=== PATIENT | female | born 1950 | race Caucasian/White ===

== ENCOUNTER 2022-09-16 08:18 | Day surgery (SDC) | payer MEDICARE, SELFPAY ==
[2022-09-16 08:48] VITALS: BP 148/81; PULSE 90; RESP 16; TEMP 36.5; O2SAT 97
[2022-09-16] MEDS: IOHEXOL 240 MG/ML - 10 ML VIAL INJ (09:38)
[2022-09-16] MEDS: LIDOCAINE HCL 2% PF 100 MG/5 ML VIAL 10 ML INJ (09:38)
[2022-09-16 09:40] VITALS: BP 172/75; BP 175/74; PULSE 84; PULSE 88; RESP 20; O2SAT 97
--- NOTE | 2022-09-16 10:22 | W.PM.PROCNOT ---
Date of procedure: 09/16/22 Pre-op diagnosis: bilateral knee osteoarthritis Post-op diagnosis: same Procedure: Procedure: Bilateral knee joint injection using gel-one. Pre & postoperative diagnosis: pain secondary to osteoarthritis Immediate complications none. Anesthesia: 2% lidocaine plain for skin wheal. After informed consent was obtained, patient brought to the OR placed in the supine position. Skin overlying the area was prepped and draped using Betadine. 25-gauge 1/2 inch needle was used for skin wheal over the medial aspect of the bilateral knee joint identified under fluoroscopy. Omnipaque dye was used to confirm needle tip placement within the knee joint spaces 0.5 mL use of the injection. Subsequently gel-one was injected into each space. No indication of intravascular or intraneuronal needle tip placement or injection was noted post procedure. The needle was removed, patient transferred to Recovery room in stable condition to discharged home after meeting criteria. Anesthesia: Local Surgeon: Vero Morin
== END 2022-09-16 09:44 | disposition home or self-care (01) ==
LOC: SURGOUT 08:19
PROVIDERS: PCP Family Medicine; Visit Provider Anesthesiology Pain Medicine
DX: M17.0 Bilateral primary osteoarthritis of knee (principal)
CPT/HCPCS: 20610; 77002; J7318; J7326; Q9966

== ENCOUNTER 2022-10-02 09:54 | Outpatient (OUT) | payer MEDICARE, SELFPAY ==
--- NOTE | 2022-10-02 10:34 | PM.CN ---
Consult Note: HPI Data of Consult Patient: known to practice within the last 3 years Consult date: 10/02/22 Requesting Physician: ANA PHIPPS NP Primary Care Provider: FABRIZIO HASKINS Consult Narrative Narrative: Patient is here for f/u of bilat durolane injection done on 09/16/22. She 50% relief of pain with increased fx after procedure. Pain is in both knees worse with climbing stairs. She does have muscle cramping bilat lower extremities. We discussed drinking electrolyte solutions and trying baclofen as prescribed. No new sensorimotor sx or bowel or bladder issues. No adverse medication SE. Medications assist patient with better ability to perform ADLs. cc:: CC: ANA PHIPPS NP Review of Systems ROS Status of ROS 10 or more systems reviewed and unremarkable except as noted in history and below Musculoskeletal Reports: extremity pain and joint pain PFSH PFSH Medical History (Updated 10/02/22 @ 10:45 by ANA PHIPPS NP) Surgical History Meds Home Medications and Allergies Home Medications Medication Instructions Recorded Confirmed Type acetaminophen 500 mg capsule 1,000 mg PO Q6H PRN pain 09/05/22 09/16/22 History baclofen 10 mg tablet 10 mg PO BID PRN muscle spasm 09/05/22 09/16/22 History celecoxib 100 mg capsule (Celebrex) 100 mg PO DAILY 09/05/22 09/16/22 History celecoxib 200 mg capsule mg 09/05/22 History cetirizine 5 mg-pseudoephedrine ER 1 tab PO .HS 09/05/22 09/16/22 History 120 mg tablet,extended release,12hr (Allergy Relief-D (cetirizine)) ezetimibe 10 mg-simvastatin 80 mg 1 tab PO DAILY 09/05/22 09/16/22 History tablet (Vytorin) lisinopril 10 mg tablet 20 mg PO .QD 09/05/22 09/16/22 History omega 0-bxh-sqq-fish oil 1,000 mg 1 cap PO DAILY 09/05/22 09/16/22 History (120 mg-180 mg) capsule (Fish Oil) Allergies Allergy/AdvReac Type Severity Reaction Status Date / Time cephalexin [From Keflex] Allergy Rash Verified 09/16/22 08:44 meperidine [From Demerol] Allergy Nausea Verified 09/16/22 08:44 propoxyphene Allergy Vomiting Verified 09/16/22 08:44 [From Darvocet-N 100] acetaminophen AdvReac Mild Vomiting Verified 09/16/22 08:44 [From Darvocet-N 100] Exam Constitutional Documenting provider has reviewed patient's vital signs: yes Common normals: no apparent distress, average body habitus, oriented x3 and no limitations General appearance: cooperative, comfortable and well developed Orientation/consciousness: Yes awake, Yes oriented to person, Yes oriented to place and Yes oriented to time HENNH Common normals: normocephalic and moist oral mucous membranes Respiratory Common normals: normal respiratory effort, no retractions and no use of accessory muscles Effort & inspection: able to speak in complete sentences and symmetric chest movement Extremity Common normals: normal to inspection, normal capillary refill and no pedal edema Other: pain medial knees bilat brisk cap refill muscle strength 5/5 bilat with intact sensation bilat bLE Assessment and Plan Assessment and Plan (1) Knee osteoarthritis: (2) Muscle spasm: Plan f/u 6 months gentle stretching exercises and electrolyte drinks
== END 2022-10-02 09:55 | disposition home or self-care (01) ==
LOC: PM 09:54
PROVIDERS: PCP Family Medicine; Visit Provider Nurse Practitioner
DX: M62.838 Other muscle spasm (principal); M17.0 Bilateral primary osteoarthritis of knee
CPT/HCPCS: G0463

== ENCOUNTER 2022-11-24 07:31 | Outpatient (OUT) | payer MEDICARE, SELFPAY ==
--- NOTE | 2022-11-24 08:17 | PM.CN ---
Consult Note: HPI Data of Consult Patient: known to practice within the last 3 years Consult date: 11/24/22 Requesting Physician: Ino Carcamo MD Primary Care Provider: FABRIZIO HASKINS Consult Narrative Reason for consult: bilateral knee pain Narrative: 72yof with history of bilateral knee pain who presents for assessment. has had various gel injections in the past, with little relief. continues to have bilateral knee pain. sees ortho, but she is trying to avoid knee replacement. continues in provider directed home exercises >6 weeks, with little relief. uses OTC pain medications as needed. cc:: CC: Ino Carcamo MD Review of Systems ROS Status of ROS 10 or more systems reviewed and unremarkable except as noted in history and below [facility] Medical History Surgical History Meds Home Medications and Allergies Home Medications Medication Instructions Recorded Confirmed Type acetaminophen 500 mg capsule 1,000 mg PO Q6H PRN pain 09/05/22 09/16/22 History baclofen 10 mg tablet 10 mg PO BID PRN muscle spasm 09/05/22 09/16/22 History celecoxib 100 mg capsule (Celebrex) 100 mg PO DAILY 09/05/22 09/16/22 History celecoxib 200 mg capsule mg 09/05/22 History cetirizine 5 mg-pseudoephedrine ER 1 tab PO .HS 09/05/22 09/16/22 History 120 mg tablet,extended release,12hr (Allergy Relief-D (cetirizine)) ezetimibe 10 mg-simvastatin 80 mg 1 tab PO DAILY 09/05/22 09/16/22 History tablet (Vytorin) lisinopril 10 mg tablet 20 mg PO .QD 09/05/22 09/16/22 History omega 8-koo-roi-fish oil 1,000 mg 1 cap PO DAILY 09/05/22 09/16/22 History (120 mg-180 mg) capsule (Fish Oil) Allergies Allergy/AdvReac Type Severity Reaction Status Date / Time cephalexin [From Keflex] Allergy Rash Verified 09/16/22 08:44 meperidine [From Demerol] Allergy Nausea Verified 09/16/22 08:44 propoxyphene Allergy Vomiting Verified 09/16/22 08:44 [From Darvocet-N 100] acetaminophen AdvReac Mild Vomiting Verified 09/16/22 08:44 [From Darvocet-N 100] Exam Narrative Exam Narrative: Psych-alert and oriented x 3.? Attentive and appropriate, constitutionally normal, displays normal mood and affect per situation.? There are no obvious deficits in memory, reasoning, or intellect. Extremities-lower extremities are warm with minimal edema and palpable pulses. Knee-examination of the bilateral knee reveals tenderness to palpation over the superior, inferior, lateral, and medial aspect of the knee.? Some swelling is noted without erythema. Pain is elicited with flexion and extension of the knee both actively and passively.? Some grinding is noted with these motions.? There is no notable ligamental laxity or instability.? Coordination remains intact.? Gait remains antalgic. Assessment and Plan Assessment and Plan (1) Knee osteoarthritis: Plan pleasant 72yof who presents for assessment. failed conservative measures, as noted above. she would like to have steroid injections in knees today, which have provided relief. will proceed today. also discussed genicular nerve blocks. she is interested and wanted more information, which i provided. medications reviewed, and no changes made at this time. follow up in 3 months. Procedure: Bilateral knee injection Medications: Bupivacaine 0.25% 4cc, kenalog 40mg x2 I explained the details of the procedure to the patient including the risks, benefits and alternatives. We had an informed discussion and the patient verbalized understanding and signed the consent form. All questions were answered appropriately.? A time out was performed.? After obtaining a comfortable seated position, the left knee was prepped with alcohol x3. A syringe containing the above medication was attached to a 22 guage, 1.5 inch needle under strict aseptic technique. The lateral tibial plateau was palpated.? The needle was then advanced through the subcutaneous tissue in a medial and superior direction towards the joint space.? The contents of the syringe were gently injected without any resistance. The needle was removed and pressure was applied to the injection site to decrease the incidence of ecchymosis and hematoma formation. The same procedure was then completed on the opposite side.? A sterile bandage was applied.
== END 2022-11-24 07:32 | disposition home or self-care (01) ==
LOC: PM 07:31
PROVIDERS: PCP Family Medicine; Visit Provider Anesthesiology
DX: M17.0 Bilateral primary osteoarthritis of knee (principal)
CPT/HCPCS: 20610

== ENCOUNTER 2022-11-25 19:54 | Outpatient (REF) | payer MEDICARE, SELFPAY ==
[2022-12-01 14:08] LABS: Age Gdln ACOG Testing Note (.); Pap IG (Image Guided) Note (.)
== END 2022-11-25 19:55 | disposition home or self-care (01) ==
LOC: LAB 19:54
PROVIDERS: PCP Family Medicine; Visit Provider Obstetrics & Gynecology
DX: Z12.4 Encounter for screening for malignant neoplasm of cervix (principal)
CPT/HCPCS: G0145

== ENCOUNTER 2023-01-10 20:36 | Emergency (ER) | payer MEDICARE, SELFPAY ==
[2023-01-10 20:39] VITALS: BP 149/86; PULSE 104; RESP 18; TEMP 36.7; O2SAT 97; BMI 31.9
--- NOTE | 2023-01-10 20:48 | XR_ITS ---
The [address] [address] Patient Name: KATRIN WEBB MRN: [id number] date: 1950 Sex: F Assigned Patient Location: ER Current Patient Location: ER Accession/Order Number: [id number] Exam Date: 01/10/2023 21:05 Report Date: 01/10/2023 21:30 At the request of: BARB PALOMINO Procedure: XR elbow LT min 3V EXAM: XR forearm LT 2V, XR elbow LT min 3V HISTORY: Fall COMPARISON: None. TECHNIQUE: 2 views of the forearm and 3 views of the elbow FINDINGS: IMPRESSION: Comminuted displaced intra-articular fracture of the radial head and neck. Moderate elbow effusion. Adjacent soft tissue edema. The remainder of the osseous structures are unremarkable. Enthesophytes off the medial and lateral epicondyles. Electronically authenticated by: EVI HAMPTON Date: 01/10/2023 21:30
--- NOTE | 2023-01-10 20:52 | XR_ITS ---
The [address] [address] Patient Name: KATRIN WEBB MRN: [id number] date: 1950 Sex: F Assigned Patient Location: ER Current Patient Location: ER Accession/Order Number: [id number] Exam Date: 01/10/2023 21:05 Report Date: 01/10/2023 21:30 At the request of: BARB PALOMINO Procedure: XR forearm LT 2V EXAM: XR forearm LT 2V, XR elbow LT min 3V HISTORY: Fall COMPARISON: None. TECHNIQUE: 2 views of the forearm and 3 views of the elbow FINDINGS: IMPRESSION: Comminuted displaced intra-articular fracture of the radial head and neck. Moderate elbow effusion. Adjacent soft tissue edema. The remainder of the osseous structures are unremarkable. Enthesophytes off the medial and lateral epicondyles. Electronically authenticated by: EVI HAMPTON Date: 01/10/2023 21:30
--- NOTE | 2023-01-10 20:55 | ED.UPPEXIN1 ---
HPI - Extremity Injury (Upper) General Chief Complaint: Extremity Injury, Upper Stated Complaint: FELL HURT L ELBOW Time Seen by Provider: 01/10/23 20:44 Mode of arrival: walk-in Limitations: no limitations History of Present Illness HPI narrative: 72-year-old female presents with chief complaint of left elbow pain. Patient states he tripped landing on her elbow on the concrete prior to arrival. Soft tissue swelling is noted. Patient has difficulty extending and flexing. s He is right-hand dominant. Previous fracture to this extremity. she denies any other injuries striking her head or neck during the fall. Patient drove herself here to the emergency room. Related Data Home Medications Medication Instructions Recorded Confirmed acetaminophen 500 mg capsule 1,000 mg PO Q6H PRN pain 09/05/22 01/10/23 baclofen 10 mg tablet 10 mg PO BID PRN muscle spasm 09/05/22 01/10/23 celecoxib 100 mg capsule (Celebrex) 100 mg PO DAILY 09/05/22 01/10/23 celecoxib 200 mg capsule mg 09/05/22 ezetimibe 10 mg-simvastatin 80 mg 1 tab PO DAILY 09/05/22 01/10/23 tablet (Vytorin) lisinopril 10 mg tablet 5 mg PO .QD 09/05/22 01/10/23 omega 4-fwz-wcl-fish oil 1,000 mg 1 cap PO DAILY 09/05/22 01/10/23 (120 mg-180 mg) capsule (Fish Oil) Allergies Allergy/AdvReac Type Severity Reaction Status Date / Time cephalexin [From Keflex] Allergy Rash Verified 09/16/22 08:44 meperidine [From Demerol] Allergy Nausea Verified 09/16/22 08:44 propoxyphene Allergy Vomiting Verified 09/16/22 08:44 [From Darvocet-N 100] acetaminophen AdvReac Mild Vomiting Verified 09/16/22 08:44 [From Darvocet-N 100] Review of Systems ROS Narrative All Systems are negative except as noted/marked.All systems reviewed and otherwise negative [facility] Medical History Surgical History Exam Narrative Exam Narrative: Nurses note and vital signs reviewed and patient is not hypoxic. General: The patient appears well and in no apparent distress. Patient is resting comfortably on cart. Skin: Warm, dry, no pallor noted. There is no rash noted. Head: Normocephalic, atraumatic Eye: Normal conjunctiva, no drainage, EOMI. PERRL Ears, Nose, Mouth, and Throat: oral mucosa is moist. Nares patent. Mouth without vesicles. Ear canals patent. Tm's without Erythema Cardiovascular: Regular Rate and Rhythm Musculoskeletal: tissue swelling left elbow difficulty extending and flexing elbow, no acute dislocation, extremities neurovascular intact, remainder extremities are unremarkable. Neurological: A&O x4, normal speech Psychiatric: Cooperative Constitutional Vital Signs, click to edit/add: Last Vital Signs Temp 98.1 F 01/10/23 20:39 Pulse 104 H 01/10/23 20:39 Resp 18 01/10/23 20:39 BP 149/86 H 01/10/23 20:39 Pulse Ox 97 01/10/23 20:39 O2 Del Method Room Air 01/10/23 20:39 Course Vital Signs Vital signs: Vital Signs Temperature 98.1 F 01/10/23 20:39 Pulse Rate 104 H 01/10/23 20:39 Respiratory Rate 18 01/10/23 20:39 Blood Pressure 149/86 H 01/10/23 20:39 Pulse Oximetry 97 01/10/23 20:39 Oxygen Delivery Method Room Air 01/10/23 20:39 Temperature 98.1 F 01/10/23 20:39 Pulse Rate 104 H 01/10/23 20:39 Respiratory Rate 18 01/10/23 20:39 Blood Pressure 149/86 H 01/10/23 20:39 Pulse Oximetry 97 01/10/23 20:39 Oxygen Delivery Method Room Air 01/10/23 20:39 MDM - Extremity Injury (Upper) MDM Narrative Medical decision making narrative: percent here chief complaint elbow pain. She had fallen the time. Arrival difficulty extending and flexing her arm. X-rays consistent with radial head and neck fracture. Patient was placed the posterior splint by myself. Extremity neurovascularly intact before and after application. Sling then applied. Patient is discharged home with two [place] to go as well as prescription for [place]. She does see Dr. Riojas she will follow-up with him early next week. Medical Records Attestation: I reviewed the patient's medical records. Imaging Data elbow: Radiologist's impression: Patient Name: KATRIN WEBB MRN: [id number] date: 1950 Sex: F Assigned Patient Location: ER Current Patient Location: ER Accession/Order Number: [id number] Exam Date: 01/10/2023 21:05 Report Date: 01/10/2023 21:30 At the request of: BARB PALOMINO Procedure: XR elbow LT min 3V EXAM: XR forearm LT 2V, XR elbow LT min 3V HISTORY: Fall COMPARISON: None. TECHNIQUE: 2 views of the forearm and 3 views of the elbow FINDINGS: IMPRESSION: Comminuted displaced intra-articular fracture of the radial head and neck. Moderate elbow effusion. Adjacent soft tissue edema. The remainder of the osseous structures are unremarkable. Enthesophytes off the medial and lateral epicondyles. Electronically authenticated by: EVI HAMPTON Date: 01/10/2023 21:30 Discharge Plan Discharge Chief Complaint: Extremity Injury, Upper Clinical Impression: Elbow fracture, left Patient Disposition: Home, Self-Care Time of Disposition Decision: 21:53 Condition: Good Prescriptions / Home Meds: No Action baclofen 10 mg tablet 10 mg PO BID PRN (Reason: muscle spasm) Rx Instructions: 14-1/2 TAB QAM AND AFTERNOON 1/2-1 TAB PO HS celecoxib 200 mg capsule Hold Instructions: DUPLICATE celecoxib [Celebrex] 100 mg capsule 100 mg PO DAILY acetaminophen 500 mg capsule 1,000 mg PO Q6H PRN (Reason: pain) omega 9-keb-vhc-fish oil [Fish Oil] 1,000 mg (120 mg-180 mg) capsule 1 cap PO DAILY lisinopril 10 mg tablet 5 mg PO .QD ezetimibe-simvastatin [Vytorin 10-80] 10-80 mg tablet 1 tab PO DAILY Instructions: Elbow Fracture (ED) Stand Alone Forms: Portal Instructions Referrals: FABRIZIO HASKINS [Primary Care Provider] - 1 week Driss Riojas MD [Physician] - 1 week
[2023-01-10] MEDS: ACETAMINOPHEN 500 MG TABLET 1000 MG PO (21:13)
[2023-01-10] MEDS: HYDROCODONE/ACET 5-325 MG TABLET 2 TAB PO (22:10)
== END 2023-01-10 22:19 | disposition home or self-care (01) ==
PROVIDERS: Emergency Provider Student in an Organized Health Care Education/Training Program; PCP Family Medicine
DX: S52.122A Displaced fracture of head of left radius, initial encounter for closed fracture (principal); S52.132A Displaced fracture of neck of left radius, initial encounter for closed fracture; W01.198A Fall on same level from slipping, tripping and stumbling with subsequent striking against other object, initial encounter; Z79.899 Other long term (current) drug therapy
CPT/HCPCS: 29105; 73080; 73090; 99283

== ENCOUNTER 2023-01-15 08:29 | Outpatient (OUT) | payer MEDICARE, SELFPAY ==
--- NOTE | 2023-01-15 08:35 | CT_ITS ---
The [address] [address] Patient Name: KATRIN WEBB MRN: [id number] date: 1950 Sex: F Assigned Patient Location: CT Current Patient Location: CT Accession/Order Number: [id number] Exam Date: 01/15/2023 08:48 Report Date: 01/15/2023 12:42 At the request of: LUZ MARINA Wood APLZHANG Procedure: CT elbow LT wo con EXAM: CT elbow LT wo con HISTORY: Closed Displaced Fracture Of Neck Of Radius COMPARISON: Plain radiograph 01/10/2023 TECHNIQUE: Helical CT images of the left elbow were obtained without contrast FINDINGS: Redemonstration of a comminuted, mildly moderately displaced radial head fracture. Displaced fracture fragment is seen along the posterior margin of the capitellum. There is also a nondisplaced coronoid process fracture. Multiple small ossific fragments are present within a moderate size joint effusion, likely posttraumatic. Mild osteoarthritis of the ulnohumeral articulation. Likely posttraumatic subcutaneous intramuscular edema about the elbow. Common extensor and common flexor and enthesophytes are noted likely reflecting underlying tendinosis. CT/CT elbow LT wo con IMPRESSION: 1. Comminuted, moderately displaced radial head fracture. 2. Nondisplaced coronoid process fracture. Electronically authenticated by: SHERI TOBIN Date: 01/15/2023 12:42
== END 2023-01-15 08:30 | disposition home or self-care (01) ==
LOC: CT 08:29
PROVIDERS: PCP Family Medicine; Visit Provider Nurse Practitioner Family
DX: S52.132A Displaced fracture of neck of left radius, initial encounter for closed fracture (principal); S42.135A Nondisplaced fracture of coracoid process, left shoulder, initial encounter for closed fracture
CPT/HCPCS: 73200

== ENCOUNTER 2023-06-25 08:22 | Outpatient (OUT) | payer MEDICARE, SELFPAY ==
--- NOTE | 2023-06-25 09:33 | P.CN_ITS ---
Consult Note: HPI Data of Consult Patient: known to practice within the last 3 years Consult date: 11/24/22 Requesting Physician: Dena Ireland NP Primary Care Provider: FABRIZIO HASKINS Consult Narrative Reason for consult: bilateral knee pain Narrative: 72yof with history of bilateral knee pain who presents for assessment. has had various gel injections in the past, with little relief. continues to have bilateral knee pain. sees ortho, but she is trying to avoid knee replacement. continues in provider directed home exercises >6 weeks, with little relief. uses OTC pain medications as needed. Patient would like to discuss left knee pain, 5/10 today increasing to /10 with standing walking activity. cc:: CC: Dena Ireland NP Review of Systems ROS Status of ROS 10 or more systems reviewed and unremark able except as noted in history and below Musculoskeletal Reports: joint pain PFSH PFSH Medical History Status post extracorporeal shock wave therapy ?Z98.890 - Other specified postprocedural states (ICD-10) Osteoarthritis ?M19.90 - Unspecified osteoarthritis, unspecified site (ICD-10) Acid reflux ?K21.9 - Gastro-esophageal reflux disease without esophagitis (ICD-10) High cholesterol ?E78.00 - Pure hypercholesterolemia, unspecified (ICD-10) Hypertension ?I10 - Essential (primary) hypertension (ICD-10) Surgical History Hx of appendectomy ?Z90.49 - Acquired absence of other specified parts of digestive tract (ICD- 10) History of cholecystectomy ?Z90.49 - Acquired absence of other specified parts of digestive tract (ICD- 10) H/O tubal ligation ?Z98.51 - Tubal ligation status (ICD-10) Meds Home Medications and Allergies Home Medications ?Medication ?Instructions ?Recorded ?Confirmed ?Type acetaminophen 500 mg capsule 1,000 mg PO Q6H PRN pain 09/05/22 01/10/23 History celecoxib 100 mg capsule (Celebrex) 100 mg PO DAILY 09/05/22 01/10/23 History ezetimibe 10 mg-simvastatin 80 mg 1 tab PO DAILY 09/05/22 01/10/23 History tablet (Vytorin) omega 9-dlf-pfh-fish oil 1,000 mg 1 cap PO DAILY 09/05/22 01/10/23 History (120 mg-180 mg) capsule (Fish Oil) cetirizine 5 mg-pseudoephedrine ER tab PO 06/25/23 History 120 mg tablet,extended release,12hr (Allergy Relief-D (cetirizine)) lisinopril 5 mg tablet 5 mg QDAY 06/25/23 History Allergies Allergy/AdvReac Type Severity Reaction Status Date / Time cephalexin [From Keflex] Allergy Rash Verified 09/16/22 08:44 meperidine [From Demerol] Allergy Nausea Verified 09/16/22 08:44 propoxyphene Allergy Vomiting Verified 09/16/22 08:44 [From Darvocet-N 100] acetaminophen AdvReac Mild Vomiting Verified 09/16/22 08:44 [From Darvocet-N 100] Exam Narrative Exam Narrative: Psych-alert and oriented x 3.? Attentive and appropriate, constitutionally normal, displays normal mood and affect per situation.? There are no obvious deficits in memory, reasoning, or intellect. Extremities-lower extremities are warm with minimal edema and palpable pulses. Knee-examination of the bilateral knee reveals tenderness to palpation over the superior, inferior, lateral, and medial aspect of the knee.? Some swelling is noted without erythema. Pain is elicited with flexion and extension of the knee both actively and passively.? Some grinding is noted with these motions.? There is no notable ligamental laxity or instability.? Coordination remains intact.? Gait remains antalgic. Assessment and Plan Assessment and Plan (1) Osteoarthritis of left knee: (2) Chronic pain of left knee: Plan left knee genicular nerve block under fluoroscopy working towards thermal RFA f/u 1 week after injection
== END 2023-06-25 08:23 | disposition home or self-care (01) ==
LOC: PM 08:22
PROVIDERS: PCP Family Medicine; Visit Provider Nurse Practitioner
DX: M17.12 Unilateral primary osteoarthritis, left knee (principal); G89.29 Other chronic pain; M25.562 Pain in left knee
CPT/HCPCS: G0463

== ENCOUNTER 2023-07-28 09:32 | Day surgery (SDC) | payer MEDICARE, SELFPAY ==
[2023-07-28 10:01] VITALS: BP 150/96; PULSE 86; TEMP 36.2; O2SAT 98
[2023-07-28 10:53] VITALS: BP 136/63; PULSE 85; O2SAT 99
[2023-07-28 11:00] VITALS: BP 137/65; PULSE 86; O2SAT 98
[2023-07-28] MEDS: BUPIVACAINE HCL 0.25% PF 25 MG/10 ML VIAL 4 ML INJ (11:01)
--- NOTE | 2023-07-28 11:05 | P.ON_ITS ---
Date of procedure: 07/28/23 Pre-op diagnosis: Left knee osteoarthritis Post-op diagnosis: same as pre-op Procedure: Left Genicular Nerve Block PREOPERATIVE DIAGNOSIS: Pain secondary to knee pain, osteoarthritis, osteoarthrosis/degenerative joint disease. POSTOPERATIVE DIAGNOSIS--the same. SOLUTION USED FOR INJECTION: Marcaine 0.25%. IMMEDIATE COMPLICATIONS: None. PROCEDURE: After informed consent was obtained from the patient, brought to the OR, placed in the supine position. Skin overlying the area was prepped and draped in sterile fashion. Subsequently, a 25 gauge spinal needle was inserted over the inferior medial genicular nerve. Landmarks were identified under fluor oscopy. Needle tip advanced until the desired location was achieved, at which point we ruled out intravascular or intraneural needle tip placement. 1 mL of solution was injected. This procedure was performed in a similar fashion at the superior medial and superior lateral branches of the genicular nerve. Throughout the procedure, no indication of intravascular or intraneural needle tip placement or injection. Post procedurally, needle removed. Patient tolerated the procedure with no complications, transferred to the recovery room in stable condition. She will be discharged home after meeting criteria. Patient informed to keep a pain diary for the first two hours post procedurally. Anesthesia: Local Surgeon: Vero Morin Condition: stable
== END 2023-07-28 11:07 | disposition home or self-care (01) ==
LOC: SURGOUT 09:32
PROVIDERS: PCP Family Medicine; Visit Provider Anesthesiology Pain Medicine
DX: M17.12 Unilateral primary osteoarthritis, left knee (principal); M25.562 Pain in left knee
CPT/HCPCS: 64454

== ENCOUNTER 2023-08-06 08:45 | Outpatient (OUT) | payer MEDICARE, SELFPAY ==
--- NOTE | 2023-08-06 08:59 | P.CN_ITS ---
Consult Note: HPI Data of Consult Patient: known to practice within the last 3 years Consult date: 11/24/22 Requesting Physician: Dena Ireland NP Primary Care Provider: FABRIZIO HASKINS Consult Narrative Reason for consult: bilateral knee pain Narrative: 72yof with history of bilateral knee pain who presents for assessment. has had various gel injections in the past, with little relief. continues to have bilateral knee pain. sees ortho, but she is trying to avoid knee replacement. continues in provider directed home exercises >6 weeks, with little relief. uses OTC pain medications as needed. Patient would like to discuss left knee pain, 5/10 today increasing to 8/10 with standing walking activity. Recently underwent left genicular nerve block with >50% improvement in left knee pain, also noticed significant functional improvement following the injection she was able to walk up steps and ambulate without assistance. cc:: CC: Dena Ireland NP Review of Systems ROS Status of ROS 10 or more systems reviewed and unremark able except as noted in history and below Musculoskeletal Reports: joint pain PFSH PFSH Medical History Status post extracorporeal shock wave therapy ?Z98.890 - Other specified postprocedural states (ICD-10) Osteoarthritis ?M19.90 - Unspecified osteoarthritis, unspecified site (ICD-10) Acid reflux ?K21.9 - Gastro-esophageal reflux disease without esophagitis (ICD-10) High cholesterol ?E78.00 - Pure hypercholesterolemia, unspecified (ICD-10) Hypertension ?I10 - Essential (primary) hypertension (ICD-10) Surgical History Hx of appendectomy ?Z90.49 - Acquired absence of other specified parts of digestive tract (ICD- 10) History of cholecystectomy ?Z90.49 - Acquired absence of other specified parts of digestive tract (ICD- 10) H/O tubal ligation ?Z98.51 - Tubal ligation status (ICD-10) Meds Home Medications and Allergies Home Medications ?Medication ?Instructions ?Recorded ?Confirmed ?Type acetaminophen 500 mg capsule 1,000 mg PO Q6H PRN pain 09/05/22 07/28/23 History celecoxib 100 mg capsule (Celebrex) 100 mg PO DAILY 09/05/22 07/28/23 History ezetimibe 10 mg-simvastatin 80 mg 1 tab PO DAILY 09/05/22 07/28/23 History tablet (Vytorin) omega 7-eue-dkm-fish oil 1,000 mg 1 cap PO DAILY 09/05/22 07/28/23 History (120 mg-180 mg) capsule (Fish Oil) cetirizine 5 mg-pseudoephedrine ER tab PO 06/25/23 History 120 mg tablet,extended release,12hr (Allergy Relief-D (cetirizine)) lisinopril 5 mg tablet 5 mg QDAY 06/25/23 History Allergies Allergy/AdvReac Type Severity Reaction Status Date / Time cephalexin [From Keflex] Allergy Rash Verified 07/28/23 10:00 meperidine [From Demerol] Allergy Nausea Verified 07/28/23 10:00 propoxyphene Allergy Vomiting Verified 07/28/23 10:00 [From Darvocet-N 100] acetaminophen AdvReac Mild Vomiting Verified 07/28/23 10:00 [From Darvocet-N 100] Exam Narrative Exam Narrative: Psych-alert and oriented x 3.? Attentive and appropriate, constitutionally normal, displays normal mood and affect per situation.? There are no obvious deficits in memory, reasoning, or intellect. Extremities-lower extremities are warm with minimal edema and palpable pulses. Knee-examination of the bilateral knee reveals tenderness to palpation over the superior, inferior, lateral, and medial aspect of the knee.? Some swelling is noted without erythema. Pain is elicited with flexion and extension of the knee both actively and passively.? Some grinding is noted with these motions.? There is no notable ligamental laxity or instability.? Coordination remains intact.? Gait remains antalgic. Constitutional Documenting provider has reviewed patient's vital signs: yes Common normals: no apparent distress, oriented x3, healthy appearing, alert and well nourished General appearance: cooperative HENMT Common normals: normocephalic, hearing grossly normal bilaterally and moist oral mucous membranes Head and scalp: normocephalic Eye Common normals: PERRL Pupil: PERRL Neck & C-Spine Common normals: full ROM General: normal visual inspection Chest Common normals: inspection of chest normal Respiratory Common normals: normal respiratory effort, no retractions and no use of accessory muscles Neuro Common normals: oriented x3, CN's II-XII intact bilaterally, moves all extremities, no focal motor deficits, no sensory deficits noted and deep tendon reflexes 2+ bilaterally Sensorium/orientation: alert Motor exam: strength 5/5 throughout and no movement abnormalities noted Psych Common normals: mental status grossly normal, thought process normal, cooperative, affect normal, speech normal and activity/motor behavior normal Speech: normal speech Thought process: normal thought process Results Additional Findings Additional findings: If on a controlled substance or opioids, I have checked an [place] report on this patient and there are no aberrancies noted in the prescribing history.??If on a controlled substance or opioid a drug screen was completed and reviewed within the last year, and if there has not been a drug screen completed we ordered one today to monitor higher risk, state monitored pain medication use. As part of providing excellent, safe, comprehensive care, the following was completed at our patient's visit: 1. A medication reconciliation and review to ensure accurate knowledge of current/active medications, including asking our patients to inform us about any [id number] medications or herbal remedies/nutritional supplements/alternative remedies. 2. A review to specifically ensure our patients have had annual screening for screening for depression, screening for tobacco use, and screening for unhealthy alcohol use. For concerning screenings had a discussion with the patient, provided patient education, and recommended follow-up with primary care provider when appropriate. If patient noted with a risk of falling, they received education on strength, gait, and balance training to prevent future risk of falling. Assessment and Plan Assessment and Plan (1) Osteoarthritis of left knee: (2) Chronic pain of left knee: (3) Muscle spasm: Plan left knee genicular RFA transdermal therapeutics cream 8a to left knee TID-QID, if insurance does not cover patient to try diclofenac gel TID-QID. reports she has tried all over the counter creams and gels without improvement continue PRN baclofen 5-10mg daily as needed myofascial pain/spasms f/u 1 month after RFA
--- OUTSIDE RECORDS SUMMARY | 2023-08-06 09:00 | XMS_ITS | CCD ---
Author Organization [facility] Care Team Providers Care Manager Small Business Name Role Phone DO Ismael Bonilla Primary Care Provider DO Britney Cope Attending Provider MELBA ., DR ELEAZAR Schrader Attending Unavailable MISC, DR BOYCE Consulting Unavailable MISC, DR BOYCE Primary Care Unavailable REILLY ., DR ELEAZAR Schrader Admitting Unavailable REILLY ., DR ELEAZAR Schrader Consulting Unavailable REILLY ., DR ELEAZAR Schrader Attending Unavailable REILLY ., DR ELEAZAR Schrader Admitting Unavailable REILLY ., DR ELEAZAR Schrader Consulting Unavailable FURLONG, DR ISMAEL Corona Primary Care Unavailable REILLY ., DR ELEAZAR Schrader Attending Unavailable MISC, DR BOYCE Primary Care Unavailable REILLY ., DR ELEAZAR Schrader Admitting Unavailable REILLY ., DR ELEAZAR Schrader Attending Unavailable FURLONG, DR ISMAEL Corona Primary Care Unavailable MISC, DR BOYCE Consulting Unavailable REILLY ., DR ELEAZAR Schrader Admitting Unavailable GARRICK ., DR LEE Admitting Unavailable FURLONG, DR ISMAEL Corona Primary Care Unavailable GARRICK ., DR LEE Attending Unavailable GARRICK ., DR LEE Consulting Unavailable ANDRZEJ, DR AMINA Mullen Attending Unavailable ANDRZEJ, DR AMINA Mullen Consulting Unavailable ANDRZEJ, DR AMINA Mullen Admitting Unavailable FURKATHIANG, DR ISMAEL Corona Primary Care Unavailable LAKSHMIPATHY ., NATY Attending Purvi vailable JOZEF, DR ISMAEL Corona Primary Care Unavailable LAKSHMIPATHY ., NATY Consulting Purvi vailable LAKSHMIPATHY ., NATY Admitting Purvi vailable REILLY ., DR ELEAZAR Schrader Admitting Unavailable MISC, DR BOYCE Primary Care Unavailable REILLY ., DR ELEAZAR Schrader Attending Unavailable MISC, DR DOCTOR Priest Unavailable REILLY ., DR ELEAZAR Schrader Consulting Unavailable Andrew Agarwal Unavailable DO Ismael Bonilla Primary Care Provider MD Andrew Agarwal Attending Provider Jozef, DO Guevara Primary Care Provider Self, Referral Attending Provider Unavailable Clydes [employer]SEMBLER, Amina Reyes Primary Care Provider ANDRZEJ, AMINA REYES Attending Unavailable KUNS, AMINA REYES Referring Unavailable KUNS, DEIDRE Primary Care Unavailable KUNS, AMINA REYES Attending Unavailable KUNS, AMINA REYES Referring Unavailable KUNS, DEIDRE Primary Care Unavailable FURISMAEL MCCABE Attending Unavailable KUNS, AMINA REYES Referring Unavailable KUNS, DEIDRE Primary Care Unavailable Self, Referral Admitting Unavailable Self, Referral Attending Unavailable Tawandaloessie, Ismael Primary Care Unavailable Andrew Agarwal Attending Unavailable Tawandaloessie, Ismael Primary Care Unavailable Andrew Agarwal Admitting Unavailable Furlong Ismael POND Primary Care Provider ANDRZEJ, AMINA REYES Referring Unavailable KUNS, AMINA REYES Primary Care Unavailable YUHASJORJE Admitting Unavailable YUHASJORJE Attending Unavailable KUNS, DEIDRE Primary Care Unavailable YUHAS, JORJE Daniels Attending Unavailable YUHASJORJE Referring Unavailable KUNS, DEIDRE Primary Care Unavailable BEULAH, JASMINE Mahoney Attending Unavailable BEULAH, JASMINE Mahoney Attending Unavailable BEULAH, JASMINE Mahoney Referring Unavailable BEULAH, JASMINE Mahoney Attending Unavailable BEULAH, JASMINE Mahoney Referring Unavailable CARLOS LAST Attending Unavailable BEULAH, JASMINE Mahoney Referring Unavailable BEULAH, JASMINE Mahoney Attending Unavailable ANGELICA GARCIA Attending Unavailable BEULAH, JASMINE Mahoney Attending Unavailable BEULAH, JASMINE Mahoney Attending Unavailable BEULAH, JASMINE Mahoney Referring Unavailable BRITNEY COPE Attending Unavailable ISMAEL BONILLA Referring Unavailable Allergies Allergy Classification Reported Allergen(s) Allergy Type Date of Onset Reaction(s) Facility (4 sources) Cephalexin Drug Allergy 7 Unknown [facility] (2 sources) Meperidine Drug Allergy 7 [facility] (2 sources) Darvocet-N 100 Drug allergy (disorder) 7 [facility] (11 sources) Cephalexin; Translations: [CEPHALEXIN] Drug Allergy 2 Rash, Unknown [facility] (11 sources) Meperidine; Translations: [MEPERIDINE] Drug Allergy 2 Nausea, Nausea Only [facility] Work Phone: (7 sources) Propoxyphene N-Acetaminophen; Translations: [PROPOXYPHENE N-ACETAMINOPHEN] Propensity to adverse reactions to drug 2 [facility]omiting [facility] (1 source) Cephalexin Drug Allergy 3 [facility] Rep[facility] (4 sources) Meperidine Drug Allergy 3 Unknown [facility] (4 sources) Propoxyphene Drug Allergy 3 Unknown [facility] Healthcare Medications Current Medications Medication Drug Class(es) Dates Sig (Normalized) Sig (Original) acetaminophen 325 mg oral tablet (9 sources) take 1 tablet by mouth every six hours as needed acetaminophen (TYLENOL) 325 mg tablet Take 1 tablet (325 mg total) by mouth every 6 (six) hours as needed. 0 Active celecoxib 200 mg oral capsule (11 sources) Nonsteroidal Anti-inflammatory Drug Start: 05-04-2023 take 1 capsule by mouth in the morning celecoxib (CeleBREX) 200 mg capsule TAKE 1 CAPSULE BY MOUTH IN THE MORNING 90 capsule 1 05/04/2023 Active Start: 09-21-2022 take 1 capsule by mo uth in the morning celecoxib (CeleBREX) 200 mg capsule TAKE 1 CAPSULE BY MOUTH IN THE MORNING 90 capsule 1 09/21/2022 Active CeleBREX Active 12 hr cetirizine hydrochloride 5 mg / pseudoephedrine hydrochloride 120 mg extended release oral tablet (6 sources) alpha-Adrenergic Agonist, Histamine-1 Receptor Antagonist Start: 08-21-2022 End: 03-16-2023 ALLERGY RELIEF-D, CETIRIZINE, 5-120 mg per 12 hr tablet Indications: Other seasonal allergic rhinitis TAKE 1 TABLET BY MOUTH EVERY 12 HOURS FOR 10 DAYS 20 tablet 1 03/16/2023 Active dextromethorphan hydrobromide 1.5 mg/ml / pyrilamine maleate 1.5 mg/ml oral solution (5 sources) Uncompetitive U-hngiqp-O-aspartate Receptor Antagonist, Sigma-1 Agonist Start: 05-04-2023 take 5 mL by mouth four times daily as needed for cough and congestion CAPRON DM 7.5-7.5 mg/5 mL liquid Indications: Viral upper respiratory tract infection TAKE 5ml BY MOUTH FOUR TIMES DAILY NEEDED FOR COUGH and FOR CONGESTION 200 mL 1 05/04/2023 Active Start: 05-04-2023 take 5 mL by mouth f our times daily as needed for cough and congestion pyrilamine-dextromethorphan 7.5-7.5 mg/5 mL liquid Indications: Viral upper respiratory tract infection Take 5 mL by mouth 4 (four) times a day as needed (cough and congestion). 200 mL 1 05/04/2023 Active Start: 03-17-2023 End: 04-29-2023 take 5 mL by mouth four times daily as needed for cough and congestion pyrilamine-dextromethorphan 7.5-7.5 mg/5 mL liquid Indications: Viral upper respiratory tract infection Take 5 mL by mouth 4 (four) times a day as needed (cough and congestion). 200 mL 1 03/17/2023 04/29/2023 Discontinued (Stop Taking at Discharge) esomeprazole 20 mg delayed release oral capsule (12 sources) Proton Pump Inhibitor Start: 08-31-2022 End: 06-10-2023 take 1 capsule by mouth once daily esomeprazole (NexIUM) 20 mg capsule Indications: Gastro-esophageal reflux disease without esophagitis take 1 capsule by mouth daily 30 capsule 10 06/10/2023 Active take 1 capsule by mouth before m ealtime esomeprazole (NexIUM) [address] capsule Take 40 mg by mouth in the morning. Take before meals. 0 Active NexIUM Active ezetimibe 10 mg / simvastatin 80 mg oral tablet (9 sources) HMG-CoA Reductase Inhibitor, Dietary Cholesterol Absorption Inhibitor Start: 08-21-2022 take 1 tablet by mouth once daily ezetimibe-simvastatin (VYTORIN) 10-80 mg per tablet Indications: Hyperlipidemia, unspecified TAKE 1 TABLET BY MOUTH EVERY DAY 90 tablet 3 08/21/2022 Active Start: 08-21-2022 take 1 tablet by vicky th in the morning ezetimibe-simvastatin (Vytorin) 10-80 MG tablet Take 1 tablet by mouth in the morning. 0 08/21/2022 Active Fish Oils (4 sources) take 1 capsule by mouth in the morning omega-3 (Fish Oil) 1200 MG capsule Take 1,200 mg by mouth in the morning. 0 Active lisinopril 5 mg oral tablet (11 sources) Angiotensin Converting Enzyme Inhibitor Start: 2 take 1 tablet by mouth once daily in the morning lisinopriL (PRINIVIL,ZESTRIL) 5 mg tablet TAKE 1 TABLET BY MOUTH EVERY MORNING 90 tablet 3 12/15/2022 Active Lisinopril Activ e meclizine hydrochloride 25 mg oral tablet (9 sources) Antiemetic Start: 02-23-2023 take 1 tablet by mouth three times daily as needed for dizziness meclizine (ANTIVERT) 25 mg tablet Indications: Benign paroxysmal vertigo, bilateral Take 1 tablet (25 mg total) by mouth 3 (three) times a day as needed for dizziness. 30 tablet 1 02/23/2023 Active omega 5-mvg-rju-fish oil 1,200 (144-216) mg capsule (5 sources) omega 3-nsb-bla-fish oil 1,200 (144-216) mg capsule Orally 0 Active predniSONE 20 mg oral tablet (2 sources) Start: 03-17-2023 End: 03-24-2023 take 1 tablet by mouth in the morning predniSONE (DELTASONE) 20 mg tablet Indications: Viral upper respiratory tract infection Take 1 tablet (20 mg total) by mouth in the morning for 7 days. 7 tablet 0 03/17/2023 03/24/2023 Active Completed/Discontinued Medications Medication Drug Class(es) Dates Sig (Normalized) Sig (Original) polyethylene glycol 3350 155949 mg / potassium chloride 2980 mg / sodium bicarbonate 6720 mg / sodium chloride 5840 mg / sodium sulfate 57097 mg powder for oral solution (1 source) Osmotic Laxative Start: 04-20-2023 End: 04-29-2023 polyethylene glycol (GAVILYTE-C) 240-22.72-6.72 -5.84 gram solution Indications: Colon cancer screening Take 240 mL by mouth every 1 (one) hour. 4000 mL 0 04/20/2023 04/29/2023 Discontinued (Stop Taking at Discharge) sod sulf-pot chloride-mag sulf 1.479-0.188- 0.225 gram tablet (1 source) Start: 04-17-2023 End: 04-29-2023 sod sulf-pot chloride-mag sulf 1.479-0.188- 0.225 gram tablet Indications: Colon cancer screening Take 12 tablets twice a day as per instructions 24 tablet 0 04/17/2023 04/29/2023 Discontinued (Stop Taking at Discharge) triamcinolone acetonide 40 mg/ml injectable suspension (3 sources) Corticosteroid Start: 07-10-2022 Kenalog-40 July, 40 mg Problems Active Problems Problem Classification Problem Date Documented Da te Episodic/Chronic Conditions associated with dizziness or vertigo (1 source) Benign paroxysmal vertigo, bilateral; Translations: [Benign paroxysmal vertigo, bilateral] Onset: 3 Episodic Disorders of lipid metabolism (14 sources) Mixed hyperlipidemia; Translations: [Hyperlipidemia] Onset: 2 Chronic Esophageal disorders (1 source) Gastroesophageal reflux disease without esophagitis; Translations: [Gastro-esophageal reflux disease without esophagitis] 06-10-2023 Chronic Essential hypertension (11 sources) Essential hypertension; Translations: [Essential (primary) hypertension] Onset: 2 01-01-2022 Chronic Fracture of upper limb (2 sources) Closed fracture of head of radius; Translations: [Displaced fracture of head of left radius, subsequent encounter for closed fracture with routine healing] 04-21-2023 Episodic Joint disorders and dislocations; trauma-related (9 sources) Derangement of left knee; Translations: [Unspecified internal derangement of left knee] Onset: 2 12-11-2021 Chronic Neoplasms of unspecified nature or uncertain behavior (1 source) Neoplasm of unspecified behavior of digestive system; Translations: [Neoplasm of unspecified behavior of digestive system] Onset: 4 Episodic Osteoarthritis (20 sources) Unilateral primary osteoarthritis, left knee; Translations: [Unilateral primary osteoarthritis, right knee] Onset: 2 Chronic Osteoporosis (5 sources) Age-related osteoporosis without current pathological fracture; Translations: [Postmenopausal osteoporosis] Onset: 3 Chronic Other and unspecified benign neoplasm (1 source) Polyp of colon; Translations: [Polyp of colon] Onset: 4 Episodic Other and unspecified benign neoplasm (2 sources) Polyp of transverse colon; Translations: [Polyp of colon] Onset: 4 04-29-2023 Episodic Other connective tissue disease (1 source) Other muscle spasm; Translations: [OTHER MUSCLE SPASM] Onset: 3 Episodic Other ear and sense organ disorders (9 sources) Sensorineural hearing loss, bilateral; Translations: [Sensorineural hearing loss, bilateral] Onset: 2 12-11-2021 Chronic Other gastrointestinal disorders (1 source) Other specified diseases of intestine; Translations: [Other specified diseases of intestine] Onset: 4 Episodic Other gastrointestinal disorders (2 sources) Melanosis coli; Translations: [Other specified diseases of intestine] Onset: 4 04-29-2023 Episodic Other lower respiratory disease (1 source) Cough Onset: 4 Episodic Other nervous system disorders (3 sources) Other chronic pain; Translations: [OTHER CHRONIC PAIN] Onset: 3 Chronic Other nervous system disorders (2 sources) Chronic pain; Translations: [Other chronic pain] Chronic Other non-traumatic joint disorders (6 sources) Pain in left knee; Translations: [PAIN IN LEFT KNEE] Onset: 3 Episodic Other non-traumatic joint disorders (6 sources) Pain in right knee; Translations: [PAIN IN RIGHT KNEE] Onset: 3 Episodic Other nutritional; endocrine; and metabolic disorders (1 source) Obesity, unspecified; Translations: [Obesity, unspecified] Onset: 3 Chronic Other screening for suspected conditions (not mental disorders or infectious disease) (11 sources) Encounter for screening for malignant neoplasm of cervix; Translations: [Patient encounter status] Onset: 2 Episodic Other upper respiratory disease (1 source) Seasonal allergic rhinitis; Translations: [Other seasonal allergic rhinitis] 03-05-2023 Chronic Other upper respiratory disease (1 source) Nasal congestion Onset: 4 Episodic Other upper respiratory infections (2 sources) Viral upper respiratory tract infection; Translations: [Acute upper respiratory infection, unspecified] Onset: 4 03-17-2023 Episodic Thyroid disorders (10 sources) Hypothyroidism, unspecified; Translations: [Acquired hypothyroidism] Onset: 2 01-01-2022 Chronic Unclassified (1 source) Encounter for screening mammogram for malignant neoplasm of breast; Translations: [Encounter for screening mammogram for malignant neoplasm of breast] Onset: 3 Unclassified (1 source) Pain in left knee; Translations: [Pain in left knee] Onset: 3 Unclassified (1 source) screening Onset: 4 Past or Other Problems Problem Classification Problem Date Documented Date Episodic/Chronic Immunizations and screening for infectious disease (1 source) Encounter for screening for human papillomavirus (HPV); Translations: [ENC SCREENING HUMAN PAPILLOMAVIRUS] Onset: 10-05-2021 Episodic Mood disorders (5 sources) Mood disorders Onset: 02-23-2023 Resolved: 03-17-2023 02-23-2023 Other acquired deformities (1 source) Valgus deformity, not elsewhere classified, unspecified knee; Translations: [VALGUS DEFORMITY NEC UNS KNEE] Onset: 01-19-2022 Episodic Other and unspecified benign neoplasm (9 sources) Benign neoplasm of left breast; Translations: [Benign neoplasm of left breast] Onset: 12-11-2021 12-11-2021 Episodic Other ear and sense organ disorders (9 sources) Tinnitus; Translations: [Tinnitus, unspecified ear] Onset: 12-11-2021 12-11-2021 Episodic Results Test Name Value Interpretation Reference Range Facility Surgical Pathologyon 024 Surgical Pathology Normal [facility] Comment on above: Result Comment: [facility] [employer] [facility] [address] [place] [address] Surgical Pathology Consultation Patient Name:PEGGY BUSTAMANTE:1950 (Age: 73)Gender:FTaken:4Reported:05/04/2023hysician(s):Jorje Douglas MD ([phone])Copy To: Rec. #:[id number]: #[id number] Final Pathologic Diagnosis Colon biopsy 75 cm (2 H&E): Tubular adenoma. Report Electronically Signed Out gp/05/04/2023Ok Roland MD Interpretation performed at [facility] [address] [place] [address], License number: [id number]. Clinical History Screening. Gross Description Received in formalin, labeled JON, 75 cm is a 0.3 cm in greatest dimension pink-so soft tissue fragment. The specimen is filtered and entirely submitted in one cassette. (1, ns, [id number], m7) MW mxw/04/29/2023SSI Microscopic Findings Microscopic examination performed. Specimen(s) Received Colon biopsy 75cm Fee Codes(s): 1; 43554 XR Elbow - left 2 [facility] Result: April 21, 2023 x-rays AP and lateral of the left elbow demonstrate a fracture of the radial head in satisfactory position alignment the fracture appears to be healing. No new findings. Impression: Healing radial head fracture Serafin Riojas [facility] Rad[facility] Study observation (narrative) [facility] MM screening mammo BI w/CADo n 02-17-2023 MM screening mammo BI w/CAD [facility] [place] [address] Mammography Report Signed Patient: Peggy Bustamante MR#: [id number] 8 : 1950 Acct:[id number] Age/Sex: 72 / F ADM Date: 02/17/23 Loc: CT Room: Type: [facility] Attending Dr: Referral Self Copies to: Ismael Bonilla DO SELF,REFERRAL Ordering Provider: SELF,REFERRAL Date of Service: 02/17/23 MM/MM screening mammo BI w/CAD: SCREENING BILATERAL Screening Full Field digital mammogram with 3-D imaging. Full field digital CC and MLO imaging performed. CAD utilized. COMPARISON: 01/13/2022 HISTORY: ADH Left breast lumpectomy. BREAST COMPOSITION: The breast parenchyma is heterogeneously dense. BENIGN BREAST CALCIFICATIONS: Present VASCULAR CALCIFICATIONS: None DEVELOPING ARCHITECTURAL DISTORTION: None DEVELOPING BREAST NODULE: None DEVELOPING MALIGNANT CALCIFICATIONS: None AXILLARY LYMPH NODES: Normal POSTSURGICAL CHANGES: Stable left lumpectomy changes. MM/MM screening mammo BI w/CAD IMPRESSION: No mammographic evidence of malignancy. Routine follow-up recommended in one year. RESULT CODE: 2 Benign Findings(s) DENSITY CODE: 3 (approximately 51-75% glandular) FOLLOW UP: 1YR THE FALSE-NEGATIVE RATE OF MAMMOGRAPHY IS APPROXIMATELY 10%. IMAGING OF A PALPABLE ABNORMALITY MUST BE BASED ON CLINICAL GROUNDS. PATIENT WAS ENTERED INTO A REMINDER SYSTEM WITH A TARGET DUE DATE FOR THE NEXT MAMMOGRAM. Impression dictated by: Maxwell Reaves M.D.02/17/2023 10:40 AM Dictation Location: [id number] Transcribed By: MARTIN 02/17/23 1040 Dictated By: Maxwell Reaves DO 02/17/23 1038 Signed By: 02/17/23 1040 [facility] XR knee BI 3V - NOT FOR ER U Jeannie 07-10-2022 XR knee BI 3V - NOT FOR ER USE [facility] [place] [address] [place] [address] XRay Report Signed Patient: Peggy Bustamante MR#: [id number] 8 : 1950 Acct:[id number] Age/Sex: 72 / F ADM Date: 07/10/22 Loc: [facility] Room: Type: [facility] Attending Dr: Andrew Agarwal MD Copies to: Andrew Agarwal MD Ordering Provider: Andrew Agarwal MD Date of Service: 07/10/22 XR/XR knee BI 3V - NOT FOR ER USE: [id number] 3 views both knees plain film COMPARISON: None HISTORY: Bilateral knee pain ACUTE FINDINGS: None DEGENERATIVE CHANGE: Extensive medial compartment degeneration greater on the RIGHT. Extensive RIGHT patellofemoral degeneration. Mild bilateral degenerative subluxation. SOFT TISSUE FINDINGS: Unremarkable JOINT EFFUSION: None POSTOP CHANGES: None BONE MINERALIZATION: Adequate XR/XR knee BI 3V - NOT FOR ER USE IMPRESSION: Extensive bilateral medial compartment degeneration greater on the RIGHT. Impression dictated by: Maxwell Reaves M.D.07/10/2022 3:16 PM Dictation Location: [facility]- Transcribed By: MARTIN 07/10/22 1516 Dictated By: Maxwell Reaves DO 07/10/22 151 Signed By: 07/10/22 151 [facility] FREE T4on 12-27-2021 Free T4 [Mass/Vol] 0.81 ng/dL Normal 0.76-1.46 [facility] Comment on above: Performed By: #### F T4 #### [facility] [address] [address] [address] Yohana Aragon LIPID PROFILEon 12-27-2021 CHOL-HDL RATIO NORM SEE BELOW Normal [facility] Comment on above: Result Comment: 3.3 - 4.4 LOW RISK 4.4 - 7.1 AVERAGE RISK 7.1 - 11.0 MODERATE RISK >11.0 HIGH RISK Performed By: #### T SH, LIPID, CMP #### [facility] [address] [address] [address] Yohana Aragon Cholesterol [Mass/Vol] 254 mg/dL Critically high <=200 [facility] Comment on above: Performed By: #### T SH, LIPID, CMP #### [facility] [address] [place] [address] Dr. Yohana Aragon Cholesterol in HDL [Mass/Vol] 49 mg/dL Normal 40-60 [facility] Comment on above: Performed By: #### T SH, LIPID, CMP #### [facility] [address] [place] [address] Dr. Yohana Aragon Cholesterol in LDL [Mass/Vol] 154.4 mg/dL Normal [facility] Comment on above: Performed By: #### T SH, LIPID, CMP #### [facility] [address] [place] [address] Dr. Yohana Aragon Cholesterol.total/ Cholesterol in HDL [Mass ratio] 5.2 {ratio} Normal [facility] Comment on above: Performed By: #### T SH, LIPID, CMP #### [facility] [address] [place] [address] Dr. Yohana Aragon HDL NORMAL > or = 60 mg/dl - LO W CARDIOVASCULAR RISK <40 mg/dl - HIGH CARDIOVASCULAR RISK Normal [facility] Comment on above: Performed By: #### T SH, LIPID, CMP #### [facility] [address] [place] [address] Dr. Yohana Aragon LDL CALC NORMAL SEE BELOW Normal [facility] Comment on above: Result Comment: <100 mg/dl OPTIMAL 100 - 129 mg/dl NEAR OR ABOVE OPTIMAL 130 - 159 mg/dl BORDERLINE HIGH 160 - 189 mg/dl HIGH >190 mg/dl VERY HIGH Performed By: #### T SH, LIPID, CMP #### [facility] [address] [address] [address] Yohana Aragon Triglyceride [Mass/Vol] 253 mg/dL Critically high <=150 [facility] Comment on above: Performed By: #### T SH, LIPID, CMP #### [facility] [address] [address] [address] Yohana Aragon VLDL CALC 50.6 mg/dL Normal [facility] Comment on above: Performed By: #### T SH, LIPID, CMP #### [facility] [address] [address] [address] Yohana Aragon PROF 14(COMP METB)on 022 Albumin [Mass/Vol] 3.8 g/dL Normal 3.4-5.0 [facility] Comment on above: Performed By: #### T ABY, LIPID, CMP #### [facility] [address] [place] [address] Dr. Yohana Aragon Albumin/Globulin [Mass ratio] 1.1 {ratio} Normal [facility] Comment on above: Performed By: #### T SH, LIPID, CMP #### [facility] [address] [place] [address] Dr. Yohana Aragon ALP [Catalytic activity/Vol] 42 U/L Critically low 46-116 [facility] Comment on above: Performed By: #### T ABY, LIPID, CMP #### [facility] [address] [address] [address] Yohana Aragon ALT [Catalytic activity/Vol] 26 U/L Normal 14-59 [facility] Comment on above: Performed By: #### T SH, LIPID, CMP #### [facility] [address] [address] [address] Yohana Aragon Anion gap [Moles/Vol] 8.9 mmol/L Normal [facility] Comment on above: Performed By: #### T SH, LIPID, CMP #### [facility] [address] [place] [address] Dr. Yohana Aragon AST [Catalytic activity/Vol] 16 U/L Normal 15-37 [facility] Comment on above: Performed By: #### T SH, LIPID, CMP #### [facility] [address] [address] [address] Yohana Aragon Bilirubin [Mass/Vol] 0.4 mg/dL Normal 0.2-1.0 [facility] Comment on above: Performed By: #### T SH, LIPID, CMP #### [facility] [address] [place] [address] Dr. Yohana Aragon Calcium [Mass/Vol] 9.0 mg/dL Normal 8.5-10.1 [facility] Comment on above: Performed By: #### T SH, LIPID, CMP #### [facility] [address] [place] [address] Dr. Yohana Aragon Chloride [Moles/Vol] 103 mmol/L Normal 98-107 [facility] Comment on above: Performed By: #### T SH, LIPID, CMP #### [facility] [address] [place] [address] Dr. Yohana Aragon CO2 [Moles/Vol] 29.6 mmol/L Normal 21.0-32.0 [facility] Comment on above: Performed By: #### T SH, LIPID, CMP #### [facility] [address] [place] [address] Dr. Yohana Aragon Creatinine [Mass/Vol] 0.83 mg/dL Normal 0.55-1.02 [facility] Comment on above: Performed By: #### T SH, LIPID, CMP #### [facility] [address] [place] [address] Dr. Yohana Aragon EGFR-AF SIERRA LEONEAN >60 Normal >=60 [facility] Comment on above: Performed By: #### T SH, LIPID, CMP #### [facility] [address] [place] [address] Dr. Yohana Aragon EGFR-NON AF SIERRA LEONEAN >60 Normal >=60 [facility] Comment on above: Performed By: #### T SH, LIPID, CMP #### [facility] [address] [place] [address] Dr. Yohana Aragon Globulin (S) [Mass/Vol] 3.5 g/dL Normal [facility] Comment on above: Performed By: #### T ABY LIPID, CMP #### [facility] [address] [place] [address] Dr. Yohana Aragon Glucose [Mass/Vol] 98 mg/dL Normal 74-106 [facility] Comment on above: Performed By: #### T ABY LIPID, CMP #### [facility] [address] [place] [address] Dr. Yohana Aragon Potassium [Moles/Vol] 4.5 mmol/L Normal 3.5-5.1 [facility] Comment on above: Performed By: #### T ABY LIPID, CMP #### [facility] [address] [place] [address] Dr. Yohana Aragon Protein [Mass/Vol] 7.3 g/dL Normal 6.4-8.2 [facility] Comment on above: Performed By: #### T ABY LIPID, CMP #### [facility] [address] [place] [address] Dr. Yohana Aragon Sodium [Moles/Vol] 137 mmol/L Normal 136-145 [facility] Comment on above: Performed By: #### T ABY LIPID, CMP #### [facility] [address] [place] [address] Dr. Yohana Aragon Urea nitrogen [Mass/Vol] 14.0 mg/dL Normal 7.0-18.0 [facility] Comment on above: Performed By: #### T ABY LIPID, CMP #### [facility] [address] [place] [address] Dr. Yohana Aragon Urea nitrogen/Creatinin e [Mass ratio] 16.9 mg/mg Normal [facility] Comment on above: Performed By: #### T ABY, LIPID, CMP #### [facility] [address] [place] [address] Dr. Yohana Aragon TSHon 12-27-2021 TSH 2.654 uIU/mL Normal 0.358-3.740 [facility] Comment on above: Performed By: #### T ABY, LIPID, CMP #### [facility] [address] [address] [address] Yohana Aragon PAP ACOG PANEL 2: 30 to 65on 10-08-2021 . . Normal [facility] Comment on above: Performed By: #### 4 [id number] #### [facility] [address] [address] [address] Yohana Aragon Age Gdln ACOG Testing Comment Normal [facility] Comment on above: Result Comment: <21 or >65 or no age provided Performed By: #### 4 [id number] #### [facility] [address] [address] [address] Yohana Aragon DIAGNOSIS: Comment [facility] Comment on above: Result Comment: UNSA TISFACTORY FOR EVALUATION. Performed By: #### 4 [id number] #### [facility] [address] [place] [address] Dr. Yohana Aragon Methodology: Comment [facility] Comment on above: Result Comment: This liquid based ThinPrep(R) pap test was screened with the use of an image guided system. Performed By: #### 4 [id number] #### [facility] [address] [address] [address] Yohana Aragon Note: Comment [facility] Comment on above: Result Comment: The Pap smear is a screening test designed to aid in the detection of premalignant and malignant conditions of the uterine cervix. It is not a diagnostic procedure and should not be used as the sole means of detecting cervical cancer. Both false-positive and false-negative reports do occur. . Performed By: #### 4 [id number] #### [facility] [address] [address] [address] Yohana Aragon Performed by: Comment Normal [facility] Comment on above: Result Comment: Ashleigh Haddad, Affiliate Manager (ASCP) Performed By: #### 4 [id number] #### [facility] [address] [place] [address] Dr. Yohana Aragon QC reviewed by: Comment Normal [facility] Comment on above: Result Comment: Ramesh Floyd, Supervisory Affiliate Manager (ASCP) Performed By: #### 4 [id number] #### [facility] [address] [place], [place] [address] Dr. Yohana Aragon Recommendation: Comment Normal [facility] Comment on above: Result Comment: Sugg est follow up as clinically appropriate. Performed By: #### 4 [id number] #### [facility] [address] [place], [place] [address] Dr. Yohana Aragon Specimen adequacy: Comment Normal [facility] Comment on above: Result Comment: Spec imen processed and examined but unsatisfactory for evaluation of epithelial abnormality because of insufficient cellularity. Performed By: #### 4 [id number] #### [facility] [address] [address] [facility] 06-27-2021 Albumin [Mass/Vol] 4.4 g/dL Normal 3.6-5.1 [facility] Comment on above: Performed By: #### 1 0231, 7600, 79184 #### [facility] [address], [address] [place] [address] Primary Therapist: Jose Stark MD Albumin/Globulin [Mass ratio] 2.0 {ratio} Normal 1.0-2.5 [facility] Comment on above: Performed By: #### 1 0231, 7600, 81555 #### [facility] [address] [address] Primary Therapist: Jose Stark MD ALP [Catalytic activity/Vol] 34 U/L Low 37-153 [facility] Comment on above: Performed By: #### 1 0231, 7600, 92489 #### [facility] [address], [address] [place] [address] Primary Therapist: Jose Stark MD ALT [Catalytic activity/Vol] 14 U/L Normal 6-29 [facility] Comment on above: Performed By: #### 1 0231, 7600, 68859 #### [facility] [place] [address] Primary Therapist: Jose Stark MD AST [Catalytic activity/Vol] 13 U/L Normal 10-35 [facility] Comment on above: Performed By: #### 1 0231, 0, 44194 #### [facility] of [address] [address] Primary Therapist: Jose Stark MD Bilirubin [Mass/Vol] 0.5 mg/dL Normal 0.2-1.2 [facility] Comment on above: Performed By: #### 1 0231, 7599, 05166 #### [facility] of [address], [address] [place] [address] Primary Therapist: Jose Stark MD BUN/CREATININE RATIO NOT APPLICABLE Normal 6-22 [facility] Comment on above: Performed By: #### 1 0231, 7599, 80851 #### [facility] [place] [address] Primary Therapist: Jose Stark MD Calcium [Mass/Vol] 9.4 mg/dL Normal 8.6-10.4 [facility] Comment on above: Performed By: #### 1 023, 7599, 89435 #### [facility] [place] [address] Primary Therapist: Jose Stark MD Chloride [Moles/Vol] 104 mmol/L Normal 98-110 [facility] Comment on above: Performed By: #### 1 0231, 7599, 58390 #### [facility] [place] [address] Primary Therapist: Jose Stark MD CO2 [Moles/Vol] 29 mmol/L Normal 20-32 [facility] Comment on above: Performed By: #### 1 0231, 7600, 03356 #### [facility] of [place] [address] Primary Therapist: Jose Stark MD Creatinine [Mass/Vol] 0.76 mg/dL Normal 0.60-0.93 [facility] Comment on above: Result Comment: For patients >49 years of age, the reference limit for Creatinine is approximately 13% higher for people identified as -Lao. Performed By: #### 1 0231, 0, 10237 #### [facility] [place] [address] Primary Therapist: Jose Stark MD eGFR NON-AFR. SIERRA LEONEAN 79 mL/min/1.73m2 Normal > OR = 60 [facility] Comment on above: Performed By: #### 1 023, 7599, 04190 #### [facility] [address], [address] [place] [address] Primary Therapist: Jose Stark MD GFR/1.73 sq M.predicted among blacks MDRD (S/P/Bld) [Vol rate/Area] 92 mL/min/{1.73_m2} Normal > OR = 60 [facility] Comment on above: Performed By: #### 1 230, 7599, 11781 #### [facility] [address], [address] [place] [address] Primary Therapist: Jose Stark MD Globulin (S) [Mass/Vol] 2.2 g/dL Normal 1.9-3.7 [facility] Comment on above: Performed By: #### 1 023, 7599, 87912 #### [facility] [place] [address] Primary Therapist: Jose Stark MD Glucose [Mass/Vol] 95 mg/dL Normal 65-99 [facility] Comment on above: Result Comment: Fasting reference interval Performed By: #### 1 023, 7599, 61650 #### [facility] [place] [address] Primary Therapist: Jose Stark MD Potassium [Moles/Vol] 4.2 mmol/L Normal 3.5-5.3 [facility] Comment on above: Performed By: #### 1 023, 7599, 57042 #### [facility] [place] [address] Primary Therapist: Jose Stark MD Protein [Mass/Vol] 6.6 g/dL Normal 6.1-8.1 [facility] Comment on above: Performed By: #### 1 0231, 0, 01656 #### [facility] [address], [address] [place] [address] Primary Therapist: Jose Stark MD Sodium [Moles/Vol] 141 mmol/L Normal 135-146 [facility] Comment on above: Performed By: #### 1 0231, 7599, 17891 #### [facility] [address], [address] [place] [address] Primary Therapist: Jose Stark MD Urea nitrogen [Mass/Vol] 13 mg/dL Normal 7-25 [facility] Comment on above: Performed By: #### 1 023, 7599, 73116 #### [facility] [address], [address] [place] [address] Primary Therapist: Jose Stark MD LIPID PANEL, [facility] - Cholesterol [Mass/Vol] 159 mg/dL Normal <200 [facility] Comment on above: Order Comment: FASTI NG:YES FASTING: YES Performed By: #### 1 023, 7599, 20012 #### [facility] [place] [address] Primary Therapist: Jose Stark MD Cholesterol in HDL [Mass/Vol] 52 mg/dL Normal > OR = 50 [facility] Comment on above: Order Comment: FASTI NG:YES FASTING: YES Performed By: #### 1 0231, 7599, 71879 #### [facility] of [address], [address] [place] [address] Primary Therapist: Jose Stark MD Cholesterol in LDL [Mass/Vol] 74 mg/dL Normal [facility] Comment on above: Order Comment: FASTI NG:YES FASTING: YES Result Comment: Refe rence range: <100 Desirable range <100 mg/dL for primary prevention; <70 mg/dL for patients with CHD or diabetic patients with > or = 2 CHD risk factors. LDL-C is now calculated using the Gwendolyn calculation, which is a validated novel method providing better accuracy than the Friedewald equation in the estimation of LDL-C. Derick SS et al. THU. 2013;310(19): 5308-8467 (http://education.EvalYou/faq/EXB863) Performed By: #### 1 0231, 7600, 50635 #### [facility] [address], [address] [place] [address] Primary Therapist: Jose Stark MD Cholesterol.total/ Cholesterol in HDL [Mass ratio] 3.1 {ratio} Normal <5.0 [facility] Comment on above: Order Comment: FASTI NG:YES FASTING: YES Performed By: #### 1 0231, 7600, 66639 #### [facility] [address], [address] [place] [address] Primary Therapist: Jose Stark MD NON HDL CHOLESTEROL 107 mg/dL (calc) Normal <130 [facility] Comment on above: Order Comment: FASTI NG:YES FASTING: YES Result Comment: For patients with diabetes plus 1 major ASCVD risk factor, treating to a non-HDL-C goal of <100 mg/dL (LDL-C of <70 mg/dL) is considered a therapeutic option. Performed By: #### 1 0231, 7600, 56718 #### [facility] [address], [address] [place] [address] Primary Therapist: Jose Stark MD Triglyceride [Mass/Vol] 239 mg/dL High <150 [facility] Comment on above: Order Comment: FASTI NG:YES FASTING: YES Result Comment: If a non-fasting specimen was collected, consider repeat triglyceride testing on a fasting specimen if clinically indicated. Brenna et al. J. of Clin. Lipidol. 2015;9:129-169. Performed By: #### 1 0231, 7600, 54061 #### [facility] [address], [address] [place] [address] Primary Therapist: Jose Stark MD TSH+FREE T4on 06-27-2021 Free T4 [Mass/Vol] 0.9 ng/dL Normal 0.8-1.8 [facility] Comment on above: Performed By: #### 1 0231, 0380, 06314 #### [facility] [place] [address] Primary Therapist: Jose Stark MD TSH Qn 4.55 m[IU]/L High 0.40-4.50 [facility] Comment on above: Performed By: #### 1 023, 0, 46832 #### [facility] of [place] [address] Primary Therapist: Jose Stark MD [facility] 12-04-2020 Albumin [Mass/Vol] 4.5 g/dL Normal 3.6-5.1 [facility] Comment on above: Performed By: #### 5 8984, 74009 #### [facility] of [place] [address] Primary Therapist: Jose Stark MD Albumin/Globulin [Mass ratio] 1.9 {ratio} Normal 1.0-2.5 [facility] Comment on above: Performed By: #### 5 8984, 28111 #### [facility] [place] [address] Primary Therapist: Jose Stark MD ALP [Catalytic activity/Vol] 36 U/L Low 37-153 [facility] Comment on above: Performed By: #### 5 8984, 36861 #### [facility] of [place] [address] Primary Therapist: Jose Stark MD ALT [Catalytic activity/Vol] 15 U/L Normal 6-29 [facility] Comment on above: Performed By: #### 5 8984, 73213 #### [facility] of [place] [address] Primary Therapist: Jose Stark MD AST [Catalytic activity/Vol] 16 U/L Normal 10-35 [facility] Comment on above: Performed By: #### 5 8984, 88551 #### [facility] of [address], [address] [place] [address] Primary Therapist: Jose Stark MD Bilirubin [Mass/Vol] 0.6 mg/dL Normal 0.2-1.2 [facility] Comment on above: Performed By: #### 5 8984, 82870 #### [facility] of [address], [address] [place] [address] Primary Therapist: Jose Stark MD BUN/CREATININE RATIO NOT APPLICABLE Normal 6-22 [facility] Comment on above: Performed By: #### 5 8984, 89353 #### [facility] of [address], [address] [place] [address] Primary Therapist: Jose Stark MD Calcium [Mass/Vol] 9.4 mg/dL Normal 8.6-10.4 [facility] Comment on above: Performed By: #### 5 8984, 79445 #### [facility] of [address], [address] [place] [address] Primary Therapist: Jose Stark MD Chloride [Moles/Vol] 101 mmol/L Normal 98-110 [facility] Comment on above: Performed By: #### 5 8984, 91554 #### [facility] of [address], [address] [place] [address] Primary Therapist: Jose Stark MD CO2 [Moles/Vol] 29 mmol/L Normal 20-32 [facility] Comment on above: Performed By: #### 5 8984, 52846 #### [facility] of [address], [address] [place] [address] Primary Therapist: Jose Stark MD Creatinine [Mass/Vol] 0.73 mg/dL Normal 0.50-0.99 [facility] Comment on above: Result Comment: For patients >49 years of age, the reference limit for Creatinine is approximately 13% higher for people identified as -Lao. Performed By: #### 5 8984, 85947 #### [facility] of [address], [address] [place] [address] Primary Therapist: Jose Stark MD eGFR NON-AFR. SIERRA LEONEAN 84 mL/min/1.73m2 Normal > OR = 60 [facility] Comment on above: Performed By: #### 5 8984, 12824 #### [facility] [address], [address] [place] [address] Primary Therapist: Jose Stark MD GFR/1.73 sq M.predicted among blacks MDRD (S/P/Bld) [Vol rate/Area] 97 mL/min/{1.73_m2} Normal > OR = 60 [facility] Comment on above: Performed By: #### 5 8984, 07682 #### [facility] [address], [address] [place] [address] Primary Therapist: Jose Stark MD Globulin (S) [Mass/Vol] 2.4 g/dL Normal 1.9-3.7 [facility] Comment on above: Performed By: #### 5 8984, 70860 #### [facility] of [address], [address] [place] [address] Primary Therapist: Jose Stark MD Glucose [Mass/Vol] 97 mg/dL Normal 65-99 [facility] Comment on above: Result Comment: Fasting reference interval Performed By: #### 5 8984, 52561 #### [facility] [place] [address] Primary Therapist: Jose Stark MD Potassium [Moles/Vol] 4.4 mmol/L Normal 3.5-5.3 [facility] Comment on above: Performed By: #### 5 8984, 02313 #### [facility] of [address], [address] [place] [address] Primary Therapist: Jose Stark MD Protein [Mass/Vol] 6.9 g/dL Normal 6.1-8.1 [facility] Comment on above: Performed By: #### 5 8984, 83688 #### [facility] of [address], [address] [place] [address] Primary Therapist: Jose Stark MD Sodium [Moles/Vol] 138 mmol/L Normal 135-146 [facility] Comment on above: Performed By: #### 5 8984, 22954 #### [facility] [place] [address] Primary Therapist: Jose Stark MD Urea nitrogen [Mass/Vol] 17 mg/dL Normal 7-25 [facility] Comment on above: Performed By: #### 5 8984, 81647 #### [facility] [place] [address] Primary Therapist: Jose Stark MD TSH+FREE T4on 12-04-2020 Free T4 [Mass/Vol] 0.9 ng/dL Normal 0.8-1.8 [facility] Comment on above: Order Comment: FASTI NG:YES FASTING: YES Performed By: #### 5 8984, 97084 #### [facility] [place] [address] Primary Therapist: Jose Stark MD TSH Qn 4.24 m[IU]/L Normal 0.40-4.50 [facility] Comment on above: Order Comment: FASTI NG:YES FASTING: YES Performed By: #### 5 8984, 01476 #### [facility] [place] [address] Primary Therapist: Jose Stark MD Vital Signs Date Time Vital Sign Value Performing Clinician Facility 04-28-2023 11:28-0500 Body height 161.3 cm [facility] 04-28-2023 11:28-0500 Body mass index (BMI) [Ratio] 30.51 kg/m2 [facility] 04-28-2023 11:28-0500 Body weight 79.38 kg [facility] 1 [facility] 03-17-2023 10:58-0500 Body height 160 cm Amina JULES Work Phone: [facility] 03-17-2023 10:58-0500 Body mass index (BMI) [Ratio] 32.49 kg/m2 Amina Kuns [employer] Work Phone: [facility] 03-17-2023 10:58-0500 Body temperature 97.81 [degF] Amina Donnelly [employer] Work Phone: [facility] 03-17-2023 10:58-0500 Body weight 83.19 kg Amina Donnelly [employer] Work Phone: [facility] 03-17-2023 10:58-0500 Diastolic blood pressure 70 mm[Hg] Amina Donnelly [employer] Work Phone: [facility] 03-17-2023 10:58-0500 Heart rate 102 /min Amina Donnelly [employer] Work Phone: [facility] 03-17-2023 10:58-0500 SaO2% (BldA) [Mass fraction] 97 % Amina Donnelly [employer] Work Phone: [facility] 03-17-2023 10:58-0500 Systolic blood pressure 120 mm[Hg] Amina Donnelly [employer] Work Phone: [facility] Encounters Encounter Date Encounter Type Care Provider Facility Start: 06-16-2023 End: 06-16-2023 ambulatory JASMINE Mahoney BEULAH Not Available Start: 06-10-2023 Refill Amina Donnelly [employer] Work Phone: [facility] Comment on above: Gastro-esophageal re flux disease without esophagitis Start: 06-09-2023 End: 06-09-2023 ambulatory ANGELICA GARCIA Not Available Start: 04-29-2023 End: 04-30-2023 Evaluation and management of inpatient [facility] Start: 04-28-2023 End: 04-28[facility] Start: 04-21-2023 End: 04-21-2023 ambulatory CARLOS LAST Not Available Start: 04-21-2023 End: 04-21-2023 ambulatory Carlos Last PT Work Phone: [facility] Comment on above: Arthritis of left kn ee (Primary Dx) Start: 04-21-2023 End: 04-22-2023 ambulatory JASMINE RIOJAS Not Available Start: 04-21-2023 End: 04-21-2023 Office outpatient visit 10 minutes Jasmine Mahoney Beulah DO Work Phone: [facility] Comment on above: Closed displaced fra cture of head of left radius with routine healing, subsequent encounter (Primary Dx) Start: 04-09-2023 Telephone encounter Carlos weller PT Work Phone: [facility] Comment on above: PT Prehab (Tried to contact but unable for L TKA Prehab; no dos specified.); fu (Contacted and she noted she was told she needs to wait till after dentist appt before schedule anything else. She said she is going to contact dentist on 04/13 and I told her I'd fu with her on 04/14 to hopefully schedule her PreHab.); FU x 2 (Tried to contact re: noting to her I would call to set-up Prehab post her contacting dentist. There was no answer and no machine to lm; will try again.); FU x3 (Contacted and scheduled Prehab 04/21 w/ Carlos Last, PT.) Start: 04-07-2023 End: 04-08-2023 ambulatory JASMINE AMINDLESTON Not Available Start: 03-23-2023 End: 03-23-2023 ambulatory [facility] Start: 03-23-2023 End: 03-23-2023 ambulatory [facility] DO Work Phone: [facility] Comment on above: Osteoporosis, postme nopausal (Primary Dx) Start: 03-17-2023 End: 03-17-2023 ambulatory AMINA DONNELLY [facility] Start: 03-17-2023 End: 03-17-2023 Office outpatient visit 15 minutes Amina Donnelly [employer] Work Phone: [facility] Comment on above: Viral upper respirat ory tract infection (Primary Dx) Start: 03-05-2023 Refill Amina Donnelly [employer] [facility] Comment on above: Other seasonal aller gic rhinitis Start: 02-25-2023 End: 02-25-2023 ambulatory BRITNEY H PRISCA Not Available Start: 02-24-2023 End: 02-25-2023 ambulatory JASMINE RIOJAS Not Available Start: 02-23-2023 End: 02-23-2023 ambulatory AMINA DONNELLY [facility] Start: 02-17-2023 End: 02-17-2023 ambulatory Referral Self Facility:[facility] Start: 02-17-2023 End: 02-17-2023 ambulatory DO Ismael Furlong Work Phone: [facility] Work Phone: Start: 02-17-2023 End: 02-17-2023 Patient encounter procedure DO Ismael Furlong Work Phone: [facility] Work Phone: Start: 01-27-2023 End: 01-27-2023 ambulatory JASMINE RIOJAS Not Available Start: 01-20-2023 End: 01-20-2023 ambulatory JASMINE AMINDLESTON Not Available Start: 07-21-2022 End: 07-21-2022 ambulatory Andrew Agarwal Other [employer] Other Start: 07-21-2022 Office outpatient vi sit 15 minutes Andrew Agarwal [facility] [place] Start: 07-10-2022 Office outpatient ne w 45 minutes Andrew Agarwal [facility] [place] Start: 07-10-2022 End: 07-10-2022 ambulatory DO Ismael Furlong Work Phone: [employer] Other Start: 07-10-2022 End: 07-10-2022 Patient encounter procedure DO Ismael Furlong Work Phone: [facility] Start: 06-05-2022 End: 06-06-2022 ambulatory SHAYLEEEUGENIA LLANOSABYDAVIDJOSE LUIS . Facility:[facility] Start: 04-08-2022 End: 04-09-[address] ELEAZAR REILLY . Facility:[facility] Start: 03-18-2022 End: [address] ELEAZAR REILLY . Facility:[facility] Start: 02-18-[address] ELEAZAR REILLY . Faci lity:[facility] Start: 02-11-[address] ELEAZAR REILLY . Faci lity:[facility] Start: 01-14-2022 End: 01-15-[address] ELEAZAR REILLY . Facility:[facility] Start: 01-13-2022 End: 01-13-2022 ambulatory DO [employer] Work Phone: [facility] Work Phone: Start: 01-13-2022 End: 01-13-2022 Patient encounter procedure DO [employer] Work Phone: [facility] Start: 12-27-2021 End: 12-28-2021 ambulatory DR AMINA DONNELLY Facility:[facility] Start: 10-02-2021 End: 10-02-[address] ROSA MCCAULEY . Facility: Procedures Date Procedure Procedure Detail Performing Clinician Start: 04-21-2023 Radex elbow 2 views Jam michelle Riojas DO Work Phone: Start: 03-17-2023 Adult depression scr eening assessment Amina Donnelly [employer] Work Phone: Start: 02-23-2023 Adult depression scr eening assessment Amina Donnelly [employer] Work Phone: Start: 02-17-2023 End: 02-17-2023 Screening mammography of bilateral breasts DO [facility] Work Phone: Start: 07-10-2022 X-ray of both knees DO [facility] Work Phone: Start: 01-13-2022 End: 01-13-2022 Screening mammography of bilateral breasts DO Ismael Bonilla Work Phone: Plan of Treatment Date Care Activity Detail Author Start: 04-29-2024 Adult BMI Screening Adult BMI Screen ing [facility] Start: 04-29-2024 Tobacco Screening Tobacco Screening [facility] Start: 04-28-2024 Adult BMI Screening Adult BMI Screen ing [facility] Start: 04-28-2024 Tobacco Screening Tobacco Screening [facility] Start: 03-17-2024 Adult BMI Screening Adult BMI Screen ing [facility] Start: 03-17-2024 Depression Screening Depression Scre ening [facility] Start: 03-17-2024 Fall Risk Screening Fall Risk Screen ing [facility] Start: 03-17-2024 Tobacco Screening Tobacco Screening [facility] Start: 02-24-2024 Adult BMI Screening Adult BMI Screen ing [facility] Start: 02-24-2024 Depression Screening Depression Scre ening [facility] Start: 02-24-2024 Fall Risk Screening Fall Risk Screen ing [facility] Start: 02-24-2024 Tobacco Screening Tobacco Screening [facility] Start: 02-18-2024 Screening for malign ant neoplasm of breast Mammogram [facility] Start: 02-18-2024 End: 02-18-2024 Patient encounter procedure 02/18/2024 9:45 AM EST Office Visit CHERYL GUZMAN [address] [facility] [address] [place] [address] Britney Cope DO [address] [facility] [address] [place] [address] [facility] Start: 07-15-2023 End: 07-15-2023 Admission to same day surgery center 07/15/2023 10:15 AM EDT - 07/15/2023 12:45 PM EDT Surgery [facility] - Surgery [address] [place] [address] Beulah, Jasmine A, DO [address] [place] [address] REPLACEMENT TOTAL JOINT KNEE [98910 (CPT )] [facility] Comment on above: REPLACEMENT TOTAL YUMIKO INT KNEE [46261 (CPT )] Start: 07-15-2023 End: 07-15-2023 Arthrp kne condyle&platu medial&lat compartments REPLACEMENT TOTAL JOINT KNEE left knee degenerative joint disease 07/15/2023 10:15 AM EDT [facility] Start: 07-15-2023 Subsequent hospital visit by physician 07/15/2023 10:15 AM EDT Hospital Encounter [facility] - Surgery [address] [place] [id number] Jasmine Riojas, DO [address] [place] [address] [facility] Start: 06-16-2023 End: 06-16-2023 Patient encounter procedure 06/16/2023 1:30 PM EDT Procedure visit [facility] - Pre Admit [address] [place] [id number] [facility] - Pre Admit Start: 04-21-2023 End: 04-21-2023 ambulatory 04/21/2023 2:30 PM EST Evaluation [facility] [address] [place] [address] Carlos Last, PT [address] [place] [address] [facility] Start: 04-21-2023 End: 04-21-2023 Patient encounter procedure 04/21/2023 9:45 AM EST Office Visit [facility] [address] [place] [address] Jasmine Riojas, DO [address] [place] [address] [facility] Start: 04-08-2023 Administration of varicella zoster vaccine Zoster (Shingles) Vaccine (1 of 2) [facility] Comment on above: Postponed from 03/19 (Patient Refused) Start: 04-08-2023 Medicare Annual Well ness Visit Medicare Annual Wellness Visit [facility] Start: 03-23-2023 End: 03-23-2023 ambulatory 03/23/2023 9:20 AM EST [facility] [address] [place] [address] Ismael Bonilla, [address], [facility] [place] [address] [facility] - Family Medicine Start: 01-13-2023 Screening for malign ant neoplasm of breast Mammogram [facility] Start: 11-07-2022 Influenza vaccination Influenza Vacc ine (#1) [facility] Start: 2016 Pneumococcal Vaccine : 65+ Years (1 - PCV) Pneumococcal Vaccine: 65+ Years (1 - PCV) [facility] Start: 1970 Administration of varicella zoster vaccine Zoster (Shingles) Vaccine (1 of 2) [facility] Start: 1970 DTaP,Tdap and Td Vaccines (1 - Tdap) DTaP,Tdap and Td Vaccines (1 - Tdap) [facility] Start: 1969 Adult BMI Follow Up Plan Adult BMI Follow Up Plan [facility] Start: 1950 Screening for malign ant neoplasm of colon [facility] Colonoscopy flx dx w/collj spec when pfrmd COLONOSCOPY DIAGNOSTIC / SCREENING Colon cancer screening Neoplasm of unspecified behavior of digestive system [facility] Payers Date Payer Category Payer Self-pay [id number] 2022 Medicare [employer]AGE [id number] 2022-Present [address] [place] [address] [id number] 2021 Unknown [employer] [id number] 2021-Present [phone] [address] [place] [address] [id number] [id number] 1959 Medicare [id number] 1951 Unknown [id number] 2.16.840.1.572102.3.579.2.593 1951 Unknown [id number] 2.16.840.1.507438.3.579.2.593 1951 Unknown [id number] 2.16.840.1.320404.3.579.2.593 1951 Unknown [id number] 2.16.840.1.993916.3.579.2.593 1951 Unknown [id number] 2.16.840.1.408997.3.579.2.593 1951 Unknown [id number] 2.16.840.1.071362.3.579.2.593 1951 Unknown [id number] 2.16.840.1.543746.3.579.2.593 1951 Unknown [id number] 2.16.840.1.498168.3.579.2.593 1951 Unknown [id number] 2.16.840.1.936368.3.579.2.128 6 1951 Unknown [id number] 2.16.840.1.757276.3.579.2.128 6 1951 Unknown [id number] 2.16.840.1.393178.3.579.2.128 1951 Unknown [id number] 2.16.840.1.077428.3.579.2.128 1951 Unknown [id number] 2.16.840.1.787082.3.579.2.128 1951 Unknown [id number] 2.16.840.1.213752.3.579.2.128 1951 Unknown [id number] 2.16.840.1.484931.3.579.2.125 1951 Unknown [id number] 2.16.840.1.852858.3.579.2.125 1951 Unknown [id number] 2.16.840.1.926210.3.579.2.125 1951 Unknown [id number] 2.16.840.1.333120.3.579.2.125 1951 Unknown [id number] 2.16.840.1.141228.3.579.2.125 1951 Unknown [id number] 2.16.840.1.822883.3.579.2.125 1951 Unknown [id number] 2.16.840.1.952393.3.579.2.125 1951 Unknown [id number] 2.16.840.1.066966.3.579.2.125 1951 Unknown [id number] 2.16.840.1.523169.3.579.2.125 1951 Unknown [id number] 2.16.840.1.504267.3.579.2.125 1951 Unknown [id number] 2.16.840.1.483039.3.579.2.125 1951 Unknown [id number] 2.16.840.1.412408.3.579.2.125 1951 Unknown [id number] 2.16.840.1.390565.3.579.2.125 9 Unknown [id number] Unknown [id number] 2.16.840.1.911249.3.579.2.531 Unknown [id number] 2..840.1.858321.3.579.2.531 Social History Date Type Detail Facility Tobacco smoking status NHIS Unknown if ever smoked [facility] Work Phone: Start: 1950 Sex Assigned At Female [facility] Start: 02-23-2023 End: 03-17-2023 Sex Assigned At [facility] Start: 01-01-2022 End: 11-13-2022 Tobacco smoking status NHIS Never smoked tobacco [facility] Start: 01-01-2022 End: 11-13-2022 Tobacco use and exposure Smokeless tobacco non-user [facility] Start: 02-23-2023 End: 04-30-2023 Alcohol intake Lifetime non-drinker (finding) [facility] Start: 02-23-2023 End: 03-17-2023 History of Social function [facility] Adolescent depressio n screening assessment 0 [facility] Start: 1950 Sex Assigned At Not on file P [facility] How often to you hav e a drink containing alcohol? Monthly or less [facility] How many standard drinks containing alcohol do you have on a typical day? 1 or 2 [facility] How often do you hav e 6 or more drinks on 1 occasion? Never [facility] Start: 11-13-2022 Alcohol Comment caffeine; 3-4 cups per day [facility] NEGATED: Highlighted rowStart: LICHAF History of tobacco use Passive smoker [facility] Clinical Notes 01-14-2022 to 04-28-2023 Perioperative Nursing Note - Junie Freitas RN - 04/28/2023 2:00 PM ESTPerioperative Nursing Note - Junie Freitas RN - 04/28/2023 2:00 PM Bossman Riojas DO - 04/21/2023 9:45 AM EST Note Date & Type Note Facility 04-28-2023 Miscellaneous Notes Preoperative Education Checklist- General Surgery date: 04/29/23 Surgery time: 0900 Arrival time: 0800 1. Bring a photo ID and your insurance card with you the day of surgery. You will check in at the main lobby of the [facility]- registration desk is straight ahead as soon as you walk in. Tell them you are here for surgery. 2. If you have a Living Will/Durable Power of Installation And Service Technician for Health Care that is not on file here, please bring a copy the day of surgery. 3. Please shower/bathe the night before surgery with the provided soap or wipes. Do not shower the morning of surgery- you will do use wipes when you arrive here at the hospital before getting into your surgical gown. Do not shave the area of your procedure for 2 days prior to your surgery. 4. NO powder, lotion, perfume/cologne, aftershave, make-up, deodorant, or hair products after you have bathed. 5. NO nail kittitian/acrylic on at least one finger. If you are having a hand, wrist or foot surgery then all nail kittitian and artificial/acrylic nails must be removed from that hand or foot. 6. Avoid ALL Aspirin and non-steroidal anti-inflammatory drugs and certain vitamins (Ibuprofen, Advil, Aleve, Excedrin, Meloxicam, Celebrex, fish/krill oil, etc.) for 7 days prior to surgery as instructed by your surgeon and/or your prescribing doctor. Tylenol IS ALLOWED. If you are on Ticlid, Xarelto, Eliquis, Pradaxa, Plavix or Coumadin, please check with your prescribing doctor for instructions for when to stop them. 7. If you use an inhaler, continue to use it routinely. 8. Nothing to eat or drink (not even water, gum, mints, or hard candy!) AFTER midnight prior to your surgery. 9. Take only medications that you are instructed to on the morning of surgery with a TINY SIP OF WATER. 10. Choose a responsible adult that will be able to drive you home when you are discharged from your hospital stay for your surgery and can stay with you in your home for 24 hours after your procedure. You must NOT drive any vehicle or operate any machinery for 24 hours after surgery. 11. When you dress for your appointment, please wear loose fitting clothing that is appropriate to accommodate your surgical area procedure. BRING WITH YOU ANY DEVICES YOU MAY NEED: RAY hose, ice machine, sling/swath, brace or special shoe, oversized zip-up or button up shirt, CPAP machine if staying overnight. 12. Do NOT wear jewelry, watches, or any piercings or metal for surgery- leave these valuables and money at home. 13. Do NOT wear contact lenses for surgery- glasses are okay if needed. 14. The anesthesiologist will talk with you the day of surgery and will ask you to sign a Consent Form. 15. Refrain from smoking or any type of tobacco use for at least 8 hours and marijuana for 24 hours prior to arrival for your surgery. 16. If a GREEN BLOOD band is given to you, please bring it with you for the day of surgery. 17. Notify your surgeon if you develop any illness before your surgery. 18. If you are staying overnight, please DO NOT BRING your home medications with you. 19. If you have any questions prior to surgery, please call the Preadmission Testing office at [phone], Mon.-Fri. 7 a.m.-3 p.m. Leave a voicemail if needed. Pre-Surgery Instructions: Medication Instructions acetaminophen (TYLENOL) 325 mg tablet Stop taking 0 days prior to procedure ALLERGY RELIEF-D, CETIRIZINE, 5-120 mg per 12 hr tablet Stop taking 0 days prior to procedure celecoxib (CeleBREX) 200 mg capsule Check with prescribing doctor for instructions esomeprazole (NexIUM) 20 mg capsule Stop taking 0 days prior to procedure ezetimibe-simvastatin (VYTORIN) 10-80 mg per tablet Stop taking 0 days prior to procedure lisinopriL (PRINIVIL,ZESTRIL) 5 mg tablet Take morning of surgery meclizine (ANTIVERT) 25 mg tablet Stop taking 0 days prior to procedure omega 8-nip-ygn-fish oil 1,200 (144-216) mg capsule Check with prescribing doctor for instructions polyethylene glycol (GAVILYTE-C) 240-22.72-6.72 -5.84 gram solution Stop taking 0 days prior to procedure pyrilamine-dextromethorphan 7.5-7.5 mg/5 mL liquid Stop taking 0 days prior to procedure sod sulf-pot chloride-mag sulf 1.479-0.188- 0.225 gram tablet Stop taking 0 days prior to procedure documented in this encounter [facility] 04-28-2023 Nurse Note Preoperative Education Checklist- General Surgery date: 04/29/23 Surgery time: 0900 Arrival time: 0800 1. Bring a photo ID and your insurance card with you the day of surgery. You will check in at the main lobby of the [facility]- registration desk is straight ahead as soon as you walk in. Tell them you are here for surgery. 2. If you have a Living Will/Durable Power of Installation And Service Technician for Health Care that is not on file here, please bring a copy the day of surgery. 3. Please shower/bathe the night before surgery with the provided soap or wipes. Do not shower the morning of surgery- you will do use wipes when you arrive here at the hospital before getting into your surgical gown. Do not shave the area of your procedure for 2 days prior to your surgery. 4. NO powder, lotion, perfume/cologne, aftershave, make-up, deodorant, or hair products after you have bathed. 5. NO nail kittitian/acrylic on at least one finger. If you are having a hand, wrist or foot surgery then all nail kittitian and artificial/acrylic nails must be removed from that hand or foot. 6. Avoid ALL Aspirin and non-steroidal anti-inflammatory drugs and certain vitamins (Ibuprofen, Advil, Aleve, Excedrin, Meloxicam, Celebrex, fish/krill oil, etc.) for 7 days prior to surgery as instructed by your surgeon and/or your prescribing doctor. Tylenol IS ALLOWED. If you are on Ticlid, Xarelto, Eliquis, Pradaxa, Plavix or Coumadin, please check with your prescribing doctor for instructions for when to stop them. 7. If you use an inhaler, continue to use it routinely. 8. Nothing to eat or drink (not even water, gum, mints, or hard candy!) AFTER midnight prior to your surgery. 9. Take only medications that you are instructed to on the morning of surgery with a TINY SIP OF WATER. 10. Choose a responsible adult that will be able to drive you home when you are discharged from your hospital stay for your surgery and can stay with you in your home for 24 hours after your procedure. You must NOT drive any vehicle or operate any machinery for 24 hours after surgery. 11. When you dress for your appointment, please wear loose fitting clothing that is appropriate to accommodate your surgical area procedure. BRING WITH YOU ANY DEVICES YOU MAY NEED: RAY hose, ice machine, sling/swath, brace or special shoe, oversized zip-up or button up shirt, CPAP machine if staying overnight. 12. Do NOT wear jewelry, watches, or any piercings or metal for surgery- leave these valuables and money at home. 13. Do NOT wear contact lenses for surgery- glasses are okay if needed. 14. The anesthesiologist will talk with you the day of surgery and will ask you to sign a Consent Form. 15. Refrain from smoking or any type of tobacco use for at least 8 hours and marijuana for 24 hours prior to arrival for your surgery. 16. If a GREEN BLOOD band is given to you, please bring it with you for the day of surgery. 17. Notify your surgeon if you develop any illness before your surgery. 18. If you are staying overnight, please DO NOT BRING your home medications with you. 19. If you have any questions prior to surgery, please call the Preadmission Testing office at [phone], Mon.-Fri. 7 a.m.-3 p.m. Leave a voicemail if needed. Pre-Surgery Instructions: Medication Instructions acetaminophen (TYLENOL) 325 mg tablet Stop taking 0 days prior to procedure ALLERGY RELIEF-D, CETIRIZINE, 5-120 mg per 12 hr tablet Stop taking 0 days prior to procedure celecoxib (CeleBREX) 200 mg capsule Check with prescribing doctor for instructions esomeprazole (NexIUM) 20 mg capsule Stop taking 0 days prior to procedure ezetimibe-simvastatin (VYTORIN) 10-80 mg per tablet Stop taking 0 days prior to procedure lisinopriL (PRINIVIL,ZESTRIL) 5 mg tablet Take morning of surgery meclizine (ANTIVERT) 25 mg tablet Stop taking 0 days prior to procedure omega 2-ruu-bal-fish oil 1,200 (144-216) mg capsule Check with prescribing doctor for instructions polyethylene glycol (GAVILYTE-C) 240-22.72-6.72 -5.84 gram solution Stop taking 0 days prior to procedure pyrilamine-dextromethorphan 7.5-7.5 mg/5 mL liquid Stop taking 0 days prior to procedure sod sulf-pot chloride-mag sulf 1.479-0.188- 0.225 gram tablet Stop taking 0 days prior to procedure [facility] 04-21-2023 History of Presen t illness Narrative Images from the original note were not included. HISTORY OF PRESENT ILLNESS: Peggy Bustamante is an 73 y.o. @ female. Chief complaint LT elbow injury Lt elbow fx doi/ 01/10/23. ~ 3 months s/p a fall (01/10/23) just walking and tripped and landed on elbow. Tx at [facility]. Elbow is doing well. She notes mild discomfort with overuse or heavy lifting. Overall she is happy with her progress. Denies N/T. Admits TYL bid for knee pain. Denies waking at night. Pt is RT handed. TX: [facility] ER/XR 01/10/23, CT [facility] 01/15/23 MEDICATION: Current Outpatient Medications on File Prior to Visit Medication Sig Dispense Refill acetaminophen (Tylenol) 325 MG tablet Take by mouth. celecoxib (CeleBREX) 200 MG capsule Take 200 mg by mouth in the morning. esomeprazole (NexIUM) [address] capsule Take 40 mg by mouth in the morning. Take before meals. ezetimibe-simvastatin (Vytorin) 10-80 MG tablet Take 1 tablet by mouth in the morning. lisinopril 5 MG tablet Take 5 mg by mouth in the morning. omega-3 (Fish Oil) 1200 MG capsule Take 1,200 mg by mouth in the morning. Travel-Ease 25 MG tablet No current facility-administered medications on file prior to visit. MEDICAL HISTORY: Past Medical History: Diagnosis Date Arthritis Chicken pox High cholesterol (CMS/HCC) History of medical problems Lt Breast ADH History of migraine headaches Hypercholesterolemia (CMS/HCC) Hypertension (CMS/HCC) Miscarriage Thyroid dysfunction (CMS/HCC) ALLERGIES: Allergies Allergen Reactions Cephalexin Unknown Meperidine Hcl Unknown Propoxyphene Unknown Meperidine Nausea Only VITALS: Visit Vitals Smoking Status Never PHYSICAL EXAM: Near full range motion of the left elbow. Nontender. Neurovascular intact left upper extremity. No instability at the elbow. IMAGING: XR elbow 1 or 2 views left Imaging Result: April 21, 2023 x-rays AP and lateral of the left elbow demonstrate a fracture of the radial head in satisfactory position alignment the fracture appears to be healing. No new findings. Impression: Healing radial head fracture Serafin Riojas D.O. ASSESSMENT: ICD-10-CM 1. Closed displaced fracture of head of left radius with routine healing, subsequent encounter S52.122D XR elbow 1 or 2 views left PLAN: Progress activities as tolerated with the left elbow recheck as needed regarding the left elbow. I explained the diagnosis and reviewed treatment options. I answered all of the patient's questions. Kamlesh Riojas D.O. documented in this encounter [facility] 04-09-2023 Telephone encounter Note PT Copay $35.00 [facility] 04-09-2023 Miscellaneous Notes PT Copay $35.00 documented in this encounter [facility] 03-23-2023 History of Presen t illness Narrative Peggy presents for a DEXA scan. She has no new problems to report. Her mother did not break her hip. She rarely drinks alcohol. She is not a smoker. documented in this encounter [facility] 03-17-2023 History of Presen t illness Narrative Subjective Patient ID: Peggy Bustamante is a 72 y.o. female. Head feels plugged up for about 6-7 days No fever, chills, no nausea or vomiting Has been using the zyrtec d without relief Some cough but intermittent No dizziness or ear pain This am had a headache No sore throat Frontal and maxillary pressure The following portions of the patient's history were reviewed and updated as appropriate: allergies, current medications, past family history, past medical history, past social history, past surgical history, problem list, and medication reconciliation was completed including current medication and post discharge medication. Review of Systems Constitutional: Positive for fatigue. Negative for chills and fever. HENT: Positive for congestion, sinus pressure and sinus pain. Negative for ear pain and sore throat. Eyes: Negative. Respiratory: Positive for cough. Cardiovascular: Negative. Gastrointestinal: Negative. Endocrine: Negative. Genitourinary: Negative. Musculoskeletal: Negative. Skin: Negative. Allergic/Immunologic: Negative. Neurological: Negative for dizziness. Hematological: Negative. Psychiatric/Behavioral: Negative. Objective Physical Exam Vitals and nursing note reviewed. Constitutional: General: She is not in acute distress. HENT: Head: Normocephalic. Right Ear: Tympanic membrane, ear canal and external ear normal. Left Ear: Tympanic membrane, ear canal and external ear normal. Nose: Congestion present. Comments: Nasal passages inflamed Mouth/Throat: Comments: PND Eyes: Conjunctiva/sclera: Conjunctivae normal. Neck: Vascular: No carotid bruit. Cardiovascular: Rate and Rhythm: Normal rate and regular rhythm. Heart sounds: Normal heart sounds. No murmur heard. Pulmonary: Effort: Pulmonary effort is normal. Breath sounds: Normal breath sounds. Musculoskeletal: Right lower leg: No edema. Left lower leg: No edema. Lymphadenopathy: Cervical: No cervical adenopathy. Skin: General: Skin is warm and dry. Capillary Refill: Capillary refill takes less than 2 seconds. Neurological: General: No focal deficit present. Mental Status: She is alert and oriented to person, place, and time. Psychiatric: Thought Content: Thought content normal. Judgment: Judgment normal. Assessment/Plan Peggy was seen today for nasal congestion and cough. Diagnoses and all orders for this visit: Viral upper respiratory tract infection - predniSONE (DELTASONE) 20 mg tablet; Take 1 tablet (20 mg total) by mouth in the morning for 7 days. - pyrilamine-dextromethorphan 7.5-7.5 mg/5 mL liquid; Take 5 mL by mouth 4 (four) times a day as needed (cough and congestion). Presence of URI will treat symptomatically Rest and hydration [facility] 03/17/23 1242 documented in this encounter [facility] 07-21-2022 Evaluation note Encounter Date Diagnosis Assessment Notes July, Pain in left knee (ICD-10 - M25.562) July, Primary osteoarthritis of both knees (ICD-10 - M17.0) We discussed treatment options for the patient's persistent right knee pain. She shows notable pain consistent with significant degenerative findings on x-ray. It would be reasonable to proceed with a right intra-articular knee joint injection today in office. Risks and benefits of procedure explained to patient; patient verbalizes understanding. Patient tolerated well. We will follow up with the patient in September, sooner if needed. Anatomy discussed in detail with patient in regards to patients condition. July, Pain in right knee (ICD-10 - M25.561) July, Other chronic pain (ICD-10 - G89.29) July, Other Above note written by Khalif Farooq MA, [employer]. Edited and approved by Dr. Andrew Agarwal MD. [employer] Other 05-04-2023 Evaluation note* Encounter Date Diagnosis Assessment Notes Treatment Notes Treatment Clinical Notes July, Pain in left knee (ICD-10 - M25.562) July, Primary osteoarthritis of both knees (ICD-10 - M17.0) We discussed treatment options for the patient's persistent bilateral knee pain. She shows notable pain consistent with significant degenerative findings on x-ray. We will start treatment conservatively with a left knee joint cortisone injection. In the meantime we will submit for Gel-One injections at patients request, as she has previously received benefit from Gel-One and denies relief with previous Durolane. Risks and benefits of procedure explained to patient; patient verbalizes understanding. Patient tolerated well. We will follow up with her once we obtain approval for Gel-One injections. July, Pain in right knee (ICD-10 - M25.561) July, Other chronic pain (ICD-10 - G89.29) July, Other Above note written by Olinda Ruano LPN, [employer] [place]. Edited and approved by Dr. Andrew Agarwal MD. Medical decision making shows a new problem to me with further workup planned or suggested with the potential for extensive treatment options that were considered with the most applicable given this patient's situation as noted above. Treatment options considered include a combination of physical therapy approaches, pharmacologic management, and interventional procedures. Those most applicable to the patient were discussed at this time. Risk of complications and/or morbidity and mortality is high given that acute and chronic pain poses a threat to life and bodily function if undertreated, poorly treated or with failure to maintain adequate treatment and timely followup. Given the serious and fluctuating nature of pain with extensive consideration for whenever pain changes, there always remains the possibility of prolonged functional impairment requiring constant patient reassessment and high-level medical decision making. The amount and complexity of data reviewed is high given that patient labs, radiology reports, and other test were obtained, reviewed and summarized as applicable from the physician portal and/or outside medical records. Pertinent positive and negative findings were considered in medical decision-making. [employer] Other 03-30-2023 NoteCONSULTATION CONSULTATION DATE: 06/05/2022 TO: Ismael Bonilla D.O. HISTORY: Patient returns today complaining of pain in her knee joints bilaterally. She reports the pain as being 5-7/10, sharp in character, worse on the left than the right side, increased with any kind of weight bearing activities, and she feels most comfortable in the semi-recumbent position. She describes stiffness in her knee joints bilaterally, after being sedentary for even short periods of time. She reports the stiffness improves after she ambulates, but the pain persists with weight bearing maneuvers. She denies any change in bowel and bladder habits or new sensorimotor changes in her lower extremities. EXAM: Notable for patient having no clinical radiculopathy or myelopathy involving the lower extremities. Patient had crepitus over bilateral knee joints, most significant on the left than the right side with more significant edema involving the left knee compared to the right knee. She had point tenderness over the medial aspect of both knee joints. She had nothing to suggest ligamental laxity. She had no appreciable J-sign, and she had a fair amount of myofascial spasm involving the hamstrings and gastrocnemius muscle bilaterally, more significant on the left knee compared to the right. IMPRESSION: Patient has chronic pain secondary to osteoporosis, left worse than right side, symptomatically with myofascial spasm of the gastrocnemius muscle and hamstring muscle bilaterally. RECOMMENDATIONS: I placed her on baclofen 10 mg pills, one-quarter pill to one- half pill b.i.d. as tolerated, and one-half pill to one pill at bedtime. Physical therapy to include strengthening and to proceed with bilateral knee joint injection using Gel-1 performed under fluoroscopic guidance to both knee joints. Gone over the details of the procedure with the patient. All her questions were answered. She agrees to proceed with the outlined plan.[facility] [id number] NoteCONSULTATION PROCEDURE DATE: 03/18/2022 PREOPERATIVE DIAGNOSIS: Right knee pain, right knee osteoarthritis. POSTOPERATIVE DIAGNOSIS: Right knee pain, right knee osteoarthritis. PROCEDURE: Right Durolane hyaluronic acid 60 mg 3 cc injected. Subsequent to obtaining informed consent, the patient was placed in the sitting position. Alcohol prep was used to sterilize the site. A 23 gauge needle was advanced and it comes to rest in the left knee joint. Negative aspiration. Durolane 3 cc volume was injected. Negative heme. The patient tolerated the procedure well. Post procedurally performed range of motion exercises.[facility] [id number] NoteCONSULTATION CONSULTATION DATE: 01/14/2022 CHIEF COMPLAINT: Bilateral knee pain. HISTORY OF PRESENT ILLNESS: This is a very pleasant, 71-year-old female who has had chronic knee pain . The patient has been under the care of Dr. Riojas and had received Gel-One injection in her left knee in March of 2021 and the right in July of 2021. With the change in weather, the patient is noticing increasing pain. The patient reports the pain as a 3/10, a soreness, constant, cannot get away from it. Sitting mitigates the pain as does lying down. Walking, activities, housework, bending, climbing stairs, ADLs, change in weather aggravate the pain. The patient continues to take Celebrex 200 mg daily. She was recently seen by Dr. Riojas, who referred her to us for the possibility of repeating the hyaluronic acid injection in her knees. The patient's PAST MEDICAL HISTORY / SURGICAL HISTORY / REVIEW OF SYSTEMS are noted on the chart, along with the MEDICATION LIST / ALLERGIES and the X-RAYS of her knees bilaterally. PHYSICAL EXAMINATION: Upon physical examination, this is a pleasant, cooperative female, who does not use any assistive devices for ambulation. VITAL SIGNS: Stable at 146/81 with a heart rate of 80. At a height of 5'4 , the patient weighs 85 kg. FOCUSED EVALUATION - HEAD: Atraumatic, normocephalic. NECK: No crepitus. HEART: No orthopnea. LUNGS: Non-labored breathing. ABDOMEN: Soft. BACK: The patient has problems and paravertebral spasming on her lumbar spine. EXTREMITIES: The patient does have valgus deformity of her knees bilaterally, right more prominent. This is also noted with a right lateral gliding of the tibia on the femur. Drawer test is negative. 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 No pedal edema noted. MUSCULOSKELETAL: Intact in the lower extremities. NEUROLOGICALLY: The patient is intact. PSYCHIATRICALLY: Affect is appropriate. IMPRESSION: Osteoarthritis of the knees bilaterally, severe on the right hand side compared to the left hand side. Valgus deformity. PLAN: We have suggested that the patient wear a knee brace bilaterally to help with the stabilization. The patient was also instructed to use a heat rub to her knees in the evening, especially with the change in weather. We steel look to get authorization for a hyaluronic acid injection for her knees; initially on the left hand side, followed by the right hand side. The patient does not wish to take any narcotics and wants to maintain a conservative approach for her pathology. Education was done. The patient would like to proceed. CC: Amina MaOhio State Health SystemEvaluation noteNo assessment information availableUniversity Hospitals Geauga Medical Center Work Phone: Evaluation note* Diagnosis Other seasonal allergic rhinitis documented in this encounter [facility]* Diagnosis Viral upper respiratory tract infection- Primary Acute upper respiratory infections of unspecified site [facility]* Diagnosis Osteoporosis, postmenopausal- Primary Senile osteoporosis [facility]* Diagnosis Closed displaced fracture of head of left radius with routine healing, subsequent encounter- Primary [facility] Diagnosis Arthritis of left knee- Primary [facility]* Diagnosis Gastro-esophageal reflux disease without esophagitis Preop examination- Primary Unspecified pre-operative examination Hypertension, unspecified type Hypothyroidism (acquired) Unspecified hypothyroidism [facility] general Narrative - Reported* Type Description Date Medical History hyperlipidemia Medical History osteoporosis Medical History osteoarthritis Medical History hypertension Surgical History appendectiomy Surgical History tubal Surgical History gall bladder removal Surgical History excision of lesion to left [facility] Surgical History lithotripsy right kidney Hospitalization History see above [employer] Other InstructionsNot on filedocumented in this encounter [facility] SystemInstructionsNot on filedocumented in this encounter [facility] SystemInstructionsNot on filedocumented in this encounter [facility] SystemInstructionsNot on filedocumented in this encounter [facility] SystemInstructionsNot on filedocumented in this encounter [facility] SystemReason for visit NarrativeSELF-REFERRAL APPROVED RIGOBERTO KNEE PAINNort [employer] Other Summary Purpose Family History No Family History Records FoundNo Family History Records FoundNo Family History Records FoundNo Family History Records FoundNo Family History Records FoundNo Family History Records Found Advance Directives No Advanced Directives Records Found Advance Directive Response Recorded Date/ Time Advance Directives No January 11:52am Advance Directive Response Recorded Date/ Time Advance Directives No January 12:52pm Chief Complaint and Reason for Visit Chief Complaint Screening Additional Source Comments INFORMATION SOURCE (unrecogn ized section and content) DATE CREATED AUTHOR 06/29/2021 [facility] DATE CREATED AUTHOR AUTHOR'S ORGANIZ ATION 06/14/2022 [facility] DATE CREATED AUTHOR AUTHOR'S ORGANIZ ATION 03/24/2023 [facility] DATE CREATED AUTHOR AUTHOR'S ORGANIZ ATION 04/17/2023 [facility] DATE CREATED AUTHOR AUTHOR'S ORGANIZ ATION 05/05/2023 [facility] DATE CREATED AUTHOR AUTHOR'S ORGANIZ ATION 06/17/2023 [facility] EPIC Care Teams (unrecognized sec tion and content) Team Status: Inactive Member Role Status Dates Ismael Bonilla , DO Primary Care Provider Active Britney Cope DO Attending Provider Active Team Status: Active Member Role Status Dates Ismael Bonilla , DO Primary Care Provider Active Team Status: Inactive Member Role Status Dates Ismael Bonilla , DO Primary Care Provider Active Andrew Agarwal MD Attending Provider Active Team Status: Inactive Member Role Status Dates Ismael Bonilla , DO Primary Care Provider Active Referral Self Attending Provider Active Manager Small Business Relationship Specialty Start Date End Date Amina Donnelly, [employer] [address] [place] [address] PCP - General Internal Medicine 12/09/21 Manager Small Business Relationship Specialty Start Date End Date Amina Donnelly, [employer] [address] [place] [address] PCP - General Internal Medicine 12/09/21 Manager Small Business Relationship Specialty Start Date End Date Amina Donnelly, [employer] [address] [place] [place] [address] PCP - General Internal Medicine 12/09/21 Manager Small Business Relationship Specialty Start Date End Date Ismael Bonilla MD [address] [place] [address] PCP - General Family Medicine 11/25/22 Manager Small Business Relationship Specialty Start Date End Date Ismael Bonilla MD [address] [place] [address] PCP - General Family Medicine 11/25/22 Manager Small Business Relationship Specialty Start Date End Date Ismael Bonilla MD [address] [facility] [address] PCP - General Family Medicine 11/25/22 Manager Small Business Relationship Specialty Start Date End Date Amina Donnelly, FORESTRY TREE PR[employer]ER-[facility] [address] [place] [address] PCP - General Internal Medicine 12/09/21 Manager Small Business Relationship Specialty Start Date End Date Amina Donnelly, FORESTRY TREE [employer]ER-[facility] [address] [place] [address] PCP - General Internal Medicine 12/09/21 Goals (unrecognized section and content) Goals may be documented in a n alternate sectionNo InformationGoals may be documented in an alternate sectionNo InformationGoals may be documented in an alternate sectionNot on filedocumented as of this encounterNot on filedocumented as of this encounterNot on filedocumented as of this encounterNot on filedocumented as of this encounterNot on filedocumented as of this encounter REASON FOR VISIT (unrecogniz ed section and content) Reason Comments Med Refill Reason Comments Nasal Congestion Cough Reason Onset Date Comments PT Prehab 04/09/2023 Tried to contact but unable for L TKA Prehab; no dos specified. fu 04/10/2023 Contacted and aby resendez noted she was told she needs to wait till after dentist appt before schedule anything else. She said she is going to contact dentist on 04/13 and I told her I'd fu with her on 04/14 to hopefully schedule her PreHab. FU x 2 04/09/2023 Tried to contact re: noting to her I would call to set-up Prehab post her contacting dentist. There was no answer and no machine to lm; will try again. FU x3 04/16/2023 Contacted and sc heduled Prehab 04/21 w/ Carlos Last, PT. Reason Comments Follow-up Specialty Diagnoses / Procedures Referred By Vy reardon Referred To Contact Physical Therapy Diagnoses Arthritis of left knee Procedures UT OFFICE/OUTPATIENT NEW HIGH MDM 60 MINUTES Jasmine Riojas, [address] [facility] [address] [place] [address] Carlos Last, PT [address] [facility] [address] [place] [address] Referral ID Status Reason Start Date Expiration Date Visits Requested Visits Authorized [id number] Authorized Specialty Services Required 04/07/2023 10/04/2023 99 99 FOR RECORDS PERTAINING TO PATIENTS WHO ARE OR HAVE BEEN ENROLLED IN A CHEMICAL DEPENDENCY/SUBSTANCEABUSE PROGRAM, SOME INFORMATION MAY BE OMITTED. This clinical summary was aggregated from multiple sources. Caution should be exercised in using it in the provision of clinical care. This summary normalizes information from multiple sources, and as a consequence, information in this document may materially change the coding, format and clinical context of patient data. In addition, data may be omitted in some cases. CLINICAL DECISIONS SHOULD BE BASED ON THE PRIMARY CLINICAL RECORDS. [facility] [facility]. provides no warranty or guarantee of the accuracy or completeness of information in this document.
== END 2023-08-06 08:46 | disposition home or self-care (01) ==
PROVIDERS: PCP Family Medicine; Visit Provider Nurse Practitioner
DX: M17.12 Unilateral primary osteoarthritis, left knee (principal); M25.562 Pain in left knee; M62.838 Other muscle spasm
CPT/HCPCS: G0463

== ENCOUNTER 2023-10-06 11:07 | Outpatient (OUT) | payer MEDICARE, SELFPAY ==
--- NOTE | 2023-10-06 | CONS_ITS ---
CONSULTATION DATE: 10/06/2023 TO: Ismael Bonilla D.O. HISTORY: Patient presents today complaining of pain in her right knee. She has had this pain for several years. She has undergone one corticosteroid injection into her right knee joint last year. She reports a significant reduction in pain symptoms, lasting a short period of time, with recurrence of pain back to her baseline. She has been through physical therapy in the past, and she is considering a total knee arthroplasty of her left knee; however, until that occurs, she is having more difficulty with pain on her right side and rates it between 4-7/10 pain, sharp in character, increased with activities such as standing, walking and performing transitioning maneuvers. She feels most comfortable in the semi-recumbent position. Denies any change in bowel and bladder habits or new sensorimotor changes in the lower extremities. EXAM: Notable for patient mild edema of her right knee. She appears to have a moderate amount of tenderness involving her hamstrings and gastrocnemius muscle. I could not appreciate any ligamental laxity. She had a moderate amount of crepitus of her right knee joint. Her patella seems to be tracking appropriately and she had significant pain with medial and lateral compartment loading maneuvers. IMPRESSION: Our impression is patient with chronic pain secondary to right knee osteoarthrosis/degenerative joint disease. RECOMMENDATIONS: I recommend a right knee x-ray, physical therapy and Synvisc One injection into her right knee joint under fluoroscopic guidance. I think she has failed conservative therapy with medication management, which includes the use of Celebrex, topical nonsteroidals, activity modification and previous corticosteroid injections into the right knee, which did not prove to be beneficial. As part of providing excellent, safe, comprehensive care, the following was completed at our patient's visit: 1. A medication reconciliation and review to ensure accurate knowledge of current/active medications, including asking our patients to inform us about any [id number] medications or herbal remedies/nutritional supplements/alternative remedies. 2. A review to specifically ensure our patients have had annual screening for: elevated body mass index (BMI, see intake chart for exact total), tobacco use, screening for depression, and screening for unhealthy alcohol use. When screening is concerning, patients are provided with education and the specific recommendation to discuss the concerning health issue and treatment options with their primary care provider. GEOVANY
--- OUTSIDE RECORDS SUMMARY | 2023-10-06 11:18 | XMS_ITS | CCD ---
Author Organization [facility] Care Team Providers Care Bow Stapler Name Role Phone DO Ismael Bonilla Primary Care Provider DO Britney Cope Attending Provider [phone] MELBA ., DR ELEAZAR Schrader Attending Unavailable [...] Unavailable LAKSHMIPATHY ., NATY Attending Purvi vailable FURKATHIANG, DR ISMAEL Corona Primary Care Unavailable [...] Care Provider MD Andrew Agarwal Attending Provider [phone] DO Ismael Bonilla Primary Care Provider [phone] Self, Referral Attending Provider Unavailable Clydes CASH ANALYST-TARIFF COUNSEL, Amina Reyes Primary Care Provider Self, Referral Admitting Unavailable Self, Referral Attending Unavailable Ismael Bonilla Primary Care Unavailable Andrew Agarwal Attending Unavailable Ismael Bonilla Primary Care Unavailable Andrew Agarwal Admitting Unavailable Ismael Bonilla MD Primary Care Provider AMINA MENDEZ Referring Unavailable KUNS, DEIDRE Primary Care Unavailable YUHAJORJE Schrader Admitting Unavailable YUHASJORJE Attending Unavailable KUNS, DEIDRE Primary Care Unavailable YUHARaciel, JORJE Daniels Attending Unavailable YUHASJORJE Referring Unavailable [...] COPE Attending Unavailable ISMAEL BONILLA Referring Unavailable KUNS, AMINA REYES Attending Unavailable KUNS, AMINA REYES Referring Unavailable KUNS, DEIDRE Primary Care Unavailable IZA SMITH Attending Unavailable IZA SMITH Referring Unavailable SMITHNEMESIO DAVEYE Peggy Primary Care Unavailable KUNSAMINA Attending Unavailable KUNS, AMINA REYES Referring Unavailable KUNS, AMINA REYES Primary Care Unavailable ISMAEL BONILLA Attending Unavailable KUNSAMINA Referring Unavailable KUNS, AMINA REYES Primary Care Unavailable KUNS, DEIDRE Referring Unavailable KUNS, DEIDRE Primary Care Unavailable IZA SMITH Referring Unavailable SMITHIZA DAVEY Primary Care Unavailable Allergies Allergy Classification Reported Allergen(s) Allergy Type Date of Onset Reaction(s) Facility (4 sources) Cephalexin Drug Allergy 7 Unknown [facility] (2 sources) Meperidine Drug Allergy 7 [facility] (2 sources) Darvocet-N 100 Drug allergy (disorder) 7 [facility] (12 sources) Cephalexin; Translations: [CEPHALEXIN] Drug Allergy 2 Rash, Unknown [facility] (12 sources) Meperidine; Translations: [MEPERIDINE] Drug Allergy 2 Nausea, Nausea Only [facility] Work Phone: (8 sources) Propoxyphene N-Acetaminophen; Translations: [PROPOXYPHENE N-ACETAMINOPHEN] Propensity to adverse reactions to drug 2 Vomiting [facility] (1 source) Cephalexin Drug Allergy 3 [facility] Repository (4 sources) Meperidine Drug Allergy 3 Unknown [facility] (4 sources) Propoxyphene Drug Allergy 3 Unknown [facility] Medications Current Medications Medication Drug Class(es) [...] Active Start: 09-21-2022 take 1 capsule by [facility] in the morning celecoxib (CeleBREX) 200 mg [...] 1.5 mg/ml oral solution (5 sources) Uncompetitive L-jdzmfi-F-aspartate Receptor Antagonist, Sigma-1 Agonist Start: 05-04-2023 take [...] (11 sources) Angiotensin Converting Enzyme Inhibitor Start: take 1 tablet by mouth once daily [...] dizziness. 30 tablet 1 02/23/2023 Active omega 2-gos-drd-fish oil 1,200 (144-216) mg capsule (5 sources) omega 0-nzw-hfr-fish oil 1,200 (144-216) mg capsule Orally 0 [...] Sig (Normalized) Sig (Original) polyethylene glycol 3350 148433 mg / potassium chloride 2980 mg / sodium bicarbonate 6720 mg / sodium chloride 5840 mg / sodium sulfate 59565 mg powder for oral solution (1 source) [...] Classification Problem Date Documented Da te Episodic/Chronic Disorders of lipid metabolism (15 sources) Mixed hyperlipidemia; Translations: [Hyperlipidemia] Onset: 2 Chronic Esophageal disorders (2 sources) Gastroesophageal reflux disease without esophagitis; Translations: [Gastro-esophageal reflux disease without esophagitis] Onset: 4 06-10-2023 Chronic Essential hypertension (12 sources) Essential hypertension; Translations: [Essential (primary) hypertension] [...] of intestine] Onset: 4 04-29-2023 Episodic Other nervous system disorders (3 sources) [...] conditions (not mental disorders or infectious disease) (13 sources) Encounter for screening for malignant neoplasm of cervix; Translations: [Patient encounter status] Onset: 2 Episodic Other upper respiratory disease (1 source) Seasonal allergic rhinitis; Translations: [Other seasonal allergic rhinitis] 03-05-2023 Chronic Thyroid disorders (10 sources) Hypothyroidism, unspecified; Translations: [Acquired hypothyroidism] Onset: 2 01-01-2022 Chronic Unclassified (1 source) Encounter for screening mammogram for malignant neoplasm of breast; Translations: [Encounter for screening mammogram for malignant neoplasm of breast] Onset: 3 Unclassified (1 source) Pain in left knee; Translations: [Pain in left knee] Onset: 3 Unclassified (1 source) screening Onset: 4 Unclassified (1 source) New Patient Onset: 4 Past or Other Problems Problem Classification Problem Date Documented Date Episodic/Chronic Conditions associated with dizziness or vertigo (1 source) Benign paroxysmal vertigo, bilateral; Translations: [Benign paroxysmal vertigo, bilateral] Onset: 02-23-2023 Episodic Immunizations and screening for infectious disease (1 [...] [Tinnitus, unspecified ear] Onset: 12-11-2021 12-11-2021 Episodic Other lower respiratory disease (1 source) Cough Onset: 03-17-2023 Episodic Other upper respiratory disease (1 source) Nasal congestion Onset: 03-17-2023 Episodic Other upper respiratory infections (2 sources) Viral upper respiratory tract infection; Translations: [Acute upper respiratory infection, unspecified] Onset: 03-17-2023 03-17-2023 Episodic Results Test Name Value Interpretation Reference Range Facility CBC AND AUTO DIFFon 09-24-19 ABSOLUTE BASOPHIL 0.0 X10E9/L Normal 0.0-0.2 [facility] Comment on above: Performed By: #### C BCA, CMP, 48319-0, 3016-3, HA1C #### [facility] ([id number]) [address], [address] [place] [address] ABSOLUTE NEUTROPHIL 2.9 X10E9/L Normal 1.5-6.6 [facility] Comment on above: Performed By: #### C BCA, CMP, 41166-1, 3016-3, HA1C #### [facility] ([id number]) [address], [address] [place] [address] Basophils/100 WBC (Bld) 0.7 % Normal [facility] Comment on above: Performed By: #### C BCA, CMP, 93857-7, 6-3, HA1C #### [facility] ([id number]) [address], [address] [place] [address] Eosinophils (Bld) [#/Vol] 0.1 10*3/uL Normal 0.0-0.4 [facility] Comment on above: Performed By: #### C BCA, CMP, 27429-6, 6-3, HA1C #### [facility] ([id number]) [address], [address] [place] [address] Eosinophils/100 WBC (Bld) 1.3 % Normal [facility] Comment on above: Performed By: #### C BCA, CMP, 36055-7, 3015-, HA1C #### [facility] ([id number]) [address], [address] [place] [address] Erythrocyte distribution width (RBC) [Ratio] 13.5 % Normal 11.5-15.0 [facility] Comment on above: Performed By: #### C BCA, CMP, 95045-1, 3015-3, HA1C #### [facility] ([id number]) [address], [address] [place] [address] Hematocrit (Bld) [Volume fraction] 39.5 % Normal 35-47 [facility] Comment on above: Performed By: #### C BCA, CMP, 56558-1, 6-3, HA1C #### [facility] ([id number]) [address], [address] [place] [address] Hemoglobin (Bld) [Mass/Vol] 13.3 g/dL Normal 11.7-15.5 [facility] Comment on above: Performed By: #### C BCA, CMP, 89861-2, 3015-05, HA1C #### [facility] ([id number]) [address], [address] [place] [address] Lymphocytes (Bld) [#/Vol] 2.0 10*3/uL Normal 1.0-3.5 [facility] Comment on above: Performed By: #### C BCA CMP, 00845-3, 3015-05, HA1C #### [facility] ([id number]) [address], [address] [place] [address] Lymphocytes/100 WBC (Bld) 35.4 % Normal [facility] Comment on above: Performed By: #### C BCA CMP, 41173-1, 3015-05, HA1C #### [facility] ([id number]) [address], [address] [place] [address] MCH (RBC) [Entitic mass] 31.1 pg Normal 27-34 [facility] Comment on above: Performed By: #### C TRICIA CMP, 64375-0, 3015-05, HA1C #### [facility] ([id number]) [address], [address] [place] [address] MCHC (RBC) [Mass/Vol] 33.6 g/dL Normal 32-36 [facility] Comment on above: Performed By: #### Bong BCA CMP, 25013-6, 3015-05, HA1C #### [facility] ([id number]) [address], [address] [place] [address] MCV (RBC) [Entitic vol] 93 fL Normal 80-100 [facility] Comment on above: Performed By: #### C BCA, CMP, 58983-9, 3015-05, HA1C #### [facility] ([id number]) [address], [address] [place] [address] Monocytes (Bld) [#/Vol] 0.6 10*3/uL Normal 0-0.9 [facility] Comment on above: Performed By: #### C BCA, CMP, 95721-4, 3016-3, HA1C #### [facility] ([id number]) [address], [address] [place] [address] Monocytes/100 WBC (Bld) 11.3 % Normal [facility] Comment on above: Performed By: #### C BCA, CMP, 68043-1, 3016-3, HA1C #### [facility] ([id number]) [address], [address] [place] [address] Neutrophils/100 WBC (Bld) 51.3 % Normal [facility] Comment on above: Performed By: #### C BCA, CMP, 05460-5, 6-3, HA1C #### [facility] ([id number]) [address], [address] [place] [address] Platelet mean volume (Bld) [Entitic vol] 7.6 fL Normal 7-12 [facility] Comment on above: Performed By: #### C BCA, CMP, 62903-1, 6-3, HA1C #### [facility] ([id number]) [address], [address] [place] [address] Platelets (Bld) [#/Vol] 216 10*3/uL Normal 150-450 [facility] Comment on above: Performed By: #### C BCA, CMP, 64499-9, 6-3, HA1C #### [facility] ([id number]) [address], [address] [place] [address] RBC COUNT 4.26 X10E12/L Normal 3.80-5.[address] [facility] Comment on above: Performed By: #### C BCA, CMP, 84953-5, 6-3, HA1C #### [facility] ([id number]) [address], [address] [place] [address] WBC (Bld) [#/Vol] 5.6 10*3/uL Normal 4.0-11.0 [facility] Comment on above: Performed By: #### C BCA, CMP, 26499-3, 3016-3, HA1C #### [facility] ([id number]) [address], [address] [place] [address] COMPREHENSIVE METABOLIC PANE Levi 09-24-2023 Albumin [Mass/Vol] 4.6 g/dL Normal 3.2-5.3 [facility] Comment on above: Performed By: #### C BCA, CMP, 37300-9, 3016-3, HA1C #### [facility] ([id number]) [address], [address] [place] [address] ALP [Catalytic activity/Vol] 37 U/L Low 39-130 [facility] Comment on above: Performed By: #### C BCA, CMP, 86472-5, 3016-3, HA1C #### [facility] ([id number]) [address], [address] [place] [address] ALT [Catalytic activity/Vol] 20 U/L Normal 0-31 [facility] Comment on above: Performed By: #### C BCA, CMP, 15805-8, 3016-3, HA1C #### [facility] ([id number]) [address], [address] [place] [address] Anion gap [Moles/Vol] 7 mmol/L Normal 5-15 [facility] Comment on above: Performed By: #### C BCA, CMP, 42345-2, 3016-3, HA1C #### [facility] ([id number]) [address], [address] [place] [address] AST [Catalytic activity/Vol] 18 U/L Normal 0-41 [facility] Comment on above: Performed By: #### C BCA, CMP, 50442-6, 3016-3, HA1C #### [facility] ([id number]) [address], [address] [place] [address] Bilirubin [Mass/Vol] 0.4 mg/dL Normal 0.3-1.2 [facility] Comment on above: Performed By: #### C BCA, CMP, 28818-3, 3016-3, HA1C #### [facility] ([id number]) [address], [address] [place] [address] Calcium [Mass/Vol] 9.8 mg/dL Normal 8.5-10.5 [facility] Comment on above: Performed By: #### C BCA, CMP, 00603-6, 3016-3, HA1C #### [facility] ([id number]) [address], [address] [place] [address] Chloride [Moles/Vol] 100 mmol/L Normal 98-109 [facility] Comment on above: Performed By: #### C BCA, CMP, 11111-7, 3016-3, HA1C #### [facility] ([id number]) [address] [place] [address] CO2 [Moles/Vol] 30 mmol/L Normal 22-32 [facility] Comment on above: Performed By: #### C BCA, CMP, 41767-1, 3016-3, HA1C #### [facility] ([id number]) [address], [address] [place] [address] Creatinine [Mass/Vol] 0.82 mg/dL Normal 0.40-1.00 [facility] Comment on above: Result Comment: METH OD TRACEABLE TO IDMS STANDARD Performed By: #### C BCA, CMP, 21999-8, 3016-3, HA1C #### [facility] ([id number]) [address], [address] [place] [address] GFR/1.73 sq M.predicted among non-blacks MDRD (S/P/Bld) [Vol rate/Area] 76 mL/min/{1.73_m2} Normal >59 [facility] Comment on above: Result Comment: Reported eGFR is based on the CKD-EPI 2020 equation that does not use a race coefficient. Performed By: #### C BCA, CMP, 37371-7, 3016-3, HA1C #### [facility] ([id number]) [address], [address] [place] [address] Glucose [Mass/Vol] 94 mg/dL Normal 65-99 [facility] Comment on above: Performed By: #### C BCA, CMP, 79752-2, 6-3, HA1C #### [facility] ([id number]) [address], [address] [place] [address] Potassium [Moles/Vol] 4.3 mmol/L Normal 3.5-5.0 [facility] Comment on above: Performed By: #### C BCA, CMP, 30218-7, 6-3, HA1C #### [facility] ([id number]) [address], [address] [place] [address] Protein [Mass/Vol] 7.1 g/dL Normal 6.0-8.0 [facility] Comment on above: Performed By: #### C BCA, CMP, 41119-2, 6-3, HA1C #### [facility] ([id number]) [address], [address] [place] [address] Sodium [Moles/Vol] 137 mmol/L Normal 134-146 [facility] Comment on above: Performed By: #### C BCA, CMP, 27775-6, 6-3, HA1C #### [facility] ([id number]) [address], [address] [place] [address] Urea nitrogen [Mass/Vol] 13 mg/dL Normal 5-27 [facility] Comment on above: Performed By: #### C BCA, CMP, 46346-9, 6-3, HA1C #### [facility] ([id number]) [address], [address] [place] [address] HGB A1C (GLYCO-HGB)on 2023 Glucose [Mass/Vol] 111 mg/dL Normal [facility] Comment on above: Performed By: #### C TRICIA, RASHEEDA, 09818-1, 3015-3, HA1C #### [facility] ([id number]) [address], [address] [place] [address] HbA1c (Bld) [Mass fraction] 5.5 % Normal 4.4-5.6 [facility] Comment on above: Result Comment: NOTE ADA Guidelines Result HgbA1c Normal : less than 5.7 % Prediabetes : 5.7 % to 6.4 % Diabetes : > 6.4 % Use with caution in patients with abnormal hemoglobin variants as the half-life of red blood cells and in vivo glycation rates are affected. Performed By: #### C TRICIA, RASHEEDA, 73092-6, 3015-3, HA1C #### [facility] ([id number]) [address], [address] [place] [address] Lipid 1996 panelon Cholesterol [Mass/Vol] 155 mg/dL Normal 150-200 [facility] Comment on above: Performed By: #### C TRICIA, RASHEEDA, 64417-3, 3015-3, HA1C #### [facility] ([id number]) [address], [address] [place] [address] Cholesterol in HDL [Mass/Vol] 51 mg/dL Normal >39 [facility] Comment on above: Result Comment: HDL <40 mg/dL - High Risk HDL > or = 40mg/dL- Desirable HDL >60 mg/dL - Negative Risk Performed By: #### C BCA, CMP, 20428-3, 6-3, HA1C #### [facility] ([id number]) [address], [address] [place] [address] Cholesterol in LDL [Mass/Vol] 61 mg/dL Normal <130 [facility] Comment on above: Result Comment: LDL <100 mg/dL - Desirable LDL >160 mg/dL - High Risk Performed By: #### C BCA, CMP, 47639-1, 6-3, HA1C #### [facility] ([id number]) [address], [address] [place] [address] Cholesterol in VLDL [Mass/Vol] 43 mg/dL High 0-30 [facility] Comment on above: Performed By: #### C TRICIA, CMP, 81354-1, 6-3, HA1C #### [facility] ([id number]) [address] [place] [address] CHOLESTEROL:HDL 3.0 Normal 1.0-5.0 [facility] Comment on above: Performed By: #### C TRICIA, CMP, 78133-2, 6-3, HA1C #### [facility] ([id number]) [address], [address] [place] [address] Triglyceride [Mass/Vol] 214 mg/dL High 27-150 [facility] Comment on above: Performed By: #### C BCA, CMP, 59579-9, 6-3, HA1C #### [facility] ([id number]) [address], [address] [place] [address] TSH Qnon 09-24-2023 TSH 2.72 uIU/mL Normal 0.49-4.67 [facility] Comment on above: Performed By: #### C BCA, [facility], 40659-0, 3016-3, HA1C #### [facility] ([id number]) [address] [place] [address], [address] [place] [address] Surgical Pathologyon 024 Surgical Pathology Normal [facility] Comment on above: Result Comment: [facility] [address] [place] [address] Surgical Pathology Consultation Patient Name:PEGGY BUSTAMANTE:1950 (Age: 73)Gender:FTaken:04/29/2023eported:05/04/2023hysician(s):Jorje Olmedo MD ([phone])Copy To: Rec. #:[id number]: #[id number] Final Pathologic Diagnosis Colon biopsy 75 cm (2 H&E): Tubular adenoma. Report Electronically Signed Out gp/05/04/2023Ok Roland [place] [address], License number: [id number]. Clinical History Screening. Gross Description Received in formalin, labeled BUSTAMANTE, 75 cm is a 0.3 cm in greatest dimension pink-so soft tissue fragment. The specimen is filtered and entirely submitted in one cassette. (1, ns, [id number], m7) MW mxw/04/29/2023SSI Microscopic Findings Microscopic examination performed. Specimen(s) Received Colon biopsy 75cm Fee Codes(s): 1; 73101 XR Elbow - left 2 [facility] Result: April 21, 2023 x-rays AP and lateral of the left elbow demonstrate a fracture of the radial head in satisfactory position alignment the fracture appears to be healing. No new findings. Impression: Healing radial head fracture Serafin Riojas D.O. [facility] Radiology Study observation (narrative) [facility] BASIC METABOLIC PANLon 02-23 Anion gap [Moles/Vol] 9 mmol/L Normal 5-15 [facility] Comment on above: Performed By: #### B MP #### [facility] ([id number]) [address] [place] [address] Calcium [Mass/Vol] 9.6 mg/dL Normal 8.5-10.5 [facility] Comment on above: Performed By: #### B MP #### [facility] ([id number]) [address] [place] [address] Chloride [Moles/Vol] 101 mmol/L Normal 98-109 [facility] Comment on above: Performed By: #### B MP #### [facility] ([id number]) [address] [place] [address] CO2 [Moles/Vol] 28 mmol/L Normal 22-32 [facility] Comment on above: Performed By: #### B MP #### [facility] ([id number]) [address] [place] [address] Creatinine [Mass/Vol] 0.82 mg/dL Normal 0.40-1.00 [facility] Comment on above: Result Comment: METH OD TRACEABLE TO IDMS STANDARD Performed By: #### B MP #### [facility] ([id number]) [address] [place] [address] GFR/1.73 sq M.predicted among non-blacks MDRD (S/P/Bld) [Vol rate/Area] 76 mL/min/{1.73_m2} Normal >59 [facility] Comment on above: Result Comment: Reported eGFR is based on the CKD-EPI 2020 equation that does not use a race coefficient. Performed By: #### B MP #### [facility] ([id number]) [address] [place] [address] Glucose [Mass/Vol] 96 mg/dL Normal 65-99 [facility] Comment on above: Performed By: #### B MP #### [facility] ([id number]) [address] [place] [address] Potassium [Moles/Vol] 4.6 mmol/L Normal 3.5-5.0 [facility] Comment on above: Performed By: #### B MP #### [facility] ([id number]) [address] [place] [address] Sodium [Moles/Vol] 138 mmol/L Normal 134-146 [facility] Comment on above: Performed By: #### B MP #### [facility] ([id number]) [address] [place] [address] Urea nitrogen [Mass/Vol] 16 mg/dL Normal 5-27 [facility] Comment on above: Performed By: #### B MP #### [facility] ([id number]) [address] [place] [address] MM screening mammo BI w/CADo n 02-17-2023 MM screening mammo BI w/CAD [facility] [address] [place] [address] Mammography Report Signed Patient: Peggy Bustamante MR#: [id number] 8 : 1950 Acct:[id number] Age/Sex: 72 / F ADM Date: 02/17/23 Loc: [place] Room: Type: [facility] Attending Dr: Referral Self Copies to: Ismael [...] Maxwell Reaves M.D.02/17/2023 10:40 AM Dictation Location: [facility] Transcribed By: MARTIN 02/17/23 1040 Dictated By: Maxwell Reaves DO 02/17/23 1038 Signed By: 02/17/23 1040 Normal [facility] XR knee BI 3V - NOT FOR ER U Jeannie 07-10-2022 XR knee BI 3V - NOT FOR ER USE [facility] [address] [place] [address] XRay Report Signed Patient: Peggy Bustamante MR#: [id number] 8 : 1950 Acct:[id number] Age/Sex: 72 / F ADM Date: 07/10/22 Loc: [place] Room: Type: [facility] Attending Dr: Andrew Agarwal MD Copies to: [...] Maxwell Reaves M.D.07/10/2022 3:16 PM Dictation Location: [place] [address] Transcribed By: MARTIN 07/10/221515 Dictated By: Maxwell Reaves DO 07/10/221511 Signed By: 07/10/221515 Normal [facility] FREE T4on 12-27-2021 Free T4 [Mass/Vol] 0.81 ng/dL Normal 0.76-1.46 [facility] Comment on above: Performed By: #### F T4 #### [facility] [address] [address] [address] Yohana Aragon LIPID PROFILEon 12-27-2021 CHOL-HDL RATIO NORM SEE BELOW Normal [facility] Comment on above: Result Comment: 3.3 - 4.4 LOW RISK 4.4 - 7.1 AVERAGE RISK 7.1 - 11.0 MODERATE RISK >11.0 HIGH RISK Performed By: #### T SH, LIPID, CMP #### [facility] [address] [address] [address] Yohana Aragon Cholesterol [Mass/Vol] 254 mg/dL Critically high <=200 [facility] Comment on above: Performed By: #### T SH, LIPID, CMP #### [facility] [address] [address] [address] Yohana Aragon Cholesterol in HDL [Mass/Vol] 49 mg/dL Normal 40-60 [facility] Comment on above: Performed By: #### T SH, LIPID, CMP #### [facility] [address] [address] [address] Yohana Aragon Cholesterol in LDL [Mass/Vol] 154.4 mg/dL Normal [facility] Comment on above: Performed By: #### T SH, LIPID, CMP #### [facility] [address] [address] [address] Yohana Aragon Cholesterol.total/ Cholesterol in HDL [Mass ratio] 5.2 {ratio} Normal [facility] Comment on above: Performed By: #### T SH, LIPID, CMP #### [facility] [address] [address] [address] Yohana Aragon HDL NORMAL > or = 60 mg/dl - LO W CARDIOVASCULAR RISK <40 mg/dl - HIGH CARDIOVASCULAR RISK Normal [facility] Comment on above: Performed By: #### T SH, LIPID, CMP #### [facility] [address] [address] [address] Yohana Aragon LDL CALC NORMAL SEE BELOW Normal [facility] Comment on above: Result Comment: <100 mg/dl OPTIMAL 100 - 129 mg/dl NEAR OR ABOVE OPTIMAL 130 - 159 mg/dl BORDERLINE HIGH 160 - 189 mg/dl HIGH >190 mg/dl VERY HIGH Performed By: #### T ABY, LIPID, CMP #### [facility] [address] [address] [address] Yohana Aragon Triglyceride [Mass/Vol] 253 mg/dL Critically high <=150 [facility] Comment on above: Performed By: #### T ABY, LIPID, CMP #### [facility] [address] [place] [address] Dr. Yohana Aragon VLDL CALC 50.6 mg/dL Normal [facility] Comment on above: Performed By: #### T ABY, LIPID, CMP #### [facility] [address] [place] [address] Dr. Yohana Aragon PROF 14(COMP METB)on 12-27-2 022 Albumin [Mass/Vol] 3.8 g/dL Normal 3.4-5.0 [facility] Comment on above: Performed By: #### T ABY LIPID, CMP #### [facility] [address] [place] [address] Dr. Yohana Aragon Albumin/Globulin [Mass ratio] 1.1 {ratio} Normal [facility] Comment on above: Performed By: #### T ABY, LIPID, CMP #### [facility] [address] [place] [address] Dr. Yohana Aragon ALP [Catalytic activity/Vol] 42 U/L Critically low 46-116 [facility] Comment on above: Performed By: #### T ABY, LIPID, CMP #### [facility] [address] [place] [address] Dr. Yohana Aragon ALT [Catalytic activity/Vol] 26 U/L Normal 14-59 [facility] Comment on above: Performed By: #### T ABY, LIPID, CMP #### [facility] [address] [address] [address] Yohana Aragon Anion gap [Moles/Vol] 8.9 mmol/L Normal [facility] Comment on above: Performed By: #### T SH, LIPID, CMP #### [facility] [address] [place] [address] Dr. Yohana Aragon AST [Catalytic activity/Vol] 16 U/L Normal 15-37 [facility] Comment on above: Performed By: #### T ABY, LIPID, CMP #### [facility] [address] [place] [address] Dr. Yohana Aragon Bilirubin [Mass/Vol] 0.4 mg/dL Normal 0.2-1.0 [facility] Comment on above: Performed By: #### T ABY, LIPID, CMP #### [facility] [address] [place] [address] Dr. Yohana Aragon Calcium [Mass/Vol] 9.0 mg/dL Normal 8.5-10.1 [facility] Comment on above: Performed By: #### T ABY, LIPID, CMP #### [facility] [address] [place] [address] Dr. Yohana Aragon Chloride [Moles/Vol] 103 mmol/L Normal 98-107 [facility] Comment on above: Performed By: #### T ABY, LIPID, CMP #### [facility] [address] [place] [address] Dr. Yohana Aragon CO2 [Moles/Vol] 29.6 mmol/L Normal 21.0-32.0 [facility] Comment on above: Performed By: #### T SH, LIPID, CMP #### [facility] [address] [place] [address] Dr. Yohana Aragon Creatinine [Mass/Vol] 0.83 mg/dL Normal 0.55-1.02 [facility] Comment on above: Performed By: #### T SH, LIPID, CMP #### [facility] [address] [place] [address] Dr. Yohana Aragon EGFR-AF WALLISIAN >60 Normal >=60 [facility] Comment on above: Performed By: #### T SH, LIPID, CMP #### [facility] [address] [address] [address] Yohana Aragon EGFR-NON AF WALLISIAN >60 Normal >=60 [facility] Comment on above: Performed By: #### T SH, LIPID, CMP #### [facility] [address] [address] [address] Yohana Aragon Globulin (S) [Mass/Vol] 3.5 g/dL Normal [facility] Comment on above: Performed By: #### T SH, LIPID, CMP #### [facility] [address] [address] [address] Yohana Aragon Glucose [Mass/Vol] 98 mg/dL Normal 74-106 [facility] Comment on above: Performed By: #### T SH, LIPID, CMP #### [facility] [address] [place] [address] Dr. Yohana Aragon Potassium [Moles/Vol] 4.5 mmol/L Normal 3.5-5.1 [facility] Comment on above: Performed By: #### T ABY, LIPID, CMP #### [facility] [address] [place] [address] Dr. Yohana Aragon Protein [Mass/Vol] 7.3 g/dL Normal 6.4-8.2 [facility] Comment on above: Performed By: #### T ABY, LIPID, CMP #### [facility] [address] [place] [address] Dr. Yohana Aragon Sodium [Moles/Vol] 137 mmol/L Normal 136-145 [facility] Comment on above: Performed By: #### T SH, LIPID, CMP #### [facility] [address] [place] [address] Dr. Yohana Aragon Urea nitrogen [Mass/Vol] 14.0 mg/dL Normal 7.0-18.0 [facility] Comment on above: Performed By: #### T SH, LIPID, CMP #### [facility] [address] [place] [address] Dr. Yohana Aragon Urea nitrogen/Creatinin e [Mass ratio] 16.9 mg/mg Normal [facility] Comment on above: Performed By: #### T SH, LIPID, CMP #### [facility] [address] [place] [address] Dr. Yohana Aragon TSHon 12-27-2021 TSH 2.654 uIU/mL Normal 0.358-3.740 [facility] Comment on above: Performed By: #### T SH, LIPID, CMP #### [facility] [address] [place] [address] Dr. Yohana Aragon PAP ACOG PANEL 2: 30 to 66on 10-08-2021 . . Normal [facility] Comment on above: Performed By: #### 4 [id number] #### [facility] [address] [place] [address] Dr. Yohana Aragon Age Gdln ACOG Testing Comment [facility] Comment on above: Result Comment: <21 or >65 or no age provided Performed By: #### 4 [id number] #### [facility] [address] [place] [address] Dr. Yohana Aragon DIAGNOSIS: Comment [facility] Comment on above: Result Comment: UNSA TISFACTORY FOR EVALUATION. Performed By: #### 4 [id number] #### [facility] [address] [place] [address] Dr. Yohana Aragon Methodology: Comment [facility] Comment on above: Result Comment: This liquid based ThinPrep(R) pap test was screened with the use of an image guided system. Performed By: #### 4 [id number] #### [facility] [address] [place] [address] Dr. Yohana Aragon Note: Comment [facility] Comment on above: Result Comment: The Pap smear is a screening test designed to aid in the detection of premalignant and malignant conditions of the uterine cervix. It is not a diagnostic procedure and should not be used as the sole means of detecting cervical cancer. Both false-positive and false-negative reports do occur. . Performed By: #### 4 [id number] #### [facility] [address] [place] [address] Dr. Yohana Aragon Performed by: Comment Normal [facility] Comment on above: Result Comment: Ashleigh Haddad, Health Care Aide (ASCP) Performed By: #### 4 [id number] #### [facility] [address] [place] [address] Dr. Yohana Aragon QC reviewed by: Comment Normal [facility] Comment on above: Result Comment: Ramesh Floyd, Supervisory Health Care Aide (ASCP) Performed By: #### 4 [id number] #### [facility] [address] [address] [address] Yohana Aragon Recommendation: Comment Normal [facility] Comment on above: Result Comment: Sugg est follow up as clinically appropriate. Performed By: #### 4 [id number] #### [facility] [address] [place] [address] Dr. Yohana Aragon Specimen adequacy: Comment Normal [facility] Comment on above: Result Comment: Spec imen processed and examined but unsatisfactory for evaluation of epithelial abnormality because of insufficient cellularity. Performed By: #### 4 [id number] #### [facility] [address] [place] [address] Dr. Yohana Aragon [facility] 06-27-2021 Albumin [Mass/Vol] 4.4 g/dL Normal 3.6-5.1 [facility] Comment on above: Performed By: #### 1 0231, 7600, 13102 #### [facility] [address] [address] Snuff Blender: Jose Stark MD Albumin/Globulin [Mass ratio] 2.0 {ratio} Normal 1.0-2.5 [facility] Comment on above: Performed By: #### 1 0231, 7600, 15958 #### [facility] [address] [address] Snuff Blender: Jose Stark MD ALP [Catalytic activity/Vol] 34 U/L Low 37-153 [facility] Comment on above: Performed By: #### 1 0231, 7600, 10660 #### [facility] [address] [address] Snuff [employer]ender: Jose Stark MD ALT [Catalytic activity/Vol] 14 U/L Normal 6-29 [facility] Comment on above: Performed By: #### 1 0231, 7599, 97868 #### [facility] of [address], [address] [place] [address] [employer]uff [employer]ender: Jose Stark MD AST [Catalytic activity/Vol] 13 U/L Normal 10-35 [facility] Comment on above: Performed By: #### 1 0231, 7599, 60083 #### [facility] of [address], [address] [place] [address] [employer]ender: Jose Stark MD Bilirubin [Mass/Vol] 0.5 mg/dL Normal 0.2-1.2 [facility] Comment on above: Performed By: #### 1 023, 7599, 45688 #### [facility] of [address] [address] [employer]uff [employer]ender: Jose Stark MD BUN/CREATININE RATIO NOT APPLICABLE Normal 6-22 [facility] Comment on above: Performed By: #### 1 0231, 7599, 24268 #### [facility] of [address] [address] Snuff [employer]ender: Jose Stark MD Calcium [Mass/Vol] 9.4 mg/dL Normal 8.6-10.4 [facility] Comment on above: Performed By: #### 1 0231, 7599, 94260 #### [facility] of [address] [address] [employer]ender: Jose Stark MD Chloride [Moles/Vol] 104 mmol/L Normal 98-110 [facility] Comment on above: Performed By: #### 1 0231, 7599, 80370 #### [facility] of [address] [address] Snuff Blender: Jose Stark MD CO2 [Moles/Vol] 29 mmol/L Normal 20-32 [facility] Comment on above: Performed By: #### 1 0231, 0, 82288 #### [facility] of [address], [address] [place] [address] Snuff Blender: Jose Stark MD Creatinine [Mass/Vol] 0.76 mg/dL Normal 0.60-0.93 [facility] Comment on above: Result Comment: For patients >49 years of age, the reference limit for Creatinine is approximately 13% higher for people identified as -Salvadorean. Performed By: #### 1 0231, 7599, 42239 #### [facility] of [address], [address] [place] [address] [employer]uff [employer]ender: Jose Stark MD eGFR NON-AFR. WALLISIAN 79 mL/min/1.73m2 Normal > OR = 60 [facility] Comment on above: Performed By: #### 1 023, 7599, 22508 #### [facility] [address], [address] [place] [address] [employer]uff Blender: Jose Stark MD GFR/1.73 sq M.predicted among blacks MDRD (S/P/Bld) [Vol rate/Area] 92 mL/min/{1.73_m2} Normal > OR = 60 [facility] Comment on above: Performed By: #### 1 023, 7599, 27644 #### [facility] [address], [address] [place] [address] [employer]uff Blender: Jose Stark MD Globulin (S) [Mass/Vol] 2.2 g/dL Normal 1.9-3.7 [facility] Comment on above: Performed By: #### 1 0231, 0, 58029 #### [facility] of [address] [address] Snuff Blender: Jose Stark MD Glucose [Mass/Vol] 95 mg/dL Normal 65-99 [facility] Comment on above: Result Comment: Fasting reference interval Performed By: #### 1 0231, 7600, 65311 #### [facility] of [address], [address] [place] [address] Snuff Blender: Jose Stark MD Potassium [Moles/Vol] 4.2 mmol/L Normal 3.5-5.3 [facility] Comment on above: Performed By: #### 1 0231, 7600, 66040 #### [facility] of [address], [address] [place] [address] Snuff Blender: Jose Stark MD Protein [Mass/Vol] 6.6 g/dL Normal 6.1-8.1 [facility] Comment on above: Performed By: #### 1 0231, 7600, 77925 #### [facility] of [address], [address] [place] [address] [employer]uff Blender: Jose Stark MD Sodium [Moles/Vol] 141 mmol/L Normal 135-146 [facility] Comment on above: Performed By: #### 1 0231, 0, 09738 #### [facility] of [address], [address] [place] [address] [employer]uff Blender: Jose Stark MD Urea nitrogen [Mass/Vol] 13 mg/dL Normal 7-25 [facility] Comment on above: Performed By: #### 1 0231, 0, 95269 #### [facility] [address], [address] [place] [address] Snuff Blender: Jose Stark MD LIPID PANEL, [facility] 06-08 Cholesterol [Mass/Vol] 159 mg/dL Normal <200 [facility] Comment on above: Order Comment: FASTI NG:YES FASTING: YES Performed By: #### 1 0231, 7600, 23853 #### [facility] of [address], [address] [place] [address] Snuff Blender: Jose Stark MD Cholesterol in HDL [Mass/Vol] 52 mg/dL Normal > OR = 50 [facility] Comment on above: Order Comment: FASTI NG:YES FASTING: YES Performed By: #### 1 0231, 7600, 02151 #### [facility] of [address], [address] [place] [address] Snuff Blender: Jose Stark MD Cholesterol in LDL [Mass/Vol] [...] equation in the estimation of LDL-C. Derick CASTRO et al. THU. 2013;310(19): 4400-2659 (http://education.[employer].fg microtec/faq/BDC128) Performed By: #### 1 0231, 7600, 92145 #### [facility] [address], [address] [place] [address] Snuff Blender: Jose Stark MD Cholesterol.total/ Cholesterol in HDL [Mass ratio] 3.1 {ratio} Normal <5.0 [facility] Comment on above: Order Comment: FASTI NG:YES FASTING: YES Performed By: #### 1 0231, 7600, 30627 #### [facility] [address], [address] [place] [address] Snuff Blender: Jose Stark MD NON HDL CHOLESTEROL 107 mg/dL (calc) Normal <130 [facility] Comment on above: Order Comment: FASTI NG:YES FASTING: YES Result Comment: For patients with diabetes plus 1 major ASCVD risk factor, treating to a non-HDL-C goal of <100 mg/dL (LDL-C of <70 mg/dL) is considered a therapeutic option. Performed By: #### 1 0231, 7600, 33503 #### [facility] [address], [address] [place] [address] Snuff Blender: Jose Stark MD Triglyceride [Mass/Vol] 239 mg/dL High <150 [facility] Comment on above: Order Comment: FASTI NG:YES FASTING: YES Result Comment: If a non-fasting specimen was collected, consider repeat triglyceride testing on a fasting specimen if clinically indicated. Ceja et al. J. of Clin. Lipidol. 2015;9:129-169. Performed By: #### 1 0231, 7600, 00503 #### [facility] of [address] [place] [address] Snuff Blender: Jose Stark MD TSH+FREE T4on 06-27-2021 Free T4 [Mass/Vol] 0.9 ng/dL Normal 0.8-1.8 [facility] Comment on above: Performed By: #### 1 0231, 7600, 06947 #### [facility] of [address], [address] [place] [address] Snuff Blender: Jose Stark MD TSH Qn 4.55 m[IU]/L High 0.40-4.50 [facility] Comment on above: Performed By: #### 1 0231, 0, 70294 #### [facility] of [address], [address] [place] [address] [employer]ender: Jose Stark MD [facility] 12-04-2020 Albumin [Mass/Vol] 4.5 g/dL Normal 3.6-5.1 [facility] Comment on above: Performed By: #### 5 8984, 49001 #### [facility] of [address] [place] [address] Snuff Blender: Jose Stark MD Albumin/Globulin [Mass ratio] 1.9 {ratio} Normal 1.0-2.5 [facility] Comment on above: Performed By: #### 5 8984, 98819 #### [facility] of [address] [address] Snuff Blender: Jose Stark MD ALP [Catalytic activity/Vol] 36 U/L Low 37-153 [facility] Comment on above: Performed By: #### 5 8984, 44530 #### [facility] of [address] [place] [address] Snuff Blender: Jose Stark MD ALT [Catalytic activity/Vol] 15 U/L Normal 6-29 [facility] Comment on above: Performed By: #### 5 8984, 03666 #### [facility] of [address], [address] [place] [address] Snuff Blender: Jose Stark MD AST [Catalytic activity/Vol] 16 U/L Normal 10-35 [facility] Comment on above: Performed By: #### 5 8984, 92405 #### [facility] of [address], [address] [place] [address] [employer]uff Blender: Jose Stark MD Bilirubin [Mass/Vol] 0.6 mg/dL Normal 0.2-1.2 [facility] Comment on above: Performed By: #### 5 8984, 59427 #### [facility] of [address] [address] Snuff Blender: Jose Stark MD BUN/CREATININE RATIO NOT APPLICABLE Normal 6-22 [facility] Comment on above: Performed By: #### 5 8984, 92399 #### [facility] of [address], [address] [place] [address] Snuff Blender: Jose Stark MD Calcium [Mass/Vol] 9.4 mg/dL Normal 8.6-10.4 [facility] Comment on above: Performed By: #### 5 8984, 75237 #### [facility] of [address], [address] [place] [address] Snuff Blender: Jose Stark MD Chloride [Moles/Vol] 101 mmol/L Normal 98-110 [facility] Comment on above: Performed By: #### 5 8984, 87279 #### [facility] of [address], [address] [place] [address] Snuff Blender: Jose Stark MD CO2 [Moles/Vol] 29 mmol/L Normal 20-32 [facility] Comment on above: Performed By: #### 5 8984, 22685 #### [facility] of [address], [address] [place] [address] Snuff Blender: Jose Stark MD Creatinine [Mass/Vol] 0.73 mg/dL Normal 0.50-0.99 [facility] Comment on above: Result Comment: For patients >49 years of age, the reference limit for Creatinine is approximately 13% higher for people identified as -Salvadorean. Performed By: #### 5 8984, 79363 #### [facility] [address], [address] [place] [address] Snuff Blender: Jose Stark MD eGFR NON-AFR. WALLISIAN 84 mL/min/1.73m2 Normal > OR = 60 [facility] Comment on above: Performed By: #### 5 8984, 34677 #### [facility] of [address], [address] [place] [address] Snuff Blender: Jose Stark MD GFR/1.73 sq M.predicted among blacks MDRD (S/P/Bld) [Vol rate/Area] 97 mL/min/{1.73_m2} Normal > OR = 60 [facility] Comment on above: Performed By: #### 5 8984, 80307 #### [facility] of [address], [address] [place] [address] Snuff Blender: Jose Stark MD Globulin (S) [Mass/Vol] 2.4 g/dL Normal 1.9-3.7 [facility] Comment on above: Performed By: #### 5 8984, 54771 #### [facility] [address], [address] [place] [address] Snuff Blender: Jose Stark MD Glucose [Mass/Vol] 97 mg/dL Normal 65-99 [facility] Comment on above: Result Comment: Fasting reference interval Performed By: #### 5 8984, 60050 #### [facility] of [address], [address] [place] [address] Snuff Blender: Jose Stark MD Potassium [Moles/Vol] 4.4 mmol/L Normal 3.5-5.3 [facility] Comment on above: Performed By: #### 5 8984, 80916 #### [facility] [address], [address] [place] [address] Snuff Blender: Jose Stark MD Protein [Mass/Vol] 6.9 g/dL Normal 6.1-8.1 [facility] Comment on above: Performed By: #### 5 8984, 78225 #### [facility] [address], [address] [place] [address] Snuff Blender: Jose Stark MD Sodium [Moles/Vol] 138 mmol/L Normal 135-146 [facility] Comment on above: Performed By: #### 5 8984, 38568 #### [facility] [address], [address] [place] [address] Snuff Blender: Jose Stark MD Urea nitrogen [Mass/Vol] 17 mg/dL Normal 7-25 [facility] Comment on above: Performed By: #### 5 8984, 72368 #### [facility] [address] [address] Snuff Blender: Jose Stark MD TSH+FREE T4on 12-04-2020 Free T4 [Mass/Vol] 0.9 ng/dL Normal 0.8-1.8 [facility] Comment on above: Order Comment: FASTI NG:YES FASTING: YES Performed By: #### 5 8984, 37907 #### [facility] of [place] [address] Snuff Blender: Jose Stark MD TSH Qn 4.24 m[IU]/L Normal 0.40-4.50 [facility] Comment on above: Order Comment: FASTI NG:YES FASTING: YES Performed By: #### 5 8984, 98732 #### [facility] of [address] [place] [address] Snuff Blender: Jose Stark MD Vital Signs Date Time Vital Sign Value Performing Clinician Facility 04-28-2023 11:28050 Body height 161.3 cm Pm 1 [facility] 04-28-2023 11:[id number] Body mass index (BMI) [Ratio] 30.51 kg/m2 Pm 1 [facility] 04-28-2023 11:28-0500 Body weight 79.38 kg [facility] 03-17-2023 10:58-0500 Body height 160 cm Amina Mendez CASH ANALYST-TARIFF COUNSEL Work Phone: [facility] [employer] 03-17-2023 10:58-0500 Body mass index (BMI) [Ratio] 32.49 kg/m2 Amina Mendez CASH ANALYST-TARIFF COUNSEL [facility] 03-17-2023 10:58-0500 Body temperature 97.81 [degF] Amina Mendez CASH ANALYST-TARIFF COUNSEL [facility] 03-17-2023 10:58-0500 Body weight 83.19 kg Amina Mendez CASH ANALYST-TARIFF COUNSEL [facility] 03-17-2023 10:58-0500 Diastolic blood pressure 70 mm[Hg] Amina Mendez CASH ANALYST-TARIFF COUNSEL Work Phone: [facility] [employer] 03-17-2023 10:58-0500 Heart rate 102 /min Amina Mendez CASH ANALYST-TARIFF COUNSEL [facility] [employer] [facility] 03-17-2023 10:58-0500 SaO2% (BldA) [Mass fraction] 97 % Amina Mendez CASH ANALYST-TARIFF COUNSEL [facility] Phone[facility] [employer] [facility] [employer] [facility] 03-17-2023 10:58-0500 Systolic blood pressure 120 mm[Hg] Amina Mendez CASH ANALYST-TARIFF COUNSEL Work Phone: [facility] Encounters Encounter Date Encounter Type Care Provider Facility Start: 09-24-2023 End: 09-24-2023 ambulatory [facility] Start: 09-24-2023 End: 09-24-2023 ambulatory [facility] Start: 06-16-2023 End: 06-16-2023 ambulatory JASMINE RIOJAS Not Available Start: 06-10-2023 Refill Amina Mendez CASH ANALYST-TARIFF COUNSEL Work Phone: [facility] Comment on above: Gastro-esophageal re flux disease without esophagitis Start: 06-09-2023 End: 06-09-2023 ambulatory ANGELICA GARCIA Not Available Start: 04-29-2023 End: 04-30-2023 Evaluation and management of inpatient JORJE OLMEDO [facility] Start: 04-28-2023 End: 04-28-2023 ambulatory [facility] [facility] Start: 04-21-2023 End: 04-21-2023 ambulatory CARLOS LAST Not Available Start: 04-21-2023 End: 04-21-2023 ambulatory Carlos Last PT Work Phone: [facility] Comment on above: Arthritis of left kn ee (Primary Dx) Start: 04-21-2023 End: 04-22-2023 ambulatory JASMINE RIOJAS Not Available Start: 04-21-2023 End: 04-21-2023 Office outpatient visit 10 minutes Jasmine Riojas DO Work Phone: [facility] Comment [...] PT.) Start: 04-07-2023 End: 04-08-2023 ambulatory JASMINE RIOJAS Not Available Start: 03-23-2023 End: 03-23-2023 ambulatory Ismael Bonilla DO Work Phone: [facility] Comment on above: Osteoporosis, postme nopausal (Primary Dx) Start: 03-17-2023 End: 03-17-2023 Office outpatient visit 15 minutes Amina Mendez CASH ANALYST-TARIFF COUNSEL Work Phone: [facility] Comment on above: Viral upper respirat ory tract infection (Primary Dx) Start: 03-17-2023 End: 03-17-2023 ambulatory [facility] Start: 03-05-2023 Refill Amina Mendez CASH ANALYST-TARIFF COUNSEL Work Phone: [facility] Comment on above: Other seasonal aller gic rhinitis Start: 02-25-2023 End: 02-25-2023 ambulatory BRITNEY COPE Not Available Start: 02-24-2023 End: 02-25-2023 ambulatory JASMINE RIOJAS Not Available Start: 02-23-2023 End: 02-23-2023 ambulatory [facility] Start: 02-23-2023 End: 02-23-2023 ambulatory [facility] Start: 02-17-2023 End: 02-17-2023 ambulatory Referral Self Facility:[facility] Start: 02-17-2023 End: 02-17-2023 ambulatory DO Ismael Bonilla Work Phone: [facility] Work Phone: Start: 02-17-2023 End: 02-17-2023 Patient encounter procedure DO Ismael Alonsong Work Phone: [facility] Work Phone: Start: 01-27-2023 End: 01-27-2023 ambulatory JASMINE RIOJAS Not Available Start: 01-20-2023 End: 01-20-2023 ambulatory JASMINE RIOJAS Not Available Start: 07-21-2022 End: 07-21-2022 ambulatory Andrew Agarwal Other [employer] Other Start: 07-21-2022 Office outpatient vi sit 15 minutes Andrew Agarwal [facility] Start: 07-10-2022 Office outpatient ne w 45 minutes Andrew Agarwal [facility] Start: 07-10-2022 End: 07-10-2022 ambulatory DO Ismael Furlong Work Phone: [facility] Other Start: 07-10-2022 End: 07-10-2022 Patient encounter procedure DO Ismael Furlong Work Phone: [facility] Start: 06-05-2022 End: 06-06-2022 ambulatory NATY KUMAR . Facility:[facility] Start: 04-08-2022 End: 04-09-[address] ELEAZAR REILLY . Facility:[facility] Start: 03-18-2022 End: [address] ELEAZAR REILLY . Facility:[facility] Start: 02-18-[address] ELEAZAR REILLY . Faci lity:[facility] Start: 02-11-[address] ELEAZAR REILLY . Faci lity:[facility] Start: 01-14-2022 End: 01-15-[address] ELEAZAR REILLY . Facility:[facility] Start: 01-13-2022 End: 01-13-2022 ambulatory DO Ismael Furlong Work Phone: [facility] Work Phone: Start: 01-13-2022 End: 01-13-2022 Patient encounter procedure DO Ismael Furlong Work Phone: [facility] Start: 12-27-2021 End: 12-28-[address] AMINA MENDEZ Facility:[facility] Start: 10-02-2021 End: 10-02-[address] ROSA MCCAULEY . Facility: Procedures Date Procedure Procedure Detail Performing Clinician Start: 04-21-2023 Radex elbow 2 views Jam es A Beulah DO Work Phone: Start: 03-17-2023 Adult depression scr eening assessment Amina Mendez CASH ANALYST-TARIFF COUNSEL Work Phone: Start: 02-23-2023 Adult depression scr eening assessment Amina Mendez CASH ANALYST-TARIFF COUNSEL Work Phone: Start: 02-17-2023 End: 02-17-2023 Screening mammography of bilateral breasts DO [employer] Phone: Start: 07-10-2022 X-ray of both knees DO [employer] Phone: Start: 01-13-2022 End: 01-13-2022 Screening mammography of bilateral breasts DO [employer] Phone: Plan of Treatment Date Care Activity Detail Author Start: 04-29-2024 Adult BMI Screening Adult BMI Screen ing [facility] Start: 04-29-2024 Tobacco Screening Tobacco Screening [facility] Start: 04-28-2024 Adult BMI Screening Adult BMI Screen ing [facility] Start: 04-28-2024 Tobacco Screening Tobacco Screening [facility] Start: 03-17-2024 Adult BMI Screening Adult BMI Screen ing [facility] Start: 03-17-2024 Depression Screening Depression Scre ening [facility] Start: 03-17-2024 Fall Risk Screening Fall Risk Screen ing [facility] Start: 03-17-2024 Tobacco Screening Tobacco Screening [facility] Start: 02-24-2024 Adult BMI Screening Adult BMI Screen ing [facility] Start: 02-24-2024 Depression Screening Depression Scre ening [facility] Start: 02-24-2024 Fall Risk Screening Fall Risk Screen ing [facility] Start: 02-24-2024 Tobacco Screening Tobacco Screening [facility] Start: 02-18-2024 Screening for malign ant neoplasm of breast Mammogram [facility] Start: 02-18-2024 End: 02-18-2024 Patient encounter procedure 02/18/2024 9:45 AM EST Office Visit CHERYL DEVRIESS [address] [place] [address] Britney Cope, DO [address] [place] [address] [facility] [address] [facility] Start: 07-15-2023 End: 07-15-2023 Admission to same day surgery center 07/15/2023 10:15 AM EDT - 07/15/2023 12:45 PM EDT Surgery [facility] [address] [place] [id number] Jasmine Riojas, DO [address] [place] [address] REPLACEMENT TOTAL JOINT KNEE [59358 (CPT )] [facility] Comment on above: REPLACEMENT TOTAL YUMIKO INT KNEE [17998 (CPT )] Start: 07-15-2023 End: 07-15-2023 Arthrp kne condyle&platu medial&lat compartments REPLACEMENT TOTAL JOINT KNEE left knee degenerative joint disease 07/15/2023 10:15 AM EDT [facility] Start: 07-15-2023 Subsequent hospital visit by physician 07/15/2023 10:15 AM EDT Hospital Encounter [facility] [address] [place] [id number] Jasmine Riojas, DO [address] [place] [address] [facility] Start: 06-16-2023 End: 06-16-2023 Patient encounter procedure 06/16/2023 1:30 PM EDT Procedure visit [facility] - Pre Admit [address] [place] [id number] [facility] - Pre Admit Start: 04-21-2023 End: 04-21-2023 ambulatory 04/21/2023 2:30 PM EST Evaluation [facility] [address] [place] [address] Shala Carlos T, PT [address] [place] [address] [facility] Start: 04-21-2023 End: 04-21-2023 Patient encounter procedure 04/21/2023 9:45 AM EST Office Visit [facility] [address] [place] [address] Jasmine Riojas, DO [address] [place] [address] [facility] Start: 04-08-2023 Administration of varicella zoster vaccine Zoster (Shingles) Vaccine (1 of 2) [facility] Comment on above: Postponed from 03/19 (Patient Refused) Start: 04-08-2023 Medicare Annual Well ness Visit Medicare Annual Wellness Visit [facility] Start: 03-23-2023 End: 03-23-2023 ambulatory 03/23/2023 9:20 AM EST Support Visit [facility] [address] [place] [id number] Ismael Bonilla, DO [address] [place] [address] [facility] Start: 01-13-2023 Screening for malign ant neoplasm of breast Mammogram [facility] Start: 11-07-2022 Influenza vaccination Influenza Vacc ine (#1) [facility] Start: 2016 Pneumococcal Vaccine : 65+ Years (1 - PCV) Pneumococcal Vaccine: 65+ Years (1 - PCV) [facility] Start: 1970 Administration of varicella zoster vaccine Zoster (Shingles) Vaccine (1 of 2) [facility] Start: 1970 DTaP,Tdap and Td Vaccines (1 - Tdap) DTaP,Tdap and Td Vaccines (1 - Tdap) [facility] Start: 1969 Adult BMI Follow Up Plan Adult BMI Follow Up Plan [facility] [facility] Start: 1950 Screening for malign ant neoplasm of colon [facility] Colonoscopy flx dx w/collj spec when pfrmd COLONOSCOPY DIAGNOSTIC / SCREENING Colon cancer screening Neoplasm of unspecified behavior of digestive system [facility] [employer] Payers Date Payer Category Payer Self-pay [id number] 2022 Medicare [employer]AGE [employer]AGE [id number] 2022-Present [address] [place] [address] [id number] 2021 Unknown [employer] [id number] 2021-Present [phone] [address] [place] [address] [id number] .[id number] 1959 Medicare [id number] 1951 Unknown [id number] 2.16.840.1.688396.3.579.2.593 1951 Unknown [id number] 2.16.840.1.543409.3.579.2.593 1951 Unknown [id number] 2.16.840.1.318656.3.579.2.593 1951 Unknown [id number] 2.16.840.1.629137.3.579.2.593 1951 Unknown [id number] 2.16.840.1.446954.3.579.2.593 1951 Unknown [id number] 2.16.840.1.955701.3.579.2.593 1951 Unknown [id number] 2.16.840.1.243467.3.579.2.593 1951 Unknown [id number] 2.16.840.1.620288.3.579.2.593 1951 Unknown [id number] 2.16.840.1.906950.3.579.2.128 1951 Unknown [id number] 2.16.840.1.768213.3.579.2.128 1951 Unknown [id number] 2.16.840.1.133046.3.579.2.128 1951 Unknown [id number] 2.16.840.1.097403.3.579.2.125 1951 Unknown [id number] 2.16.840.1.314324.3.579.2.125 1951 Unknown [id number] 2.16.840.1.045998.3.579.2.125 1951 Unknown [id number] 2.16.840.1.271757.3.579.2.125 1951 Unknown [id number] 2.16.840.1.415175.3.579.2.125 1951 Unknown [id number] 2.16.840.1.138807.3.579.2.125 1951 Unknown [id number] 2.16.840.1.532176.3.579.2.125 1951 Unknown [id number] 2.16.840.1.076119.3.579.2.125 1951 Unknown [id number] 2.16.840.1.668506.3.579.2.125 1951 Unknown [id number] 2.16.840.1.353846.3.579.2.125 1951 Unknown [id number] 2.16.840.1.799431.3.579.2.125 9 1951 Unknown [id number] 2.16.840.1.320485.3.579.2.125 9 1951 Unknown [id number] 2.16.840.1.868674.3.579.2.125 9 1951 Unknown [id number] 2.16.840.1.196058.3.579.2.128 6 1951 Unknown [id number] 2.16.840.1.629564.3.579.2.128 6 1951 Unknown [id number] 2.16.840.1.596995.3.579.2.128 6 1951 Unknown [id number] 2.16.840.1.592002.3.579.2.128 6 1951 Unknown [id number] 2.16.840.1.046178.3.579.2.128 6 1951 Unknown [id number] 2.16.840.1.120029.3.579.2.128 6 Unknown [id number] Unknown [id number] 2.16.840.1.251648.3.579.2.531 Unknown [id number] 2.16.840.1.867654.3.579.2.531 Social History Date Type Detail Facility Tobacco smoking status ARIS Unknown if ever smoked [facility] Work Phone: Start: 1950 [facility] Start: 02-23-2023 End: 03-17-2023 Sex Assigned At [facility] Start: 01-01-2022 End: 11-13-2022 Tobacco smoking status NHIS Never smoked tobacco [facility] Start: 01-01-2022 End: 11-13-2022 Tobacco use and exposure Smokeless tobacco non-user [facility] Start: 02-23-2023 End: 04-30-2023 Alcohol intake Lifetime non-drinker (finding) [facility] Start: 02-23-2023 End: 03-17-2023 History of Social function [facility] Adolescent depressio n screening assessment 0 [facility] Start: 1950 Sex Assigned At Not on file P [facility] How often to you hav e a drink containing alcohol? Monthly or less [facility] How many standard drinks containing alcohol do you have on a typical day? 1 or 2 [facility] How often do you hav e 6 or more drinks on 1 occasion? Never [facility] Start: 11-13-2022 Alcohol Comment caffeine; 3-4 cups per day [facility] NEGATED: Highlighted rowStart: VIJAYA History of tobacco use Passive smoker [facility] Clinical Notes 01-14-2022 to 04-28-2023 Perioperative Nursing [...] in at the main lobby of the [facility]- registration desk is straight ahead as soon as you walk in. Tell them you are here for surgery. 2. If you have a Living Will/Durable Power of Simplex Operator for Health Care that is not on [...] after you have bathed. 5. NO nail hungarian/acrylic on at least one finger. If you are having a hand, wrist or foot surgery then all nail hungarian and artificial/acrylic nails must be removed from [...] please call the Preadmission Testing office at [phone], Mon.-Fri. 7 a.m.-3 p.m. Leave a voicemail [...] taking 0 days prior to procedure omega 8-osa-rvo-fish oil 1,200 (144-216) mg capsule Check with prescribing doctor for instructions polyethylene glycol (GAVILYTE-C) 240-22.72-6.72 -5.84 gram solution Stop taking 0 days prior to procedure pyrilamine-dextromethorphan 7.5-7.5 mg/5 mL liquid Stop taking 0 days prior to procedure sod sulf-pot chloride-mag sulf 1.479-0.188- 0.225 gram tablet Stop taking 0 days prior to procedure documented in this encounter [facility] 04-28-2023 Nurse Note Preoperative Education Checklist- General Surgery date: 04/29/23 Surgery time: 0900 Arrival time: 0800 1. Bring a photo ID and your insurance card with you the day of surgery. You will check in at the main lobby of the [facility] [place]- registration desk is straight ahead as soon as you walk in. Tell them you are here for surgery. 2. If you have a Living Will/Durable Power of Simplex Operator for Health Care that is not on [...] after you have bathed. 5. NO nail hungarian/acrylic on at least one finger. If you are having a hand, wrist or foot surgery then all nail hungarian and artificial/acrylic nails must be removed from [...] please call the Preadmission Testing office at [phone], Mon.-Fri. 7 a.m.-3 p.m. Leave a voicemail [...] taking 0 days prior to procedure omega 2-aab-pah-fish oil 1,200 (144-216) mg capsule Check with prescribing doctor for instructions polyethylene glycol (GAVILYTE-C) 240-22.72-6.72 -5.84 gram solution Stop taking 0 days prior to procedure pyrilamine-dextromethorphan 7.5-7.5 mg/5 mL liquid Stop taking 0 days prior to procedure sod sulf-pot chloride-mag sulf 1.479-0.188- 0.225 gram tablet Stop taking 0 days prior to procedure [facility] 04-21-2023 History of Presen t illness Narrative Images from the original note were not included. HISTORY OF PRESENT ILLNESS: Peggy Bustamante is an 73 y.o. @ female. Chief complaint LT elbow injury Lt elbow fx doi/ 01/10/23. ~ 3 months s/p a fall (01/10/23) just walking and tripped and landed on elbow. Tx at [facility] ER. Elbow is doing well. She notes mild discomfort with overuse or heavy lifting. Overall she is happy with her progress. Denies N/T. Admits TYL bid for knee pain. Denies waking at night. Pt is RT handed. TX: [facility] ER/XR 01/10/23, CT [facility] 01/15/23 MEDICATION: Current Outpatient Medications on File [...] Kamlesh Riojas D.O. documented in this encounter [facility] 04-09-2023 Telephone encounter Note PT Copay $35.00 [facility] 04-09-2023 Miscellaneous Notes PT Copay $35.00 documented in this encounter [facility] 03-23-2023 History of Presen t illness Narrative Peggy presents for a DEXA scan. She has no new problems to report. Her mother did not break her hip. She rarely drinks alcohol. She is not a smoker. documented in this encounter [facility] 03-17-2023 History of Presen t illness Narrative [...] Colon 03/17/23 1242 documented in this encounter [facility] 07-21-2022 Evaluation note Encounter Date Diagnosis Assessment [...] Above note written by Khalif Farooq MA, Chief Technology Officer. Edited and approved by Dr. Andrew Agarwal MD. [employer] Other 05-04-2023 Evaluation note* Encounter Date Diagnosis [...] Above note written by Olinda Ruano LPN, Chief Technology Officer. Edited and approved by Dr. Andrew Agarwal [...] negative findings were considered in medical decision-making. [employer] Other 03-30-2023 NoteCONSULTATION CONSULTATION DATE: 06/05/2022 TO: [...] agrees to proceed with the outlined plan.[facility] [id number] NoteCONSULTATION PROCEDURE DATE: 03/18/2022 PREOPERATIVE DIAGNOSIS: Right [...] Post procedurally performed range of motion exercises.[facility] [id number] NoteCONSULTATION CONSULTATION DATE: 01/14/2022 CHIEF COMPLAINT: Bilateral [...] patient would like to proceed. CC: Amina Sorto [facility] HospitalEvaluation noteNo assessment information available[facility] Work Phone: Evaluation note* Diagnosis Other seasonal allergic rhinitis [facility] Diagnosis Viral upper respiratory tract infection- Primary Acute upper respiratory infections of unspecified site [facility]* Diagnosis Osteoporosis, postmenopausal- Primary Senile osteoporosis [facility] Diagnosis Closed displaced fracture of head of left radius with routine healing, subsequent encounter- Primary documented in this encounter [facility]* Diagnosis Arthritis of left knee- Primary documented in this encounter [facility]* Diagnosis Gastro-esophageal reflux disease without esophagitis Preop examination- Primary Unspecified pre-operative examination Hypertension, unspecified type Hypothyroidism (acquired) Unspecified hypothyroidism [facility] general N[facility]ative - Reported* Type Description Date Medical History hyperlipidemia Medical History osteoporosis Medical History osteoarthritis Medical History hypertension Surgical History appendectiomy Surgical History tubal Surgical History gall bladder removal Surgical History excision of lesion to left sarah [facility] Surgical History lithotripsy right kidney Hospitalization History see above [employer] Other InstructionsNot on filedocumented in this encounter [facility]Not on filedocumented in this encounter [facility] SystemInstructionsNot on filedocumented in this encounter [facility] SystemInstructionsNot on filedocumented in this encounter [facility]ructionsNot on filedocumented in this encounter [facility] SystemReason for visit NarrativeSELF-REFERRAL APPROVED RIGOBERTO KNEE [facility] [employer] Other Summary Purpose Family History No Family [...] CREATED AUTHOR AUTHOR'S ORGANIZ ATION 06/14/2022 [facility] DATE CREATED AUTHOR AUTHOR'S ORGANIZ ATION 04/17/2023 [facility] DATE CREATED AUTHOR AUTHOR'S ORGANIZ ATION 05/05/2023 [facility] DATE CREATED AUTHOR AUTHOR'S ORGANIZ ATION 06/17/2023 [facility] EPIC DATE CREATED AUTHOR AUTHOR'S ORGANIZ ATION 09/28/2023 [facility] DATE CREATED AUTHOR AUTHOR'S ORGANIZ ATION 09/28/2023 [facility] Care Teams (unrecognized sec tion and content) Team Status: Inactive Member Role Status Dates Ismael Bonilla DO Primary Care Provider Active Britney Cope DO Attending Provider Active Team Status: Active Member Role Status Dates Ismael Bonilla DO Primary Care Provider Active Team Status: Inactive Member Role Status Dates Ismael Bonilla DO Primary Care Provider Active Andrew Agarwal MD Attending Provider Active Team Status: Inactive Member Role Status Dates Ismael Bonilla DO Primary Care Provider Active Referral Self Attending Provider Active [employer] Relationship Specialty Start Date End Date Amina Mendez, CASH ANALYST-TARIFF COUNSEL [address] [id number] PCP - General Internal Medicine 12/09/21 [employer] Relationship Specialty Start Date End Date Amina Mendez, CASH ANALYSTTARIFF COUNSEL [address] [place] [address] PCP - General Internal Medicine 12/09/21 [employer] Relationship Specialty Start Date End Date Amina Mendez, CASH ANALYSTTARIFF COUNSEL [address] [place] [address] PCP - General Internal Medicine 12/09/21 [employer] Relationship Specialty Start Date End Date Ismael Bonilla MD [address] [place] [address] PCP - General Family Medicine 11/25/22 [employer] Relationship Specialty Start Date End Date Ismael Bonilla MD [address] [place] [address] PCP - General Family Medicine 11/25/22 [employer] Relationship Specialty Start Date End Date Ismael Bonilla MD [address] [place] [address] PCP - General Family Medicine 11/25/22 [employer] Relationship Specialty Start Date End Date Amina Mendez, CASH ANALYSTTARIFF COUNSEL [address] [place] [address] PCP - General Internal Medicine 12/09/21 [employer] Relationship Specialty Start Date End Date Amina Mendez, TARIFF COUNSEL [address] [place] [address] PCP - General Internal Medicine 12/09/21 Goals [...] Therapy Diagnoses Arthritis of left knee Procedures MD OFFICE/OUTPATIENT [facility] 60 MINUTES Jasmine Riojas DO [address] [facility] [address] [place] [address] Carlos Last, PT [address] [facility] [address] [place] [address] Referral ID Status Reason Start Date Expiration Date Visits Requested Visits Authorized [id number] Authorized Specialty Services Required 04/07/2023 10/04/2023 99 [...] BE BASED ON THE PRIMARY CLINICAL RECORDS. [facility]. provides no warranty or guarantee of the accuracy or completeness of information in this document.
== END 2023-10-06 11:08 | disposition home or self-care (01) ==
LOC: PM 11:07
PROVIDERS: PCP Family Medicine; Visit Provider Anesthesiology Pain Medicine
DX: G89.4 Chronic pain syndrome (principal); M25.561 Pain in right knee; M17.11 Unilateral primary osteoarthritis, right knee
CPT/HCPCS: G0463

== ENCOUNTER 2023-10-10 11:36 | Outpatient (OUT) | payer MEDICARE, SELFPAY ==
--- OUTSIDE RECORDS SUMMARY | 2023-10-10 11:41 | XMS_ITS | CCD ---
Author Organization [facility] Care Team Providers Care Addiction Treatment Counselor Name Role Phone DO Ismael Bonilla Primary Care Provider [phone] DO Britney Cope Attending Provider MELBA ., [...] Care Provider MD Andrew Agarwal Attending Provider [phone] DO Ismael Bonilla Primary Care Provider Self, Referral Attending Provider Unavailable Clydes FELLER HAND-CONCRETE CRUSHER LOADER OPERATOR, Amina Reyes Primary Care Provider Self, Referral Admitting Unavailable Self, Referral Attending Unavailable Ismael Bonilla Primary Care Unavailable Andrew Agarwal Attending Unavailable Ismael Bonilla Primary Care Unavailable Andrew Agarwal Admitting Unavailable Ismael Bonilla MD Primary Care Provider [phone] AMINA MENDEZ Referring Unavailable KUNS, DEIDRE Primary [...] Unavailable CARLOS LAST Attending Unavailable BEULAH, JASMINE Mahonye Referring Unavailable BEULAH, JASMINE Mahoney Attending Unavailable [...] sources) Cephalexin Drug Allergy 7 Unknown [facility] (2 sources) Meperidine Drug Allergy 7 [facility] (2 sources) Darvocet-N 100 Drug allergy (disorder) 7 [facility] (12 sources) Cephalexin; Translations: [CEPHALEXIN] Drug Allergy 2 Rash, Unknown [facility] (12 sources) Meperidine; Translations: [MEPERIDINE] Drug Allergy 2 Nausea, Nausea Only [facility] Work Phone: (8 sources) Propoxyphene N-Acetaminophen; Translations: [PROPOXYPHENE N-ACETAMINOPHEN] Propensity to adverse reactions to drug 2 Vomiting [facility] (1 source) Cephalexin Drug Allergy 3 [facility] (4 sources) Meperidine Drug Allergy 3 [...] Active Start: 09-21-2022 take 1 capsule by [facility] celecoxib (CeleBREX) 200 mg [...] 1.5 mg/ml oral solution (5 sources) Uncompetitive R-egorcg-S-aspartate Receptor Antagonist, Sigma-1 Agonist Start: 05-04-2023 take [...] dizziness. 30 tablet 1 02/23/2023 Active omega 0-tqo-bor-fish oil 1,200 (144-216) mg capsule (5 sources) omega 0-xxr-ymw-fish oil 1,200 (144-216) mg capsule Orally 0 [...] Sig (Normalized) Sig (Original) polyethylene glycol 3350 657960 mg / potassium chloride 2980 mg / sodium bicarbonate 6720 mg / sodium chloride 5840 mg / sodium sulfate 60207 mg powder for oral solution (1 source) [...] 09-24-19 ABSOLUTE BASOPHIL 0.0 X10E9/L Normal 0.0-0.[address] [facility] Comment on above: Performed By: #### C BCA, CMP, 41270-2, 3016-3, HA1C #### [facility] ([id number]) [address] [address], [address] [place] [address] ABSOLUTE NEUTROPHIL 2.9 X10E9/L Normal 1.5-6.6 [facility] Comment on above: Performed By: #### C BCA, CMP, 41543-3, 3016-3, HA1C #### [facility] ([id number]) [address], [address] [place] [address] Basophils/100 WBC (Bld) 0.7 % Normal [facility] Comment on above: Performed By: #### C BCA, CMP, 65317-0, 6-3, HA1C #### [facility] ([id number]) [address], [address] [place] [address] Eosinophils (Bld) [#/Vol] 0.1 10*3/uL Normal 0.0-0.4 [facility] Comment on above: Performed By: #### C BCA, CMP, 45404-1, 6-3, HA1C #### [facility] ([id number]) [address], [address] [place] [address] Eosinophils/100 WBC (Bld) 1.3 % Normal [facility] Comment on above: Performed By: #### C BCA, CMP, 50775-1, 3015-, HA1C #### [facility] ([id number]) [address], [address] [place] [address] Erythrocyte distribution width (RBC) [Ratio] 13.5 % Normal 11.5-15.0 [facility] Comment on above: Performed By: #### C BCA, CMP, 13276-5, 3015-3, HA1C #### [facility] ([id number]) [address], [address] [place] [address] Hematocrit (Bld) [Volume fraction] 39.5 % Normal 35-47 [facility] Comment on above: Performed By: #### C BCA, CMP, 76013-3, 6-3, HA1C #### [facility] ([id number]) [address], [address] [place] [address] Hemoglobin (Bld) [Mass/Vol] 13.3 g/dL Normal 11.7-15.5 [facility] Comment on above: Performed By: #### C BCA, CMP, 36410-1, 3015-05, HA1C #### [facility] ([id number]) [address], [address] [place] [address] Lymphocytes (Bld) [#/Vol] 2.0 10*3/uL Normal 1.0-3.5 [facility] Comment on above: Performed By: #### C BCA CMP, 54521-9, 3015-05, HA1C #### [facility] ([id number]) [address], [address] [place] [address] Lymphocytes/100 WBC (Bld) 35.4 % Normal [facility] Comment on above: Performed By: #### C BCA CMP, 64375-3, 3015-05, HA1C #### [facility] ([id number]) [address], [facility] [address] [place] [address] MCH (RBC) [Entitic mass] 31.1 pg Normal 27-34 [facility] Comment on above: Performed By: #### C TRICIA CMP, 69015-3, 3015-05, HA1C #### [facility] ([id number]) [address], [address] [place] [address] MCHC (RBC) [Mass/Vol] 33.6 g/dL Normal 32-36 [facility] Comment on above: Performed By: #### Bong BCA CMP, 82948-2, 3015-05, HA1C #### [facility] ([id number]) [address], [address] [place] [address] MCV (RBC) [Entitic vol] 93 fL Normal 80-100 [facility] Comment on above: Performed By: #### C BCA, CMP, 43498-1, 3015-05, HA1C #### [facility] ([id number]) [address], [address] [place] [address] Monocytes (Bld) [#/Vol] 0.6 10*3/uL Normal 0-0.9 [facility] Comment on above: Performed By: #### C BCA, CMP, 33348-3, 3016-3, HA1C #### [facility] ([id number]) [address], [address] [place] [address] Monocytes/100 WBC (Bld) 11.3 % Normal [facility] Comment on above: Performed By: #### C BCA, CMP, 53984-8, 3016-3, HA1C #### [facility] ([id number]) [address], [address] [place] [address] Neutrophils/100 WBC (Bld) 51.3 % Normal [facility] Comment on above: Performed By: #### C BCA, CMP, 33926-0, 6-3, HA1C #### [facility] ([id number]) [address], [address] [place] [address] Platelet mean volume (Bld) [Entitic vol] 7.6 fL Normal 7-12 [facility] Comment on above: Performed By: #### C BCA, CMP, 92831-3, 6-3, HA1C #### [facility] ([id number]) [address], [address] [place] [address] Platelets (Bld) [#/Vol] 216 10*3/uL Normal 150-450 [facility] Comment on above: Performed By: #### C BCA, CMP, 27108-4, 6-3, HA1C #### [facility] ([id number]) [address], [address] [place] [address] RBC COUNT 4.26 X10E12/L Normal 3.80-5.20 [facility] Comment on above: Performed By: #### C BCA, CMP, 85017-4, 6-3, HA1C #### [facility] ([id number]) [address], [address] [place] [address] WBC (Bld) [#/Vol] 5.6 10*3/uL Normal 4.0-11.[address] [facility] Comment on above: Performed By: #### C BCA, CMP, 84278-4, 3016-3, HA1C #### [facility] ([id number]) [address], [address] [place] [address] COMPREHENSIVE METABOLIC PANE Levi 09-24-2023 Albumin [Mass/Vol] 4.6 g/dL Normal 3.2-5.[address] [facility] Comment on above: Performed By: #### C BCA, CMP, 63567-8, 3016-3, HA1C #### [facility] ([id number]) [address], [address] [place] [address] ALP [Catalytic activity/Vol] 37 U/L Low 39-130 [facility] Comment on above: Performed By: #### C BCA, CMP, 93495-2, 3016-3, HA1C #### [facility] ([id number]) [address], [address] [place] [address] ALT [Catalytic activity/Vol] 20 U/L Normal 0-31 [facility] Comment on above: Performed By: #### C BCA, CMP, 46960-3, 3016-3, HA1C #### [facility] ([id number]) [address], [address] [place] [address] Anion gap [Moles/Vol] 7 mmol/L Normal 5-15 [facility] Comment on above: Performed By: #### C BCA, CMP, 36591-0, 3016-3, HA1C #### [facility] ([id number]) [address], [address] [place] [address] AST [Catalytic activity/Vol] 18 U/L Normal 0-41 [facility] Comment on above: Performed By: #### C BCA, CMP, 21999-0, 3016-3, HA1C #### [facility] ([id number]) [address], [address] [place] [address] Bilirubin [Mass/Vol] 0.4 mg/dL Normal 0.3-1.2 [facility] Comment on above: Performed By: #### C BCA, CMP, 69085-0, 3016-3, HA1C #### [facility] ([id number]) [address], [address] [place] [address] Calcium [Mass/Vol] 9.8 mg/dL Normal 8.5-10.[address] [facility] Comment on above: Performed By: #### C BCA, CMP, 95460-8, 3016-3, HA1C #### [facility] ([id number]) [address], [address] [place] [address] Chloride [Moles/Vol] 100 mmol/L Normal 98-109 [facility] Comment on above: Performed By: #### C BCA, CMP, 87519-3, 3016-3, HA1C #### [facility] ([id number]) [address] [facility] [address] [place] [address] CO2 [Moles/Vol] 30 mmol/L Normal 22-32 [facility] Comment on above: Performed By: #### C BCA, CMP, 45656-4, 3016-3, HA1C #### [facility] ([id number]) [address], [address] [place] [address] Creatinine [Mass/Vol] 0.82 mg/dL Normal 0.40-1.00 [facility] Comment on above: Result Comment: METH OD TRACEABLE TO IDMS STANDARD Performed By: #### C BCA, CMP, 00352-2, 3016-3, HA1C #### [facility] ([id number]) [address], [address] [place] [address] GFR/1.73 sq M.predicted among non-blacks MDRD (S/P/Bld) [Vol rate/Area] 76 mL/min/{1.73_m2} Normal >59 [facility] Comment on above: Result Comment: Reported eGFR is based on the CKD-EPI 2020 equation that does not use a race coefficient. Performed By: #### C BCA, CMP, 67354-2, 3016-3, HA1C #### [facility] ([id number]) [address], [address] [place] [address] Glucose [Mass/Vol] 94 mg/dL Normal 65-[address] [facility] Comment on above: Performed By: #### C BCA, CMP, 73096-3, 6-3, HA1C #### [facility] ([id number]) [address], [address] [place] [address] Potassium [Moles/Vol] 4.3 mmol/L Normal 3.5-5.0 [facility] Comment on above: Performed By: #### C BCA, CMP, 17573-0, 6-3, HA1C #### [facility] ([id number]) [address], [address] [place] [address] Protein [Mass/Vol] 7.1 g/dL Normal 6.0-8.[address] [facility] Comment on above: Performed By: #### C BCA, CMP, 49005-2, 6-3, HA1C #### [facility] ([id number]) [address], [address] [place] [address] Sodium [Moles/Vol] 137 mmol/L Normal 134-[address] [facility] Comment on above: Performed By: #### C BCA, CMP, 45743-2, 6-3, HA1C #### [facility] ([id number]) [address], [address] [place] [address] Urea nitrogen [Mass/Vol] 13 mg/dL Normal 5-27 [facility] Comment on above: Performed By: #### C BCA, CMP, 50593-4, 6-3, HA1C #### [facility] ([id number]) [address], [address] [place] [address] HGB A1C (GLYCO-HGB)on 2023 Glucose [Mass/Vol] 111 mg/dL Normal [facility] Comment on above: Performed By: #### C TRICIA, RASHEEDA, 82881-8, 3015-3, HA1C #### [facility] ([id number]) [address], [address] [place] [address] HbA1c (Bld) [Mass fraction] 5.5 % Normal 4.4-5.6 [facility] Comment on above: Result Comment: NOTE ADA Guidelines Result HgbA1c Normal : less than 5.7 % Prediabetes : 5.7 % to 6.4 % Diabetes : > 6.4 % Use with caution in patients with abnormal hemoglobin variants as the half-life of red blood cells and in vivo glycation rates are affected. Performed By: #### C TRICIA, RASHEEDA, 04706-2, 3015-3, HA1C #### [facility] ([id number]) [address], [address] [place] [address] Lipid 1996 panelon Cholesterol [Mass/Vol] 155 mg/dL Normal 150-200 [facility] Comment on above: Performed By: #### C TRICIA, RASHEEDA, 23744-4, 3015-3, HA1C #### [facility] ([id number]) [address], [address] [place] [address] Cholesterol in HDL [Mass/Vol] 51 mg/dL Normal >39 [facility] Comment on above: Result Comment: HDL <40 mg/dL - High Risk HDL > or = 40mg/dL- Desirable HDL >60 mg/dL - Negative Risk Performed By: #### C BCA, CMP, 93842-5, 6-3, HA1C #### [facility] ([id number]) [address], [address] [place] [address] Cholesterol in LDL [Mass/Vol] 61 mg/dL Normal <130 [facility] Comment on above: Result Comment: LDL <100 mg/dL - Desirable LDL >160 mg/dL - High Risk Performed By: #### C BCA, CMP, 56764-8, 6-3, HA1C #### [facility] ([id number]) [address], [address] [place] [address] Cholesterol in VLDL [Mass/Vol] 43 mg/dL High 0-30 [facility] Comment on above: Performed By: #### C TRICIA, CMP, 27656-6, 6-3, HA1C #### [facility] ([id number]) [address] [place] [address] CHOLESTEROL:HDL 3.0 Normal 1.0-5.0 [facility] Comment on above: Performed By: #### C TRICIA, CMP, 08256-6, 6-3, HA1C #### [facility] ([id number]) [address], [address] [place] [address] Triglyceride [Mass/Vol] 214 mg/dL High 27-150 [facility] Comment on above: Performed By: #### C BCA, CMP, 87811-5, 6-3, HA1C #### [facility] ([id number]) [address], [address] [place] [address] TSH Qnon 09-24-2023 TSH 2.72 uIU/mL Normal 0.49-4.67 [facility] Comment on above: Performed By: #### C BCA, [facility], 27948-5, 3016-3, HA1C #### [facility] ([id number]) [address] [place] [address], [address] [place] [address] Surgical Pathologyon 024 Surgical Pathology Normal [facility] Comment on above: Result Comment: [facility] [address] [place] [address] Surgical Pathology Consultation Patient Name:PEGGY BUSTAMANTE:1950 (Age: 73)Gender:FTaken:04/29/2023eported:05/04/2023hysician(s):Jorje Olmedo MD ([phone])Copy To: Rec. #:[id number]: #[id number] Final Pathologic Diagnosis Colon biopsy 75 cm (2 H&E): Tubular adenoma. Report Electronically Signed Out gp/05/04/2023Ok Roland [place] [address], License number: [id number]. Clinical History Screening. Gross Description Received in formalin, labeled BUSTAMANTE, 75 cm is a 0.3 cm in greatest dimension pink-so soft tissue fragment. The specimen is filtered and entirely submitted in one cassette. (1, ns, [id number], m7) MW mxw/04/29/2023SSI Microscopic Findings Microscopic examination performed. Specimen(s) Received Colon biopsy 75cm Fee Codes(s): 1; 30482 XR Elbow - left 2 [facility] Result: April 21, 2023 x-rays AP and lateral of the left elbow demonstrate a fracture of the radial head in satisfactory position alignment the fracture appears to be healing. No new findings. Impression: Healing radial head fracture Serafin Riojas D.O. [facility] Radiology Study observation (narrative) [facility] BASIC METABOLIC PANLon 02-23 Anion gap [Moles/Vol] 9 mmol/L Normal 5-15 [facility] Comment on above: Performed By: #### B MP #### [facility] ([id number]) [address], [address] [place] [address] Calcium [Mass/Vol] 9.6 mg/dL Normal 8.5-10.[address] [facility] Comment on above: Performed By: #### B MP #### [facility] ([id number]) [address], [address] [place] [address] Chloride [Moles/Vol] 101 mmol/L Normal 98-109 [facility] Comment on above: Performed By: #### B MP #### [facility] ([id number]) [address], [address] [place] [address] CO2 [Moles/Vol] 28 mmol/L Normal 22-32 [facility] Comment on above: Performed By: #### B MP #### [facility] ([id number]) [address], [address] [place] [address] Creatinine [Mass/Vol] 0.82 mg/dL Normal 0.40-1.00 [facility] Comment on above: Result Comment: METH OD TRACEABLE TO IDMS STANDARD Performed By: #### B MP #### [facility] ([id number]) [address], [address] [place] [address] GFR/1.73 sq M.predicted among non-blacks MDRD (S/P/Bld) [Vol rate/Area] 76 mL/min/{1.73_m2} Normal >59 [facility] Comment on above: Result Comment: Reported eGFR is based on the CKD-EPI 2020 equation that does not use a race coefficient. Performed By: #### B MP #### [facility] ([id number]) [address], [address] [place] [address] Glucose [Mass/Vol] 96 mg/dL Normal 65-[address] [facility] Comment on above: Performed By: #### B MP #### [facility] ([id number]) [address], [address] [place] [address] Potassium [Moles/Vol] 4.6 mmol/L Normal 3.5-5.0 [facility] Comment on above: Performed By: #### B MP #### [facility] ([id number]) [address] [place] [address] Sodium [Moles/Vol] 138 mmol/L Normal 134-[address] [facility] Comment on above: Performed By: #### B MP #### [facility] ([id number]) [address], [address] [place] [address] Urea nitrogen [Mass/Vol] 16 mg/dL Normal 5-27 [facility] Comment on above: Performed By: #### B MP #### [facility] ([id number]) [address], [address] [place] [address] MM screening mammo BI w/CADo n 02-17-2023 MM screening mammo BI w/CAD [facility] Main [place] [address] [place] [address] Mammography Report Signed Patient: Peggy Bustamante MR#: [id number] 8 : 1950 Acct:[id number] Age/Sex: 72 / F ADM Date: 02/17/23 Loc: [place] Room: Type: [facility] Attending Dr: Referral Self Copies to: Ismael [...] Maxwell Reaves M.D.02/17/2023 10:40 AM Dictation Location: [facility] Transcribed By: MARTIN 02/17/23 1040 Dictated By: Maxwell Reaves DO 02/17/23 1038 Signed By: 02/17/23 1040 Normal [facility] XR knee BI 3V - NOT FOR ER U Jeannie 07-10-2022 XR knee BI 3V - NOT FOR ER USE [facility] Main [place] [address] [place] [address] XRay Report Signed Patient: Peggy Bustamante MR#: [id number] 8 : 1950 Acct:[id number] Age/Sex: 72 / F ADM Date: 07/10/22 Loc: [facility] [place] Room: Type: [facility] Attending Dr: Andrew Agarwal MD Copies to: [...] Maxwell Reaves M.D.07/10/2022 3:16 PM Dictation Location: [place] [address] Transcribed By: MARTIN 07/10/221515 Dictated By: Maxwell Reaves DO 07/10/221511 Signed By: 07/10/221515 Normal [facility] FREE T4on 12-27-2021 Free T4 [Mass/Vol] 0.81 ng/dL Normal 0.76-1.46 [facility] Comment on above: Performed By: #### F T4 #### [facility] [address] [address] [address] Yohana Aragon LIPID PROFILEon 12-27-2021 CHOL-HDL RATIO NORM SEE BELOW Normal [facility] Comment on above: Result Comment: 3.3 - 4.4 LOW RISK 4.4 - 7.1 AVERAGE RISK 7.1 - 11.0 MODERATE RISK >11.0 HIGH RISK Performed By: #### T SH, LIPID, CMP #### [facility] [address] [address] [address] Yohana Aragon Cholesterol [Mass/Vol] 254 mg/dL Critically high <=200 [facility] Comment on above: Performed By: #### T SH, LIPID, CMP #### [facility] [address] [address] [address] Yohana Aragon Cholesterol in HDL [Mass/Vol] 49 mg/dL Normal 40-60 [facility] Comment on above: Performed By: #### T SH, LIPID, CMP #### [facility] [address] [address] [address] Yohana Aragon Cholesterol in LDL [Mass/Vol] 154.4 mg/dL Normal [facility] Comment on above: Performed By: #### T SH, LIPID, CMP #### [facility] [address] [address] [address] Yohana Aragon Cholesterol.total/ Cholesterol in HDL [Mass ratio] 5.2 {ratio} Normal [facility] Comment on above: Performed By: #### T SH, LIPID, CMP #### [facility] [address] [address] [address] Yohana Aragon HDL NORMAL > or = 60 mg/dl - LO W CARDIOVASCULAR RISK <40 mg/dl - HIGH CARDIOVASCULAR RISK Normal [facility] Comment on above: Performed By: #### T SH, LIPID, CMP #### [facility] [address] [address] [address] Yohana Aragon LDL CALC NORMAL SEE BELOW Normal [facility] Comment on above: Result Comment: <100 mg/dl OPTIMAL 100 - 129 mg/dl NEAR OR ABOVE OPTIMAL 130 - 159 mg/dl BORDERLINE HIGH 160 - 189 mg/dl HIGH >190 mg/dl VERY HIGH Performed By: #### T ABY, LIPID, CMP #### [facility] [address] [address] [address] Yohana Aragon Triglyceride [Mass/Vol] 253 mg/dL Critically high <=150 [facility] Comment on above: Performed By: #### T ABY, LIPID, CMP #### [facility] [address] [place] [address] Dr. Yohana Aragon VLDL CALC 50.6 mg/dL Normal [facility] Comment on above: Performed By: #### T ABY, LIPID, CMP #### [facility] [address] [place] [address] Dr. Yohana Aragon PROF 14(COMP METB)on 12-27-2 022 Albumin [Mass/Vol] 3.8 g/dL Normal 3.4-5.0 [facility] Comment on above: Performed By: #### T ABY LIPID, CMP #### [facility] [address] [place] [address] Dr. Yohana Aragon Albumin/Globulin [Mass ratio] 1.1 {ratio} Normal [facility] Comment on above: Performed By: #### T ABY, LIPID, CMP #### [facility] [address] [place] [address] Dr. Yohana Aragon ALP [Catalytic activity/Vol] 42 U/L Critically low 46-116 [facility] Comment on above: Performed By: #### T ABY, LIPID, CMP #### [facility] [address] [place] [address] Dr. Yohana Aragon ALT [Catalytic activity/Vol] 26 U/L Normal 14-59 [facility] Comment on above: Performed By: #### T ABY, LIPID, CMP #### [facility] [address] [address] [address] Yohana Aragon Anion gap [Moles/Vol] 8.9 mmol/L Normal [facility] Comment on above: Performed By: #### T SH, LIPID, CMP #### [facility] [address] [place] [address] Dr. Yohana Aragon AST [Catalytic activity/Vol] 16 U/L Normal 15-37 [facility] Comment on above: Performed By: #### T ABY, LIPID, CMP #### [facility] [address] [place] [address] Dr. Yohana Aragon Bilirubin [Mass/Vol] 0.4 mg/dL Normal 0.2-1.0 [facility] Comment on above: Performed By: #### T ABY, LIPID, CMP #### [facility] [address] [place] [address] Dr. Yohana Aragon Calcium [Mass/Vol] 9.0 mg/dL Normal 8.5-10.1 [facility] Comment on above: Performed By: #### T ABY, LIPID, CMP #### [facility] [address] [place] [address] Dr. Yohana Aragon Chloride [Moles/Vol] 103 mmol/L Normal 98-107 [facility] Comment on above: Performed By: #### T ABY, LIPID, CMP #### [facility] [address] [place] [address] Dr. Yohana Aragon CO2 [Moles/Vol] 29.6 mmol/L Normal 21.0-32.0 [facility] Comment on above: Performed By: #### T SH, LIPID, CMP #### [facility] [address] [place] [address] Dr. Yohana Aragon Creatinine [Mass/Vol] 0.83 mg/dL Normal 0.55-1.02 [facility] Comment on above: Performed By: #### T SH, LIPID, CMP #### [facility] [address] [place] [address] Dr. Yohana Aragon EGFR-AF [place] >60 Normal >=60 [facility] Comment on above: Performed By: #### T SH, LIPID, CMP #### [facility] [address] [address] [address] Yohana Aragon EGFR-NON AF MONTSERRATIAN >60 Normal >=60 [facility] Comment on above: Performed By: #### T SH, LIPID, CMP #### [facility] [address] [address] [address] Yohana Aragon Globulin (S) [Mass/Vol] 3.5 g/dL Normal [facility] Comment on above: Performed By: #### T SH, LIPID, CMP #### [facility] [address] [address] [address] Yohana Aragon Glucose [Mass/Vol] 98 mg/dL Normal 74-106 [facility] Comment on above: Performed By: #### T SH, LIPID, CMP #### [facility] [address] [place] [address] Dr. Yohana Aragon Potassium [Moles/Vol] 4.5 mmol/L Normal 3.5-5.1 [facility] Comment on above: Performed By: #### T ABY, LIPID, CMP #### [facility] [address] [place] [address] Dr. Yohana Aragon Protein [Mass/Vol] 7.3 g/dL Normal 6.4-8.2 [facility] Comment on above: Performed By: #### T ABY, LIPID, CMP #### [facility] [address] [place] [address] Dr. Yohana Aragon Sodium [Moles/Vol] 137 mmol/L Normal 136-145 [facility] Comment on above: Performed By: #### T SH, LIPID, CMP #### [facility] [address] [place] [address] Dr. Yohana Aragon Urea nitrogen [Mass/Vol] 14.0 mg/dL Normal 7.0-18.0 [facility] Comment on above: Performed By: #### T SH, LIPID, CMP #### [facility] [address] [place] [address] Dr. Yohana Aragon Urea nitrogen/Creatinin e [Mass ratio] 16.9 mg/mg Normal [facility] Comment on above: Performed By: #### T SH, LIPID, CMP #### [facility] [address] [place] [address] Dr. Yohana Aragon TSHon 12-27-2021 TSH 2.654 uIU/mL Normal 0.358-3.740 [facility] Comment on above: Performed By: #### T SH, LIPID, CMP #### [facility] [address] [place] [address] Dr. Yohana Aragon PAP ACOG PANEL 2: 30 to 65on 10-08-2021 . . Normal [facility] Comment on above: Performed By: #### 4 [id number] #### [facility] [address] [place] [address] Dr. Yohana Aragon Age Gdln ACOG Testing Comment [facility] Comment on above: Result Comment: <21 or >65 or no age provided Performed By: #### 4 [id number] #### [facility] [address] [place] [address] Dr. Yohana Aragon DIAGNOSIS: Comment [facility] Comment on above: Result Comment: UNSA TISFACTORY FOR EVALUATION. Performed By: #### 4 [id number] #### [facility] [address] [place] [address] Dr. Yohana Aragon Methodology: Comment [facility] Comment on above: Result Comment: This liquid based ThinPrep(R) pap test was screened with the use of an image guided system. Performed By: #### 4 [id number] #### [facility] [address] [place] [address] Dr. Yohana Aragon Note: Comment [facility] Comment on above: Result Comment: The Pap smear is a screening test designed to aid in the detection of premalignant and malignant conditions of the uterine cervix. It is not a diagnostic procedure and should not be used as the sole means of detecting cervical cancer. Both false-positive and false-negative reports do occur. . Performed By: #### 4 [id number] #### [facility] [address] [place] [address] Dr. Yohana Aragon Performed by: Comment Normal [facility] Comment on above: Result Comment: Ashleigh Haddad, Senior Category Manager (ASCP) Performed By: #### 4 [id number] #### [facility] [address] [place] [address] Dr. Yohana Aragon QC reviewed by: Comment Normal [facility] Comment on above: Result Comment: Ramesh Floyd, Supervisory Senior Category Manager (ASCP) Performed By: #### 4 [id number] #### [facility] [address] [address] [address] Yohana Aragon Recommendation: Comment Normal [facility] Comment on above: Result Comment: Sugg est follow up as clinically appropriate. Performed By: #### 4 [id number] #### [facility] [address] [place] [address] Dr. Yohana Aragon Specimen adequacy: Comment Normal [facility] Comment on above: Result Comment: Spec imen processed and examined but unsatisfactory for evaluation of epithelial abnormality because of insufficient cellularity. Performed By: #### 4 [id number] #### [facility] [address] [place] [address] Dr. Yohana Aragon [facility] 06-27-2021 Albumin [Mass/Vol] 4.4 g/dL Normal 3.6-5.1 [facility] Comment on above: Performed By: #### 1 0231, 7600, 08711 #### [facility] [address] [address] Employee Development Manager: Jose Stark MD Albumin/Globulin [Mass ratio] 2.0 {ratio} Normal 1.0-2.5 [facility] Comment on above: Performed By: #### 1 0231, 7600, 42021 #### [facility] [address] [address] Employee Development Manager: Jose Stark MD ALP [Catalytic activity/Vol] 34 U/L Low 37-153 [facility] Comment on above: Performed By: #### 1 0231, 7600, 51327 #### [facility] [address] [address] Employee Development Manager: Jose Stark MD ALT [Catalytic activity/Vol] 14 U/L Normal 6-29 [facility] Comment on above: Performed By: #### 1 0231, 7599, 75731 #### [facility] of [address], [address] [place] [address] Employee Development Manager: Jose Stark MD AST [Catalytic activity/Vol] 13 U/L Normal 10-35 [facility] Comment on above: Performed By: #### 1 0231, 7599, 98515 #### [facility] of [address], [address] [place] [address] Employee Development Manager: Jose Stark MD Bilirubin [Mass/Vol] 0.5 mg/dL Normal 0.2-1.2 [facility] Comment on above: Performed By: #### 1 023, 7599, 18609 #### [facility] of [address] [address] Employee Development Manager: Jose Stark MD BUN/CREATININE RATIO NOT APPLICABLE Normal 6-22 [facility] Comment on above: Performed By: #### 1 0231, 7599, 81518 #### [facility] of [address] [address] Employee Development Manager: Jose Stark MD Calcium [Mass/Vol] 9.4 mg/dL Normal 8.6-10.4 [facility] Comment on above: Performed By: #### 1 0231, 7599, 19329 #### [facility] of [address] [address] Employee Development Manager: Jose Stark MD Chloride [Moles/Vol] 104 mmol/L Normal 98-110 [facility] Comment on above: Performed By: #### 1 0231, 7599, 57635 #### [facility] of [address] [address] Employee Development Manager: Jose Stark MD CO2 [Moles/Vol] 29 mmol/L Normal 20-32 [facility] Comment on above: Performed By: #### 1 0231, 0, 63357 #### [facility] of [address], [address] [place] [address] Employee Development Manager: Jose Stark MD Creatinine [Mass/Vol] 0.76 mg/dL Normal 0.60-0.93 [facility] Comment on above: Result Comment: For patients >49 years of age, the reference limit for Creatinine is approximately 13% higher for people identified as -Honduran. Performed By: #### 1 0231, 7599, 56233 #### [facility] of [address], [address] [place] [address] Employee Development Manager: Jose Stark MD eGFR NON-AFR. MONTSERRATIAN 79 mL/min/1.73m2 Normal > OR = 60 [facility] Comment on above: Performed By: #### 1 023, 7599, 91545 #### [facility] [address], [address] [place] [address] Employee Development Manager: Jose Stark MD GFR/1.73 sq M.predicted among blacks MDRD (S/P/Bld) [Vol rate/Area] 92 mL/min/{1.73_m2} Normal > OR = 60 [facility] Comment on above: Performed By: #### 1 023, 7599, 88546 #### [facility] [address], [address] [place] [address] Employee Development Manager: Jose Stark MD Globulin (S) [Mass/Vol] 2.2 g/dL Normal 1.9-3.7 [facility] Comment on above: Performed By: #### 1 0231, 0, 05131 #### [facility] of [address] [address] Employee Development Manager: Jose Stark MD Glucose [Mass/Vol] 95 mg/dL Normal 65-99 [facility] Comment on above: Result Comment: Fasting reference interval Performed By: #### 1 0231, 7600, 61760 #### [facility] of [address], [address] [place] [address] Employee Development Manager: Jose Stark MD Potassium [Moles/Vol] 4.2 mmol/L Normal 3.5-5.3 [facility] Comment on above: Performed By: #### 1 0231, 7600, 19311 #### [facility] of [address], [address] [place] [address] Employee Development Manager: Jose Stark MD Protein [Mass/Vol] 6.6 g/dL Normal 6.1-8.1 [facility] Comment on above: Performed By: #### 1 0231, 7600, 04690 #### [facility] of [address], [address] [place] [address] Employee Development Manager: Jose Stark MD Sodium [Moles/Vol] 141 mmol/L Normal 135-146 [facility] Comment on above: Performed By: #### 1 0231, 0, 68752 #### [facility] of [address], [address] [place] [address] Employee Development Manager: Jose Stark MD Urea nitrogen [Mass/Vol] 13 mg/dL Normal 7-25 [facility] Comment on above: Performed By: #### 1 0231, 0, 01533 #### [facility] [address], [address] [place] [address] Employee Development Manager: Jose Stark MD LIPID PANEL, [facility] 06-08 Cholesterol [Mass/Vol] 159 mg/dL Normal <200 [facility] Comment on above: Order Comment: FASTI NG:YES FASTING: YES Performed By: #### 1 0231, 7600, 73981 #### [facility] of [address], [address] [place] [address] Employee Development Manager: Jose Stark MD Cholesterol in HDL [Mass/Vol] 52 mg/dL Normal > OR = 50 [facility] Comment on above: Order Comment: FASTI NG:YES FASTING: YES Performed By: #### 1 0231, 7600, 60939 #### [facility] of [address], [address] [place] [address] Employee Development Manager: Jose Stark MD Cholesterol in LDL [Mass/Vol] [...] LDL-C. Derick CASTRO et al. THU. 2013;310(19): 2500-7731 (http://[email or web address]/faq/LZN696) Performed By: #### 1 0231, 7600, 23700 #### [facility] [address], [address] [place] [address] Employee Development Manager: Jose Stark MD Cholesterol.total/ Cholesterol in HDL [Mass ratio] 3.1 {ratio} Normal <5.0 [facility] Comment on above: Order Comment: FASTI NG:YES FASTING: YES Performed By: #### 1 0231, 7600, 71167 #### [facility] [address], [address] [place] [address] Employee Development Manager: Jose Stark MD NON HDL CHOLESTEROL 107 mg/dL (calc) Normal <130 [facility] Comment on above: Order Comment: FASTI NG:YES FASTING: YES Result Comment: For patients with diabetes plus 1 major ASCVD risk factor, treating to a non-HDL-C goal of <100 mg/dL (LDL-C of <70 mg/dL) is considered a therapeutic option. Performed By: #### 1 0231, 7600, 03835 #### [facility] [address], [address] [place] [address] Employee Development Manager: Jose Stark MD Triglyceride [Mass/Vol] 239 mg/dL High <150 [facility] Comment on above: Order Comment: FASTI NG:YES FASTING: YES Result Comment: If a non-fasting specimen was collected, consider repeat triglyceride testing on a fasting specimen if clinically indicated. Ceja et al. J. of Clin. Lipidol. 2015;9:129-169. Performed By: #### 1 0231, 7600, 71957 #### [facility] of [address] [address] Employee Development Manager: Jose Stark MD TSH+FREE T4on 06-27-2021 Free T4 [Mass/Vol] 0.9 ng/dL Normal 0.8-1.8 [facility] Comment on above: Performed By: #### 1 0231, 7600, 77948 #### [facility] of [address], [address] [place] [address] Employee Development Manager: Jose Stark MD TSH Qn 4.55 m[IU]/L High 0.40-4.50 [facility] Comment on above: Performed By: #### 1 0231, 0, 49413 #### [facility] of [address], [address] [place] [address] Employee Development Manager: Jose Stark MD [facility] 12-04-2020 Albumin [Mass/Vol] 4.5 g/dL Normal 3.6-5.1 [facility] Comment on above: Performed By: #### 5 8984, 09927 #### [facility] of [address] [address] Employee Development Manager: Jose Stark MD Albumin/Globulin [Mass ratio] 1.9 {ratio} Normal 1.0-2.5 [facility] Comment on above: Performed By: #### 5 8984, 81545 #### [facility] of [address] [address] Employee Development Manager: Jose Stark MD ALP [Catalytic activity/Vol] 36 U/L Low 37-153 [facility] Comment on above: Performed By: #### 5 8984, 28632 #### [facility] of [address] [address] Employee Development Manager: Jose Stark MD ALT [Catalytic activity/Vol] 15 U/L Normal 6-29 [facility] Comment on above: Performed By: #### 5 8984, 76205 #### [facility] of [address], [address] [place] [address] Employee Development Manager: Jose Stark MD AST [Catalytic activity/Vol] 16 U/L Normal 10-35 [facility] Comment on above: Performed By: #### 5 8984, 19818 #### [facility] of [address], [address] [place] [address] Employee Development Manager: Jose Stark MD Bilirubin [Mass/Vol] 0.6 mg/dL Normal 0.2-1.2 [facility] Comment on above: Performed By: #### 5 8984, 87600 #### [facility] of [address] [address] Employee Development Manager: Jose Stark MD BUN/CREATININE RATIO NOT APPLICABLE Normal 6-22 [facility] Comment on above: Performed By: #### 5 8984, 58631 #### [facility] of [address], [address] [place] [address] Employee Development Manager: Jose Stark MD Calcium [Mass/Vol] 9.4 mg/dL Normal 8.6-10.4 [facility] Comment on above: Performed By: #### 5 8984, 75535 #### [facility] of [address], [address] [place] [address] Employee Development Manager: Jose Stark MD Chloride [Moles/Vol] 101 mmol/L Normal 98-110 [facility] Comment on above: Performed By: #### 5 8984, 55273 #### [facility] of [address], [address] [place] [address] Employee Development Manager: Jose Stark MD CO2 [Moles/Vol] 29 mmol/L Normal 20-32 [facility] Comment on above: Performed By: #### 5 8984, 26277 #### [facility] of [address], [address] [place] [address] Employee Development Manager: Jose Stark MD Creatinine [Mass/Vol] 0.73 mg/dL Normal 0.50-0.99 [facility] Comment on above: Result Comment: For patients >49 years of age, the reference limit for Creatinine is approximately 13% higher for people identified as -Honduran. Performed By: #### 5 8984, 49384 #### [facility] [address], [address] [place] [address] Employee Development Manager: Jose Stark MD eGFR NON-AFR. MONTSERRATIAN 84 mL/min/1.73m2 Normal > OR = 60 [facility] Comment on above: Performed By: #### 5 8984, 50730 #### [facility] of [address], [address] [place] [address] Employee Development Manager: Jose Stark MD GFR/1.73 sq M.predicted among blacks MDRD (S/P/Bld) [Vol rate/Area] 97 mL/min/{1.73_m2} Normal > OR = 60 [facility] Comment on above: Performed By: #### 5 8984, 13438 #### [facility] of [address], [address] [place] [address] Employee Development Manager: Jose Stark MD Globulin (S) [Mass/Vol] 2.4 g/dL Normal 1.9-3.7 [facility] Comment on above: Performed By: #### 5 8984, 98920 #### [facility] [address], [address] [place] [address] Employee Development Manager: Jose Stark MD Glucose [Mass/Vol] 97 mg/dL Normal 65-99 [facility] Comment on above: Result Comment: Fasting reference interval Performed By: #### 5 8984, 43745 #### [facility] of [address], [address] [place] [address] Employee Development Manager: Jose Stark MD Potassium [Moles/Vol] 4.4 mmol/L Normal 3.5-5.3 [facility] Comment on above: Performed By: #### 5 8984, 45241 #### [facility] [address], [address] [place] [address] Employee Development Manager: Jose Stark MD Protein [Mass/Vol] 6.9 g/dL Normal 6.1-8.1 [facility] Comment on above: Performed By: #### 5 8984, 61302 #### [facility] [address], [address] [place] [address] Employee Development Manager: Jose Stark MD Sodium [Moles/Vol] 138 mmol/L Normal 135-146 [facility] Comment on above: Performed By: #### 5 8984, 55848 #### [facility] [address], [address] [place] [address] Employee Development Manager: Jose Stark MD Urea nitrogen [Mass/Vol] 17 mg/dL Normal 7-25 [facility] Comment on above: Performed By: #### 5 8984, 40546 #### [facility] [address] [address] Employee Development Manager: Jose Stark MD TSH+FREE T4on 12-04-2020 Free T4 [Mass/Vol] 0.9 ng/dL Normal 0.8-1.8 [facility] Comment on above: Order Comment: FASTI NG:YES FASTING: YES Performed By: #### 5 8984, 50672 #### [facility] of [address] [address] Employee Development Manager: Jose Stark MD TSH Qn 4.24 m[IU]/L Normal 0.40-4.50 [facility] Comment on above: Order Comment: FASTI NG:YES FASTING: YES Performed By: #### 5 8984, 45153 #### [facility] of [address] [address] Employee Development Manager: Jose Stark MD Vital Signs Date Time Vital Sign Value Performing Clinician Facility 04-28-2023 11:28050 Body height 161.3 cm Pm 1 [facility] 04-28-2023 11:280500 Body mass index (BMI) [Ratio] 30.51 kg/m2 Pm 1 [facility] 04-28-2023 11:28-0500 Body [facility] 79.38 kg [facility] 03-17-2023 10:58-0500 Body height 160 cm Amina Mendez FELLER HAND-CONCRETE CRUSHER LOADER OPERATOR Work Phone: [facility] [employer] 03-17-2023 10:58-0500 Body mass index (BMI) [Ratio] 32.49 kg/m2 Amina Mendez FELLER HAND-CONCRETE CRUSHER LOADER OPERATOR [facility] 03-17-2023 10:58-0500 Body temperature 97.81 [degF] Amina Mendez FELLER HAND-CONCRETE CRUSHER LOADER OPERATOR [facility] 03-17-2023 10:58-0500 Body weight 83.19 kg Amina Mendez FELLER HAND-CONCRETE CRUSHER LOADER OPERATOR [facility] 03-17-2023 10:58-0500 Diastolic blood pressure 70 mm[Hg] Amina Mendez FELLER HAND-CONCRETE CRUSHER LOADER OPERATOR Work Phone: [facility] [employer] 03-17-2023 10:58-0500 Heart rate 102 /min Amina Mendez FELLER HAND[employer]CONCRETE CRUSHER LOADER OPERATOR [facility] 03-17-2023 10:58-0500 SaO2% (BldA) [Mass fraction] 97 % Amina Mendez FELLER HAND-CONCRETE CRUSHER LOADER OPERATOR [facility] 03-17-2023 10:58-0500 Systolic blood pressure 120 mm[Hg] Amina Mendez FELLER HAND-CONCRETE CRUSHER LOADER OPERATOR Work Phone: [facility] Encounters Encounter Date Encounter Type Care Provider Facility Start: 09-24-2023 End: 09-24-2023 ambulatory [facility] Start: 09-24-2023 End: 09-24-2023 ambulatory [facility] Start: 06-16-2023 End: 06-16-2023 ambulatory JASMINE RIOJAS Not Available Start: 06-10-2023 Refill Amina Mendez FELLER [employer]CONCRETE CRUSHER LOADER OPERATOR Work Phone: [facility] Comment on above: Gastro-esophageal re flux disease without esophagitis Start: 06-09-2023 End: 06-09-2023 ambulatory ANGELICA GARCIA Not Available Start: 04-29-2023 End: 04-30-2023 Evaluation and management of inpatient JORJE OLMEDO [facility] Start: 04-28-2023 End: 04-28-2023 ambulatory AMINA MENDEZ [facility] Start: 04-21-2023 End: 04-21-2023 ambulatory CARLOS LAST Not Available Start: 04-21-2023 End: 04-21-2023 ambulatory Carlos Last PT Work Phone: [facility] Comment on above: Arthritis of left kn ee (Primary Dx) Start: 04-21-2023 End: 04-22-2023 ambulatory JAMSINE RIOJAS Not Available Start: 04-21-2023 End: 04-21-2023 [...] Office outpatient visit 15 minutes Amina Mendez FELLER HAND-CONCRETE CRUSHER LOADER OPERATOR Work Phone: [facility] Comment on above: Viral upper respirat ory tract infection (Primary Dx) Start: 03-17-2023 End: 03-17-2023 ambulatory [facility] Start: 03-05-2023 Refill Amina Mendez FELLER HAND-CONCRETE CRUSHER LOADER OPERATOR Work Phone: [facility] Comment on above: Other seasonal aller gic rhinitis Start: 02-25-2023 End: 02-25-2023 ambulatory BRITNEY COPE Not Available Start: 02-24-2023 End: 02-25-2023 ambulatory JASMINE RIOJAS Not Available Start: 02-23-2023 End: 02-23-2023 ambulatory [facility] Start: 02-23-2023 End: 02-23-2023 ambulatory [facility] Start: 02-17-2023 End: 02-17-2023 ambulatory Referral Self Facility:[facility] Start: 02-17-2023 End: 02-17-2023 ambulatory DO Ismael Bonilla Work Phone: [facility] Work Phone: Start: 02-17-2023 End: 02-17-2023 Patient encounter procedure DO Ismael Alonsong Work Phone: [facility] Work Phone: Start: 01-27-2023 End: 01-27-2023 ambulatory JASMINE RIOJAS Not Available Start: 01-20-2023 End: 01-20-2023 ambulatory JASMINE RIOJAS Not Available Start: 07-21-2022 End: 07-21-2022 ambulatory Andrew Agarwal Other [place] [employer] Other Start: 07-21-2022 Office outpatient vi sit 15 minutes Andrew Agarwal [facility] Start: 07-10-2022 Office outpatient ne w 45 minutes Andrew Agarwal [facility] Start: 07-10-2022 End: 07-10-2022 ambulatory DO Ismael Furlong Work Phone: [facility] [employer] Other Start: 07-10-2022 End: 07-10-2022 Patient encounter procedure DO Ismael Furlong Work Phone: [facility] Start: 06-05-2022 End: 06-06-2022 ambulatory [...] 01-13-2022 ambulatory DO Ismael Furlong Work Phone: [facility] Work Phone: Start: 01-13-2022 End: 01-13-2022 Patient encounter procedure DO Ismael Furlong Work Phone: [facility] Start: 12-27-2021 End: 12-28-[address] AMINA MENDEZ Facility:[facility] Start: 10-02-2021 End: 10-02-[address] ROSA MCCAULEY . Facility: Procedures Date Procedure Procedure Detail Performing Clinician Start: 04-21-2023 Radex elbow 2 views Jam es A Beulah DO Work Phone: Start: 03-17-2023 Adult depression scr eening assessment Amina Mendez FELLER [employer]CRETE CRUSHER LOADER OPERATOR Work Phone: Start: 02-23-2023 Adult depression scr eening assessment Amina Mendez FELLER HAND-CONCRETE CRUSHER LOADER OPERATOR Work Phone: Start: 02-17-2023 End: 02-17-2023 Screening mammography of bilateral breasts DO [facility] Phone: Start: 07-10-2022 X-ray of both knees DO [facility] Phone: Start: 01-13-2022 End: 01-13-2022 Screening mammography of bilateral breasts DO [facility] Phone: Plan of Treatment Date Care Activity Detail Author Start: 04-29-2024 Adult BMI Screening Adult BMI Screen ing [facility] Start: 04-29-2024 Tobacco Screening Tobacco Screening [facility] Start: 04-28-2024 Adult BMI Screening Adult BMI Screen ing [facility] Start: 04-28-2024 Tobacco Screening Tobacco Screening [facility] Start: 03-17-2024 Adult BMI Screening Adult BMI Screen ing [facility] Start: 03-17-2024 Depression Screening Depression Scre ening [facility] Start: 03-17-2024 Fall Risk Screening Fall Risk Screen ing [facility] Start: 03-17-2024 Tobacco Screening Tobacco Screening [facility] Start: 02-24-2024 Adult BMI Screening Adult BMI Screen ing [facility] Start: 02-24-2024 Depression Screening Depression Scre ening [facility] Start: 02-24-2024 Fall Risk Screening Fall Risk Screen ing [facility] Start: 02-24-2024 Tobacco Screening [facility] [facility] Start: 02-18-2024 Screening for malign ant neoplasm of breast Mammogram [facility] Start: 02-18-2024 End: 02-18-2024 Patient encounter procedure 02/18/2024 9:45 AM EST Office Visit CHERYL DEVRIESS [address] [place] [address] Britney Cope, DO [address] [place] [address] [facility] [address] [facility] Start: 07-15-2023 End: 07-15-2023 Admission to same day surgery center 07/15/2023 10:15 AM EDT - 07/15/2023 12:45 PM EDT Surgery [facility] - Surgery [address] [place] [id number] Jasmine Riojas, DO [address] [place] [address] REPLACEMENT TOTAL JOINT KNEE [09757 (CPT )] [facility] - Surgery Comment on above: REPLACEMENT TOTAL YUMIKO INT KNEE [90093 (CPT )] Start: 07-15-2023 End: 07-15-2023 Arthrp kne condyle&platu medial&lat compartments REPLACEMENT TOTAL JOINT KNEE left knee degenerative joint disease 07/15/2023 10:15 AM EDT [facility] Start: 07-15-2023 Subsequent hospital visit by physician 07/15/2023 10:15 AM EDT Hospital Encounter [facility] - Surgery [address] [place] [id number] Jasmine Riojas, DO [address] [place] [address] [facility] - Surgery Start: 06-16-2023 End: 06-16-2023 Patient encounter procedure 06/16/2023 1:30 PM EDT Procedure visit [facility] - Pre Admit [address] [place] [id number] [facility] - Pre Admit Start: 04-21-2023 End: 04-21-2023 ambulatory 04/21/2023 2:30 PM EST Evaluation [facility] [address] [place] [address] Shala Carlos T, PT [address] [place] [address] [facility] Start: 04-21-2023 End: 04-21-2023 Patient encounter procedure 04/21/2023 9:45 AM EST Office Visit [facility] [address] [place] [address] Jasmine Riojas, DO [address] [place] [address] [facility] Start: 04-08-2023 Administration of varicella zoster vaccine Zoster (Shingles) Vaccine (1 of 2) [facility] Comment on above: Postponed from 03/19 (Patient Refused) Start: 04-08-2023 Medicare Annual Well ness Visit Medicare Annual Wellness Visit [facility] Start: 03-23-2023 End: 03-23-2023 ambulatory 03/23/2023 9:20 AM EST [facility] [address] [place] [id number] Ismael Bonilla, DO [address] [place] [address] [facility] - Family [facility] Start: 01-13-2023 Screening for malign ant neoplasm of breast Mammogram [facility] Start: 11-07-2022 Influenza vaccination Influenza Vacc ine (#1) [facility] Start: 2016 Pneumococcal Vaccine : 65+ Years (1 - PCV) Pneumococcal Vaccine: 65+ Years (1 - PCV) [facility] Start: 1970 Administration of varicella zoster vaccine Zoster (Shingles) Vaccine (1 of 2) [facility] Start: 1970 DTaP,Tdap and Td Vaccines (1 - Tdap) DTaP,Tdap and Td Vaccines (1 - Tdap) [facility] Start: 1969 Adult BMI Follow Up Plan Adult BMI Follow Up Plan [facility] Start: 1950 Screening for malign ant neoplasm of colon [facility] Colonoscopy flx dx w/collj spec when pfrmd COLONOSCOPY DIAGNOSTIC / SCREENING Colon cancer screening Neoplasm of unspecified behavior of digestive system [facility] Payers Date Payer Category Payer Self-pay [id number] 2022 Medicare [employer]AGE [employer]AGE [id number] 2022-Present [address] [place] [address] [id number] 2021 Unknown [employer] [id number] 2021-Present [phone] [address] [place] [address] [id number] .[id number] 1959 Medicare [id number] 1951 Unknown [id number] 2.16.840.1.182497.3.579.2.593 1951 Unknown [id number] 2.16.840.1.631095.3.579.2.593 1951 Unknown [id number] 2.16.840.1.034689.3.579.2.593 1951 Unknown [id number] 2.16.840.1.127819.3.579.2.593 1951 Unknown [id number] 2.16.840.1.702709.3.579.2.593 1951 Unknown [id number] 2.16.840.1.247396.3.579.2.593 1951 Unknown [id number] 2.16.840.1.712684.3.579.2.593 1951 Unknown [id number] 2.16.840.1.464011.3.579.2.593 1951 Unknown [id number] 2.16.840.1.700060.3.579.2.128 1951 Unknown [id number] 2.16.840.1.776165.3.579.2.128 1951 Unknown [id number] 2.16.840.1.845411.3.579.2.128 1951 Unknown [id number] 2.16.840.1.416117.3.579.2.125 1951 Unknown [id number] 2.16.840.1.820067.3.579.2.125 1951 Unknown [id number] 2.16.840.1.613473.3.579.2.125 1951 Unknown [id number] 2.16.840.1.171160.3.579.2.125 1951 Unknown [id number] 2.16.840.1.009633.3.579.2.125 1951 Unknown [id number] 2.16.840.1.199177.3.579.2.125 1951 Unknown [id number] 2.16.840.1.550779.3.579.2.125 1951 Unknown [id number] 2.16.840.1.888707.3.579.2.125 1951 Unknown [id number] 2.16.840.1.420234.3.579.2.125 1951 Unknown [id number] 2.16.840.1.056439.3.579.2.125 1951 Unknown [id number] 2.16.840.1.663442.3.579.2.125 9 1951 Unknown [id number] 2.16.840.1.139202.3.579.2.125 9 1951 Unknown [id number] 2.16.840.1.747854.3.579.2.125 9 1951 Unknown [id number] 2.16.840.1.126186.3.579.2.128 6 1951 Unknown [id number] 2.16.840.1.331574.3.579.2.128 6 1951 Unknown [id number] 2.16.840.1.765860.3.579.2.128 6 1951 Unknown [id number] 2.16.840.1.251867.3.579.2.128 6 1951 Unknown [id number] 2.16.840.1.883828.3.579.2.128 6 1951 Unknown [id number] 2.16.840.1.488861.3.579.2.128 6 Unknown [id number] Unknown [id number] 2.16.840.1.386240.3.579.2.531 Unknown [id number] 2.16.840.1.583742.3.579.2.531 Social History Date Type Detail Facility Tobacco smoking status GAIS Unknown if ever smoked [facility] Work Phone: Start: 1950 Sex Assigned At Female [facility] Start: 02-23-2023 End: 03-17-2023 Sex Assigned At [facility] Start: 01-01-2022 End: 11-13-2022 Tobacco smoking status NHIS Never smoked tobacco [facility] Start: 01-01-2022 End: 11-13-2022 Tobacco use and exposure Smokeless tobacco non-user [facility] Start: 02-23-2023 End: 04-30-2023 Alcohol intake Lifetime non-drinker (finding) [facility] Start: 02-23-2023 End: 03-17-2023 History of Social function [facility] Adolescent depressio n screening assessment 0 [facility] Start: 1950 Sex Assigned At Not on file P [facility] How often to you hav e a drink containing alcohol? Monthly or less [facility] How many standard drinks containing alcohol do you have on a typical day? 1 or 2 [facility] How often do you hav e 6 or more drinks on 1 occasion? Never [facility] Start: 11-13-2022 Alcohol Comment caffeine; 3-4 cups per day [facility] NEGATED: Highlighted rowStart: VIJAYA History of tobacco use Passive smoker [facility] Clinical Notes 01-14-2022 to 04-28-2023 Perioperative Nursing [...] in at the main lobby of the [facility]- registration desk is straight ahead as soon as you walk in. Tell them you are here for surgery. 2. If you have a Living Will/Durable Power of Sales Research Analyst for Health Care that is not on [...] after you have bathed. 5. NO nail filipino/acrylic on at least one finger. If you are having a hand, wrist or foot surgery then all nail filipino and artificial/acrylic nails must be removed from [...] please call the Preadmission Testing office at [phone], Mon.-Fri. 7 a.m.-3 p.m. Leave a voicemail [...] taking 0 days prior to procedure omega 5-kav-oyv-fish oil 1,200 (144-216) mg capsule Check with prescribing doctor for instructions polyethylene glycol (GAVILYTE-C) 240-22.72-6.72 -5.84 gram solution Stop taking 0 days prior to procedure pyrilamine-dextromethorphan 7.5-7.5 mg/5 mL liquid Stop taking 0 days prior to procedure sod sulf-pot chloride-mag sulf 1.479-0.188- 0.225 gram tablet Stop taking 0 days prior to procedure documented in this encounter [facility] 04-28-2023 Nurse Note Preoperative Education Checklist- General Surgery date: 04/29/23 Surgery time: 0900 Arrival time: 0800 1. Bring a photo ID and your insurance card with you the day of surgery. You will check in at the main lobby of the [facility]- registration desk is straight ahead as soon as you walk in. Tell them you are here for surgery. 2. If you have a Living Will/Durable Power of Sales Research Analyst for Health Care that is not on [...] after you have bathed. 5. NO nail filipino/acrylic on at least one finger. If you are having a hand, wrist or foot surgery then all nail filipino and artificial/acrylic nails must be removed from [...] please call the Preadmission Testing office at [phone], Mon.-Fri. 7 a.m.-3 p.m. Leave a voicemail [...] taking 0 days prior to procedure omega 7-ugn-guz-fish oil 1,200 (144-216) mg capsule Check with prescribing doctor for instructions polyethylene glycol (GAVILYTE-C) 240-22.72-6.72 -5.84 gram solution Stop taking 0 days prior to procedure pyrilamine-dextromethorphan 7.5-7.5 mg/5 mL liquid Stop taking 0 days prior to procedure sod sulf-pot chloride-mag sulf 1.479-0.188- 0.225 gram tablet Stop taking 0 days prior to procedure [facility] 04-21-2023 History of Presen t illness Narrative Images from the original note were not included. HISTORY OF PRESENT ILLNESS: Peggy Bustamante is an 73 y.o. @ female. Chief complaint LT elbow injury Lt elbow fx doi/ 01/10/23. ~ 3 months s/p a fall (01/10/23) just walking and tripped and landed on elbow. Tx at [facility] ER. Elbow is doing well. She notes mild discomfort with overuse or heavy lifting. Overall she is happy with her progress. Denies N/T. Admits TYL bid for knee pain. Denies waking at night. Pt is RT handed. TX: [facility] ER/XR 01/10/23, CT [facility] 01/15/23 MEDICATION: Current Outpatient Medications on [...] Kamlesh Riojas D.O. documented in this encounter [facility] 04-09-2023 Telephone encounter Note PT Copay $35.00 [facility] 04-09-2023 Miscellaneous Notes PT Copay $35.00 documented in this encounter [facility] 03-23-2023 History of Presen t illness Narrative Peggy presents for a DEXA scan. She has no new problems to report. Her mother did not break her hip. She rarely drinks alcohol. She is not a smoker. documented in this encounter [facility] 03-17-2023 History of Presen t illness Narrative [...] Colon 03/17/23 1242 documented in this encounter [facility] 07-21-2022 Evaluation note Encounter Date Diagnosis Assessment [...] Above note written by Khalif Farooq MA, Husbandry Technician. Edited and approved by Dr. Andrew Agarwal MD. [facility] 05-04-2023 Evaluation note* Encounter Date Diagnosis [...] Above note written by Olinda Ruano LPN, Husbandry Technician. Edited and approved by Dr. Andrew Agarwal [...] negative findings were considered in medical decision-making. [facility] 03-30-2023 NoteCONSULTATION CONSULTATION DATE: 06/05/2022 TO: [...] agrees to proceed with the outlined plan.[id number] NoteCONSULTATION PROCEDURE DATE: 03/18/2022 PREOPERATIVE DIAGNOSIS: Right [...] Post procedurally performed range of motion exercises.[facility] [id number] NoteCONSULTATION CONSULTATION DATE: 01/14/2022 CHIEF COMPLAINT: Bilateral [...] would like to proceed. CC: Amina Sorto [facility] HospitalEvaluation noteNo assessment information availableMer[facility] Work Phone: Evaluation note* Diagnosis Other seasonal allergic rhinitis [facility] Diagnosis Viral upper respiratory tract infection- Primary Acute upper respiratory infections of unspecified site [facility] Diagnosis Osteoporosis, postmenopausal- Primary Senile osteoporosis [facility] Diagnosis Closed displaced fracture of head of left radius with routine healing, subsequent encounter- Primary documented in this encounter [facility]* Diagnosis Arthritis of left knee- Primary documented in this encounter [facility]* Diagnosis Gastro-esophageal reflux disease without esophagitis Preop examination- Primary Unspecified pre-operative examination Hypertension, unspecified type Hypothyroidism (acquired) Unspecified hypothyroidism [facility] N[facility] - Reported* Type Description Date Medical History hyperlipidemia Medical History osteoporosis Medical History osteoarthritis Medical History hypertension Surgical History appendectiomy Surgical History tubal Surgical History gall bladder removal Surgical History excision of lesion to left sarah [facility] Surgical History lithotripsy right kidney Hospitalization History see above [facility] InstructionsNot on filedocumented in this encounter [facility]ructionsNot on filedocumented in this encounter [facility] SystemInstructionsNot on filedocumented in this encounter [facility] SystemInstructionsNot on filedocumented in this encounter [facility]ructionsNot on filedocumented in this encounter [facility] SystemReason for visit NarrativeSELF-REFERRAL APPROVED RIGOBERTO KNEE [facility] [employer] Other Summary Purpose Family History No Family [...] DATE CREATED AUTHOR AUTHOR'S ORGANIZ ATION 04/17/2023 [facility] DATE CREATED AUTHOR AUTHOR'S ORGANIZ ATION 05/05/2023 [facility] DATE CREATED AUTHOR AUTHOR'S ORGANIZ ATION 06/17/2023 [facility] EPIC DATE CREATED AUTHOR AUTHOR'S ORGANIZ ATION 09/28/2023 [facility] DATE CREATED AUTHOR AUTHOR'S ORGANIZ ATION 09/28/2023 [facility] Care Teams (unrecognized sec tion and content) [...] Provider Active Referral Self Attending Provider Active Addiction Treatment Counselor Relationship Specialty Start Date End Date Amina Mendez, FELLER HAND-CONCRETE CRUSHER LOADER OPERATOR [address] [id number] PCP - General Internal Medicine 12/09/21 Addiction Treatment Counselor Relationship Specialty Start Date End Date Amina Mendez, FELLER HANDCONCRETE CRUSHER LOADER OPERATOR [address] [place] [address] PCP - General Internal Medicine 12/09/21 Addiction Treatment Counselor Relationship Specialty Start Date End Date Amina Mendez, FELLER HANDCONCRETE CRUSHER LOADER OPERATOR [address] [place] [address] PCP - General Internal Medicine 12/09/21 Addiction Treatment Counselor Relationship Specialty Start Date End Date Ismael Bonilla MD [address] [place] [address] PCP - General Family Medicine 11/25/22 Addiction Treatment Counselor Relationship Specialty Start Date End Date Ismael Bonilla MD [address], [place] [address] PCP - General Family Medicine 11/25/22 Addiction Treatment Counselor Relationship Specialty Start Date End Date Ismael Bonilla MD [address], [place] [address] PCP - General Family Medicine 11/25/22 Addiction Treatment Counselor Relationship Specialty Start Date End Date Amina Mendez, FELLER HANDCONCRETE CRUSHER LOADER OPERATOR [address] [place] [address] PCP - General Internal Medicine 12/09/21 Addiction Treatment Counselor Relationship Specialty Start Date End Date Amina Mendez, CONCRETE CRUSHER LOADER OPERATOR [address] [place] [address] PCP - General Internal Medicine 12/09/21 Goals [...] Therapy Diagnoses Arthritis of left knee Procedures AL OFFICE/OUTPATIENT [facility] 60 MINUTES Jasmine Riojas DO [address] [facility] [address] [place] [address] Carlos Last, PT [address] [facility] [address] [place] [address] Referral ID Status Reason Start Date Expiration Date Visits Requested Visits Authorized [id number] Authorized Specialty Services Required 04/07/2023 10/04/2023 99 [...] BE BASED ON THE PRIMARY CLINICAL RECORDS. [facility] [employer] [facility]. provides no warranty or guarantee of the accuracy or completeness of information in this document.
--- NOTE | 2023-10-10 11:53 | XR_ITS ---
The [address] [address] Patient Name: KATRIN WEBB MRN: [id number] date: 1950 Sex: F Assigned Patient Location: [facility] Current Patient Location: Accession/Order Number: [id number] Exam Date: 10/10/2023 12:20 Report Date: 10/13/2023 10:15 At the request of: NATY KUMAR Procedure: XR knee RT 3V PROCEDURE: XR knee RT 3V HISTORY: Right knee pain , chronic COMPARISON: None. FINDINGS: BONES:Small cortical surface, but prominent undulation of the weightbearing articular surface of the medial femoral condyle; sequela of remote trauma versus developmental. Large degenerative osteophytes along the articular margins of all 3 compartments. Mild narrowing of anterior and medial compartment joint spaces. SOFT TISSUES:No visible soft tissue swelling. EFFUSION:None visible. OTHER: Negative. XR/XR knee RT 3V IMPRESSION: 1. No appreciable acute abnormality. 2. Moderate to marked degenerative changes. Electronically authenticated by: ONIEL NUR Date: 10/13/2023 10:15
== END 2023-10-10 11:37 | disposition home or self-care (01) ==
LOC: RAD 11:39
PROVIDERS: PCP Family Medicine; Visit Provider Anesthesiology Pain Medicine
DX: M25.561 Pain in right knee (principal)
CPT/HCPCS: 73562

== ENCOUNTER 2023-10-13 07:10 | Day surgery (SDC) | payer MEDICARE, SELFPAY ==
--- OUTSIDE RECORDS SUMMARY | 2023-10-13 07:14 | XMS_ITS | CCD ---
Author Organization [facility] Care Team Providers Care Ecmo Specialist Name Role Phone DO Ismael Bonilla Primary [...] Unavailable DO Ismael Bonilla Primary Care Provider [phone] MD Andrew Agarwal Attending Provider DO Ismael Bonilla Primary Care Provider [phone] Self, Referral Attending Provider Unavailable [place]des BIOMEDICAL ENGINEER-AD COPY WRITER, Amina Reyes Primary Care Provider Self, Referral Admitting Unavailable Self, Referral Attending Unavailable Ismael Bonilla Primary Care Unavailable Andrew Agarwal Attending Unavailable Ismael Bonilla Primary Care Unavailable Andrew Agarwal Admitting Unavailable Ismael Bonilla MD Primary Care Provider [phone] AMINA MENDEZ Referring Unavailable KUNS, DEIDRE Primary [...] Unavailable KUNS, AMINA REYES Primary Care Unavailable IMSAEL BONILLA Attending Unavailable KUNSAMINA Referring Unavailable KUNS, AMINA REYES Primary Care Unavailable KUNS, DEIDRE Referring Unavailable KUNS, DEIDRE Primary Care Unavailable IZA SMITH Referring Unavailable SMITHIZA DAVEY Primary Care Unavailable Allergies Allergy Classification Reported Allergen(s) Allergy Type Date of Onset Reaction(s) Facility (4 sources) Cephalexin Drug Allergy 7 Unknown [facility] (2 sources) Meperidine Drug Allergy 7 [facility] (2 sources) Darvocet-N 100 Drug allergy (disorder) 7 [facility] (12 sources) Cephalexin; Translations: [CEPHALEXIN] Drug Allergy 2 Rash, Unknown [facility] (12 sources) Meperidine; Translations: [MEPERIDINE] Drug Allergy 2 Nausea, Nausea Only [facility] Work Phone: (8 sources) Propoxyphene N-Acetaminophen; Translations: [PROPOXYPHENE N-ACETAMINOPHEN] Propensity to adverse reactions to drug 2 Vomiting [facility] (1 source) Cephalexin Drug Allergy 3 [facility] (4 sources) Meperidine Drug Allergy [...] Active Start: 09-21-2022 take 1 capsule by [facility] in the morning celecoxib (CeleBREX) 200 [...] 1.5 mg/ml oral solution (5 sources) Uncompetitive J-qwwcyq-W-aspartate Receptor Antagonist, Sigma-1 Agonist Start: 05-04-2023 take [...] dizziness. 30 tablet 1 02/23/2023 Active omega 8-eze-ocr-fish oil 1,200 (144-216) mg capsule (5 sources) omega 3-gbo-pqs-fish oil 1,200 (144-216) mg capsule Orally 0 [...] Sig (Normalized) Sig (Original) polyethylene glycol 3350 350374 mg / potassium chloride 2980 mg / sodium bicarbonate 6720 mg / sodium chloride 5840 mg / sodium sulfate 79750 mg powder for oral solution (1 source) [...] BASOPHIL 0.0 X10E9/L Normal 0.0-0.2 [facility] Comment on above: Performed By: #### C BCA, CMP, 24697-1, 3016-3, HA1C #### [facility] ([id number]) [address], [address] [place] [address] ABSOLUTE NEUTROPHIL 2.9 X10E9/L Normal 1.5-6.6 [facility] Comment on above: Performed By: #### C BCA, CMP, 67157-0, 3016-3, HA1C #### [facility] ([id number]) [address], [address] [place] [address] Basophils/100 WBC (Bld) 0.7 % Normal [facility] Comment on above: Performed By: #### C BCA, CMP, 36212-9, 6-3, HA1C #### [facility] ([id number]) [address], [address] [place] [address] Eosinophils (Bld) [#/Vol] 0.1 10*3/uL Normal 0.0-0.4 [facility] Comment on above: Performed By: #### C BCA, CMP, 45743-6, 6-3, HA1C #### [facility] ([id number]) [address], [address] [place] [address] Eosinophils/100 WBC (Bld) 1.3 % Normal [facility] Comment on above: Performed By: #### C BCA, CMP, 37518-5, 3015-, HA1C #### [facility] ([id number]) [address], [address] [place] [address] Erythrocyte distribution width (RBC) [Ratio] 13.5 % Normal 11.5-15.0 [facility] Comment on above: Performed By: #### C BCA, CMP, 83016-1, 3015-3, HA1C #### [facility] ([id number]) [address], [address] [place] [address] Hematocrit (Bld) [Volume fraction] 39.5 % Normal 35-47 [facility] Comment on above: Performed By: #### C BCA, CMP, 16910-2, 6-3, HA1C #### [facility] ([id number]) [address], [address] [place] [address] Hemoglobin (Bld) [Mass/Vol] 13.3 g/dL Normal 11.7-15.5 [facility] Comment on above: Performed By: #### C BCA, CMP, 72228-6, 3015-05, HA1C #### [facility] ([id number]) [address], [address] [place] [address] Lymphocytes (Bld) [#/Vol] 2.0 10*3/uL Normal 1.0-3.5 [facility] Comment on above: Performed By: #### C BCA CMP, 28949-9, 3015-05, HA1C #### [facility] ([id number]) [address], [address] [place] [address] Lymphocytes/100 WBC (Bld) 35.4 % Normal [facility] Comment on above: Performed By: #### C BCA CMP, 50206-4, 3015-05, HA1C #### [facility] ([id number]) [address], [facility] [address] [place] [address] MCH (RBC) [Entitic mass] 31.1 pg Normal 27-34 [facility] Comment on above: Performed By: #### C TRICIA CMP, 35410-3, 3015-05, HA1C #### [facility] ([id number]) [address], [address] [place] [address] MCHC (RBC) [Mass/Vol] 33.6 g/dL Normal 32-36 [facility] Comment on above: Performed By: #### Bong BCA CMP, 58403-7, 3015-05, HA1C #### [facility] ([id number]) [address], [address] [place] [address] MCV (RBC) [Entitic vol] 93 fL Normal 80-100 [facility] Comment on above: Performed By: #### C BCA, CMP, 77956-9, 3015-05, HA1C #### [facility] ([id number]) [address], [address] [place] [address] Monocytes (Bld) [#/Vol] 0.6 10*3/uL Normal 0-0.9 [facility] Comment on above: Performed By: #### C BCA, CMP, 39126-1, 3016-3, HA1C #### [facility] ([id number]) [address], [address] [place] [address] Monocytes/100 WBC (Bld) 11.3 % Normal [facility] Comment on above: Performed By: #### C BCA, CMP, 07543-9, 3016-3, HA1C #### [facility] ([id number]) [address], [address] [place] [address] Neutrophils/100 WBC (Bld) 51.3 % Normal [facility] Comment on above: Performed By: #### C BCA, CMP, 95463-9, 6-3, HA1C #### [facility] ([id number]) [address], [address] [place] [address] Platelet mean volume (Bld) [Entitic vol] 7.6 fL Normal 7-12 [facility] Comment on above: Performed By: #### C BCA, CMP, 38233-4, 6-3, HA1C #### [facility] ([id number]) [address], [address] [place] [address] Platelets (Bld) [#/Vol] 216 10*3/uL Normal 150-450 [facility] Comment on above: Performed By: #### C BCA, CMP, 30031-0, 6-3, HA1C #### [facility] ([id number]) [address], [address] [place] [address] RBC COUNT 4.26 X10E12/L Normal 3.80-5.20 [facility] Comment on above: Performed By: #### C BCA, CMP, 26869-5, 6-3, HA1C #### [facility] ([id number]) [address], [address] [place] [address] WBC (Bld) [#/Vol] 5.6 10*3/uL Normal 4.0-11.0 [facility] Comment on above: Performed By: #### C BCA, CMP, 65118-4, 3016-3, HA1C #### [facility] ([id number]) [address], [address] [place] [address] COMPREHENSIVE METABOLIC PANE Levi 09-24-2023 Albumin [Mass/Vol] 4.6 g/dL Normal 3.2-5.3 [facility] Comment on above: Performed By: #### C BCA, CMP, 21693-7, 3016-3, HA1C #### [facility] ([id number]) [address], [address] [place] [address] ALP [Catalytic activity/Vol] 37 U/L Low 39-130 [facility] Comment on above: Performed By: #### C BCA, CMP, 28947-4, 3016-3, HA1C #### [facility] ([id number]) [address], [address] [place] [address] ALT [Catalytic activity/Vol] 20 U/L Normal 0-31 [facility] Comment on above: Performed By: #### C BCA, CMP, 01908-3, 3016-3, HA1C #### [facility] ([id number]) [address], [address] [place] [address] Anion gap [Moles/Vol] 7 mmol/L Normal 5-15 [facility] Comment on above: Performed By: #### C BCA, CMP, 02421-6, 3016-3, HA1C #### [facility] ([id number]) [address], [address] [place] [address] AST [Catalytic activity/Vol] 18 U/L Normal 0-41 [facility] Comment on above: Performed By: #### C BCA, CMP, 96175-2, 3016-3, HA1C #### [facility] ([id number]) [address], [address] [place] [address] Bilirubin [Mass/Vol] 0.4 mg/dL Normal 0.3-1.2 [facility] Comment on above: Performed By: #### C BCA, CMP, 50530-4, 3016-3, HA1C #### [facility] ([id number]) [address], [address] [place] [address] Calcium [Mass/Vol] 9.8 mg/dL Normal 8.5-10.5 [facility] Comment on above: Performed By: #### C BCA, CMP, 05011-5, 3016-3, HA1C #### [facility] ([id number]) [address], [address] [place] [address] Chloride [Moles/Vol] 100 mmol/L Normal 98-109 [facility] Comment on above: Performed By: #### C BCA, CMP, 98530-8, 3016-3, HA1C #### [facility] ([id number]) [address] [place] [address] CO2 [Moles/Vol] 30 mmol/L Normal 22-32 [facility] Comment on above: Performed By: #### C BCA, CMP, 74668-8, 3016-3, HA1C #### [facility] ([id number]) [address], [address] [place] [address] Creatinine [Mass/Vol] 0.82 mg/dL Normal 0.40-1.00 [facility] Comment on above: Result Comment: METH OD TRACEABLE TO IDMS STANDARD Performed By: #### C BCA, CMP, 09204-8, 3016-3, HA1C #### [facility] ([id number]) [address], [address] [place] [address] GFR/1.73 sq M.predicted among non-blacks MDRD (S/P/Bld) [Vol rate/Area] 76 mL/min/{1.73_m2} Normal >[address] [facility] Comment on above: Result Comment: Reported eGFR is based on the CKD-EPI 2020 equation that does not use a race coefficient. Performed By: #### C BCA, CMP, 11360-0, 3016-3, HA1C #### [facility] ([id number]) [address], [address] [place] [address] Glucose [Mass/Vol] 94 mg/dL Normal 65-99 [facility] Comment on above: Performed By: #### C BCA, CMP, 01176-9, 6-3, HA1C #### [facility] ([id number]) [address], [address] [place] [address] Potassium [Moles/Vol] 4.3 mmol/L Normal 3.5-5.0 [facility] Comment on above: Performed By: #### C BCA, CMP, 96348-7, 6-3, HA1C #### [facility] ([id number]) [address], [address] [place] [address] Protein [Mass/Vol] 7.1 g/dL Normal 6.0-8.0 [facility] Comment on above: Performed By: #### C BCA, CMP, 63830-5, 6-3, HA1C #### [facility] ([id number]) [address], [address] [place] [address] Sodium [Moles/Vol] 137 mmol/L Normal 134-146 [facility] Comment on above: Performed By: #### C BCA, CMP, 85498-3, 6-3, HA1C #### [facility] ([id number]) [address], [address] [place] [address] Urea nitrogen [Mass/Vol] 13 mg/dL Normal 5-27 [facility] Comment on above: Performed By: #### C BCA, CMP, 77902-5, 6-3, HA1C #### [facility] ([id number]) [address], [address] [place] [address] HGB A1C (GLYCO-HGB)on 2023 Glucose [Mass/Vol] 111 mg/dL Normal [facility] Comment on above: Performed By: #### C TRICIA, RASHEEDA, 20919-7, 3015-3, HA1C #### [facility] ([id number]) [address], [address] [place] [address] HbA1c (Bld) [Mass fraction] 5.5 % Normal 4.4-5.6 [facility] Comment on above: Result Comment: NOTE ADA Guidelines Result HgbA1c Normal : less than 5.7 % Prediabetes : 5.7 % to 6.4 % Diabetes : > 6.4 % Use with caution in patients with abnormal hemoglobin variants as the half-life of red blood cells and in vivo glycation rates are affected. Performed By: #### C TRICIA, RASHEEDA, 41156-3, 3015-3, HA1C #### [facility] ([id number]) [address], [address] [place] [address] Lipid 1996 panelon Cholesterol [Mass/Vol] 155 mg/dL Normal 150-200 [facility] Comment on above: Performed By: #### C TRICIA, RASHEEDA, 27509-0, 3015-3, HA1C #### [facility] ([id number]) [address], [address] [place] [address] Cholesterol in HDL [Mass/Vol] 51 mg/dL Normal >39 [facility] Comment on above: Result Comment: HDL <40 mg/dL - High Risk HDL > or = 40mg/dL- Desirable HDL >60 mg/dL - Negative Risk Performed By: #### C BCA, CMP, 72652-2, 6-3, HA1C #### [facility] ([id number]) [address], [address] [place] [address] Cholesterol in LDL [Mass/Vol] 61 mg/dL Normal <130 [facility] Comment on above: Result Comment: LDL <100 mg/dL - Desirable LDL >160 mg/dL - High Risk Performed By: #### C BCA, CMP, 79625-4, 6-3, HA1C #### [facility] ([id number]) [address], [address] [place] [address] Cholesterol in VLDL [Mass/Vol] 43 mg/dL High 0-30 [facility] Comment on above: Performed By: #### C TRICIA, CMP, 98412-2, 6-3, HA1C #### [facility] ([id number]) [address] [address] [place] [address] CHOLESTEROL:HDL 3.0 Normal 1.0-5.0 [facility] Comment on above: Performed By: #### C TRICIA, CMP, 64344-2, 6-3, HA1C #### [facility] ([id number]) [address], [address] [place] [address] Triglyceride [Mass/Vol] 214 mg/dL High 27-150 [facility] Comment on above: Performed By: #### C BCA, CMP, 93538-2, 6-3, HA1C #### [facility] ([id number]) [address], [address] [place] [address] TSH Qnon 09-24-2023 TSH 2.72 uIU/mL Normal 0.49-4.67 [facility] Comment on above: Performed By: #### C BCA, [facility], 75858-5, 3016-3, HA1C #### [facility] ([id number]) [address] [place] [address], [address] [place] [address] Surgical Pathologyon 024 Surgical Pathology Normal [facility] Comment on above: Result Comment: [facility] [address] [place] [address] Surgical Pathology Consultation Patient Name:PEGGY BUSTAMANTE:1950 (Age: 73)Gender:FTaken:04/29/2023eported:05/04/2023hysician(s):Jorje Olmedo MD ([phone])Copy To: Rec. #:[id number]: #[id number] Final Pathologic Diagnosis Colon biopsy 75 cm (2 H&E): Tubular adenoma. Report Electronically Signed Out gp/05/04/2023Ok Roland [place] [address], License number: [id number]. Clinical History Screening. Gross Description Received in formalin, labeled BUSTAMANTE, 75 cm is a 0.3 cm in greatest dimension pink-so soft tissue fragment. The specimen is filtered and entirely submitted in one cassette. (1, ns, [id number], m7) MW mxw/04/29/2023SSI Microscopic Findings Microscopic examination performed. Specimen(s) Received Colon biopsy 75cm Fee Codes(s): 1; 22856 XR Elbow - left 2 [facility] Result: April 21, 2023 x-rays AP and lateral of the left elbow demonstrate a fracture of the radial head in satisfactory position alignment the fracture appears to be healing. No new findings. Impression: Healing radial head fracture Serafin Riojas D.O. [facility] Radiology Study observation (narrative) [facility] BASIC METABOLIC PANLon 02-23 Anion gap [Moles/Vol] 9 mmol/L Normal 5-15 [facility] Comment on above: Performed By: #### B MP #### [facility] ([id number]) [address], [address] [place] [address] Calcium [Mass/Vol] 9.6 mg/dL Normal 8.5-10.5 [facility] Comment on above: Performed By: #### B MP #### [facility] ([id number]) [address], [address] [place] [address] Chloride [Moles/Vol] 101 mmol/L Normal 98-109 [facility] Comment on above: Performed By: #### B MP #### [facility] ([id number]) [address], [address] [place] [address] CO2 [Moles/Vol] 28 mmol/L Normal 22-32 [facility] Comment on above: Performed By: #### B MP #### [facility] ([id number]) [address], [address] [place] [address] Creatinine [Mass/Vol] 0.82 mg/dL Normal 0.40-1.00 [facility] Comment on above: Result Comment: METH OD TRACEABLE TO IDMS STANDARD Performed By: #### B MP #### [facility] ([id number]) [address], [address] [place] [address] GFR/1.73 sq M.predicted among non-blacks MDRD (S/P/Bld) [Vol rate/Area] 76 mL/min/{1.73_m2} Normal >[address] [facility] Comment on above: Result Comment: Reported eGFR is based on the CKD-EPI 2020 equation that does not use a race coefficient. Performed By: #### B MP #### [facility] ([id number]) [address], [address] [place] [address] Glucose [Mass/Vol] 96 mg/dL Normal 65-99 [facility] Comment on above: Performed By: #### B MP #### [facility] ([id number]) [address], [address] [place] [address] Potassium [Moles/Vol] 4.6 mmol/L Normal 3.5-5.0 [facility] Comment on above: Performed By: #### B MP #### [facility] ([id number]) [address] [place] [address] Sodium [Moles/Vol] 138 mmol/L Normal 134-146 [facility] Comment on above: Performed By: #### B MP #### [facility] ([id number]) [address], [address] [place] [address] Urea nitrogen [Mass/Vol] 16 mg/dL Normal 5-27 [facility] Comment on above: Performed By: #### B MP #### [facility] ([id number]) [address], [address] [place] [address] MM screening mammo BI w/CADo n 02-17-2023 MM screening mammo BI w/CAD [facility] [address] [place] [address] [place] [address] Mammography Report Signed Patient: Peggy Bustamante MR#: [id number] 8 : 1950 Acct:[id number] Age/Sex: 72 / F ADM Date: 02/17/23 Loc: [place] Room: Type: [facility] Attending Dr: Referral Self Copies to: [...] Maxwell Reaves M.D.02/17/2023 10:40 AM Dictation Location: [facility] Transcribed By: MARTIN 02/17/23 1040 Dictated By: Maxwell Reaves DO 02/17/23 1038 Signed By: 02/17/23 1040 Normal [facility] XR knee BI 3V - NOT FOR ER U Jeannie 07-10-2022 XR knee BI 3V - NOT FOR ER USE [facility] [address] [place] [address] [place] [address] XRay Report Signed Patient: Peggy Bustamante MR#: [id number] 8 : 1950 Acct:[id number] Age/Sex: 72 / F ADM Date: 07/10/22 Loc: [facility] Room: Type: [facility] Attending Dr: Andrew Agarwal MD Copies [...] Maxwell Reaves M.D.07/10/2022 3:16 PM Dictation Location: [place] [address] Transcribed By: MARTIN 07/10/221515 Dictated By: Maxwell Reaves DO 07/10/221511 Signed By: 07/10/221515 Normal [facility] FREE T4on 12-27-2021 Free T4 [Mass/Vol] 0.81 ng/dL Normal 0.76-1.[address] [facility] Comment on above: Performed By: #### F T4 #### [facility] [address] [address] [address] Yohana Aragon LIPID PROFILEon 12-27-2021 CHOL-HDL RATIO NORM SEE BELOW Normal [facility] Comment on above: Result Comment: 3.3 - 4.4 LOW RISK 4.4 - 7.1 AVERAGE RISK 7.1 - 11.0 MODERATE RISK >11.0 HIGH RISK Performed By: #### T SH, LIPID, CMP #### [facility] [address] [address] [address] Yohana Aragon Cholesterol [Mass/Vol] 254 mg/dL Critically high <=200 [facility] Comment on above: Performed By: #### T SH, LIPID, CMP #### [facility] [address] [address] [address] Yohana Aragon Cholesterol in HDL [Mass/Vol] 49 mg/dL Normal 40-60 [facility] Comment on above: Performed By: #### T SH, LIPID, CMP #### [facility] [address] [address] [address] Yohana Aragon Cholesterol in LDL [Mass/Vol] 154.4 mg/dL Normal [facility] Comment on above: Performed By: #### T SH, LIPID, CMP #### [facility] [address] [address] [address] Yohana Aragon Cholesterol.total/ Cholesterol in HDL [Mass ratio] 5.2 {ratio} Normal [facility] Comment on above: Performed By: #### T SH, LIPID, CMP #### [facility] [address] [address] [address] Yohana Aragon HDL NORMAL > or = 60 mg/dl - LO W CARDIOVASCULAR RISK <40 mg/dl - HIGH CARDIOVASCULAR RISK Normal [facility] Comment on above: Performed By: #### T SH, LIPID, CMP #### [facility] [address] [address] [address] Yohana Aragon LDL CALC NORMAL SEE BELOW Normal [facility] Comment on above: Result Comment: <100 mg/dl OPTIMAL 100 - 129 mg/dl NEAR OR ABOVE OPTIMAL 130 - 159 mg/dl BORDERLINE HIGH 160 - 189 mg/dl HIGH >190 mg/dl VERY HIGH Performed By: #### T ABY, LIPID, CMP #### [facility] [address] [address] [address] Yohana Aragon Triglyceride [Mass/Vol] 253 mg/dL Critically high <=150 [facility] Comment on above: Performed By: #### T ABY, LIPID, CMP #### [facility] [address] [place] [address] Dr. Yohana Aragon VLDL CALC 50.6 mg/dL Normal [facility] Comment on above: Performed By: #### T ABY, LIPID, CMP #### [facility] [address] [place] [address] Dr. Yohana Aragon PROF 14(COMP METB)on 12-27-2 022 Albumin [Mass/Vol] 3.8 g/dL Normal 3.4-5.[address] [facility] Comment on above: Performed By: #### T ABY LIPID, CMP #### [facility] [address] [place] [address] Dr. Yohana Aragon Albumin/Globulin [Mass ratio] 1.1 {ratio} Normal [facility] Comment on above: Performed By: #### T ABY, LIPID, CMP #### [facility] [address] [place] [address] Dr. Yohana Aargon ALP [Catalytic activity/Vol] 42 U/L Critically low 46-116 [facility] Comment on above: Performed By: #### T ABY, LIPID, CMP #### [facility] [address] [place] [address] Dr. Yohana Aragon ALT [Catalytic activity/Vol] 26 U/L Normal 14-59 [facility] Comment on above: Performed By: #### T ABY, LIPID, CMP #### [facility] [address] [address] [address] Yohana Aragon Anion gap [Moles/Vol] 8.9 mmol/L Normal [facility] Comment on above: Performed By: #### T SH, LIPID, CMP #### [facility] [address] [place] [address] Dr. Yohana Aragon AST [Catalytic activity/Vol] 16 U/L Normal 15-37 [facility] Comment on above: Performed By: #### T ABY, LIPID, CMP #### [facility] [address] [place] [address] Dr. Yohana Aragon Bilirubin [Mass/Vol] 0.4 mg/dL Normal 0.2-1.0 [facility] Comment on above: Performed By: #### T ABY, LIPID, CMP #### [facility] [address] [place] [address] Dr. Yohana Aragon Calcium [Mass/Vol] 9.0 mg/dL Normal 8.5-10.[address] [facility] Comment on above: Performed By: #### T ABY, LIPID, CMP #### [facility] [address] [place] [address] Dr. Yohana Aragon Chloride [Moles/Vol] 103 mmol/L Normal 98-107 [facility] Comment on above: Performed By: #### T ABY, LIPID, CMP #### [facility] [address] [place] [address] Dr. Yohana Aragon CO2 [Moles/Vol] 29.6 mmol/L Normal 21.0-32.0 [facility] Comment on above: Performed By: #### T SH, LIPID, CMP #### [facility] [address] [place] [address] Dr. Yohana Aragon Creatinine [Mass/Vol] 0.83 mg/dL Normal 0.55-1.02 [facility] Comment on above: Performed By: #### T SH, LIPID, CMP #### [facility] [address] [place] [address] Dr. Yohana Aragon EGFR-AF IRANIAN >60 Normal >=60 [facility] Comment on above: Performed By: #### T SH, LIPID, CMP #### [facility] [address] [address] [address] Yohana Aragon EGFR-NON AF IRANIAN >60 Normal >=60 [facility] Comment on above: Performed By: #### T SH, LIPID, CMP #### [facility] [address] [address] [address] Yohana Aragon Globulin (S) [Mass/Vol] 3.5 g/dL Normal [facility] Comment on above: Performed By: #### T SH, LIPID, CMP #### [facility] [address] [address] [address] Yohana Aragon Glucose [Mass/Vol] 98 mg/dL Normal 74-106 [facility] Comment on above: Performed By: #### T SH, LIPID, CMP #### [facility] [address] [place] [address] Dr. Yohana Aragon Potassium [Moles/Vol] 4.5 mmol/L Normal 3.5-5.1 [facility] Comment on above: Performed By: #### T ABY, LIPID, CMP #### [facility] [address] [place] [address] Dr. Yohana Aragon Protein [Mass/Vol] 7.3 g/dL Normal 6.4-8.2 [facility] Comment on above: Performed By: #### T ABY, LIPID, CMP #### [facility] [address] [place] [address] Dr. Yohana Aragon Sodium [Moles/Vol] 137 mmol/L Normal 136-145 [facility] Comment on above: Performed By: #### T SH, LIPID, CMP #### [facility] [address] [place] [address] Dr. Yohana Aragon Urea nitrogen [Mass/Vol] 14.0 mg/dL Normal 7.0-18.0 [facility] Comment on above: Performed By: #### T SH, LIPID, CMP #### [facility] [address] [place] [address] Dr. Yohana Aragon Urea nitrogen/Creatinin e [Mass ratio] 16.9 mg/mg Normal [facility] Comment on above: Performed By: #### T SH, LIPID, CMP #### [facility] [address] [place] [address] Dr. Yohana Aragon TSHon 12-27-2021 TSH 2.654 uIU/mL Normal 0.358-3.740 [facility] Comment on above: Performed By: #### T SH, LIPID, CMP #### [facility] [address] [place] [address] Dr. Yohana Aragon PAP ACOG PANEL 2: 30 to 65on 10-08-2021 . . Normal [facility] Comment on above: Performed By: #### 4 [id number] #### [facility] [address] [place] [address] Dr. Yohana Aragon Age Gdln ACOG Testing Comment [facility] Comment on above: Result Comment: <21 or >65 or no age provided Performed By: #### 4 [id number] #### [facility] [address] [place] [address] Dr. Yohana Aragon DIAGNOSIS: Comment [facility] Comment on above: Result Comment: UNSA TISFACTORY FOR EVALUATION. Performed By: #### 4 [id number] #### [facility] [address] [place] [address] Dr. Yohana Aragon Methodology: Comment [facility] Comment on above: Result Comment: This liquid based ThinPrep(R) pap test was screened with the use of an image guided system. Performed By: #### 4 [id number] #### [facility] [address] [place] [address] Dr. Yohana Aragon Note: Comment [facility] Comment on above: Result Comment: The Pap smear is a screening test designed to aid in the detection of premalignant and malignant conditions of the uterine cervix. It is not a diagnostic procedure and should not be used as the sole means of detecting cervical cancer. Both false-positive and false-negative reports do occur. . Performed By: #### 4 [id number] #### [facility] [address] [place] [address] Dr. Yohana Aragon Performed by: Comment Normal [facility] Comment on above: Result Comment: Ashleigh Haddad, Puller Over (ASCP) Performed By: #### 4 [id number] #### [facility] [address] [place] [address] Dr. Yohana Aragon QC reviewed by: Comment Normal [facility] Comment on above: Result Comment: Ramesh Floyd, Supervisory Puller Over (ASCP) Performed By: #### 4 [id number] #### [facility] [address] [address] [address] Yohana Aragon Recommendation: Comment Normal [facility] Comment on above: Result Comment: Sugg est follow up as clinically appropriate. Performed By: #### 4 [id number] #### [facility] [address] [place] [address] Dr. Yohana Aragon Specimen adequacy: Comment Normal [facility] Comment on above: Result Comment: Spec imen processed and examined but unsatisfactory for evaluation of epithelial abnormality because of insufficient cellularity. Performed By: #### 4 [id number] #### [facility] [address] [place] [address] Dr. Yohana Aragon [employer] [facility] 06-27-2021 Albumin [Mass/Vol] 4.4 g/dL Normal 3.6-5.1 [facility] Comment on above: Performed By: #### 1 0231, 7600, 89880 #### [facility] [address] [address] Tearoom Hostess: Jose Stark MD Albumin/Globulin [Mass ratio] 2.0 {ratio} Normal 1.0-2.5 [facility] Comment on above: Performed By: #### 1 0231, 7600, 80384 #### [facility] [address] [address] [employer]earoom Hostess: Jose Stark MD ALP [Catalytic activity/Vol] 34 U/L Low 37-153 [facility] Comment on above: Performed By: #### 1 0231, 7600, 67118 #### [facility] [address] [address] [employer]earoom Hostess: Jose Stark MD ALT [Catalytic activity/Vol] 14 U/L Normal 6-29 [facility] Comment on above: Performed By: #### 1 0231, 7599, 92168 #### [facility] of [address], [address] [place] [address] [employer]earoom Hostess: Jose Stark MD AST [Catalytic activity/Vol] 13 U/L Normal 10-35 [facility] Comment on above: Performed By: #### 1 0231, 7599, 13771 #### [facility] of [address], [address] [place] [address] [employer]earoom Hostess: Jose Stark MD Bilirubin [Mass/Vol] 0.5 mg/dL Normal 0.2-1.2 [facility] Comment on above: Performed By: #### 1 023, 7599, 35691 #### [facility] of [address] [address] Tearoom Hostess: Jose Stark MD BUN/CREATININE RATIO NOT APPLICABLE Normal 6-22 [facility] Comment on above: Performed By: #### 1 0231, 7599, 95447 #### [facility] of [address] [address] [employer] Hostess: Jose Stark MD Calcium [Mass/Vol] 9.4 mg/dL Normal 8.6-10.4 [facility] Comment on above: Performed By: #### 1 0231, 7599, 60540 #### [facility] of [address] [address] Tearoom Hostess: Jose Stark MD Chloride [Moles/Vol] 104 mmol/L Normal 98-110 [facility] Comment on above: Performed By: #### 1 0231, 7599, 24491 #### [facility] of [address] [address] Tearoom Hostess: Jose Stark MD CO2 [Moles/Vol] 29 mmol/L Normal 20-32 [facility] Comment on above: Performed By: #### 1 0231, 0, 27374 #### [facility] of [address], [address] [place] [address] Tearoom Hostess: Jose Stark MD Creatinine [Mass/Vol] 0.76 mg/dL Normal 0.60-0.93 [facility] Comment on above: Result Comment: For patients >49 years of age, the reference limit for Creatinine is approximately 13% higher for people identified as -Iranian. Performed By: #### 1 0231, 7599, 51624 #### [facility] of [address], [address] [place] [address] [employer]earoom Hostess: Jose Stark MD eGFR NON-AFR. IRANIAN 79 mL/min/1.73m2 Normal > OR = 60 [facility] Comment on above: Performed By: #### 1 023, 7599, 64006 #### [facility] [address], [address] [place] [address] Tearoom Hostess: Jose Stark MD GFR/1.73 sq M.predicted among blacks MDRD (S/P/Bld) [Vol rate/Area] 92 mL/min/{1.73_m2} Normal > OR = 60 [facility] Comment on above: Performed By: #### 1 023, 7599, 64416 #### [facility] [address], [address] [place] [address] [employer]earoom Hostess: Jose Stark MD Globulin (S) [Mass/Vol] 2.2 g/dL Normal 1.9-3.7 [facility] Comment on above: Performed By: #### 1 0231, 0, 05695 #### [facility] of [address] [address] Tearoom Hostess: Jose Stark MD Glucose [Mass/Vol] 95 mg/dL Normal 65-99 [facility] Comment on above: Result Comment: Fasting reference interval Performed By: #### 1 0231, 7600, 97142 #### [facility] of [address], [address] [place] [address] Tearoom Hostess: Jose Stark MD Potassium [Moles/Vol] 4.2 mmol/L Normal 3.5-5.3 [facility] Comment on above: Performed By: #### 1 0231, 7600, 82329 #### [facility] of [address], [address] [place] [address] [employer]earoom Hostess: Jose Stark MD Protein [Mass/Vol] 6.6 g/dL Normal 6.1-8.1 [facility] Comment on above: Performed By: #### 1 0231, 7600, 71961 #### [facility] of [address], [address] [place] [address] Tearoom Hostess: Jose Stark MD Sodium [Moles/Vol] 141 mmol/L Normal 135-146 [facility] Comment on above: Performed By: #### 1 0231, 0, 91660 #### [facility] of [address], [address] [place] [address] [employer]earoom Hostess: Jose Stark MD Urea nitrogen [Mass/Vol] 13 mg/dL Normal 7-25 [facility] Comment on above: Performed By: #### 1 0231, 0, 18689 #### [facility] [address], [address] [place] [address] [employer]earoom Hostess: Jose Stark MD LIPID PANEL, [facility] 06-08 Cholesterol [Mass/Vol] 159 mg/dL Normal <200 [facility] Comment on above: Order Comment: FASTI NG:YES FASTING: YES Performed By: #### 1 0231, 7600, 01285 #### [facility] of [address], [address] [place] [address] [employer]earoom Hostess: Jose Stark MD Cholesterol in HDL [Mass/Vol] 52 mg/dL Normal > OR = 50 [facility] Comment on above: Order Comment: FASTI NG:YES FASTING: YES Performed By: #### 1 0231, 7600, 72039 #### [facility] of [address], [address] [place] [address] Tearoom Hostess: Jose Stark MD Cholesterol in LDL [Mass/Vol] [...] LDL-C. Derick CASTRO et al. THU. 2013;310(19): 4779-7033 (http://education.[email or web address].eHi [employer]/faq/SAQ980) Performed By: #### 1 0231, 7600, 89258 #### [facility] [address], [address] [place] [address] Tearoom Hostess: Jose Stark MD Cholesterol.total/ Cholesterol in HDL [Mass ratio] 3.1 {ratio} Normal <5.0 [facility] Comment on above: Order Comment: FASTI NG:YES FASTING: YES Performed By: #### 1 0231, 7600, 46263 #### [facility] [address], [address] [place] [address] Tearoom Hostess: Jose Stark MD NON HDL CHOLESTEROL 107 mg/dL (calc) Normal <130 [facility] Comment on above: Order Comment: FASTI NG:YES FASTING: YES Result Comment: For patients with diabetes plus 1 major ASCVD risk factor, treating to a non-HDL-C goal of <100 mg/dL (LDL-C of <70 mg/dL) is considered a therapeutic option. Performed By: #### 1 0231, 7600, 00136 #### [facility] [address], [address] [place] [address] [employer]earoom Hostess: Jose Stark MD Triglyceride [Mass/Vol] 239 mg/dL High <150 [facility] Comment on above: Order Comment: FASTI NG:YES FASTING: YES Result Comment: If a non-fasting specimen was collected, consider repeat triglyceride testing on a fasting specimen if clinically indicated. Ceja et al. J. of Clin. Lipidol. 2015;9:129-169. Performed By: #### 1 0231, 7600, 55407 #### [facility] of [address] [address] Tearoom Hostess: Jose Stark MD TSH+FREE T4on 06-27-2021 Free T4 [Mass/Vol] 0.9 ng/dL Normal 0.8-1.8 [facility] Comment on above: Performed By: #### 1 0231, 7600, 35530 #### [facility] of [address], [address] [place] [address] Tearoom Hostess: Jose Stark MD TSH Qn 4.55 m[IU]/L High 0.40-4.50 [facility] Comment on above: Performed By: #### 1 0231, 0, 49908 #### [facility] of [address], [address] [place] [address] [employer]earoom Hostess: Jose Stark MD [employer] [facility] 12-04-2020 Albumin [Mass/Vol] 4.5 g/dL Normal 3.6-5.1 [facility] Comment on above: Performed By: #### 5 8984, 55301 #### [facility] of [address] [address] Tear[employer] Hostess: Jose Stark MD Albumin/Globulin [Mass ratio] 1.9 {ratio} Normal 1.0-2.5 [facility] Comment on above: Performed By: #### 5 8984, 24268 #### [facility] of [address] [address] Tearoom Hostess: Jose Stark MD ALP [Catalytic activity/Vol] 36 U/L Low 37-153 [facility] Comment on above: Performed By: #### 5 8984, 87819 #### [facility] of [address] [address] Tearoom Hostess: Jose Stark MD ALT [Catalytic activity/Vol] 15 U/L Normal 6-29 [facility] Comment on above: Performed By: #### 5 8984, 82078 #### [facility] of [address], [address] [place] [address] [employer]earoom Hostess: Jose Stark MD AST [Catalytic activity/Vol] 16 U/L Normal 10-35 [facility] Comment on above: Performed By: #### 5 8984, 63181 #### [facility] of [address], [address] [place] [address] Tearoom Hostess: Jose Stark MD Bilirubin [Mass/Vol] 0.6 mg/dL Normal 0.2-1.2 [facility] Comment on above: Performed By: #### 5 8984, 67348 #### [facility] of [address] [address] Tearoom Hostess: Jose Stark MD BUN/CREATININE RATIO NOT APPLICABLE Normal 6-22 [facility] Comment on above: Performed By: #### 5 8984, 70995 #### [facility] of [address], [address] [place] [address] Tearoom Hostess: Jose Stark MD Calcium [Mass/Vol] 9.4 mg/dL Normal 8.6-10.4 [facility] Comment on above: Performed By: #### 5 8984, 48537 #### [facility] of [address], [address] [place] [address] Tearoom Hostess: Jose Stark MD Chloride [Moles/Vol] 101 mmol/L Normal 98-110 [facility] Comment on above: Performed By: #### 5 8984, 93727 #### [facility] of [address], [address] [place] [address] Tearoom Hostess: Jose Stark MD CO2 [Moles/Vol] 29 mmol/L Normal 20-32 [facility] Comment on above: Performed By: #### 5 8984, 48225 #### [facility] of [address], [address] [place] [address] Tearoom Hostess: Jose Stark MD Creatinine [Mass/Vol] 0.73 mg/dL Normal 0.50-0.99 [facility] Comment on above: Result Comment: For patients >49 years of age, the reference limit for Creatinine is approximately 13% higher for people identified as -Iranian. Performed By: #### 5 8984, 01551 #### [facility] [address], [address] [place] [address] Tearoom Hostess: Jose Stark MD eGFR NON-AFR. IRANIAN 84 mL/min/1.73m2 Normal > OR = 60 [facility] Comment on above: Performed By: #### 5 8984, 97253 #### [facility] of [address], [address] [place] [address] Tearoom Hostess: Jose Stark MD GFR/1.73 sq M.predicted among blacks MDRD (S/P/Bld) [Vol rate/Area] 97 mL/min/{1.73_m2} Normal > OR = 60 [facility] Comment on above: Performed By: #### 5 8984, 71750 #### [facility] of [address], [address] [place] [address] Tearoom Hostess: Jose Stark MD Globulin (S) [Mass/Vol] 2.4 g/dL Normal 1.9-3.7 [facility] Comment on above: Performed By: #### 5 8984, 72045 #### [facility] [address], [address] [place] [address] Tearoom Hostess: Jose Stark MD Glucose [Mass/Vol] 97 mg/dL Normal 65-99 [facility] Comment on above: Result Comment: Fasting reference interval Performed By: #### 5 8984, 87718 #### [facility] of [address], [address] [place] [address] Tearoom Hostess: Jose Stark MD Potassium [Moles/Vol] 4.4 mmol/L Normal 3.5-5.3 [facility] Comment on above: Performed By: #### 5 8984, 05673 #### [facility] [address], [address] [place] [address] Tearoom Hostess: Jose Stark MD Protein [Mass/Vol] 6.9 g/dL Normal 6.1-8.1 [facility] Comment on above: Performed By: #### 5 8984, 24757 #### [facility] [address], [address] [place] [address] Tearoom Hostess: Jose Stark MD Sodium [Moles/Vol] 138 mmol/L Normal 135-146 [facility] Comment on above: Performed By: #### 5 8984, 21064 #### [facility] [address], [address] [place] [address] [employer]earoom Hostess: Jose Stark MD Urea nitrogen [Mass/Vol] 17 mg/dL Normal 7-25 [facility] Comment on above: Performed By: #### 5 8984, 17791 #### [facility] [address] [address] Tearoom Hostess: Jose Stark MD TSH+FREE T4on 12-04-2020 Free T4 [Mass/Vol] 0.9 ng/dL Normal 0.8-1.8 [facility] Comment on above: Order Comment: FASTI NG:YES FASTING: YES Performed By: #### 5 8984, 10330 #### [facility] of [address] [address] Tearoom Hostess: Jose Stark MD TSH Qn 4.24 m[IU]/L Normal 0.40-4.50 [facility] Comment on above: Order Comment: FASTI NG:YES FASTING: YES Performed By: #### 5 8984, 43731 #### [facility] of [address] [address] Tearoom Hostess: Jose Stark MD Vital Signs Date Time Vital Sign Value Performing Clinician Facility 04-28-2023 11:28050 Body height 161.3 cm Pm 1 [facility] 04-28-2023 11:280500 Body mass index (BMI) [Ratio] 30.51 kg/m2 Pm 1 [facility] 04-28-2023 11:28-0500 Body weight 79.38 kg [facility] [address] [facility] 03-17-2023 10:58-0500 Body height 160 cm Amina Mendez BIOMEDICAL ENGINEER-AD COPY WRITER Work Phone: [facility] [employer] 03-17-2023 10:58-0500 Body mass index (BMI) [Ratio] 32.49 kg/m2 Amina Mendez BIOMEDICAL ENGINEER-AD COPY WRITER [facility] 03-17-2023 10:58-0500 Body temperature 97.81 [degF] Amina Mendez BIOMEDICAL ENGINEER-AD COPY WRITER [facility] 03-17-2023 10:58-0500 Body weight 83.19 kg Amina Mendez BIOMEDICAL ENGINEER-AD COPY WRITER [facility] 03-17-2023 10:58-0500 Diastolic blood pressure 70 mm[Hg] Amina Mendez BIOMEDICAL ENGINEER-AD COPY WRITER Work Phone: [facility] [employer] 03-17-2023 10:58-0500 Heart rate 102 /min Amina Mendez BIOMEDICAL ENGINEER-AD COPY WRITER [facility] 03-17-2023 10:58-0500 SaO2% (BldA) [Mass fraction] 97 % Amina Mendez BIOMEDICAL ENGINEER-AD COPY WRITER [facility] 03-17-2023 10:58-0500 Systolic blood pressure 120 mm[Hg] Amina Mendez BIOMEDICAL ENGINEER-AD COPY WRITER Work Phone: [facility] Encounters Encounter Date Encounter Type Care Provider Facility Start: 09-24-2023 End: 09-24-2023 ambulatory [facility] Start: 09-24-2023 End: 09-24-2023 ambulatory [facility] Start: 06-16-2023 End: 06-16-2023 ambulatory JASMINE RIOJAS Not Available Start: 06-10-2023 Refill Amina Mendez BIOMEDICAL ENGINEER-AD COPY WRITER Work Phone: [facility] Comment on above: Gastro-esophageal re flux disease without esophagitis Start: 06-09-2023 End: 06-09-2023 ambulatory ANGELICA GARCIA Not Available Start: 04-29-2023 End: 04-30-2023 Evaluation and management of inpatient JORJE OLMEDO [facility] Start: 04-28-2023 End: 04-28-2023 ambulatory AMINA MENDEZ [facility] Start: 04-21-2023 End: 04-21-2023 ambulatory CARLOS LAST [...] (Contacted and scheduled Prehab 04/21 w/ Carlos Lats, PT.) Start: 04-07-2023 End: 04-08-2023 ambulatory JASMINE RIOJAS Not Available Start: 03-23-2023 End: 03-23-2023 ambulatory Ismael Bonilla DO Work Phone: [facility] Comment on above: Osteoporosis, postme nopausal (Primary Dx) Start: 03-17-2023 End: 03-17-2023 Office outpatient visit 15 minutes Amina Mendez BIOMEDICAL ENGINEER-AD COPY WRITER Work Phone: [facility] Comment on above: Viral upper respirat ory tract infection (Primary Dx) Start: 03-17-2023 End: 03-17-2023 ambulatory [facility] Start: 03-05-2023 Refill Amina Mendez BIOMEDICAL ENGINEER-AD COPY WRITER Work Phone: [facility] Comment on above: Other seasonal aller gic rhinitis Start: 02-25-2023 End: 02-25-2023 ambulatory BRITNEY COPE Not Available Start: 02-24-2023 End: 02-25-2023 ambulatory JASMINE RIOJAS Not Available Start: 02-23-2023 End: 02-23-2023 ambulatory [facility] Start: 02-23-2023 End: 02-23-2023 ambulatory [facility] Start: 02-17-2023 End: 02-17-2023 ambulatory Referral Self Facility:[facility] Start: 02-17-2023 End: 02-17-2023 ambulatory DO Ismael Bonilla Work Phone: [facility] Work Phone: Start: 02-17-2023 End: 02-17-2023 Patient encounter procedure DO Ismael Alonsong Work Phone: [facility] Work Phone: Start: 01-27-2023 End: 01-27-2023 ambulatory JASMINE RIOJAS Not Available Start: 01-20-2023 End: 01-20-2023 ambulatory JASMINE RIOJAS Not Available Start: 07-21-2022 End: 07-21-2022 ambulatory Andrew Agarwal Other [facility] [employer] Other Start: 07-21-2022 Office outpatient vi sit 15 minutes Andrew Agarwal [facility] Start: 07-10-2022 Office outpatient ne w 45 minutes Andrew Agarwal [facility] Start: 07-10-2022 End: 07-10-2022 ambulatory DO Ismael Furlong Work Phone: [facility] [employer] Other Start: 07-10-2022 End: 07-10-2022 Patient encounter procedure DO Ismael Furlong Work Phone: [facility] Start: 06-05-2022 End: 06-06-2022 ambulatory [...] 01-13-2022 ambulatory DO Ismael Furlong Work Phone: [facility] Work Phone: Start: 01-13-2022 End: 01-13-2022 Patient encounter procedure DO Ismael Furlong Work Phone: [facility] Start: 12-27-2021 End: 12-28-[address] AMINA MENDEZ Facility:[facility] Start: 10-02-2021 End: 10-02-[address] ROSA MCCAULEY . Facility: Procedures Date Procedure Procedure Detail Performing Clinician Start: 04-21-2023 Radex elbow 2 views Jam es A Beulah DO Work Phone: Start: 03-17-2023 Adult depression scr eening assessment Amina Mendez BIOMEDICAL ENGINEER-AD COPY WRITER Work Phone: Start: 02-23-2023 Adult depression scr eening assessment Amina Mendez BIOMEDICAL ENGINEER-AD COPY WRITER Work Phone: Start: 02-17-2023 End: 02-17-2023 Screening mammography of bilateral breasts DO [facility] Phone: Start: 07-10-2022 X-ray of both knees DO [facility] Phone: Start: 01-13-2022 End: 01-13-2022 Screening mammography of bilateral breasts DO [facility] Phone: Plan of Treatment Date Care Activity Detail Author Start: 04-29-2024 Adult BMI Screening Adult BMI Screen ing [facility] Start: 04-29-2024 Tobacco Screening Tobacco Screening [facility] Start: 04-28-2024 Adult BMI Screening Adult BMI Screen ing [facility] Start: 04-28-2024 Tobacco Screening Tobacco Screening [facility] Start: 03-17-2024 Adult BMI Screening Adult BMI Screen ing [facility] Start: 03-17-2024 Depression Screening Depression Scre ening [facility] Start: 03-17-2024 Fall Risk Screening Fall Risk Screen ing [facility] Start: 03-17-2024 Tobacco Screening Tobacco Screening [facility] Start: 02-24-2024 Adult BMI Screening Adult BMI Screen ing [facility] Start: 02-24-2024 Depression Screening Depression Scre ening [facility] Start: 02-24-2024 Fall Risk Screening Fall Risk Screen ing [facility] Start: 02-24-2024 Tobacco Screening Tobacco Screening [facility] Start: 02-18-2024 Screening for malign ant neoplasm of breast Mammogram [facility] Start: 02-18-2024 End: 02-18-2024 Patient encounter procedure 02/18/2024 9:45 AM EST Office Visit CHERYL DEVRIESS [address] [address] [place] [address] Britney Cope, DO [address] [place] [address] [facility] Start: 07-15-2023 End: 07-15-2023 Admission to same day surgery center 07/15/2023 10:15 AM EDT - 07/15/2023 12:45 PM EDT Surgery [facility] [address] [place] [id number] Jasmine Riojas, DO [address] [place] [address] REPLACEMENT TOTAL JOINT KNEE [10199 (CPT )] [facility] Comment on above: REPLACEMENT TOTAL YUMIKO INT KNEE [71795 (CPT )] Start: 07-15-2023 End: 07-15-2023 Arthrp kne condyle&platu medial&lat compartments REPLACEMENT TOTAL JOINT KNEE left knee degenerative joint disease 07/15/2023 10:15 AM EDT [facility] Start: 07-15-2023 Subsequent hospital visit by physician 07/15/2023 10:15 AM EDT Hospital Encounter [facility] [address] [place] [id number] Jasmine Riojas, DO [address] [place] [address] [facility] Start: 06-16-2023 End: 06-16-2023 Patient encounter procedure 06/16/2023 1:30 PM EDT Procedure visit [facility] - Pre Admit [address] [place] [id number] [facility] - Pre Admit Start: 04-21-2023 End: 04-21-2023 ambulatory 04/21/2023 2:30 PM EST Evaluation [facility] [address] [place] [address] Shala Carlos T, PT [address] [place] [address] [facility] Start: 04-21-2023 End: 04-21-2023 Patient encounter procedure 04/21/2023 9:45 AM EST Office Visit [facility] [address] [place] [address] Jasmine Riojas, DO [address] [place] [address] [facility] Start: 04-08-2023 Administration of varicella zoster vaccine Zoster (Shingles) Vaccine (1 of 2) [facility] Comment on above: Postponed from 03/19 (Patient Refused) Start: 04-08-2023 Medicare Annual Well ness Visit Medicare Annual Wellness Visit [facility] Start: 03-23-2023 End: 03-23-2023 ambulatory 03/23/2023 9:20 AM EST [facility] [address] [place] [id number] Ismael Bonilla, DO [address] [place] [address] [facility] - [facility] Start: 01-13-2023 Screening for malign ant neoplasm of breast Mammogram [facility] Start: 11-07-2022 Influenza vaccination Influenza Vacc ine (#1) [facility] Start: 2016 Pneumococcal Vaccine : 65+ Years (1 - PCV) Pneumococcal Vaccine: 65+ Years (1 - PCV) [facility] Start: 1970 Administration of varicella zoster vaccine Zoster (Shingles) Vaccine (1 of 2) [facility] Start: 1970 DTaP,Tdap and Td Vaccines (1 - Tdap) DTaP,Tdap and Td Vaccines (1 - Tdap) [facility] Start: 1969 Adult BMI Follow Up Plan Adult BMI Follow Up Plan [facility] Start: 1950 Screening for malign ant neoplasm of colon [facility] Colonoscopy flx dx w/collj spec when pfrmd COLONOSCOPY DIAGNOSTIC / SCREENING Colon cancer screening Neoplasm of unspecified behavior of digestive system [facility] Payers Date Payer Category Payer Self-pay [id number] 2022 Medicare [employer] [id number] 2022-Present [address] [place] [address] [id number] [id number] 2021 Unknown [employer] [id number] 2021-Present [phone] [address] [place] [address] [id number].3 .[id number] 1959 Medicare [id number] 1951 Unknown [id number] 2.16.840.1.523014.3.579.2.593 1951 Unknown [id number] 2.16.840.1.612044.3.579.2.593 1951 Unknown [id number] 2.16.840.1.884296.3.579.2.593 1951 Unknown [id number] 2.16.840.1.780706.3.579.2.593 1951 Unknown [id number] 2.16.840.1.004147.3.579.2.593 1951 Unknown [id number] 2.16.840.1.600180.3.579.2.593 1951 Unknown [id number] 2.16.840.1.453961.3.579.2.593 1951 Unknown [id number] 2.16.840.1.302398.3.579.2.593 1951 Unknown [id number] 2.16.840.1.359769.3.579.2.128 1951 Unknown [id number] 2.16.840.1.853175.3.579.2.128 1951 Unknown [id number] 2.16.840.1.779687.3.579.2.128 1951 Unknown [id number] 2.16.840.1.097294.3.579.2.125 1951 Unknown [id number] 2.16.840.1.915918.3.579.2.125 1951 Unknown [id number] 2.16.840.1.121325.3.579.2.125 1951 Unknown [id number] 2.16.840.1.658021.3.579.2.125 1951 Unknown [id number] 2.16.840.1.566189.3.579.2.125 1951 Unknown [id number] 2.16.840.1.092280.3.579.2.125 1951 Unknown [id number] 2.16.840.1.938033.3.579.2.125 1951 Unknown [id number] 2.16.840.1.991220.3.579.2.125 1951 Unknown [id number] 2.16.840.1.619703.3.579.2.125 1951 Unknown [id number] 2.16.840.1.038041.3.579.2.125 1951 Unknown [id number] 2.16.840.1.513596.3.579.2.125 9 1951 Unknown [id number] 2.16.840.1.460603.3.579.2.125 9 1951 Unknown [id number] 2.16.840.1.765237.3.579.2.125 9 1951 Unknown [id number] 2.16.840.1.118814.3.579.2.128 6 1951 Unknown [id number] 2.16.840.1.062005.3.579.2.128 6 1951 Unknown [id number] 2.16.840.1.150841.3.579.2.128 6 1951 Unknown [id number] 2.16.840.1.997468.3.579.2.128 6 1951 Unknown [id number] 2.16.840.1.906744.3.579.2.128 6 1951 Unknown [id number] 2.16.840.1.498354.3.579.2.128 6 Unknown [id number] Unknown [id number] 2.16.840.1.557644.3.579.2.531 Unknown [id number] 2.16.840.1.580160.3.579.2.531 Social History Date Type Detail Facility Tobacco smoking status RIIS Unknown if ever smoked [facility] Work Phone: Start: 1950 Sex Assigned At Female [facility] Start: 02-23-2023 End: 03-17-2023 Sex Assigned At [facility] Start: 01-01-2022 End: 11-13-2022 Tobacco smoking status NHIS Never smoked tobacco [facility] Start: 01-01-2022 End: 11-13-2022 Tobacco use and exposure Smokeless tobacco non-user [facility] Start: 02-23-2023 End: 04-30-2023 Alcohol intake Lifetime non-drinker (finding) [facility] Start: 02-23-2023 End: 03-17-2023 History of Social function [facility] Adolescent depressio n screening assessment 0 [facility] Start: 1950 Sex Assigned At Not on file [facility] How often to you hav e a drink containing alcohol? Monthly or less [facility] How many standard drinks containing alcohol do you have on a typical day? 1 or 2 [facility] How often do you hav e 6 or more drinks on 1 occasion? Never [facility] Start: 11-13-2022 Alcohol Comment caffeine; 3-4 cups per day [facility] NEGATED: Highlighted rowStart: VIJAYA History of tobacco use Passive smoker [facility] Clinical Notes 01-14-2022 to 04-28-2023 Perioperative [...] in at the main lobby of the [facility]- registration desk is straight ahead as soon as you walk in. Tell them you are here for surgery. 2. If you have a Living Will/Durable Power of Building Maintenance Mechanic for Health Care that is not on [...] after you have bathed. 5. NO nail british/acrylic on at least one finger. If you are having a hand, wrist or foot surgery then all nail british and artificial/acrylic nails must be removed from [...] WITH YOU ANY DEVICES YOU MAY NEED: RYA hose, ice machine, sling/swath, brace or special [...] please call the Preadmission Testing office at [phone], Mon.-Fri. 7 a.m.-3 p.m. Leave a voicemail [...] taking 0 days prior to procedure omega 9-abj-npv-fish oil 1,200 (144-216) mg capsule Check with prescribing doctor for instructions polyethylene glycol (GAVILYTE-C) 240-22.72-6.72 -5.84 gram solution Stop taking 0 days prior to procedure pyrilamine-dextromethorphan 7.5-7.5 mg/5 mL liquid Stop taking 0 days prior to procedure sod sulf-pot chloride-mag sulf 1.479-0.188- 0.225 gram tablet Stop taking 0 days prior to procedure documented in this encounter [facility] 04-28-2023 Nurse Note Preoperative Education Checklist- General Surgery date: 04/29/23 Surgery time: 0900 Arrival time: 0800 1. Bring a photo ID and your insurance card with you the day of surgery. You will check in at the main lobby of the [facility]- registration desk is straight ahead as soon as you walk in. Tell them you are here for surgery. 2. If you have a Living Will/Durable Power of Building Maintenance Mechanic for Health Care that is not on [...] after you have bathed. 5. NO nail british/acrylic on at least one finger. If you are having a hand, wrist or foot surgery then all nail british and artificial/acrylic nails must be removed from [...] please call the Preadmission Testing office at [phone], Mon.-Fri. 7 a.m.-3 p.m. Leave a voicemail [...] taking 0 days prior to procedure omega 6-ran-lft-fish oil 1,200 (144-216) mg capsule Check with prescribing doctor for instructions polyethylene glycol (GAVILYTE-C) 240-22.72-6.72 -5.84 gram solution Stop taking 0 days prior to procedure pyrilamine-dextromethorphan 7.5-7.5 mg/5 mL liquid Stop taking 0 days prior to procedure sod sulf-pot chloride-mag sulf 1.479-0.188- 0.225 gram tablet Stop taking 0 days prior to procedure [facility] 04-21-2023 History of Presen t illness Narrative Images from the original note were not included. HISTORY OF PRESENT ILLNESS: Peggy Bustamante is an 73 y.o. @ female. Chief complaint LT elbow injury Lt elbow fx doi/ 01/10/23. ~ 3 months s/p a fall (01/10/23) just walking and tripped and landed on elbow. Tx at [facility] ER. Elbow is doing well. She notes mild discomfort with overuse or heavy lifting. Overall she is happy with her progress. Denies N/T. Admits TYL bid for knee pain. Denies waking at night. Pt is RT handed. TX: [facility] ER/XR 01/10/23, CT [facility] 01/15/23 MEDICATION: Current Outpatient Medications on File [...] Kamlesh Riojas D.O. documented in this encounter [facility] 04-09-2023 Telephone encounter Note PT Copay $35.[address] [facility] 04-09-2023 Miscellaneous Notes PT Copay $35.00 documented in this encounter [facility] 03-23-2023 History of Presen t illness Narrative Peggy presents for a DEXA scan. She has no new problems to report. Her mother did not break her hip. She rarely drinks alcohol. She is not a smoker. documented in this encounter [facility] 03-17-2023 History of Presen t illness [...] Colon 03/17/23 1242 documented in this encounter [facility] 07-21-2022 Evaluation note Encounter Date Diagnosis [...] Above note written by Khalif Farooq MA, Professor Of Religious Studies. Edited and approved by Dr. Andrew Agarwal MD. [email or web address] Other 05-04-2023 Evaluation note* Encounter Date Diagnosis [...] Above note written by Olinda Ruano LPN, Professor Of Religious Studies. Edited and approved by Dr. Andrew Agarwal [...] negative findings were considered in medical decision-making. [email or web address] Other 03-30-2023 NoteCONSULTATION CONSULTATION DATE: 06/05/2022 TO: [...] agrees to proceed with the outlined plan.[facility] [id number] NoteCONSULTATION PROCEDURE DATE: 03/18/2022 PREOPERATIVE DIAGNOSIS: Right [...] Post procedurally performed range of motion exercises.[facility] [id number] NoteCONSULTATION CONSULTATION DATE: 01/14/2022 CHIEF COMPLAINT: Bilateral [...] would like to proceed. CC: Amina Sorto [facility] HospitalEvaluation noteNo assessment information availableAshtabula [facility] Work Phone: Evaluation note* Diagnosis Other seasonal allergic rhinitis documented in this encounter [facility]* Diagnosis Viral upper respiratory tract infection- Primary Acute upper respiratory infections of unspecified site documented in this encounter [facility]* Diagnosis Osteoporosis, postmenopausal- Primary Senile osteoporosis documented in this encounter [facility]* Diagnosis Closed displaced fracture of head of left radius with routine healing, subsequent encounter- Primary documented in this encounter [facility]* Diagnosis Arthritis of left knee- Primary documented in this encounter [facility]* Diagnosis Gastro-esophageal reflux disease without esophagitis Preop examination- Primary Unspecified pre-operative examination Hypertension, unspecified type Hypothyroidism (acquired) Unspecified hypothyroidism documented in this encounter [facility] SystemHistory general Narrative - Reported* Type Description Date Medical History hyperlipidemia Medical History osteoporosis Medical History osteoarthritis Medical History hypertension Surgical History appendectiomy Surgical History tubal Surgical History gall bladder removal Surgical History excision of lesion to left sarah [facility] Surgical History lithotripsy right kidney Hospitalization History see above [email or web address] Other InstructionsNot on filedocumented in this encounter [facility] SystemInstructionsNot on filedocumented in this encounter [facility] SystemInstructionsNot on filedocumented in this encounter [facility] SystemInstructionsNot on filedocumented in this encounter [facility] SystemInstructionsNot on filedocumented in this encounter [facility] SystemReason for visit NarrativeSELF-REFERRAL APPROVED RIGOBERTO KNEE [facility] Other Summary Purpose Family History No Family [...] DATE CREATED AUTHOR AUTHOR'S ORGANIZ ATION 04/17/2023 [facility] DATE CREATED AUTHOR AUTHOR'S ORGANIZ ATION 05/05/2023 [facility] DATE CREATED AUTHOR AUTHOR'S ORGANIZ ATION 06/17/2023 [facility] EPIC DATE CREATED AUTHOR AUTHOR'S ORGANIZ ATION 09/28/2023 [facility] DATE CREATED AUTHOR AUTHOR'S ORGANIZ ATION 09/28/2023 [facility] Care Teams (unrecognized sec tion and content) [...] Provider Active Referral Self Attending Provider Active Ecmo Specialist Relationship Specialty Start Date End Date Amina Mendez, BIOMEDICAL ENGINEER-AD COPY WRITER [address] [id number] PCP - General Internal Medicine 12/09/21 Ecmo Specialist Relationship Specialty Start Date End Date Amina Mendez, BIOMEDICAL ENGINEERAD COPY WRITER [address] [place] [address] PCP - General Internal Medicine 12/09/21 Ecmo Specialist Relationship Specialty Start Date End Date Amina Mendez, BIOMEDICAL ENGINEERAD COPY WRITER [address] [place] [address] PCP - General Internal Medicine 12/09/21 Ecmo Specialist Relationship Specialty Start Date End Date Ismael Bonilla MD [address] [place] [address] PCP - General Family Medicine 11/25/22 Ecmo Specialist Relationship Specialty Start Date End Date Ismael Bonilla MD [address], [place] [address] PCP - General Family Medicine 11/25/22 Ecmo Specialist Relationship Specialty Start Date End Date Ismael Bonilla MD [address] [place] [address] PCP - General Family Medicine 11/25/22 Ecmo Specialist Relationship Specialty Start Date End Date Amina Mendez, BIOMEDICAL ENGINEERAD COPY WRITER [address] [place] [address] PCP - General Internal Medicine 12/09/21 Ecmo Specialist Relationship Specialty Start Date End Date Amina Mendez, AD COPY WRITER [address] [place] [address] PCP - General Internal Medicine 12/09/21 Goals [...] Therapy Diagnoses Arthritis of left knee Procedures MT OFFICE/OUTPATIENT [facility] 60 MINUTES Jasmine Riojas DO [address] [facility] [address] [place] [address] Carlos aLst, PT [address] [facility] [address] [place] [address] Referral ID Status Reason Start Date Expiration Date Visits Requested Visits Authorized [id number] Authorized Specialty Services Required 04/07/2023 10/04/2023 99 [...] BE BASED ON THE PRIMARY CLINICAL RECORDS. [facility] [employer] [facility]. provides no warranty or guarantee of the accuracy or completeness of information in this document.
[2023-10-13 07:45] VITALS: BP 154/83; PULSE 90; TEMP 36.7; O2SAT 98
[2023-10-13 08:14] VITALS: BP 153/74; PULSE 87; O2SAT 99
[2023-10-13 08:15] VITALS: BP 156/71; PULSE 90; O2SAT 100
[2023-10-13] MEDS: IOHEXOL 240 MG/ML - 10 ML VIAL 24 MG INJ (08:18)
[2023-10-13] MEDS: LIDOCAINE HCL 2% PF 100 MG/5 ML VIAL 3 ML INJ (08:19)
--- NOTE | 2023-10-13 09:00 | W.PM.PROCNOT ---
Date of procedure: 10/13/23 Pre-op diagnosis: Right Knee Pain Post-op diagnosis: same as pre-op Procedure: Procedure: knee joint injection using Synvisc one 3ml. Immediate complications none. Anesthesia: 2% lidocaine plain for skin wheal. After informed consent was obtained, patient brought to the OR placed in the supine position. Skin overlying the area was prepped and draped using Betadine. 25-gauge 1/2 inch needle was used for skin wheal over the medial aspect of the knee joint identified under fluoroscopy. Omnipaque dye was used to confirm needle tip placement within the knee joint space 0.5 mL use of the injection. Subsequently 3ml of Synvisc one was injected into the space. No indication of intravascular or intraneuronal needle tip placement or injection was noted post procedure. The needle was removed, patient transferred to Recovery room in stable condition to discharged home after meeting criteria. Anesthesia: Local Surgeon: Vero Morin Condition: stable
== END 2023-10-13 08:23 | disposition home or self-care (01) ==
LOC: SURGOUT 07:12
PROVIDERS: PCP Family Medicine; Visit Provider Anesthesiology Pain Medicine
DX: M25.561 Pain in right knee (principal)
CPT/HCPCS: 20610; 77002; J7325; Q9966

== ENCOUNTER 2023-10-22 11:22 | Outpatient (OUT) | payer MEDICARE, SELFPAY ==
--- OUTSIDE RECORDS SUMMARY | 2023-10-22 11:26 | XMS_ITS | CCD ---
Author Organization [facility] Care Team Providers Care Shower Screen Installer Name Role Phone DO Ismael Bonilla Primary [...] Unavailable DO Ismael Bonilla Primary Care Provider [phone] MD Andrew Agawral Attending Provider DO Ismael Bonilla Primary Care Provider Self, Referral Attending Provider Unavailable [facility] REHAB DIRECTOR OCCUPATIONAL THERAPIST-FLOOR HELPER, Amina Reyes Primary Care Provider Self, Referral [...] sources) Cephalexin Drug Allergy 7 Unknown [facility] (2 sources) Meperidine Drug Allergy 7 [facility] (2 sources) Darvocet-N 100 Drug allergy (disorder) 7 [facility] (12 sources) Cephalexin; Translations: [CEPHALEXIN] Drug Allergy 2 Rash, Unknown [facility] (12 sources) Meperidine; Translations: [MEPERIDINE] Drug Allergy 2 Nausea, Nausea Only [facility] Work Phone: (8 sources) Propoxyphene N-Acetaminophen; Translations: [PROPOXYPHENE N-ACETAMINOPHEN] Propensity to adverse reactions to drug 2 Vomiting [facility] (1 source) Cephalexin Drug Allergy 3 [facility] (4 sources) Meperidine Drug [...] Active Start: 09-21-2022 take 1 capsule by [facility] in the morning celecoxib (CeleBREX) 200 mg [...] 1.5 mg/ml oral solution (5 sources) Uncompetitive N-rxdxyc-A-aspartate Receptor Antagonist, Sigma-1 Agonist Start: 05-04-2023 take [...] dizziness. 30 tablet 1 02/23/2023 Active omega 3-ngr-jvc-fish oil 1,200 (144-216) mg capsule (5 sources) omega 0-qqv-hgz-fish oil 1,200 (144-216) mg capsule Orally 0 [...] Sig (Normalized) Sig (Original) polyethylene glycol 3350 957494 mg / potassium chloride 2980 mg / sodium bicarbonate 6720 mg / sodium chloride 5840 mg / sodium sulfate 28574 mg powder for oral solution (1 source) [...] BASOPHIL 0.0 X10E9/L Normal 0.0-0.2 [facility] Comment on above: Performed By: #### C BCA, CMP, 06928-4, 3016-3, HA1C #### [facility] ([id number]) [address], [address] [place] [address] ABSOLUTE NEUTROPHIL 2.9 X10E9/L Normal 1.5-6.6 [facility] Comment on above: Performed By: #### C BCA, CMP, 29330-7, 3016-3, HA1C #### [facility] ([id number]) [address], [address] [place] [address] Basophils/100 WBC (Bld) 0.7 % Normal [facility] Comment on above: Performed By: #### C BCA, CMP, 08283-0, 6-3, HA1C #### [facility] ([id number]) [address], [address] [place] [address] Eosinophils (Bld) [#/Vol] 0.1 10*3/uL Normal 0.0-0.4 [facility] Comment on above: Performed By: #### C BCA, CMP, 95435-5, 6-3, HA1C #### [facility] ([id number]) [address], [address] [place] [address] Eosinophils/100 WBC (Bld) 1.3 % Normal [facility] Comment on above: Performed By: #### C BCA, CMP, 68778-3, 3015-, HA1C #### [facility] ([id number]) [address], [address] [place] [address] Erythrocyte distribution width (RBC) [Ratio] 13.5 % Normal 11.5-15.0 [facility] Comment on above: Performed By: #### C BCA, CMP, 50159-3, 3015-3, HA1C #### [facility] ([id number]) [address], [address] [place] [address] Hematocrit (Bld) [Volume fraction] 39.5 % Normal 35-47 [facility] Comment on above: Performed By: #### C BCA, CMP, 79251-0, 6-3, HA1C #### [facility] ([id number]) [address], [address] [place] [address] Hemoglobin (Bld) [Mass/Vol] 13.3 g/dL Normal 11.7-15.5 [facility] Comment on above: Performed By: #### C BCA, CMP, 30749-7, 3015-05, HA1C #### [facility] ([id number]) [address], [address] [place] [address] Lymphocytes (Bld) [#/Vol] 2.0 10*3/uL Normal 1.0-3.5 [facility] Comment on above: Performed By: #### C BCA CMP, 81683-5, 3015-05, HA1C #### [facility] ([id number]) [address], [address] [place] [address] Lymphocytes/100 WBC (Bld) 35.4 % Normal [facility] Comment on above: Performed By: #### C BCA CMP, 64070-9, 3015-05, HA1C #### [facility] ([id number]) [address], [facility] [address] [place] [address] MCH (RBC) [Entitic mass] 31.1 pg Normal 27-34 [facility] Comment on above: Performed By: #### C TRICIA CMP, 87706-3, 3015-05, HA1C #### [facility] ([id number]) [address], [address] [place] [address] MCHC (RBC) [Mass/Vol] 33.6 g/dL Normal 32-36 [facility] Comment on above: Performed By: #### Bong BCA CMP, 08570-1, 3015-05, HA1C #### [facility] ([id number]) [address], [address] [place] [address] MCV (RBC) [Entitic vol] 93 fL Normal 80-100 [facility] Comment on above: Performed By: #### C BCA, CMP, 57730-6, 3015-05, HA1C #### [facility] ([id number]) [address], [address] [place] [address] Monocytes (Bld) [#/Vol] 0.6 10*3/uL Normal 0-0.9 [facility] Comment on above: Performed By: #### C BCA, CMP, 90363-3, 3016-3, HA1C #### [facility] ([id number]) [address], [address] [place] [address] Monocytes/100 WBC (Bld) 11.3 % Normal [facility] Comment on above: Performed By: #### C BCA, CMP, 80669-6, 3016-3, HA1C #### [facility] ([id number]) [address], [address] [place] [address] Neutrophils/100 WBC (Bld) 51.3 % Normal [facility] Comment on above: Performed By: #### C BCA, CMP, 33556-4, 6-3, HA1C #### [facility] ([id number]) [address], [address] [place] [address] Platelet mean volume (Bld) [Entitic vol] 7.6 fL Normal 7-12 [facility] Comment on above: Performed By: #### C BCA, CMP, 84398-6, 6-3, HA1C #### [facility] ([id number]) [address], [address] [place] [address] Platelets (Bld) [#/Vol] 216 10*3/uL Normal 150-450 [facility] Comment on above: Performed By: #### C BCA, CMP, 96546-0, 6-3, HA1C #### [facility] ([id number]) [address], [address] [place] [address] RBC COUNT 4.26 X10E12/L Normal 3.80-5.20 [facility] Comment on above: Performed By: #### C BCA, CMP, 01381-9, 6-3, HA1C #### [facility] ([id number]) [address], [address] [place] [address] WBC (Bld) [#/Vol] 5.6 10*3/uL Normal 4.0-11.0 [facility] Comment on above: Performed By: #### C BCA, CMP, 54748-4, 3016-3, HA1C #### [facility] ([id number]) [address], [address] [place] [address] COMPREHENSIVE METABOLIC PANE Levi 09-24-2023 Albumin [Mass/Vol] 4.6 g/dL Normal 3.2-5.3 [facility] Comment on above: Performed By: #### C BCA, CMP, 28778-1, 3016-3, HA1C #### [facility] ([id number]) [address], [address] [place] [address] ALP [Catalytic activity/Vol] 37 U/L Low 39-130 [facility] Comment on above: Performed By: #### C BCA, CMP, 96053-6, 3016-3, HA1C #### [facility] ([id number]) [address], [address] [place] [address] ALT [Catalytic activity/Vol] 20 U/L Normal 0-31 [facility] Comment on above: Performed By: #### C BCA, CMP, 82694-7, 3016-3, HA1C #### [facility] ([id number]) [address], [address] [place] [address] Anion gap [Moles/Vol] 7 mmol/L Normal 5-15 [facility] Comment on above: Performed By: #### C BCA, CMP, 15942-6, 3016-3, HA1C #### [facility] ([id number]) [address], [address] [place] [address] AST [Catalytic activity/Vol] 18 U/L Normal 0-41 [facility] Comment on above: Performed By: #### C BCA, CMP, 56545-0, 3016-3, HA1C #### [facility] ([id number]) [address], [address] [place] [address] Bilirubin [Mass/Vol] 0.4 mg/dL Normal 0.3-1.2 [facility] Comment on above: Performed By: #### C BCA, CMP, 02917-8, 3016-3, HA1C #### [facility] ([id number]) [address], [address] [place] [address] Calcium [Mass/Vol] 9.8 mg/dL Normal 8.5-10.5 [facility] Comment on above: Performed By: #### C BCA, CMP, 02000-5, 3016-3, HA1C #### [facility] ([id number]) [address], [address] [place] [address] Chloride [Moles/Vol] 100 mmol/L Normal 98-109 [facility] Comment on above: Performed By: #### C BCA, CMP, 36633-4, 3016-3, HA1C #### [facility] ([id number]) [address] [place] [address] CO2 [Moles/Vol] 30 mmol/L Normal 22-32 [facility] Comment on above: Performed By: #### C BCA, CMP, 96262-2, 3016-3, HA1C #### [facility] ([id number]) [address], [address] [place] [address] Creatinine [Mass/Vol] 0.82 mg/dL Normal 0.40-1.00 [facility] Comment on above: Result Comment: METH OD TRACEABLE TO IDMS STANDARD Performed By: #### C BCA, CMP, 16586-8, 3016-3, HA1C #### [facility] ([id number]) [address], [address] [place] [address] GFR/1.73 sq M.predicted among non-blacks MDRD (S/P/Bld) [Vol rate/Area] 76 mL/min/{1.73_m2} Normal >59 [facility] Comment on above: Result Comment: Reported eGFR is based on the CKD-EPI 2020 equation that does not use a race coefficient. Performed By: #### C BCA, CMP, 29894-2, 3016-3, HA1C #### [facility] ([id number]) [address], [address] [place] [address] Glucose [Mass/Vol] 94 mg/dL Normal 65-99 [facility] Comment on above: Performed By: #### C BCA, CMP, 96666-3, 6-3, HA1C #### [facility] ([id number]) [address], [address] [place] [address] Potassium [Moles/Vol] 4.3 mmol/L Normal 3.5-5.0 [facility] Comment on above: Performed By: #### C BCA, CMP, 00114-0, 6-3, HA1C #### [facility] ([id number]) [address], [address] [place] [address] Protein [Mass/Vol] 7.1 g/dL Normal 6.0-8.0 [facility] Comment on above: Performed By: #### C BCA, CMP, 80872-1, 6-3, HA1C #### [facility] ([id number]) [address], [address] [place] [address] Sodium [Moles/Vol] 137 mmol/L Normal 134-146 [facility] Comment on above: Performed By: #### C BCA, CMP, 56212-5, 6-3, HA1C #### [facility] ([id number]) [address], [address] [place] [address] Urea nitrogen [Mass/Vol] 13 mg/dL Normal 5-27 [facility] Comment on above: Performed By: #### C BCA, CMP, 46467-0, 6-3, HA1C #### [facility] ([id number]) [address], [address] [place] [address] HGB A1C (GLYCO-HGB)on 2023 Glucose [Mass/Vol] 111 mg/dL Normal [facility] Comment on above: Performed By: #### C TRICIA, RASHEEDA, 47474-4, 3015-3, HA1C #### [facility] ([id number]) [address], [address] [place] [address] HbA1c (Bld) [Mass fraction] 5.5 % Normal 4.4-5.6 [facility] Comment on above: Result Comment: NOTE ADA Guidelines Result HgbA1c Normal : less than 5.7 % Prediabetes : 5.7 % to 6.4 % Diabetes : > 6.4 % Use with caution in patients with abnormal hemoglobin variants as the half-life of red blood cells and in vivo glycation rates are affected. Performed By: #### C TRICIA, RASHEEDA, 42469-6, 3015-3, HA1C #### [facility] ([id number]) [address], [address] [place] [address] Lipid 1996 panelon Cholesterol [Mass/Vol] 155 mg/dL Normal 150-200 [facility] Comment on above: Performed By: #### C TRICIA, RASHEEDA, 84614-5, 3015-3, HA1C #### [facility] ([id number]) [address], [address] [place] [address] Cholesterol in HDL [Mass/Vol] 51 mg/dL Normal >39 [facility] Comment on above: Result Comment: HDL <40 mg/dL - High Risk HDL > or = 40mg/dL- Desirable HDL >60 mg/dL - Negative Risk Performed By: #### C BCA, CMP, 47130-2, 6-3, HA1C #### [facility] ([id number]) [address], [address] [place] [address] Cholesterol in LDL [Mass/Vol] 61 mg/dL Normal <130 [facility] Comment on above: Result Comment: LDL <100 mg/dL - Desirable LDL >160 mg/dL - High Risk Performed By: #### C BCA, CMP, 94843-3, 6-3, HA1C #### [facility] ([id number]) [address], [address] [place] [address] Cholesterol in VLDL [Mass/Vol] 43 mg/dL High 0-30 [facility] Comment on above: Performed By: #### C TRICIA, CMP, 92942-8, 6-3, HA1C #### [facility] ([id number]) [address] [place] [address] CHOLESTEROL:HDL 3.0 Normal 1.0-5.0 [facility] Comment on above: Performed By: #### C TRICIA, CMP, 22927-0, 6-3, HA1C #### [facility] ([id number]) [address], [address] [place] [address] Triglyceride [Mass/Vol] 214 mg/dL High 27-150 [facility] Comment on above: Performed By: #### C BCA, CMP, 82651-0, 6-3, HA1C #### [facility] ([id number]) [address], [address] [place] [address] TSH Qnon 09-24-2023 TSH 2.72 uIU/mL Normal 0.49-4.67 [facility] Comment on above: Performed By: #### C BCA, [facility], 85376-2, 3016-3, HA1C #### [facility] ([id number]) [address] [place] [address], [address] [place] [address] Surgical Pathologyon 024 Surgical Pathology Normal [facility] Comment on above: Result Comment: [facility] [address] [place] [address] Surgical Pathology Consultation Patient Name:PEGGY BUSTAMANTE:1950 (Age: 73)Gender:FTaken:04/29/2023eported:05/04/2023hysician(s):Jorje Olmedo MD ([phone])Copy To: Rec. #:[id number]: #[id number] Final Pathologic Diagnosis Colon biopsy 75 cm (2 H&E): Tubular adenoma. Report Electronically Signed Out gp/05/04/2023Ok Roland MD [place] [address], License number: [id number]. Clinical History Screening. Gross Description Received in formalin, labeled BUSTAMANTE, 75 cm is a 0.3 cm in greatest dimension pink-so soft tissue fragment. The specimen is filtered and entirely submitted in one cassette. (1, ns, [id number], m7) MW mxw/04/29/2023SSI Microscopic Findings Microscopic examination performed. Specimen(s) Received Colon biopsy 75cm Fee Codes(s): 1; 60579 XR Elbow - left 2 [facility] Result: April 21, 2023 x-rays AP and lateral of the left elbow demonstrate a fracture of the radial head in satisfactory position alignment the fracture appears to be healing. No new findings. Impression: Healing radial head fracture Serafin Riojas D.O. [facility] Radiology Study observation (narrative) [facility] BASIC METABOLIC PANLon 02-23 Anion gap [Moles/Vol] 9 mmol/L Normal 5-15 [facility] Comment on above: Performed By: #### B MP #### [facility] ([id number]) [address], [address] [place] [address] Calcium [Mass/Vol] 9.6 mg/dL Normal 8.5-10.5 [facility] Comment on above: Performed By: #### B MP #### [facility] ([id number]) [address], [address] [place] [address] Chloride [Moles/Vol] 101 mmol/L Normal 98-109 [facility] Comment on above: Performed By: #### B MP #### [facility] ([id number]) [address], [address] [place] [address] CO2 [Moles/Vol] 28 mmol/L Normal 22-32 [facility] Comment on above: Performed By: #### B MP #### [facility] ([id number]) [address], [address] [place] [address] Creatinine [Mass/Vol] 0.82 mg/dL Normal 0.40-1.00 [facility] Comment on above: Result Comment: METH OD TRACEABLE TO IDMS STANDARD Performed By: #### B MP #### [facility] ([id number]) [address], [address] [place] [address] GFR/1.73 sq M.predicted among non-blacks MDRD (S/P/Bld) [Vol rate/Area] 76 mL/min/{1.73_m2} Normal >59 [facility] Comment on above: Result Comment: Reported eGFR is based on the CKD-EPI 2020 equation that does not use a race coefficient. Performed By: #### B MP #### [facility] ([id number]) [address], [address] [place] [address] Glucose [Mass/Vol] 96 mg/dL Normal 65-99 [facility] Comment on above: Performed By: #### B MP #### [facility] ([id number]) [address], [address] [place] [address] Potassium [Moles/Vol] 4.6 mmol/L Normal 3.5-5.0 [facility] Comment on above: Performed By: #### B MP #### [facility] ([id number]) [address] [place] [address] Sodium [Moles/Vol] 138 mmol/L Normal 134-146 [facility] Comment on above: Performed By: #### B MP #### [facility] ([id number]) [address], [address] [place] [address] Urea nitrogen [Mass/Vol] 16 mg/dL Normal 5-27 [facility] Comment on above: Performed By: #### B MP #### [facility] ([id number]) [address], [address] [place] [address] MM screening mammo BI w/CADo n 02-17-2023 MM screening mammo BI w/CAD [facility] [place] [address] [place] [address] Mammography Report Signed Patient: Peggy Bustamante MR#: [id number] 8 : 1950 Acct:[id number] Age/Sex: 72 / F ADM Date: 02/17/23 Loc: [place] Room: Type: [facility] Attending Dr: Referral Self Copies to: [...] Maxwell Reaves M.D.02/17/2023 10:40 AM Dictation Location: [facility] Transcribed By: MARTIN 02/17/23 1040 Dictated By: Maxwell Reaves DO 02/17/23 1038 Signed By: 02/17/23 1040 Normal [facility] XR knee BI 3V - NOT FOR ER U Jeannie 07-10-2022 XR knee BI 3V - NOT FOR ER USE [facility] [address] [place] [address] [place] [address] XRay Report Signed Patient: Peggy Bustamante MR#: [id number] 8 : 1950 Acct:[id number] Age/Sex: 72 / F ADM Date: 07/10/22 [place] [facility] [place]: Type: [facility] Attending Dr: Andrew Agarwal MD Copies [...] Maxwell Reaves M.D.07/10/2022 3:16 PM Dictation Location: [place] [address] Transcribed By: MARTIN 07/10/221515 Dictated By: Maxwell Reaves DO 07/10/221511 Signed By: 07/10/221515 Normal [facility] FREE T4on 12-27-2021 Free T4 [Mass/Vol] 0.81 ng/dL Normal 0.76-1.46 [facility] Comment on above: Performed By: #### F T4 #### [facility] [address] [address] [address] Yohana Aragon LIPID PROFILEon 12-27-2021 CHOL-HDL RATIO NORM SEE BELOW Normal [facility] Comment on above: Result Comment: 3.3 - 4.4 LOW RISK 4.4 - 7.1 AVERAGE RISK 7.1 - 11.0 MODERATE RISK >11.0 HIGH RISK Performed By: #### T SH, LIPID, CMP #### [facility] [address] [address] [address] Yohana Aragon Cholesterol [Mass/Vol] 254 mg/dL Critically high <=200 [facility] Comment on above: Performed By: #### T SH, LIPID, CMP #### [facility] [address] [address] [address] Yohana Aragon Cholesterol in HDL [Mass/Vol] 49 mg/dL Normal 40-60 [facility] Comment on above: Performed By: #### T SH, LIPID, CMP #### [facility] [address] [address] [address] Yohana Aragon Cholesterol in LDL [Mass/Vol] 154.4 mg/dL Normal [facility] Comment on above: Performed By: #### T SH, LIPID, CMP #### [facility] [address] [address] [address] Yohana Aragon Cholesterol.total/ Cholesterol in HDL [Mass ratio] 5.2 {ratio} Normal [facility] Comment on above: Performed By: #### T SH, LIPID, CMP #### [facility] [address] [address] [address] Yohana Aragon HDL NORMAL > or = 60 mg/dl - LO W CARDIOVASCULAR RISK <40 mg/dl - HIGH CARDIOVASCULAR RISK Normal [facility] Comment on above: Performed By: #### T SH, LIPID, CMP #### [facility] [address] [address] [address] Yohana Aragon LDL CALC NORMAL SEE BELOW Normal [facility] Comment on above: Result Comment: <100 mg/dl OPTIMAL 100 - 129 mg/dl NEAR OR ABOVE OPTIMAL 130 - 159 mg/dl BORDERLINE HIGH 160 - 189 mg/dl HIGH >190 mg/dl VERY HIGH Performed By: #### T ABY, LIPID, CMP #### [facility] [address] [address] [address] Yohana Aragon Triglyceride [Mass/Vol] 253 mg/dL Critically high <=150 [facility] Comment on above: Performed By: #### T ABY, LIPID, CMP #### [facility] [address] [place] [address] Dr. Yohana Aragon VLDL CALC 50.6 mg/dL Normal [facility] Comment on above: Performed By: #### T ABY, LIPID, CMP #### [facility] [address] [place] [address] Dr. Yohana Aragon PROF 14(COMP METB)on 12-27-2 022 Albumin [Mass/Vol] 3.8 g/dL Normal 3.4-5.0 [facility] Comment on above: Performed By: #### T ABY LIPID, CMP #### [facility] [address] [place] [address] Dr. Yohana Aragon Albumin/Globulin [Mass ratio] 1.1 {ratio} Normal [facility] Comment on above: Performed By: #### T ABY, LIPID, CMP #### [facility] [address] [place] [address] Dr. Yohana Aragon ALP [Catalytic activity/Vol] 42 U/L Critically low 46-116 [facility] Comment on above: Performed By: #### T ABY, LIPID, CMP #### [facility] [address] [place] [address] Dr. Yohana Aragon ALT [Catalytic activity/Vol] 26 U/L Normal 14-59 [facility] Comment on above: Performed By: #### T ABY, LIPID, CMP #### [facility] [address] [address] [address] Yohana Aragon Anion gap [Moles/Vol] 8.9 mmol/L Normal [facility] Comment on above: Performed By: #### T SH, LIPID, CMP #### [facility] [address] [place] [address] Dr. Yohana Aragon AST [Catalytic activity/Vol] 16 U/L Normal 15-37 [facility] Comment on above: Performed By: #### T ABY, LIPID, CMP #### [facility] [address] [place] [address] Dr. Yohana Aragon Bilirubin [Mass/Vol] 0.4 mg/dL Normal 0.2-1.0 [facility] Comment on above: Performed By: #### T ABY, LIPID, CMP #### [facility] [address] [place] [address] Dr. Yohana Aragon Calcium [Mass/Vol] 9.0 mg/dL Normal 8.5-10.1 [facility] Comment on above: Performed By: #### T ABY, LIPID, CMP #### [facility] [address] [place] [address] Dr. Yohana Aragon Chloride [Moles/Vol] 103 mmol/L Normal 98-107 [facility] Comment on above: Performed By: #### T ABY, LIPID, CMP #### [facility] [address] [place] [address] Dr. Yohana Aragon CO2 [Moles/Vol] 29.6 mmol/L Normal 21.0-32.0 [facility] Comment on above: Performed By: #### T SH, LIPID, CMP #### [facility] [address] [place] [address] Dr. Yohana Aragon Creatinine [Mass/Vol] 0.83 mg/dL Normal 0.55-1.02 [facility] Comment on above: Performed By: #### T SH, LIPID, CMP #### [facility] [address] [place] [address] Dr. Yohana Aragon EGFR-AF BURKINAN >60 Normal >=60 [facility] Comment on above: Performed By: #### T SH, LIPID, CMP #### [facility] [address] [address] [address] Yohana Aragon EGFR-NON AF BURKINAN >60 Normal >=60 [facility] Comment on above: Performed By: #### T SH, LIPID, CMP #### [facility] [address] [address] [address] Yohana Aragon Globulin (S) [Mass/Vol] 3.5 g/dL Normal [facility] [facility] Comment on above: Performed By: #### T SH, LIPID, CMP #### [facility] [address] [address] [address] Yohana Aragon Glucose [Mass/Vol] 98 mg/dL Normal 74-106 [facility] Comment on above: Performed By: #### T SH, LIPID, CMP #### [facility] [address] [place] [address] Dr. Yohana Aragon Potassium [Moles/Vol] 4.5 mmol/L Normal 3.5-5.1 [facility] Comment on above: Performed By: #### T ABY, LIPID, CMP #### [facility] [address] [place] [address] Dr. Yohana Aragon Protein [Mass/Vol] 7.3 g/dL Normal 6.4-8.2 [facility] Comment on above: Performed By: #### T ABY, LIPID, CMP #### [facility] [address] [place] [address] Dr. Yohana Aragon Sodium [Moles/Vol] 137 mmol/L Normal 136-145 [facility] Comment on above: Performed By: #### T SH, LIPID, CMP #### [facility] [address] [place] [address] Dr. Yohana Aragon Urea nitrogen [Mass/Vol] 14.0 mg/dL Normal 7.0-18.0 [facility] Comment on above: Performed By: #### T SH, LIPID, CMP #### [facility] [address] [place] [address] Dr. Yohana Aragon Urea nitrogen/Creatinin e [Mass ratio] 16.9 mg/mg Normal [facility] Comment on above: Performed By: #### T SH, LIPID, CMP #### [facility] [address] [place] [address] Dr. Yohnaa Aragon TSHon 12-27-2021 TSH 2.654 uIU/mL Normal 0.358-3.740 [facility] Comment on above: Performed By: #### T SH, LIPID, CMP #### [facility] [address] [place] [address] Dr. Yohana Aragon PAP ACOG PANEL 2: 30 to 65on 10-08-2021 . . Normal [facility] Comment on above: Performed By: #### 4 [id number] #### [facility] [address] [place] [address] Dr. Yohana Aragon Age Gdln ACOG Testing Comment [facility] Comment on above: Result Comment: <21 or >65 or no age provided Performed By: #### 4 [id number] #### [facility] [address] [place] [address] Dr. Yohana Aragon DIAGNOSIS: Comment [facility] Comment on above: Result Comment: UNSA TISFACTORY FOR EVALUATION. Performed By: #### 4 [id number] #### [facility] [address] [place] [address] Dr. Yohana Aragon Methodology: Comment [facility] Comment on above: Result Comment: This liquid based ThinPrep(R) pap test was screened with the use of an image guided system. Performed By: #### 4 [id number] #### [facility] [address] [place] [address] Dr. Yohana Aragon Note: Comment [facility] Comment on above: Result Comment: The Pap smear is a screening test designed to aid in the detection of premalignant and malignant conditions of the uterine cervix. It is not a diagnostic procedure and should not be used as the sole means of detecting cervical cancer. Both false-positive and false-negative reports do occur. . Performed By: #### 4 [id number] #### [facility] [address] [place] [address] Dr. Yohana Aragon Performed by: Comment Normal [facility] Comment on above: Result Comment: Ashleigh Haddda, Court Liaison (ASCP) Performed By: #### 4 [id number] #### [facility] [address] [place] [address] Dr. Yohana Aragon QC reviewed by: Comment Normal [facility] Comment on above: Result Comment: Ramesh Floyd, Supervisory Court Liaison (ASCP) Performed By: #### 4 [id number] #### [facility] [address] [address] [address] Yohana Aragon Recommendation: Comment Normal [facility] Comment on above: Result Comment: Sugg est follow up as clinically appropriate. Performed By: #### 4 [id number] #### [facility] [address] [place] [address] Dr. Yohana Aragon Specimen adequacy: Comment Normal [facility] Comment on above: Result Comment: Spec imen processed and examined but unsatisfactory for evaluation of epithelial abnormality because of insufficient cellularity. Performed By: #### 4 [id number] #### [facility] [address] [place] [address] Dr. Yohana Aragon [facility] 06-27-2021 Albumin [Mass/Vol] 4.4 g/dL Normal 3.6-5.1 [facility] Comment on above: Performed By: #### 1 0231, 7600, 82471 #### [facility] [address] [address] Retail Support Specialist: Jose Stark MD Albumin/Globulin [Mass ratio] 2.0 {ratio} Normal 1.0-2.5 [facility] Comment on above: Performed By: #### 1 0231, 7600, 21591 #### [facility] [address] [address] Retail Support Specialist: Jose Stark MD ALP [Catalytic activity/Vol] 34 U/L Low 37-153 [facility] Comment on above: Performed By: #### 1 0231, 7600, 16849 #### [facility] [address] [address] Retail Support Specialist: Jose Stark MD ALT [Catalytic activity/Vol] 14 U/L Normal 6-29 [facility] Comment on above: Performed By: #### 1 0231, 7599, 73791 #### [facility] of [address], [address] [place] [address] Retail Support Specialist: Jose Stark MD AST [Catalytic activity/Vol] 13 U/L Normal 10-35 [facility] Comment on above: Performed By: #### 1 0231, 7599, 21271 #### [facility] of [address], [address] [place] [address] Retail Support Specialist: Jose Stark MD Bilirubin [Mass/Vol] 0.5 mg/dL Normal 0.2-1.2 [facility] Comment on above: Performed By: #### 1 023, 7599, 74260 #### [facility] of [address] [address] Retail Support Specialist: Jose Stark MD BUN/CREATININE RATIO NOT APPLICABLE Normal 6-22 [facility] Comment on above: Performed By: #### 1 0231, 7599, 61158 #### [facility] of [address] [address] Retail Support Specialist: Jose Stark MD Calcium [Mass/Vol] 9.4 mg/dL Normal 8.6-10.4 [facility] Comment on above: Performed By: #### 1 0231, 7599, 81126 #### [facility] of [address] [address] Retail Support Specialist: Jose Stark MD Chloride [Moles/Vol] 104 mmol/L Normal 98-110 [facility] Comment on above: Performed By: #### 1 0231, 7599, 63137 #### [facility] of [address] [address] Retail Support Specialist: Jose Stark MD CO2 [Moles/Vol] 29 mmol/L Normal 20-32 [facility] Comment on above: Performed By: #### 1 0231, 0, 72004 #### [facility] of [address], [address] [place] [address] Retail Support Specialist: Jose Stark MD Creatinine [Mass/Vol] 0.76 mg/dL Normal 0.60-0.93 [facility] Comment on above: Result Comment: For patients >49 years of age, the reference limit for Creatinine is approximately 13% higher for people identified as -Burmese. Performed By: #### 1 0231, 7599, 61388 #### [facility] of [address], [address] [place] [address] Retail Support Specialist: Jose Stark MD eGFR NON-AFR. BURKINAN 79 mL/min/1.73m2 Normal > OR = 60 [facility] Comment on above: Performed By: #### 1 023, 7599, 57483 #### [facility] [address], [address] [place] [address] Retail Support Specialist: Jose Stark MD GFR/1.73 sq M.predicted among blacks MDRD (S/P/Bld) [Vol rate/Area] 92 mL/min/{1.73_m2} Normal > OR = 60 [facility] Comment on above: Performed By: #### 1 023, 7599, 15157 #### [facility] [address], [address] [place] [address] Retail Support Specialist: Jose Stark MD Globulin (S) [Mass/Vol] 2.2 g/dL Normal 1.9-3.7 [facility] Comment on above: Performed By: #### 1 0231, 0, 79288 #### [facility] of [address] [address] Retail Support Specialist: Jose Stark MD Glucose [Mass/Vol] 95 mg/dL Normal 65-99 [facility] Comment on above: Result Comment: Fasting reference interval Performed By: #### 1 0231, 7600, 66188 #### [facility] of [address], [address] [place] [address] Retail Support Specialist: Jose Stark MD Potassium [Moles/Vol] 4.2 mmol/L Normal 3.5-5.3 [facility] Comment on above: Performed By: #### 1 0231, 7600, 93957 #### [facility] of [address], [address] [place] [address] Retail Support Specialist: Jose Stark MD Protein [Mass/Vol] 6.6 g/dL Normal 6.1-8.1 [facility] Comment on above: Performed By: #### 1 0231, 7600, 40771 #### [facility] of [address], [address] [place] [address] Retail Support Specialist: Jose Stark MD Sodium [Moles/Vol] 141 mmol/L Normal 135-146 [facility] Comment on above: Performed By: #### 1 0231, 0, 19902 #### [facility] of [address], [address] [place] [address] Retail Support Specialist: Jose Stark MD Urea nitrogen [Mass/Vol] 13 mg/dL Normal 7-25 [facility] Comment on above: Performed By: #### 1 0231, 0, 87396 #### [facility] [address], [address] [place] [address] Retail Support Specialist: Jose Stark MD LIPID PANEL, [facility] 06-08 Cholesterol [Mass/Vol] 159 mg/dL Normal <200 [facility] Comment on above: Order Comment: FASTI NG:YES FASTING: YES Performed By: #### 1 0231, 7600, 52533 #### [facility] of [address], [address] [place] [address] Retail Support Specialist: Jose Stark MD Cholesterol in HDL [Mass/Vol] 52 mg/dL Normal > OR = 50 [facility] Comment on above: Order Comment: FASTI NG:YES FASTING: YES Performed By: #### 1 0231, 7600, 37531 #### [facility] of [address], [address] [place] [address] Retail Support Specialist: Jose Stark MD Cholesterol in LDL [Mass/Vol] [...] LDL-C. Derick CASTRO et al. THU. 2013;310(19): 0381-1485 (http://[email or web address] [email or web address]) Performed By: #### 1 0231, 7600, 40301 #### [facility] [address], [address] [place] [address] Retail Support Specialist: Jose Stark MD Cholesterol.total/ Cholesterol in HDL [Mass ratio] 3.1 {ratio} Normal <5.0 [facility] Comment on above: Order Comment: FASTI NG:YES FASTING: YES Performed By: #### 1 0231, 7600, 12331 #### [facility] [address], [address] [place] [address] Retail Support Specialist: Jose Stark MD NON HDL CHOLESTEROL 107 mg/dL (calc) Normal <130 [facility] Comment on above: Order Comment: FASTI NG:YES FASTING: YES Result Comment: For patients with diabetes plus 1 major ASCVD risk factor, treating to a non-HDL-C goal of <100 mg/dL (LDL-C of <70 mg/dL) is considered a therapeutic option. Performed By: #### 1 0231, 7600, 84686 #### [facility] [address], [address] [place] [address] Retail Support Specialist: Jose Stark MD Triglyceride [Mass/Vol] 239 mg/dL High <150 [facility] Comment on above: Order Comment: FASTI NG:YES FASTING: YES Result Comment: If a non-fasting specimen was collected, consider repeat triglyceride testing on a fasting specimen if clinically indicated. Ceja et al. J. of Clin. Lipidol. 2015;9:129-169. Performed By: #### 1 0231, 7600, 47772 #### [facility] of [address] [address] Retail Support Specialist: Jose Stark MD TSH+FREE T4on 06-27-2021 Free T4 [Mass/Vol] 0.9 ng/dL Normal 0.8-1.8 [facility] Comment on above: Performed By: #### 1 0231, 7600, 45139 #### [facility] of [address], [address] [place] [address] Retail Support Specialist: Jose Stark MD TSH Qn 4.55 m[IU]/L High 0.40-4.50 [facility] Comment on above: Performed By: #### 1 0231, 0, 52136 #### [facility] of [address], [address] [place] [address] Retail Support Specialist: Jose Stark MD [facility] 12-04-2020 Albumin [Mass/Vol] 4.5 g/dL Normal 3.6-5.1 [facility] Comment on above: Performed By: #### 5 8984, 36631 #### [facility] of [address] [address] Retail Support Specialist: Jose Stark MD Albumin/Globulin [Mass ratio] 1.9 {ratio} Normal 1.0-2.5 [facility] Comment on above: Performed By: #### 5 8984, 09966 #### [facility] of [address] [address] Retail Support Specialist: Jose Stark MD ALP [Catalytic activity/Vol] 36 U/L Low 37-153 [facility] Comment on above: Performed By: #### 5 8984, 60578 #### [facility] of [address] [address] Retail Support Specialist: Jose Stark MD ALT [Catalytic activity/Vol] 15 U/L Normal 6-29 [facility] Comment on above: Performed By: #### 5 8984, 50212 #### [facility] of [address], [address] [place] [address] Retail Support Specialist: Jose Stark MD AST [Catalytic activity/Vol] 16 U/L Normal 10-35 [facility] Comment on above: Performed By: #### 5 8984, 30475 #### [facility] of [address], [address] [place] [address] Retail Support Specialist: Jose Stark MD Bilirubin [Mass/Vol] 0.6 mg/dL Normal 0.2-1.2 [facility] Comment on above: Performed By: #### 5 8984, 71546 #### [facility] of [address] [address] Retail Support Specialist: Jose Stark MD BUN/CREATININE RATIO NOT APPLICABLE Normal 6-22 [facility] Comment on above: Performed By: #### 5 8984, 61053 #### [facility] of [address], [address] [place] [address] Retail Support Specialist: Jose Stark MD Calcium [Mass/Vol] 9.4 mg/dL Normal 8.6-10.4 [facility] Comment on above: Performed By: #### 5 8984, 32132 #### [facility] of [address], [address] [place] [address] Retail Support Specialist: Jose Stark MD Chloride [Moles/Vol] 101 mmol/L Normal 98-110 [facility] Comment on above: Performed By: #### 5 8984, 04798 #### [facility] of [address], [address] [place] [address] Retail Support Specialist: Jose Stark MD CO2 [Moles/Vol] 29 mmol/L Normal 20-32 [facility] Comment on above: Performed By: #### 5 8984, 55157 #### [facility] of [address], [address] [place] [address] Retail Support Specialist: Jose Stark MD Creatinine [Mass/Vol] 0.73 mg/dL Normal 0.50-0.99 [facility] Comment on above: Result Comment: For patients >49 years of age, the reference limit for Creatinine is approximately 13% higher for people identified as -Burmese. Performed By: #### 5 8984, 40105 #### [facility] [address], [address] [place] [address] Retail Support Specialist: Jose Stark MD eGFR NON-AFR. BURKINAN 84 mL/min/1.73m2 Normal > OR = 60 [facility] Comment on above: Performed By: #### 5 8984, 99359 #### [facility] of [address], [address] [place] [address] Retail Support Specialist: Jose Stark MD GFR/1.73 sq M.predicted among blacks MDRD (S/P/Bld) [Vol rate/Area] 97 mL/min/{1.73_m2} Normal > OR = 60 [facility] Comment on above: Performed By: #### 5 8984, 80063 #### [facility] of [address], [address] [place] [address] Retail Support Specialist: Jose Stark MD Globulin (S) [Mass/Vol] 2.4 g/dL Normal 1.9-3.7 [facility] Comment on above: Performed By: #### 5 8984, 37366 #### [facility] [address], [address] [place] [address] Retail Support Specialist: Jose Stark MD Glucose [Mass/Vol] 97 mg/dL Normal 65-99 [facility] Comment on above: Result Comment: Fasting reference interval Performed By: #### 5 8984, 27259 #### [facility] of [address], [address] [place] [address] Retail Support Specialist: Jose Stark MD Potassium [Moles/Vol] 4.4 mmol/L Normal 3.5-5.3 [facility] Comment on above: Performed By: #### 5 8984, 83900 #### [facility] [address], [address] [place] [address] Retail Support Specialist: Jose Stark MD Protein [Mass/Vol] 6.9 g/dL Normal 6.1-8.1 [facility] Comment on above: Performed By: #### 5 8984, 76643 #### [facility] [address], [address] [place] [address] Retail Support Specialist: Jose Stark MD Sodium [Moles/Vol] 138 mmol/L Normal 135-146 [facility] Comment on above: Performed By: #### 5 8984, 81438 #### [facility] [address], [address] [place] [address] Retail Support Specialist: Jose Stark MD Urea nitrogen [Mass/Vol] 17 mg/dL Normal 7-25 [facility] Comment on above: Performed By: #### 5 8984, 71843 #### [facility] [address] [address] Retail Support Specialist: Jose Stark MD TSH+FREE T4on 12-04-2020 Free T4 [Mass/Vol] 0.9 ng/dL Normal 0.8-1.8 [facility] Comment on above: Order Comment: FASTI NG:YES FASTING: YES Performed By: #### 5 8984, 44442 #### [facility] of [address] [address] Retail Support Specialist: Jose Stark MD TSH Qn 4.24 m[IU]/L Normal 0.40-4.50 [facility] Comment on above: Order Comment: FASTI NG:YES FASTING: YES Performed By: #### 5 8984, 55643 #### [facility] of [address] [address] Retail Support Specialist: Jose Stark MD Vital Signs Date Time Vital Sign Value Performing Clinician Facility 04-28-2023 11:28050 Body height 161.3 cm Pm 1 [facility] 04-28-2023 11:280500 Body mass index (BMI) [Ratio] 30.51 kg/m2 Pm 1 [facility] 04-28-2023 11:28-0500 Body [facility] 79.38 [facility] 03-17-2023 10:58-0500 Body height 160 cm Amina Mendez REHAB DIRECTOR OCCUPATIONAL THERAPIST-FLOOR HELPER Work Phone: [facility] [employer] 03-17-2023 10:58-0500 Body mass index (BMI) [Ratio] 32.49 kg/m2 Amina Mendez REHAB DIRECTOR OCCUPATIONAL THERAPIST-FLOOR HELPER [facility] 03-17-2023 10:58-0500 Body temperature 97.81 [degF] Amina Mendez REHAB DIRECTOR OCCUPATIONAL THERAPIST-FLOOR HELPER [facility] 03-17-2023 10:58-0500 Body weight 83.19 kg Amina Mendez REHAB DIRECTOR OCCUPATIONAL THERAPIST-FLOOR HELPER [facility] 03-17-2023 10:58-0500 Diastolic blood pressure 70 mm[Hg] Amina Mendez REHAB DIRECTOR OCCUPATIONAL THERAPIST-FLOOR HELPER Work Phone: [facility] [employer] 03-17-2023 10:58-0500 Heart rate 102 /min Amina Mendez REHAB DIRECTOR OCCUPATIONAL THERAPIST-FLOOR HELPER [facility] 03-17-2023 10:58-0500 SaO2% (BldA) [Mass fraction] 97 % Amina Mendez REHAB DIRECTOR OCCUPATIONAL THERAPIST-FLOOR HELPER [facility] 03-17-2023 10:58-0500 Systolic blood pressure 120 mm[Hg] Amina Mendez REHAB DIRECTOR OCCUPATIONAL THERAPIST-FLOOR HELPER Work Phone: [facility] Encounters Encounter Date Encounter Type Care Provider Facility Start: 09-24-2023 End: 09-24-[address] [facility] Start: 09-24-2023 End: 09-24-2023 ambulatory [facility] Start: 06-16-2023 End: 06-16-2023 ambulatory JASMINE RIOJAS Not Available Start: 06-10-2023 Refill Amina Mendez REHAB DIRECTOR OCCUPATIONAL THERAPIST-FLOOR HELPER Work Phone: [facility] Comment on above: Gastro-esophageal re flux disease without esophagitis Start: 06-09-2023 End: 06-09-2023 ambulatory ANGELICA GARCIA Not Available Start: 04-29-2023 End: 04-30-2023 Evaluation and management of inpatient JORJE OLMEDO [facility] Start: 04-28-2023 End: 04-28-2023 ambulatory AMINA MENDEZ [facility] Start: 04-21-2023 End: 04-21-2023 ambulatory [...] Office outpatient visit 15 minutes Amina Mendez REHAB DIRECTOR OCCUPATIONAL THERAPIST-FLOOR HELPER Work Phone: [facility] Comment on above: Viral upper respirat ory tract infection (Primary Dx) Start: 03-17-2023 End: 03-17-[address] [facility] Start: 03-05-2023 Refill Amina Mendez REHAB DIRECTOR OCCUPATIONAL THERAPIST-FLOOR HELPER Work Phone: [facility] Comment on above: Other seasonal aller gic rhinitis Start: 02-25-2023 End: 02-25-2023 ambulatory BRITNEY COPE Not Available Start: 02-24-2023 End: 02-25-2023 ambulatory JASMINE RIOJAS Not Available Start: 02-23-2023 End: 02-23-2023 ambulatory [facility] Start: 02-23-2023 End: 02-23-[address] [facility] Start: 02-17-2023 End: 02-17-2023 ambulatory Referral Self Facility:[facility] Start: 02-17-2023 End: 02-17-2023 ambulatory DO Ismael Bonilla Work Phone: [facility] Work Phone: Start: 02-17-2023 End: 02-17-2023 Patient encounter procedure DO Ismael Alonsong Work Phone: [facility] Work Phone: Start: 01-27-2023 End: 01-27-2023 ambulatory JASMINE RIOJAS Not Available Start: 01-20-2023 End: 01-20-2023 ambulatory JASMINE RIOAJS Not Available Start: 07-21-2022 End: 07-21-2022 ambulatory Andrew Agarwal Other [email or web address] Other Start: 07-21-2022 Office outpatient vi sit 15 minutes Andrew Agarwal [facility] Start: 07-10-2022 Office outpatient ne w 45 minutes Andrew Agarwal [facility] Start: 07-10-2022 End: 07-10-2022 ambulatory DO Ismael Furlong Work Phone: [facility] [employer] Other Start: 07-10-2022 End: 07-10-2022 Patient encounter procedure DO Ismael Furlong Work Phone: [facility] Start: 06-05-2022 End: 06-06-2022 [...] 01-13-2022 ambulatory DO Ismael Furlong Work Phone: [facility] Work Phone: Start: 01-13-2022 End: 01-13-2022 Patient encounter procedure DO Ismael Furlong Work Phone: [facility] Start: 12-27-2021 End: 12-28-[address] AMINA MENDEZ Facility:[facility] Start: 10-02-2021 End: 10-02-[address] ROSA MCCAULEY . Facility: Procedures Date Procedure Procedure Detail Performing Clinician Start: 04-21-2023 Radex elbow 2 views Jam es A Beulah DO Work Phone: Start: 03-17-2023 Adult depression scr eening assessment Amina Mendez REHAB DIRECTOR OCCUPATIONAL THERAPIST-FLOOR HELPER Work Phone: Start: 02-23-2023 Adult depression scr eening assessment Amina Mendez REHAB DIRECTOR OCCUPATIONAL THERAPIST-FLOOR HELPER Work Phone: Start: 02-17-2023 End: 02-17-2023 Screening mammography of bilateral breasts DO [facility] Phone: Start: 07-10-2022 X-ray of both knees DO [facility] Phone: Start: 01-13-2022 End: 01-13-2022 Screening mammography of bilateral breasts DO [facility] Phone: Plan of Treatment Date Care Activity Detail Author Start: 04-29-2024 Adult BMI Screening Adult BMI Screen ing [facility] Start: 04-29-2024 Tobacco Screening Tobacco Screening [facility] Start: 04-28-2024 Adult BMI Screening Adult BMI Screen ing [facility] Start: 04-28-2024 Tobacco Screening Tobacco Screening [facility] Start: 03-17-2024 Adult BMI Screening Adult BMI Screen ing [facility] Start: 03-17-2024 Depression Screening Depression Scre ening [facility] Start: 03-17-2024 Fall Risk Screening Fall Risk Screen ing [facility] Start: 03-17-2024 Tobacco Screening Tobacco Screening [facility] Start: 02-24-2024 Adult BMI Screening Adult BMI Screen ing [facility] Start: 02-24-2024 Depression Screening Depression Scre ening [facility] Start: 02-24-2024 Fall Risk Screening Fall Risk Screen ing [facility] Start: 02-24-2024 Tobacco Screening Tobacco Screening [facility] Start: 02-18-2024 Screening for malign ant neoplasm of breast Mammogram [facility] Start: 02-18-2024 End: 02-18-2024 Patient encounter procedure 02/18/2024 9:45 AM EST Office Visit CHERYL DEVRIESS [address] [place] [address] Britney Cope, DO [address] [place] [address] [facility] Start: 07-15-2023 End: 07-15-2023 Admission to same day surgery center 07/15/2023 10:15 AM EDT - 07/15/2023 12:45 PM EDT Surgery [facility] Surgery [address] [place] [id number] Jasmine Riojas, DO [address] [place] [address] REPLACEMENT TOTAL JOINT KNEE [80876 (CPT )] [facility] Comment on above: REPLACEMENT TOTAL YUMIKO INT KNEE [59968 (CPT )] Start: 07-15-2023 End: 07-15-2023 Arthrp kne condyle&platu medial&lat compartments REPLACEMENT TOTAL JOINT KNEE left knee degenerative joint disease 07/15/2023 10:15 AM EDT [facility] Start: 07-15-2023 Subsequent hospital visit by physician 07/15/2023 10:15 AM EDT Hospital Encounter [facility] - Surgery [address] [place] [id number] Jasmine Riojas, DO [address] [place] [address] [facility] Start: 06-16-2023 End: 06-16-2023 Patient encounter procedure 06/16/2023 1:30 PM EDT Procedure visit [facility] - Pre Admit [address] [place] [id number] [facility] - Pre Admit Start: 04-21-2023 End: 04-21-2023 ambulatory 04/21/2023 2:30 PM EST Evaluation [facility] [address] [place] [address] Shala Carlos T, PT [address] [place] [address] [facility] Start: 04-21-2023 End: 04-21-2023 Patient encounter procedure 04/21/2023 9:45 AM EST Office Visit [facility] [address] [place] [address] Jasmine Riojas, DO [address] [place] [address] [facility] Start: 04-08-2023 Administration of varicella zoster vaccine Zoster (Shingles) Vaccine (1 of 2) [facility] Comment on above: Postponed from 03/19 (Patient Refused) Start: 04-08-2023 Medicare Annual Well ness Visit Medicare Annual Wellness Visit [facility] Start: 03-23-2023 End: 03-23-2023 ambulatory 03/23/2023 9:20 AM EST Support Visit [facility] - [facility] [address] [place] [id number] Ismael Bonilla, DO [address] [place] [address] [facility] Start: 01-13-2023 Screening for malign ant neoplasm of breast Mammogram [facility] Start: 11-07-2022 Influenza vaccination Influenza Vacc ine (#1) [facility] Start: 2016 Pneumococcal Vaccine : 65+ Years (1 - PCV) Pneumococcal Vaccine: 65+ Years (1 - PCV) [facility] Start: 1970 Administration of varicella zoster vaccine Zoster (Shingles) Vaccine (1 of 2) [facility] Start: 1970 DTaP,Tdap and Td Vaccines (1 - Tdap) DTaP,Tdap and Td Vaccines (1 - Tdap) [facility] Start: 1969 Adult BMI Follow Up Plan Adult BMI Follow Up Plan [facility] [employer] [facility] Start: 1950 Screening for malign ant neoplasm of colon [facility] Colonoscopy flx dx w/collj spec when pfrmd COLONOSCOPY DIAGNOSTIC / SCREENING Colon cancer screening Neoplasm of unspecified behavior of digestive system [facility] [employer] [facility] Payers Date Payer Category Payer Self-pay [id number] 2022 Medicare [employer]AGE [id number] 2022-Present [address] [place] [address] [id number] 2021 Unknown [employer] [id number] 2021-Present [phone] [address] [place] [address] [id number] .[id number] 1959 Medicare [id number] 1951 Unknown [id number] 2.16.840.1.620866.3.579.2.593 1951 Unknown [id number] 2.16.840.1.629911.3.579.2.593 1951 Unknown [id number] 2.16.840.1.279810.3.579.2.593 1951 Unknown [id number] 2.16.840.1.130568.3.579.2.593 1951 Unknown [id number] 2.16.840.1.682669.3.579.2.593 1951 Unknown [id number] 2.16.840.1.663585.3.579.2.593 1951 Unknown [id number] 2.16.840.1.810909.3.579.2.593 1951 Unknown [id number] 2.16.840.1.350734.3.579.2.593 1951 Unknown [id number] 2.16.840.1.072522.3.579.2.128 1951 Unknown [id number] 2.16.840.1.144211.3.579.2.128 1951 Unknown [id number] 2.16.840.1.841117.3.579.2.128 1951 Unknown [id number] 2.16.840.1.097918.3.579.2.125 1951 Unknown [id number] 2.16.840.1.582432.3.579.2.125 1951 Unknown [id number] 2.16.840.1.959665.3.579.2.125 1951 Unknown [id number] 2.16.840.1.166117.3.579.2.125 1951 Unknown [id number] 2.16.840.1.586598.3.579.2.125 1951 Unknown [id number] 2.16.840.1.010599.3.579.2.125 1951 Unknown [id number] 2.16.840.1.523040.3.579.2.125 1951 Unknown [id number] 2.16.840.1.731939.3.579.2.125 1951 Unknown [id number] 2.16.840.1.185125.3.579.2.125 1951 Unknown [id number] 2.16.840.1.823809.3.579.2.125 1951 Unknown [id number] 2.16.840.1.611396.3.579.2.125 9 1951 Unknown [id number] 2.16.840.1.677122.3.579.2.125 9 1951 Unknown [id number] 2.16.840.1.831200.3.579.2.125 9 1951 Unknown [id number] 2.16.840.1.230989.3.579.2.128 6 1951 Unknown [id number] 2.16.840.1.182135.3.579.2.128 6 1951 Unknown [id number] 2.16.840.1.842466.3.579.2.128 6 1951 Unknown [id number] 2.16.840.1.697975.3.579.2.128 6 1951 Unknown [id number] 2.16.840.1.171669.3.579.2.128 6 1951 Unknown [id number] 2.16.840.1.191062.3.579.2.128 6 Unknown [id number] Unknown [id number] 2.16.840.1.606565.3.579.2.531 Unknown [id number] 2.16.840.1.518003.3.579.2.531 Social History Date Type Detail Facility Tobacco smoking status MEIS Unknown if ever smoked [facility] Work Phone: Start: 1950 Sex Assigned At Female [facility] Start: 02-23-2023 End: 03-17-2023 Sex Assigned At [facility] Start: 01-01-2022 End: 11-13-2022 Tobacco smoking status NHIS Never smoked tobacco [facility] Start: 01-01-2022 End: 11-13-2022 Tobacco use and exposure Smokeless tobacco non-user [facility] Start: 02-23-2023 End: 04-30-2023 Alcohol intake Lifetime non-drinker (finding) [facility] [employer] [facility] Start: 02-23-2023 End: 03-17-2023 History of Social function [facility] Adolescent depressio n screening assessment 0 [facility] Start: 1950 Sex Assigned At Not on file P [facility] How often to you hav e a drink containing alcohol? Monthly or less [facility] How many standard drinks containing alcohol do you have on a typical day? 1 or 2 [facility] How often do you hav e 6 or more drinks on 1 occasion? Never [facility] Start: 11-13-2022 Alcohol Comment caffeine; 3-4 cups per day [facility] NEGATED: Highlighted rowStart: VIJAYA History of tobacco use Passive smoker [facility] Clinical Notes 01-14-2022 to 04-28-2023 [...] in at the main lobby of the [facility]- registration desk is straight ahead as soon as you walk in. Tell them you are here for surgery. 2. If you have a Living Will/Durable Power of Assistant Prosecuting Attorney for Health Care that is not on [...] after you have bathed. 5. NO nail kuwaiti/acrylic on at least one finger. If you are having a hand, wrist or foot surgery then all nail kuwaiti and artificial/acrylic nails must be removed from [...] please call the Preadmission Testing office at [phone], Mon.-Fri. 7 a.m.-3 p.m. Leave a voicemail [...] taking 0 days prior to procedure omega 2-mmg-wor-fish oil 1,200 (144-216) mg capsule Check with prescribing doctor for instructions polyethylene glycol (GAVILYTE-C) 240-22.72-6.72 -5.84 gram solution Stop taking 0 days prior to procedure pyrilamine-dextromethorphan 7.5-7.5 mg/5 mL liquid Stop taking 0 days prior to procedure sod sulf-pot chloride-mag sulf 1.479-0.188- 0.225 gram tablet Stop taking 0 days prior to procedure documented in this encounter [facility] 04-28-2023 Nurse Note Preoperative Education Checklist- General Surgery date: 04/29/23 Surgery time: 0900 Arrival time: 0800 1. Bring a photo ID and your insurance card with you the day of surgery. You will check in at the main lobby of the [facility] [place]- registration desk is straight ahead as soon as you walk in. Tell them you are here for surgery. 2. If you have a Living Will/Durable Power of Assistant Prosecuting Attorney for Health Care that is not on [...] after you have bathed. 5. NO nail kuwaiti/acrylic on at least one finger. If you are having a hand, wrist or foot surgery then all nail kuwaiti and artificial/acrylic nails must be removed from [...] please call the Preadmission Testing office at [phone], Mon.-Fri. 7 a.m.-3 p.m. Leave a voicemail [...] taking 0 days prior to procedure omega 8-vgg-lrp-fish oil 1,200 (144-216) mg capsule Check with prescribing doctor for instructions polyethylene glycol (GAVILYTE-C) 240-22.72-6.72 -5.84 gram solution Stop taking 0 days prior to procedure pyrilamine-dextromethorphan 7.5-7.5 mg/5 mL liquid Stop taking 0 days prior to procedure sod sulf-pot chloride-mag sulf 1.479-0.188- 0.225 gram tablet Stop taking 0 days prior to procedure [facility] [employer] [facility] 04-21-2023 History of Presen t illness Narrative Images from the original note were not included. HISTORY OF PRESENT ILLNESS: Peggy Bustamante is an 73 y.o. @ female. Chief complaint LT elbow injury Lt elbow fx doi/ 01/10/23. ~ 3 months s/p a fall (01/10/23) just walking and tripped and landed on elbow. Tx at [facility] ER. Elbow is doing well. She notes mild discomfort with overuse or heavy lifting. Overall she is happy with her progress. Denies N/T. Admits TYL bid for knee pain. Denies waking at night. Pt is RT handed. TX: [facility] ER/XR 01/10/23, CT [facility] 01/15/23 MEDICATION: Current Outpatient Medications on [...] Kamlesh Riojas D.O. documented in this encounter [facility] 04-09-2023 Telephone encounter Note PT Copay $35.00 [facility] 04-09-2023 Miscellaneous Notes PT Copay $35.00 documented in this encounter [facility] 03-23-2023 History of Presen t illness Narrative Peggy presents for a DEXA scan. She has no new problems to report. Her mother did not break her hip. She rarely drinks alcohol. She is not a smoker. documented in this encounter [facility] 03-17-2023 History of Presen t [...] in this encounter [facility] 07-21-2022 Evaluation note Encounter Date [...] Above note written by Khalif Farooq MA, Aquaculture Worker. Edited and approved by Dr. Andrew Agarwal MD. [facility] Other 05-04-2023 Evaluation note* Encounter Date Diagnosis [...] Above note written by Olinda Ruano LPN, Aquaculture Worker. Edited and approved by Dr. Andrew Agarwal [...] negative findings were considered in medical decision-making. [facility] Other 03-30-2023 NoteCONSULTATION CONSULTATION DATE: 06/05/2022 TO: [...] agrees to proceed with the outlined plan.[id number] NoteCONSULTATION PROCEDURE DATE: 03/18/2022 PREOPERATIVE DIAGNOSIS: Right [...] Post procedurally performed range of motion exercises.[facility] [id number] NoteCONSULTATION CONSULTATION DATE: 01/14/2022 CHIEF COMPLAINT: Bilateral [...] would like to proceed. CC: Amina Sorto [facility] noteNo assessment information availableOhiohealth Ctr Work Phone: Evaluation note* Diagnosis Other seasonal allergic rhinitis documented in [facility] encounter [facility]* Diagnosis Viral upper respiratory tract infection- Primary Acute upper respiratory infections of unspecified site documented in this encounter [facility]* Diagnosis Osteoporosis, postmenopausal- Primary Senile osteoporosis documented in this encounter [facility]* Diagnosis Closed displaced fracture of head of left radius with routine healing, subsequent encounter- Primary documented in this encounter [facility]* Diagnosis Arthritis of left knee- Primary documented in this encounter [facility]* Diagnosis Gastro-esophageal reflux disease without esophagitis Preop examination- Primary Unspecified pre-operative examination Hypertension, unspecified type Hypothyroidism (acquired) Unspecified hypothyroidism documented in this encounter [facility] SystemHistory general Narrative - Reported* Type Description Date Medical History hyperlipidemia Medical History osteoporosis Medical History osteoarthritis Medical History hypertension Surgical History appendectiomy Surgical History tubal Surgical History gall bladder removal Surgical History excision of lesion to left sarah [facility] Surgical History lithotripsy right kidney Hospitalization History see above [facility] Other InstructionsNot on filedocumented in [facility] encounter [facility]ructionsNot on filedocumented in this encounter [facility] SystemInstructionsNot on filedocumented in this encounter [facility] SystemInstructionsNot on filedocumented in this encounter [facility] SystemInstructionsNot on filedocumented in this encounter [facility] SystemReason for visit NarrativeSELF-REFERRAL APPROVED RIGOBERTO KNEE [facility] Plug.dj Other Summary Purpose Family History No Family [...] CREATED AUTHOR AUTHOR'S ORGANIZ ATION 06/14/2022 [facility] DATE CREATED AUTHOR AUTHOR'S ORGANIZ ATION 04/17/2023 [facility] DATE CREATED AUTHOR AUTHOR'S ORGANIZ ATION 05/05/2023 [facility] DATE CREATED AUTHOR AUTHOR'S ORGANIZ ATION 06/17/2023 [facility] EPIC DATE CREATED AUTHOR AUTHOR'S ORGANIZ ATION 09/28/2023 [facility] DATE CREATED AUTHOR AUTHOR'S ORGANIZ ATION 09/28/2023 [facility] Care Teams (unrecognized sec tion and content) [...] Provider Active Referral Self Attending Provider Active Shower Screen Installer Relationship Specialty Start Date End Date Amina Mendez, REHAB DIRECTOR OCCUPATIONAL THERAPIST-FLOOR HELPER [address] [id number] PCP - General Internal Medicine 12/09/21 Shower Screen Installer Relationship Specialty Start Date End Date Amina Mendez, REHAB DIRECTOR OCCUPATIONAL THERAPISTFLOOR HELPER [address] [place] [address] PCP - General Internal Medicine 12/09/21 Shower Screen Installer Relationship Specialty Start Date End Date Amina Mendez, REHAB DIRECTOR OCCUPATIONAL THERAPISTFLOOR HELPER [address] [place] [address] PCP - General Internal Medicine 12/09/21 Shower Screen Installer Relationship Specialty Start Date End Date Ismael Bonilla MD [address] [place] [address] PCP - General Family Medicine 11/25/22 Shower Screen Installer Relationship Specialty Start Date End Date Ismael Bonilla MD [address] [place] [address] PCP - General Family Medicine 11/25/22 Shower Screen Installer Relationship Specialty Start Date End Date Ismael Bonilla MD [address] [place] [address] PCP - General Family Medicine 11/25/22 Shower Screen Installer Relationship Specialty Start Date End Date Amina Mendez, REHAB DIRECTOR OCCUPATIONAL THERAPISTFLOOR HELPER [address] [place] [address] PCP - General Internal Medicine 12/09/21 Shower Screen Installer Relationship Specialty Start Date End Date Amina Mendez, FLOOR HELPER [address] [place] [address] PCP - General Internal Medicine 12/09/21 Goals [...] Therapy Diagnoses Arthritis of left knee Procedures ND OFFICE/OUTPATIENT [facility] 60 MINUTES Jasmine Riojas DO [address] [facility] [address] [place] [address] Carlos Last, PT [address] [facility] [address] [place] [address] Referral ID Status Reason Start Date Expiration Date Visits Requested Visits Authorized [id number] Authorized Specialty Services Required 04/07/2023 10/04/2023 99 [...] BE BASED ON THE PRIMARY CLINICAL RECORDS. [facility] [employer] [facility]. provides no warranty or guarantee of the accuracy or completeness of information in this document.
--- NOTE | 2023-10-22 11:44 | P.CN_ITS ---
Consult Note: HPI Data of Consult Patient: known to practice within the last 3 years Consult date: 11/24/22 Requesting Physician: Dena Ireland NP Primary Care Provider: FABRIZIO HASKINS Consult Narrative Reason for consult: bilateral knee pain Narrative: 72yof with history of bilateral knee pain who presents for assessment. has had various gel injections in the past, with little relief. continues to have bilateral knee pain. sees ortho, but she is trying to avoid knee replacement. continues in provider directed home exercises >6 weeks, with little relief. uses OTC pain medications as needed. Patient would like to discuss left knee pain, 5/10 today increasing to 8/10 with standing walking activity. Recently underwent left genicular nerve block with >50% improvement in left knee pain, also noticed significant functional improvement following the injection she was able to walk up steps and ambulate without assistance. Left genicular RFA denied by insurance. Recent right knee synvisc 1 injection providing mild to moderate ongoing relief. cc:: CC: Dena Ireland NP Review of Systems ROS Status of ROS 10 or more systems reviewed and unremark able except as noted in history and below Musculoskeletal Reports: joint pain PFSH PFSH Medical History Status post extracorporeal shock wave therapy ?Z98.890 - Other specified postprocedural states (ICD-10) Osteoarthritis ?M19.90 - Unspecified osteoarthritis, unspecified site (ICD-10) Acid reflux ?K21.9 - Gastro-esophageal reflux disease without esophagitis (ICD-10) High cholesterol ?E78.00 - Pure hypercholesterolemia, unspecified (ICD-10) Hypertension ?I10 - Essential (primary) hypertension (ICD-10) Surgical History Hx of appendectomy ?Z90.49 - Acquired absence of other specified parts of digestive tract (ICD- 10) History of cholecystectomy ?Z90.49 - Acquired absence of other specified parts of digestive tract (ICD- 10) H/O tubal ligation ?Z98.51 - Tubal ligation status (ICD-10) Meds Home Medications and Allergies Home Medications ?Medication ?Instructions ?Recorded ?Confirmed ?Type acetaminophen 500 mg capsule 1,000 mg PO Q6H PRN pain 09/05/22 10/13/23 History celecoxib 100 mg capsule (Celebrex) 100 mg PO DAILY 09/05/22 10/13/23 History ezetimibe 10 mg-simvastatin 80 mg 1 tab PO DAILY 09/05/22 10/13/23 History tablet (Vytorin) omega 0-myx-gdb-fish oil 1,000 mg 1 cap PO DAILY 09/05/22 10/13/23 History (120 mg-180 mg) capsule (Fish Oil) cetirizine 5 mg-pseudoephedrine ER tab PO 06/25/23 History 120 mg tablet,extended release,12hr (Allergy Relief-D (cetirizine)) lisinopril 5 mg tablet 5 mg QDAY 06/25/23 History Allergies Allergy/AdvReac Type Severity Reaction Status Date / Time cephalexin [From Keflex] Allergy Rash Verified 10/13/23 07:40 meperidine [From Demerol] Allergy Nausea Verified 10/13/23 07:40 propoxyphene Allergy Vomiting Verified 10/13/23 07:40 [From Darvocet-N 100] acetaminophen AdvReac Mild Vomiting Verified 10/13/23 07:40 [From Darvocet-N 100] Exam Narrative Exam Narrative: Extremities-lower extremities are warm with minimal edema and palpable pulses. Knee-examination of the bilateral knee reveals tenderness to palpation over the superior, inferior, lateral, and medial aspect of the knee.? Some swelling is noted without erythema. Pain is elicited with flexion and extension of the knee both actively and passively.? Some grinding is noted with these motions.? There is no notable ligamental laxity or instability.? Constitutional Documenting provider has reviewed patient's vital signs: yes Common normals: no apparent distress, oriented x3, healthy appearing, alert and well nourished General appearance: cooperative [facility] Common normals: normocephalic, hearing grossly normal bilaterally and moist oral mucous membranes Head and scalp: normocephalic Eye Common normals: PERRL Pupil: PERRL Neck & C-Spine Common normals: full ROM General: normal visual inspection Chest Common normals: inspection of chest normal Respiratory Common normals: normal respiratory effort, no retractions and no use of ac cessory muscles Neuro Common normals: oriented x3, CN's II-XII intact bilaterally, moves all extremities, no focal motor deficits, no sensory deficits noted and deep tendon reflexes 2+ bilaterally Sensorium/orientation: alert Motor exam: strength 5/5 throughout and no movement abnormalities noted Psych Common normals: mental status grossly normal, thought process normal, cooperative, affect normal, speech normal and activity/motor behavior normal Speech: normal speech Thought process: normal thought process Results Additional Findings Additional findings: If on a controlled substance or opioids, I have checked an [place]AR[place] report on this patient and there are no aberrancies noted in the prescribing history.??If on a controlled substance or opioid a drug screen was completed and reviewed within the last year, and if there has not been a drug screen completed we ordered one today to monitor higher risk, state monitored pain medication use. As part of providing excellent, safe, comprehensive care, the following was completed at our patient's visit: 1. A medication reconciliation and review to ensure accurate knowledge of current/active medications, including asking our patients to inform us about any tdwe-stb-dwztowd medications or herbal remedies/nutritional supplements/alternative remedies. 2. A review to specifically ensure our patients have had annual screening for screening for depression, screening for tobacco use, and screening for unhealthy alcohol use. For concerning screenings had a discussion with the patient, provided patient education, and recommended follow-up with primary care provider when appropriate. If patient noted with a risk of falling, they received education on strength, gait, and balance training to prevent future risk of falling. Assessment and Plan Assessment and Plan (1) Bilateral knee pain: (2) Bilateral primary osteoarthritis of knee: (3) Muscle spasm: Plan increase celebrex 100mg BID PRN, risks vs benefits reviewed. denies side effects f/u 3 months, sooner if needed
== END 2023-10-22 11:23 | disposition home or self-care (01) ==
LOC: PM 11:23
PROVIDERS: PCP Family Medicine; Visit Provider Nurse Practitioner
DX: M25.561 Pain in right knee (principal); M25.562 Pain in left knee; M17.0 Bilateral primary osteoarthritis of knee; M62.838 Other muscle spasm
CPT/HCPCS: G0463

== ENCOUNTER 2024-09-23 08:01 | Outpatient (OUT) | payer MEDICARE, SELFPAY ==
--- OUTSIDE RECORDS SUMMARY | 2024-09-23 08:15 | XMS_ITS | Clinical Summary ---
Author Organization [employer] [facility] tem Address [id number] [address] [place] [address] Care Team Providers Care Primary Counselor Name Role Phone Unavailable Primary Care Provider Unavailabl e Allergies Active Allergy Reactions Criticality Noted Date Comments Cephalexin Rash Low 05/21/2021 Meperidine Nausea Low 05/21/2021 Demerol Propoxyphene N-Acetaminophen Vomiting Low 022 Darvocet Medications esomeprazole (NexIUM) 20 mg capsuleIndications :Gastro-esophageal reflux disease without esophagitis Take 1 capsule (20 mg total) by mouth every morning. 30 capsule 10 4 Active carboxymethylcellu lose sodium (RESTORE PLUS, CMCELLULOSE, OPHT) Instill to eye in the morning. Active ARTHRITIS PAIN, DICLOFENAC, 1 % gel 5 Active celecoxib (CeleBREX) 200 mg capsuleIndications :Arthritis of left knee Take 1 capsule (200 mg total) by mouth in the morning. 90 capsule 1 5 Active ezetimibe-simvasta tin (VYTORIN) 10-80 mg per tabletIndications: Mixed hyperlipidemia Take 1 tablet by mouth nightly. 90 tablet 3 5 Active lisinopriL (PRINIVIL,ZESTRIL) 5 mg tabletIndications: Essential hypertension Take 1 tablet (5 mg total) by mouth in the morning. 90 tablet 3 5 Active brompheniramine-ps eudoeph-DM 2-30-10 mg/5 mL syrupIndications:A cute cough Take 5 mL by mouth 3 (three) times a day as needed for cough or congestion. 120 mL 5 Active baclofen (LIORESAL) 10 mg tabletIndications: Muscle spasm Take 1 tablet (10 mg total) by mouth daily as needed for muscle spasms. 90 tablet 1 5 Active cetirizine-pseudoe phedrine (ALLERGY RELIEF-D, CETIRIZINE,) 5-120 mg per 12 hr tabletIndications: Acute bacterial sinusitis Take 1 tablet by mouth in the morning and at bedtime. 60 tablet 5 Active diclofenac sodium (VOLTAREN) 1 % gelIndications:Art hritis of both knees Apply topically 3 (three) times a day as needed (pain). 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 Polyp of transverse colon 04/29/2023 Colon cancer screening 04/16/2023 Arthritis of left knee 01/13/2023 Arthritis of right knee 12/11/2021 Benign neoplasm of left breast 12/11/2021 Bilateral sensorineural hearing loss 12/11/2021 Tinnitus 12/11/2021 Internal derangement of left knee 12/11/2021 Hyperlipidemia Essential hypertension Hypothyroidism (acquired) Encounters Date Type Department Care Team Description 09/19/2024 Orders Only [facility] [address] [place] [phone] Ismael Bonilla, Essential hypertension (Primary Dx); Mixed hyperlipidemia; Hypothyroidism (acquired) 09/13/2024 Telephone [facility] [address] [place] [phone] Alia Reese CMA 08/15/2024 Refill [facility] [address] [place] [phone] Chely Lynch CMA Arthritis of both knees 08/11/2024 Refill [facility] [address] [place] [phone] Alia Reese CMA Muscle spasm; Acute bacterial sinusitis 08/10/2024 Refill [facility] [address] [place] [address] Viviane Kendrick APRN-CNP Acute bacterial sinusitis 07/12/2024 Refill [facility] [address] [place] [address] Chely Lynch [facility] Acute cough 07/07/2024 Telephone [facility] [address] [place] [address] Johnathan Aguirre [facility] 07/04/2024 2:40 PM EDT Office Visit [facility] [address] [place] [address] Viviane Kendrick APRN-DREW Acute bacterial sinusitis (Primary Dx); Acute cough; Muscle spasm 07/04/2024 Travel from Last 3 Months Family History Medical History Relation Name Comments Lung cancer Brother Heart attack Father Heart failure Father Prostate cancer Father Colon cancer Mother Heart attack Mother Breast cancer Sister Colon cancer Sister Relation Name Status Comments Brother Father Mother Sister Social History Tobacco Use Types Packs/Day Years Used Date Smoking Tobacco: Never Passive Smoke Exposure: Never Smokeless Tobacco: Never Tobacco Cessation:Counseling Given: Not Answered Alcohol Use Standard Drinks/Week Comments Never 0 (1 standard drink = 0.6 oz pur e alcohol) [employer] Utilities Answer Date Recorded In the past 12 months has [email or web address], oil, or water [employer] threatened to shut off services in your home? No 12/22/2023 AUDIT-C Answer Date Recorded Q1: How often do you have a drink containing alc ohol? Monthly or less 03/23/2023 Q2: How many drinks containi ng alcohol do you have on a typical day when you are drinking? 1 or 2 03/23/2023 Q3: How often do you have si x or more drinks on one occasion? Never 03/23/2023 PHQ-2 Answer Date Recorded Total Score 0 07/04/2024 PRAPARE - Transportation Answer Date Re corded In the past 12 months, has l ack of transportation kept you from medical appointments or from getting medications? No 12/07 In the past 12 months, has l ack of transportation kept you from meetings, work, or from getting things needed for daily living? No 12/22/2023 Housing Instability Answer Date Recorde d Are you worried or concerned that in the next two months you may not have stable housing that you own, rent or stay in as a part of a household? No 12/22/2023 Childcare Answer Date Recorded Childcare Unknown 08/18/2018 Employment Answer Date Recorded Employment Unknown 08/18/2018 Hunger Screening Answer Date Recorded Within the past 12 months we worried whether our food would run out before we got money to buy more. Never True 07/04/2024 Within the past 12 months th e food we bought just didn't last and we didn't have money to get more. Never True 07/04/2024 Comments No Sex and Gender Information Value Date Recorded Sex Assigned at Not on file Legal Sex Female 11:45 AM EDT Gender Identity Not on file Sexual Orientation Not on file Last Filed Vital Signs Vital Sign Reading Time Taken Comments Blood Pressure 142/70 07/04/2024 2:39 PM EDT Pulse 107 07/04/2024 2:39 PM EDT Temperature 37.2 C (99 F) 07/04/2024 2:39 PM EDT Respiratory Rate 20 07/04/2024 2:39 PM EDT Oxygen Saturation 97% 07/04/2024 2:39 PM EDT Inhaled Oxygen Concentration - - Weight 82 kg (180 lb 11.2 oz) 07/04/2024 2:39 PM EDT Height 161.3 cm (5' 3.5 ) 07/04/2024 2:39 PM EDT Body Mass Index 31.5 07/04/2024 2:39 PM EDT Plan of Treatment Health Maintenance Due Date Last Done Comments DTaP,Tdap and Td Vaccines (1 - Tdap) 1969 Zoster (Shingles) Vaccine (1 of 2) 1969 Mammogram 03/15/2025 03/15/2024, 02/06, 01/13/2022, Additional history exists Medicare Annual Wellness Visit 04/27/2025 04/27/2024 , 04/08/2022 Adult BMI Follow Up Plan 07/04/2025 07/04/2024 Adult BMI Screening 07/04/2025 07/04/2024 Depression Screening 07/04/2025 07/04/2024 Fall Risk Screening 07/04/2025 07/04/2024 Tobacco Screening 07/04/2025 07/04/2024 COVID-19 Vaccine Discontinued 05/13/2021, 10/2020, 10/24/2020 Influenza Vaccine Discontinued Goals Goal Patient Goal Type Associated Problems Recent Progress Patient-Stated? Author Home with [employer] 360 General Yes Jeny Fish, RN Note: Evaluation of progress towards goal: Home with [employer] 360 therapy Medical Devices Implanted Type Area Investment Officer Device Identifier Shelf Expiration Date Model / Serial / Lot Cement Bn Bio 40gm Rpl [id number] - Sna - [id number] Implanted:Qty: 1 on 12/22/2023 by Haris Sosa Jr., DO at [facility] Cement Left: Knee [employer] [id number] 02/05/2026 [id number] / NA / [id number] Cement Bn Bio 40gm Rpl [id number] - Sna - [id number] Implanted:Qty: 1 on 12/22/2023 by Haris Sosa Jr., DO at [facility] Cement Left: Knee [employer] [id number] 01/06/2026 [id number] / NA / [id number] Insert Artc 3-4 C-D 10mm Kn Fx Brng Prlng Nxgn Lpsflx Strl Rpl [id number] - Sna - [id number] Implanted:Qty: 1 on 12/22/2023 by Haris Sosa Jr., DO at [facility] Orthopedic Implant Left: Knee [employer] [id number] 04/19/2028 00-5962-030 -10 / NA / [id number] Component Ptlr 29mm Persona Alply Kn Strl Lf - Sna - [id number] Implanted:Qty: 1 on 12/22/2023 by Haris Sosa Jr., DO at [facility] Orthopedic Implant Left: Knee [employer] [id number] 08/25/2028 42-5400-000 -29 / NA / [id number] Component Fem D Kn Lt Lpsflx Gndr Jessika? Nxgn Cocr Rpl [id number] - Sna - [id number] Implanted:Qty: 1 on 12/22/2023 by Haris Sosa Jr., DO at [facility] Orthopedic Implant Left: Knee [employer] [id number] 11/07/2032 [id number] -51 / NA / [id number] Plate Tib [id number] Nxgn Kn Cmnt Mdlr Stm Prect 4 Tiv Pmma Rpl [id number] + [id number] - Sna - [id number] Implanted:Qty: 1 on 12/22/2023 by Haris Sosa Jr., DO at [facility] Plate Left: Knee [employer] [id number] 08/25/2033 [id number] -02 / NA / [id number] Explanted Type Area Investment Officer Device Identifier Shelf Expiration Date Model / Serial / Lot Screw Gd 48mm Qd-Spr Hex Hd Mis Strl - Sna - [id number] Explanted:Qty: 1 on 12/22/2023 by Haris Sosa Jr., DO at [facility] Screw Left: Knee [employer] 09/20/2033-5983-040 -48 / NA / [id number] Screw Gd 48mm Qd-Spr Hex Hd Mis Strl - Sna - [id number] Explanted:Qty: 1 on 12/22/2023 by Haris Sosa Jr., DO at [facility] Screw Left: Knee [employer] 09/21/2033-5983-040 -48 / NA / [id number] Screw Bn 35mm 6.5mm St Hip Actb Trlg Strl Rpl [id number] - Sna - [id number] Explanted:Qty: 2 on 12/22/2023 by Haris Sosa Jr., DO at [facility] Screw Left: Knee [employer] 09/28/2033 [id number] -35 / NA / [id number] Procedures Procedure Name Priority Date/Time Associated Diagnosis Comments POCT INFLUENZA A/INFLUENZA B/SARS-COV-2 VERITOR Routine 07/04/2024 3:02 PM EDT Acute cough HM MAMMOGRAPHY Routine 03/15/2024 9:50 AM EST from Last 3 Months or Most Recently Relevant to Health Maintenance Results * POCT Influenza A/Influenza B/SARS-COV-2 Veritor (07/04/2024 3:02 PM EDT) External Poct Influenza A Antigen Negative MANUALLY TRANSCRIBED RESULTS External Poct Influenza B Antigen Negative MANUALLY TRANSCRIBED RESULTS External POCT SARS COV 2 Veritor Presumptive Negative MANUALLY TRANSCRIBED RESULTS Swab 07/04/2024 3:02 PM EDT us Viviane Kendrick MARKER SHIPMENTS-PLASTIC MOULD MAKER POINT OF CARE TEST O RDERABLES Final Result MANUALLY TRANSCRIBED RESULTS * HM MAMMOGRAPHY (03/15/2024 9:50 AM EST) Anatomical Region Laterality Modality Other us Not In System Ref Prov HEALTH MAINTENANCE Final Result from Last 3 Months or Most Recently Relevant to Health Maintenance Insurance [employer] MEDICARE Advance Directives * Full Code (Latest Code Status on File) Date Activated Date Inactivated Comments 12/22/2023 3:59 PM 12/23/2023 3:43 PM * Full Code Date Activated Date Inactivated Comments 12/21/2023 12:39 PM 12/22/2023 3:59 PM
--- OUTSIDE RECORDS SUMMARY | 2024-09-23 08:15 | XMS_ITS | Clinical Summary ---
Author Organization [facility] Address [address] [place] [address] Care Team Providers Care Licensed Massage Practitioner Name Role Phone Ismael Bonilla MD Primary Care Provider [phone] Allergies Active Allergy Reactions Criticality Noted Date Comments Cephalexin Unknown 11/24/2022 Meperidine Nausea Only Low 05/21/2021 Meperidine Hcl Unknown 11/24/2022 Propoxyphene Unknown,GI intolerance Low 05/21/2021 Darvocet Medications celecoxib (CeleBREX) 200 MG capsule Take 200 mg by mouth Daily Active esomeprazole (NexIUM) [address] capsule Take 40 mg by mouth in the morning. Take before meals. Active ezetimibe-simva statin (Vytorin) 10-80 MG tablet Take 1 tablet by mouth Daily 08/21/2022 Active lisinopril 5 MG tablet Take 5 mg by mouth in the morning. 01/01/2022 Active omega-3 (Fish Oil) 1200 MG capsule Take 1,200 mg by mouth Daily Active acetaminophen (Tylenol) 325 MG tablet Take by mouth Active Travel-Ease 25 MG tablet 02/23/2023 Active GoodSense Arthritis Pain 1 % gel Active Allergy Relief/Nasal Decongest 5-120 MG 12 hr tablet Take 1 tablet by mouth every 12 (twelve) hours 06/13/2023 Active baclofen (Lioresal) 10 MG tablet Daily as needed Active aspirin 81 MG chewable tablet Chew 81 mg in the morning and 81 mg in the evening. 12/22/2023 Active Active Problems Problem Noted Date Diagnosed Date Atypical ductal hyperplasia of left breast 08/12 Acute postoperative pain of left knee 12/27/2023 Status post left knee replacement 12/27/2023 Difficulty walking 12/27/2023 Screening mammogram for high-risk patient 2022 Essential hypertension 01/13/2023 Hyperlipidemia 01/13/2023 Hypothyroidism (acquired) 01/13/2023 Arthritis of both knees 01/13/2023 Arthritis of left knee 01/13/2023 Osteoarthritis of knee 01/13/2023 Primary osteoarthritis 01/13/2023 Benign neoplasm of left breast 12/11/2021 Arthritis of right knee 12/11/2021 Internal derangement of left knee 12/11/2021 Bilateral sensorineural hearing loss 12/11/2021 Tinnitus 12/11/2021 Encounters Date Type Department Care Team Description 08/15/[address] [facility] [address] [place] [address] Tate Hunter, 08/12/2024 10:15 AM EDT Office Visit [facility] [address] [place] [address] Tate Hunter H, DO Screening mammogram for high-risk patient (Primary Dx); Atypical ductal hyperplasia of left breast 08/12/2024 Travel 08/08/2024 9:45 AM EDT Office Visit [facility] [place] [address] Germán Saldaña NP Status post total knee replacement, left (Primary Dx); Acute pain of left knee 08/08/2024 9:35 AM EDT Ancillary Procedure [facility] [place] [address] 08/08/2024 Bamboo flowsheet [facility] [place] [place] [address] Germán Saldaña NP 08/08/2024 Travel 07/20/2024 Travel from Last 3 Months Family History Medical History Relation Name Comments Asthma Father Heart disease Father Prostate cancer Father Asthma Father's Brother Heart disease Father's Brother Hypertension Father's Brother Hyperlipidemia Maternal Grandfather Cancer Maternal Grandmother Heart disease Maternal Grandmother Hypertension Maternal Grandmother Colon cancer Mother Heart disease Mother Hypertension Mother Cancer Mother's Brother Diabetes Mother's Brother Heart disease Mother's Brother Hypertension Mother's Brother Diabetes Mother's Sister Heart disease Mother's Sister Hypertension Mother's Sister Heart disease Paternal Grandfather Hypertension Paternal Grandfather Asthma Sibling Cancer Sibling Diabetes Sibling Hypertension Sibling Breast cancer Sister Colon cancer Sister Ovarian cancer Neg Hx Relation Name Status Comments Father Father's Brother Maternal Grandfather Maternal Grandmother Mother Mother's Brother Mother's Sister Paternal Grandfather Sibling 1 brother, 1 si ster Sister Social History Tobacco Use Types Packs/Day Years Used Date Smoking Tobacco: Never Smokeless Tobacco: Never Tobacco Cessation:Counseling Given: Not Answered Alcohol Use Standard Drinks/Week Comments Yes 0 (1 standard drink = 0.6 oz pure alcohol) caffeine; 3-4 cups per day - alcohol very rarely Comments Unknown Sex and Gender Information Value Date Recorded Sex Assigned at Not on file Legal Sex Female 6:38 PM EDT Gender Identity Not on file Sexual Orientation Not on file Occupation Industry Job Start Date Job End Date Retired Not on file Not on file Not on file Last Filed Vital Signs Vital Sign Reading Time Taken Comments Blood Pressure 140/84 08/12/2024 10:32 AM EDT Pulse - - Temperature - - Respiratory Rate - - Oxygen Saturation - - Inhaled Oxygen Concentration - - Weight 81.2 kg (179 lb) 08/12/2024 10:32 AM EDT Height 160 cm (5' 3 ) 08/12/2024 10:32 AM EDT Body Mass Index 31.71 08/12/2024 10:32 AM EDT Plan of Treatment Upcoming Encounters Date Type Department Care Team (Late st Contact Info) Description 10/11/2024 10:15 AM EDT Office Visit [facility] [address] [address] Jr. Haris Sosa, [address] [facility] [address] [place] [address] 08/07/2025 10:00 AM EDT Office Visit [facility] [place] [address] Germán Saldaña, [place] [address] [place] [address] Health Maintenance Due Date Last Done Comments CT Colonography 1951 FIT-DNA 1950 FIT 1950 FOBT 1950 Sigmoidoscopy 1950 Pneumococcal Vaccine: 65+ Ye ars (1 of 1 - PCV) 2001 Influenza Vaccine (#1) 2024 Mammogram 03/15/2025 03/15/2024, 11/0 09/2021, 01/11/2021, Additional history exists Colonoscopy 04/29/2033 04/29/2023, 04/29/2023 Colorectal Cancer Screening 04/29/2033 Procedures Procedure Name Priority Date/Time Associated Diagnosis Comments XR KNEE 1-2 VIEWS LEFT Routine 08/08/2024 9:30 AM EDT Acute pain of left knee MAMM SCREENING W CAD Routine 03/15/2024 11:08 AM EST from Last 3 Months or Most Recently Relevant to Health Maintenance Results * XR knee 1 or 2 views left (08/08/2024 9:30 AM EDT) Anatomical Region Laterality Modality Lower Extremities, Knee Left Radiogra [facility] Imaging Narrative 08/08/2024 11:28 AM EDT Imaging Result: 08/08/2024: Standing AP and LAT of left knee showed surgical position and alignment of prosthetic components without evidence of loosening or wear to the femoral, tibial, or patellar components. The alignment appeared to be anatomic. There was no evidence of accelerated or asymmetric wear to the patellar button or tibial tray. There was no evidence of fracture and/or dislocation. Impression: Stable LT total knee replacement. Germán Saldaña SCIENCE TECHNICIAN-MICROARRAY ANALYST us Germán Saldaña COLLATOR IMG XR PROCEDURES Final Result * MAMM SCREENING W CAD (03/15/2024 11:08 AM EST) Anatomical Region Laterality Modality Radiographic Lizbeth ging Tate Hunter DO IMG XR PROCEDURES Final R esult from Last 3 Months or Most Recently Relevant to Health Maintenance Insurance [employer] Care Teams Licensed Massage Practitioner Relationship Specialty Start Date End Date Ismael Bonilla MD [address] [facility], [place] [address] PCP - General Family Medicine 07/20/24
--- OUTSIDE RECORDS SUMMARY | 2024-09-23 08:15 | XMS_ITS | Encounter Summary ---
Author Organization [facility] [employer] [facility] tem Address [id number] [address] [place] [address] Care Team Providers Care Gum Dipper Name Role Phone Unavailable Primary Care Provider Unavailabl e Encounter Details Date Type Department Care Team (Late st Contact Info) Description 09/19/2024 Orders Only [facility] - [facility] Medicine [address] [place] [phone] Ismael Bonilla, DO [address] [facility], [place] [address] Essential hypertension (Primary Dx); Mixed hyperlipidemia; Hypothyroidism (acquired) Social History Tobacco Use Types Packs/Day Years Used Date Smoking Tobacco: Never Passive Smoke Exposure: Never Smokeless Tobacco: Never Alcohol Use Standard Drinks/Week Comments Never 0 (1 standard drink = 0.6 oz pur e alcohol) C Utilities Answer Date Recorded In the past 12 months has [employer], oil, or water [employer] threatened to shut off services in your [...] on file Sexual Orientation Not on file documented as of this encounter Plan of Treatment Scheduled Orders Name Type Priority Associated Diagnoses Orde r Schedule Comprehensive metabolic panel Lab Routine Essential hypertension 1 Occurrences starting 09/19/2024 until 09/19/2025 Lipid profile Lab Routine Mixed hyperlipidemia 1 Occurrences starting 09/19/2024 until 09/19/2025 TSH with Reflex Lab Routine Hypothyroidism (acquired) 1 Occurrences starting 09/19/2024 until 09/19/2025 documented as of this encounter Goals Goal Patient Goal Type Associated Problems Recent Progress Patient-Stated? Author Home with CHERYL Lara General Yes Jeny Fish, RN Note: Evaluation of progress towards goal: Home with CHERYL Lara therapy documented as of this encounter Visit Diagnoses Diagnosis Essential hypertension- Primary Unspecified essential hypertension Mixed hyperlipidemia Hypothyroidism (acquired) Unspecified hypothyroidism documented in this encounter Additional Health Concerns Assessment Noted Time PHQ-9 Depression Total Score: 0 07/05/19 25 2:37 PM EDT A Body Mass Index follow-up plan has been documented for the patient 07/04/2024 3:26 PM EDT documented as of this encounter
--- OUTSIDE RECORDS SUMMARY | 2024-09-23 08:15 | XMS_ITS | Encounter Summary ---
Author Organization [facility] [employer] Address [id number] [address] [place] [address] Care Team Providers Care Rehabilitation Attendant Name Role Phone Ismael Bonilla Chloe BURRIS Primary Care Provider + [phone] Encounter Details Date Type Department Care Team (Late st Contact Info) Description 12/20/2021 Telephone [facility] - [facility] Medicine [address] [place] [phone] Alia Reese CMA Social History Tobacco Use Types Packs/Day Years Used Date Smoking Tobacco: Never Smokeless Tobacco: Never Alcohol Use Standard Drinks/Week Comments Never 0 (1 standard drink = 0.6 oz pur e alcohol) Childcare Answer Date Recorded Childcare Unknown 08/18/2018 Employment Answer Date Recorded Employment Unknown 08/18/2018 Comments Unknown Sex and Gender Information Value Date Recorded Sex Assigned at Not on file Legal Sex Female 11:45 AM EDT Gender Identity Not on file Sexual Orientation Not on file COVID-19 Exposure Response Date Recorded In the last month, have you been in contact with someone who was confirmed or suspected to have Coronavirus / COVID-19? No / Unsure 12/11/2021 10:54 AM EDT documented as of this encounter Miscellaneous Notes * Telephone Encounter - Alia Reese CMA - 12/20/2021 10:23 AM EDT Can you send the labs you wanted done to the [facility]? documented in this encounter Plan of Treatment Not on file documented as of this encounter Visit Diagnoses Not on filedocumented in this encounter Care Teams Rehabilitation Attendant Relationship Specialty Start Date End Date Ismael Bonilla DO [address] [place], [facility] [place] [address] PCP - General Family Medicine 09/12/24 09/13/24 documented as of this encounter
--- OUTSIDE RECORDS SUMMARY | 2024-09-23 08:15 | XMS_ITS | Encounter Summary ---
Author Organization [facility] Sys tem Address [id number] [address] [place] [address] Care Team Providers Care Wire Rigger Name Role Phone Ismael Bonilla Primary Care Provider + [phone] Encounter Details Date Type Department Care Team (Late st Contact Info) Description 01/15/2023 Orders Only [facility] - Family Medicine [address] [place] [phone] External, Scanning Provider Social History Tobacco Use Types Packs/Day Years Used Date Smoking Tobacco: Never Passive Smoke Exposure: Never Smokeless Tobacco: Never Alcohol Use Standard Drinks/Week Comments Never 0 (1 standard drink = 0.6 oz pur e alcohol) PHQ-2 Answer Date Recorded Total Score 0 12/26/2022 Childcare Answer Date Recorded Childcare Unknown 08/18/2018 Employment Answer Date Recorded Employment Unknown 08/18/2018 Hunger Screening Answer Date Recorded Within the past 12 months we worried whether our food would run out before we got money to buy more. Never True 12/26/2022 Within the past 12 months th e food we bought just didn't last and we didn't have money to get more. Never True 12/26/2022 Comments Unknown Sex and Gender Information Value Date Recorded Sex Assigned at Not on file Legal Sex Female 11:45 AM EDT Gender Identity Not on file Sexual Orientation Not on file documented as of this encounter Plan of Treatment Not on file documented as of this encounter Procedures Procedure Name Priority Date/Time Associated Diagnosis Comments CT ELBOW LT W WO CONT Routine 01/15/2023 1:29 PM EST documented in this encounter Results * CT elbow left with and without contrast (01/15/2023 1:29 PM EST) Anatomical Region Laterality Modality MSK, Upper Extremities, Elbow, MSK Covera Left Computed Tomography us Scanning Provider External IMG CT ORDERABLES Fin al Result documented in this encounter Visit Diagnoses Not on filedocumented in this encounter Additional Health Concerns Assessment Noted Time PHQ-9 Depression Total Score: 0 12/27/19 23 11:15 AM EDT documented as of this encounter Care Teams Wire Rigger Relationship Specialty Start Date End Date Ismael Bonilla DO [address] [facility], [place] [address] PCP - General Family Medicine 09/12/24 09/13/24 documented as of this encounter
--- OUTSIDE RECORDS SUMMARY | 2024-09-23 08:15 | XMS_ITS | Encounter Summary ---
Author Organization [facility] Sys tem Address [id number] [address] [place] [address] Care Team Providers Care Organisational Psychologist Name Role Phone Ismael Bonilla Primary Care Provider + [phone] Encounter Details Date Type Department Care Team (Late st Contact Info) Description 03/16/2024 Orders Only [facility] Internal Medicine - Family Medicine [address] [place] [phone] Ref Prov, [place] [address] Social History Tobacco Use Types Packs/Day Years Used Date Smoking Tobacco: Never Passive Smoke Exposure: Never Smokeless Tobacco: Never Alcohol Use Standard Drinks/Week Comments Never 0 (1 standard drink = 0.6 oz pur e alcohol) [facility] Utilities Answer Date Recorded In the past 12 months has langtaojin, gas, oil, or water [employer] threatened to shut off services in your [...] PHQ-2 Answer Date Recorded Total Score 0 12/17/2023 PRAPARE - Transportation Answer Date Re corded [...] got money to buy more. Never True 12/22/2023 Within the past 12 months th e food we bought just didn't last and we didn't have money to get more. Never True 12/22/2023 Comments No Sex and Gender Information Value Date Recorded Sex Assigned at Not on file Legal Sex Female 11:45 AM EDT Gender Identity Not on file Sexual Orientation Not on file documented as of this encounter Plan of Treatment Not on file documented as of this encounter Goals Goal Patient Goal Type Associated Problems Recent Progress Patient-Stated? Author Home with CHERYL Lara General Yes Jeny Fish, RN Note: Evaluation of progress towards goal: Home with CHERYL Lara therapy documented as of this encounter Procedures Procedure Name Priority Date/Time Associated Diagnosis Comments MAMMOGRAPHY Routine 03/15/2024 9:50 AM EST documented in this encounter Results * MAMMOGRAPHY (03/15/2024 9:50 AM EST) Anatomical Region Laterality Modality Other us Not In System Ref Prov HEALTH MAINTENANCE Final Result documented in this encounter Visit Diagnoses Not on filedocumented in this encounter Additional Health Concerns Assessment Noted Time PHQ-9 Depression Total Score: 0 12/17/19 24 1:43 PM EDT A Body Mass Index follow-up plan has been documented for the patient 12/17/2023 2:09 PM EDT documented as of this encounter Care Teams Organisational Psychologist Relationship Specialty Start Date End Date Ismael Bonilla DO [address] [facility] [place] [address] PCP - General Family Medicine 09/12/24 09/13/24 documented as of this encounter
--- OUTSIDE RECORDS SUMMARY | 2024-09-23 08:15 | XMS_ITS | Encounter Summary ---
Author Organization [facility] Sys tem Address [id number] [address] [place] [address] Care Team Providers Care Network Communications Engineer Name Role Phone Ismael Bonilla Primary Care Provider + [phone] Encounter Details Date Type Department Care Team (Late st Contact Info) Description 03/23/2023 Orders Only [facility] Internal [facility] - Family Medicine [address] [place] [address] Chely Lynch CMA Asymptomatic menopausal state Social History Tobacco Use Types Packs/Day Years Used Date Smoking Tobacco: Never Passive Smoke Exposure: Never Smokeless Tobacco: Never Alcohol Use Standard Drinks/Week Comments Never 0 (1 standard drink = 0.6 oz pur e alcohol) AUDIT-C Answer Date Recorded Q1: How often [...] PHQ-2 Answer Date Recorded Total Score 0 03/17/2023 Childcare Answer Date Recorded Childcare Unknown 08/18/2018 Employment Answer Date Recorded Employment Unknown 08/18/2018 Hunger Screening Answer Date Recorded Within the past 12 months we worried whether our food would run out before we got money to buy more. Never True 03/17/2023 Within the past 12 months th e food we bought just didn't last and we didn't have money to get more. Never True 03/17/2023 Comments Unknown Sex and Gender Information Value Date Recorded Sex Assigned at Not on file Legal Sex Female 11:45 AM EDT Gender Identity Not on file Sexual Orientation Not on file documented as of this encounter Functional Status * Audit-C Score Answer Date of Assessment Author 1 03/23/2023 12:02 PM Ismael Pugh DO * Question Answer Date of Assessment Author Q1: How often do you have a drink containing alcohol? Monthly or less 03/23/2023 12:02 PM Ismael Pugh DO Q2: How many drinks containing alcohol do you have on a typical day when you are drinking? 1 or 2 03/23/2023 12:02 PM Lynne Pugh DO Q3: How often do you have six or more drinks on one occasion? Never 03/23/2023 12:02 PM Ismael Pugh DO documented as of this encounter Plan of Treatment Not on file documented as of this encounter Procedures Procedure Name Priority Date/Time Associated Diagnosis Comments DEXA SCAN CENTRAL SKELETAL Routine 03/23/2023 Asymptomatic menopausal state documented in this encounter Results * Dexa scan central skeletal (03/23/2023) Anatomical Region Laterality Modality N/A Radiographic Lizbeth ging 03/23/2023 Amina Mendez FERMENTATION MANAGER-AUDIT MGR IMG DXA ORDERABLES Final Re sult documented in this encounter Visit Diagnoses Diagnosis Asymptomatic menopausal state documented in this encounter Additional Health Concerns Assessment Noted Time PHQ-9 Depression Total Score: 0 03/17/19 24 10:57 AM EST documented as of this encounter Care Teams Network Communications Engineer Relationship Specialty Start Date End Date Ismael Bonilla DO [address] [facility], [place] [address] PCP - General Family Medicine 09/12/24 09/13/24 documented as of this encounter
--- OUTSIDE RECORDS SUMMARY | 2024-09-23 08:15 | XMS_ITS | Encounter Summary ---
Author Organization [facility] Address [address] [place] [address] Care Team Providers Care Brace Maker Name Role Phone Ismael Bonilla MD Primary Care Provider + [phone] Ismael Bonilla MD Primary Care Provider + [phone] Encounter Details Date Type Department Care Team (Late st Contact Info) Description 02/18/2023 Orders Only [facility] [address] [facility] [address] [place] [phone] Driss Jones MD [address] [place] [address] Social History Tobacco Use Types Packs/Day Years Used Date Smoking Tobacco: Never Smokeless Tobacco: Never Alcohol Use Standard Drinks/Week Comments Never 0 (1 standard drink = 0.6 oz pur e alcohol) caffeine; 3-4 cups per day Comments Unknown Sex and Gender Information Value Date Recorded Sex Assigned at Not on file Legal Sex Female 6:38 PM EDT Gender Identity Not on file Sexual Orientation Not on file Occupation Industry Job Start Date Job End Date Retired Not on file Not on file Not on file documented as of this encounter Plan of Treatment Upcoming Encounters Date Type Department Care Team (Late Contact Info) Description 10/11/2024 10:15 AM EDT Office Visit [facility] [address] [place] [phone] Jr. Haris Sosa, [address] [facility] [address] [place] [address] 08/07/2025 10:00 AM EDT Office Visit [facility] [address] [place] [address] Germán Saldaña, OPTICAL ENGINEERING MANAGER [address] [place] [address] documented as of this encounter Procedures Procedure Name Priority Date/Time Associated Diagnosis Comments MM DIGITAL SCREENING BI Routine 02/18/2023 10:20 AM EST documented in this encounter Results * MM DIGITAL SCREENING BI (02/18/2023 10:20 AM EST) Anatomical Region Laterality Modality Radiographic Lizbeth ging us Driss Jones MD IMG XR PROCEDURES Final Result documented in this encounter Visit Diagnoses Not on filedocumented in this encounter Care Teams Brace Maker Relationship Specialty Start Date End Date Ismael Bonilla MD PCP - General Family Medicine 11/25/22 07/19/24 Ismael Bonilla MD [address] [facility], [facility] [place] [address] PCP - General Family Medicine 07/20/24 documented as of this encounter
--- OUTSIDE RECORDS SUMMARY | 2024-09-23 08:15 | XMS_ITS | Encounter Summary ---
Author Organization [facility] Sys tem Address [facility]-[id number] [address] [place] [address] Care Team Providers Care Free Lance Artist Name Role Phone Ismael Bonilla Primary Care Provider [phone] Encounter Details Date Type Department Care Team (Late st Contact Info) Description 02/17/2023 Orders Only [facility] - Family Medicine [address] [place] [address] External, Scanning Provider Social History Tobacco Use [...] on file documented as of this encounter Progress Notes * Chikis Benítez - 02/17/2023 2:38 PM EST Pt notified documented in this encounter Plan of Treatment Not on file documented as of this encounter Visit Diagnoses Not on filedocumented in this encounter Additional Health Concerns Assessment Noted Time PHQ-9 Depression Total Score: 0 12/27/19 11:15 AM EDT documented as of this encounter Care Teams Free Lance Artist Relationship Specialty Start Date End Date Ismael Bonilla DO [address] [facility] [place] [address] PCP - General Family Medicine 09/12/24 09/13/24 documented as of this encounter
--- OUTSIDE RECORDS SUMMARY | 2024-09-23 08:15 | XMS_ITS | Encounter Summary ---
Author Organization [facility] [employer] Sys tem Address [facility]-[id number] [address] [place] [address] Care Team Providers Care Dye Tank Tender Name Role Phone Ismael Bonilla Chloe BURRIS Primary Care Provider + [phone] Encounter Details Date Type Department Care Team (Late st Contact Info) Description 04/15/2023 Telephone [facility] - Family Medicine [address] [place] [address] Johnathan Aguirre CMA Social History Tobacco Use Types Packs/Day [...] on file documented as of this encounter Miscellaneous Notes * Telephone Encounter - Johnathan Aguirre CMA - 04/15/2023 9:03 AM EST I talked to pt and Got pt scheduled for screening Colonoscopy for 04/29/2023 at 0900 pt would like the regular SUPREP sent to [facility] * Telephone Encounter - Naman Douglas DO - 04/15/2023 9:03 AM EST Message noted. H&P done Rx Suprep sent to [facility] documented in this encounter Plan of Treatment Not on file documented as of this encounter Visit Diagnoses Not on filedocumented in this encounter Additional Health Concerns Assessment Noted Time PHQ-9 Depression Total Score: 0 03/17/19 24 10:57 AM EST documented as of this encounter Care Teams Dye Tank Tender Relationship Specialty Start Date End Date Ismael Bonilla DO [address] [facility] [place] [address] PCP - General Family Medicine 09/12/24 09/13/24 documented as of this encounter
--- OUTSIDE RECORDS SUMMARY | 2024-09-23 08:15 | XMS_ITS | Encounter Summary ---
Author Organization [facility] [employer] Sys tem Address [id number] [address] [place] [address] Care Team Providers Care Crook Operator Name Role Phone Ismael Bonilla Chloe BURRIS Primary Care Provider + [phone] Encounter Details Date Type Department Care Team (Late st Contact Info) Description 09/13/2024 Telephone [facility] - Family Medicine [address] [place] [address] Alia Reese CMA Social History Tobacco Use Types Packs/Day Years Used Date Smoking Tobacco: Never Passive Smoke Exposure: Never Smokeless Tobacco: Never Alcohol Use Standard Drinks/Week Comments Never 0 (1 standard drink = 0.6 oz pur e alcohol) [facility] Utilities Answer Date Recorded In the past 12 months has e [employer], gas, oil, or water Environmental [employer] threatened to shut off services in your [...] Telephone Encounter - Alia Reese CMA - 09/13/2024 10:35 AM EDT Patient would like her labs done prior to Nguyễn coming in and she will go to [facility]. Can you order these labs please? documented in this encounter Plan of Treatment Not on file documented as of this encounter Goals Goal Patient Goal Type Associated Problems Recent Progress Patient-Stated? Author Home with CHERYL Lara General Yes Jeny Fish RN Note: Evaluation of progress towards goal: [...] documented as of this encounter Care Teams Crook Operator Relationship Specialty Start Date End Date Ismael Bonilla DO [address] [facility], [place] [address] PCP - General Family Medicine 09/12/24 09/13/24 documented as of this encounter
--- OUTSIDE RECORDS SUMMARY | 2024-09-23 08:15 | XMS_ITS | Encounter Summary ---
Author Organization [facility] Address [address] [facility] [place] [place] [address] Care Team Providers Care Sterile Technician Name Role Phone Ismael Bonilla MD Primary Care Provider + [phone] Ismael Bonilla MD Primary Care Provider + [phone] Encounter Details Date Type Department Care Team (Late st Contact Info) Description 02/01/2023 Abstract [facility] [address] [facility] [address] [place] [address] Flores Persaud NP Social History Tobacco Use Types Packs/Day Years [...] 10/11/2024 10:15 AM EDT Office Visit [facility] [address] [facility] [place] [address] Jr. Haris Sosa DO [address] [place] [address] 08/07/2025 10:00 AM EDT Office Visit [facility] [address] [place] [address] Germán Saldaña, WOOD CASKET MAKER [address] [place] [address] documented as of this encounter Visit Diagnoses Not on filedocumented in this encounter Care Teams Sterile Technician Relationship Specialty Start Date End Date Ismael Bonilla MD PCP - General Family Medicine 11/25/22 07/19/24 Ismael Bonilla MD [address] [facility] [place] [address] PCP - General Family Medicine 07/20/24 documented as of this encounter
--- OUTSIDE RECORDS SUMMARY | 2024-09-23 08:15 | XMS_ITS | Encounter Summary ---
Author Organization [facility] Sys tem Address [facility] [place] [id number] [address] [place] [address] Care Team Providers Care Ornamental Metal Worker Helper Name Role Phone Ismael Bonilla Primary Care Provider + [phone] Encounter Details Date Type Department Care Team (Late st Contact Info) Description 01/13/2023 Orders Only [facility] - Family Medicine [address] [place] [address] External, Scanning Provider Social History Tobacco Use [...] documented as of this encounter Care Teams Ornamental Metal Worker Helper Relationship Specialty Start Date End Date Ismael Bonilla DO [address], [email or web address] [place] [address] PCP - General Family Medicine 09/12/24 09/13/24 documented as of this encounter
--- OUTSIDE RECORDS SUMMARY | 2024-09-23 08:15 | XMS_ITS | Encounter Summary ---
Author Organization [facility] Address [address] [place] [place] [address] Care Team Providers Care Hand Lacer Name Role Phone Ismael Bonilla MD Primary Care Provider [phone] Encounter Details Date Type Department Care Team (Late st Contact Info) Description 08/15/[address] [address] [facility] [address] [facility] [address] [place] [address] Tate Hunter, DO [address] [facility] [address] [place], [place] [id number] Social History Tobacco Use Types Packs/Day Years Used Date Smoking Tobacco: Never Smokeless Tobacco: Never Alcohol Use Standard Drinks/Week Comments Yes 0 [...] Office Visit [facility] [address] [place] [address] Jr. Haris Sosa, DO [address] [facility] [address] [place], [place] [id number] 08/07/2025 10:00 AM EDT Office Visit [facility] [address] [place] [address] Germán Saldaña NP [address] [place] [address] documented as of this encounter Procedures Procedure Name Priority Date/Time Associated Diagnosis Comments MAMM SCREENING W CAD Routine 03/15/2024 11:08 AM EST documented in this encounter Results * MAMM SCREENING W CAD (03/15/2024 11:08 AM EST) Anatomical Region Laterality Modality Radiographic Lizbeth ging Tate Hunter DO IMG XR PROCEDURES Final R esult documented in this encounter Visit Diagnoses Not on filedocumented in this encounter Care Teams Hand Lacer Relationship Specialty Start Date End Date Ismael Bonilla MD [address] [place] [address] PCP - General Family Medicine 07/20/24 documented as of this encounter
--- OUTSIDE RECORDS SUMMARY | 2024-09-23 08:16 | XMS_ITS | Encounter Summary ---
Author Organization [facility] Sys tem Address [facility] [place][id number] [address] [place] [address] Care Team Providers Care Issuing Operator Name Role Phone Ismael Bonilla Primary Care Provider [phone] Encounter Details Date Type Department Care Team (Late st Contact Info) Description 01/13/2022 Orders Only [facility] [address] [facility] [place] [address] Ref Prov, [place] [address] Social History Tobacco Use Types Packs/Day Years [...] have Coronavirus / COVID-19? No / Unsure 01/01/2022 9:16 AM EDT documented as of this encounter Plan of Treatment Not on file documented as of this encounter Procedures Procedure Name Priority Date/Time Associated Diagnosis Comments MAMMOGRAPHY Routine 01/13/2022 documented in this encounter Results * MAMMOGRAPHY (01/13/2022) Anatomical Region Laterality Modality Other us Not In System Ref Prov HEALTH MAINTENANCE Final Result documented in this encounter Visit Diagnoses Not on filedocumented in this encounter Care Teams Issuing Operator Relationship Specialty Start Date End Date Ismael Bonilla DO [address] [facility], [place] [address] PCP - General Family Medicine 09/12/24 09/13/24 documented as of this encounter
--- OUTSIDE RECORDS SUMMARY | 2024-09-23 08:16 | XMS_ITS | Encounter Summary ---
Author Organization [facility] Sys tem Address [facility]-[id number] [address] [place] [address] Care Team Providers Care Customer Agent Name Role Phone Ismael Bonilla DO Primary Care Provider + [phone] Reason for Visit * Reason Comments Med Refill Encounter Details Date Type Department Care Team (Late st Contact Info) Description 12/27/2021 Refill [facility] - Family Medicine [address] [place] [phone] Amina Mendez, WELT TRIMMING MACHINE OPERATOR-LEADER TIER [address] [facility] [facility] [address] [place], [place] [id number] Other seasonal allergic rhinitis Social History Tobacco Use Types Packs/Day Years [...] as of this encounter Visit Diagnoses Diagnosis Other seasonal allergic rhinitis documented in this encounter Care Teams Customer Agent Relationship Specialty Start Date End Date Ismael Bonilla DO [address] [place] [address] PCP - General Family Medicine 09/12/24 09/13/24 documented as of this encounter
--- OUTSIDE RECORDS SUMMARY | 2024-09-23 08:16 | XMS_ITS | Encounter Summary ---
Author Organization [facility] [employer] s tem Address [facility][id number] [address] [place] [address] Care Team Providers Care Mutuel Cashier Name Role Phone Ismael Bonilla DO Primary Care Provider + [phone] Encounter Details Date Type Department Care Team (Late st Contact Info) Description 04/20/2023 Telephone [facility] - Family Medicine [address] [place] [address] Naman Douglas DO [address] [place] [address] Social History Tobacco Use Types Packs/Day Years [...] encounter Miscellaneous Notes * Telephone Encounter - Chikis Benítez - 04/20/2023 10:50 AM EST Patient was wondering if she could could get the galvalite to mix into a gallon of water * Telephone Encounter - Naman Douglas DO - 04/20/2023 10:50 AM EST Message noted. Rx for Golytely sent to [facility]. Please send or give her the correct instruction sheet for this documented in this encounter Plan of Treatment Not on file documented as of this encounter Visit Diagnoses Not on filedocumented in this encounter Additional Health Concerns Assessment Noted Time PHQ-9 Depression Total Score: 0 03/17/19 24 10:57 AM EST documented as of this encounter Care Teams Mutuel Cashier Relationship Specialty Start Date End Date Ismael Bonilla DO [address] [facility], [place] [address] PCP - General Family Medicine 09/12/24 09/13/24 documented as of this encounter
--- OUTSIDE RECORDS SUMMARY | 2024-09-23 08:16 | XMS_ITS | Encounter Summary ---
Author Organization [facility] Address [facility] [id number] [address] [place] [address] Care Team Providers Care Dispensing Audiologist Name Role Phone Ismael Bonilla DO Primary Care Provider + [phone] Reason for Visit * Reason Comments Med Refill Encounter Details Date Type Department Care Team (Late st Contact Info) Description 08/02/2022 Refill [facility] - Family Medicine [address] [place] [address] Amina Mendez, FORMULA ROOM WORKER-BURRER HAND [address] [place], [place] [id number] Benign paroxysmal vertigo, bilateral Social History Tobacco Use Types Packs/Day Years Used Date Smoking Tobacco: Never Passive Smoke Exposure: Never Smokeless Tobacco: Never Alcohol Use Standard Drinks/Week Comments Never 0 (1 standard drink = 0.6 oz pur e alcohol) PHQ-2 Answer Date Recorded Total Score 0 04/08/2022 Childcare Answer Date Recorded Childcare Unknown 08/18/2018 [...] as of this encounter Visit Diagnoses Diagnosis Benign paroxysmal vertigo, bilateral documented in this encounter Additional Health Concerns Assessment Noted Time PHQ-9 Depression Total Score: 0 04/08/19 23 1:59 PM EST documented as of this encounter Care Teams Dispensing Audiologist Relationship Specialty Start Date End Date Ismael Bonilla DO [address] [facility], [place] [address] PCP - General Family Medicine 09/12/24 09/13/24 documented as of this encounter
--- OUTSIDE RECORDS SUMMARY | 2024-09-23 08:16 | XMS_ITS | Encounter Summary ---
Author Organization [facility] Address [facility] [place]-[id number] [address] [place] [address] Care Team Providers Care Rehabilitation Teacher Name Role Phone Irene Ismael Chloe BURRIS Primary Care Provider + [phone] Encounter Details Date Type Department Care Team (Late st Contact Info) Description 04/16/2023 Orders Only [facility] - Family Medicine [address] [place] [address] Naman Douglas DO [address] [place] [address] Special screening for malignant neoplasm of colon (Primary Dx) Social History Tobacco Use Types Packs/Day Years [...] as of this encounter Visit Diagnoses Diagnosis Special screening for malignant neoplasm of colon- Primary Special screening for malignant neoplasms, colon documented in this encounter Additional Health Concerns Assessment Noted Time PHQ-9 Depression Total Score: 0 03/17/19 24 10:57 AM EST documented as of this encounter Care Teams Rehabilitation Teacher Relationship Specialty Start Date End Date Ismael Bonilla DO [address], [facility] [place] [address] PCP - General Family Medicine 09/12/24 09/13/24 documented as of this encounter
--- OUTSIDE RECORDS SUMMARY | 2024-09-23 08:16 | XMS_ITS | Encounter Summary ---
Author Organization [facility] Sys tem Address [facility] [id number] [address] [place] [address] Care Team Providers Care Interior Specialist Name Role Phone Ismael Bonilla Primary Care Provider + [phone] Encounter Details Date Type Department Care Team (Late st Contact Info) Description 10/13/2023 Orders Only [facility] - Family Medicine [address] [place] [phone] Ref Prov, [place] [address] Social History Tobacco Use Types Packs/Day Years [...] PHQ-2 Answer Date Recorded Total Score 0 09/24/2023 Childcare Answer Date Recorded Childcare Unknown 08/18/2018 Employment Answer Date Recorded Employment Unknown 08/18/2018 Hunger Screening Answer Date Recorded Within the past 12 months we worried whether our food would run out before we got money to buy more. Never True 09/24/2023 Within the past 12 months th e food we bought just didn't last and we didn't have money to get more. Never True 09/24/2023 Comments No Sex and Gender Information Value Date Recorded Sex Assigned at Not on file Legal Sex Female 11:45 AM EDT Gender Identity Not on file Sexual Orientation Not on file documented as of this encounter Plan of Treatment Not on file documented as of this encounter Procedures Procedure Name Priority Date/Time Associated Diagnosis Comments XR KNEE RT 3 VWS Routine 08/10/2023 11:0 6 AM EDT documented in this encounter Results * X-ray knee right 3 views (08/10/2023 11:06 AM EDT) Anatomical Region Laterality Modality Lower Extremities, MSK, Knee Right Com puted Radiography us Not In System Ref Prov IMG DIAGNOSTIC IMAGING OR DERABLES Final Result documented in this encounter Visit Diagnoses Not on filedocumented in this encounter Additional Health Concerns Assessment Noted Time PHQ-9 Depression Total Score: 0 09/24/19 24 1:01 PM EDT A Body Mass Index follow-up plan has been documented for the patient 09/24/2023 1:41 PM EDT documented as of this encounter Care Teams Interior Specialist Relationship Specialty Start Date End Date Ismael Bonilla DO [address] [facility], [facility] [address] PCP - General Family Medicine 09/12/24 09/13/24 documented as of this encounter
--- OUTSIDE RECORDS SUMMARY | 2024-09-23 08:16 | XMS_ITS | Encounter Summary ---
Author Organization [facility] Address [facility] [id number] [address] [place] [address] Care Team Providers Care Business Quality Assurance Analyst Name Role Phone Ismael Bonilla DO Primary Care Provider + [phone] Reason for Visit * Reason Comments Med Refill Encounter Details Date Type Department Care Team (Late st Contact Info) Description 08/30/2022 Refill [facility] - Family Medicine [address] [place] [address] Ismael Bonilla DO [address], [facility] [address] Gastro-esophageal reflux disease without esophagitis Social History Tobacco Use Types Packs/Day Years [...] as of this encounter Visit Diagnoses Diagnosis Gastro-esophageal reflux disease without esophagitis documented in this encounter Additional Health Concerns Assessment Noted Time PHQ-9 Depression Total Score: 0 04/08/19 23 1:59 PM EST documented as of this encounter Care Teams Business Quality Assurance Analyst Relationship Specialty Start Date End Date Ismael Bonilla DO [address] [facility] [address] PCP - General Family Medicine 09/12/24 09/13/24 documented as of this encounter
--- OUTSIDE RECORDS SUMMARY | 2024-09-23 08:16 | XMS_ITS | Encounter Summary ---
Author Organization [facility] tem Address [facility] [place]-[id number] [address] [place] [address] Care Team Providers Care Secretary To The Vice President Name Role Phone Ismael Bonilla DO Primary Care Provider + [phone] Encounter Details Date Type Department Care Team (Late st Contact Info) Description 04/17/2023 Telephone [facility] - Family Medicine [address] [place] [address] Naman Douglas DO [address] [place] [address] Social History Tobacco Use Types Packs/Day Years [...] * Telephone Encounter - Chikis Benítez - 04/17/2023 11:18 AM EST PATIENT CALLED AND SAID THAT HER SUPREP WAS TOO EXPENSIVE AND THEY WOULD HAVE TO ORDER IT. CAN YOU SEND SOMETHING ELSE IN * Telephone Encounter - Naman Douglas DO - 04/17/2023 11:18 AM EST Message noted. Rx for Sutab sent to [facility] documented in this encounter Plan of Treatment Not on file documented as of this encounter Visit Diagnoses Not on filedocumented in this encounter Additional Health Concerns Assessment Noted Time PHQ-9 Depression Total Score: 0 03/17/19 24 10:57 AM EST documented as of this encounter Care Teams Secretary To The Vice President Relationship Specialty Start Date End Date Ismael Bonilla DO [address] [facility], [place] [address] PCP - General Family Medicine 09/12/24 09/13/24 documented as of this encounter
--- OUTSIDE RECORDS SUMMARY | 2024-09-23 08:16 | XMS_ITS | Encounter Summary ---
Author Organization [facility] [employer] [facility] Address [facility] [id number] [address] [place] [address] Care Team Providers Care Gold Plater Name Role Phone Ismael Bonilla Primary Care Provider + [phone] Encounter Details Date Type Department Care Team (Late st Contact Info) Description 09/04/2022 [facility]phone [facility] [address] [place] [phone] Alia Reese CMA Social History Tobacco Use Types Packs/Day Years Used Date Smoking Tobacco: Never Passive Smoke Exposure: Never Smokeless Tobacco: Never Alcohol Use Standard Drinks/Week Comments Never 0 (1 standard drink = 0.6 oz pur e alcohol) PHQ-2 Answer Date Recorded Total Score 0 09/05/2022 Childcare Answer Date Recorded Childcare Unknown 08/18/2018 Employment Answer Date Recorded Employment Unknown 08/18/2018 Comments Unknown Sex and Gender Information Value Date Recorded Sex Assigned at Not on file Legal Sex Female 11:45 AM EDT Gender Identity Not on file Sexual Orientation Not on file documented as of this encounter Miscellaneous Notes * Telephone Encounter - Alia Reese CMA - 09/04/2022 10:58 AM EDT Pt said she has been having leg cramps. She wanted to know is there anything she can take for it ordo you want to see her? * Telephone Encounter - DHARA Colon - 09/04/2022 10:58 AM EDT I would need to evaluate that - Amina documented in this encounter Plan of Treatment Not on file documented as of this encounter Visit Diagnoses Not on filedocumented in this encounter Additional Health Concerns Assessment Noted Time PHQ-9 Depression Total Score: 0 04/08/19 23 1:59 PM EST documented as of this encounter Care Teams Gold Plater Relationship Specialty Start Date End Date Ismael Bonilla DO [address] [facility], [place] [address] PCP - General Family Medicine 09/12/24 09/13/24 documented as of this encounter
--- OUTSIDE RECORDS SUMMARY | 2024-09-23 08:16 | XMS_ITS | Encounter Summary ---
Author Organization [facility] Sys tem Address [facility] [place]-[id number] [address] [place] [address] Care Team Providers Care Silk Screener Name Role Phone Irene Ismael Chloe BURRIS Primary Care Provider + [phone] Encounter Details Date Type Department Care Team (Late st Contact Info) Description 04/20/2023 Orders Only [facility] - Family Medicine [address] [place] [address] Naman Douglas DO [address] [place] [address] Colon cancer screening (Primary Dx) Social History Tobacco Use Types [...] as of this encounter Visit Diagnoses Diagnosis Colon cancer screening- Primary Special screening for malignant neoplasms, colon documented in this encounter Additional Health Concerns Assessment Noted Time PHQ-9 Depression Total Score: 0 03/17/19 24 10:57 AM EST documented as of this encounter Care Teams Silk Screener Relationship Specialty Start Date End Date Ismael Bonilla DO [address], [facility] [place] [address] PCP - General Family Medicine 09/12/24 09/13/24 documented as of this encounter
--- OUTSIDE RECORDS SUMMARY | 2024-09-23 08:16 | XMS_ITS | Encounter Summary ---
Author Organization [facility] Address [facility] [place]-[id number] [address] [place] [address] Care Team Providers Care Picker Box Operator Name Role Phone Ismael Bonilla DO Primary Care Provider + [phone] Reason for Visit * Reason Comments Med Refill Encounter Details Date Type Department Care Team (Late st Contact Info) Description 08/20/2022 Refill [facility] - Family Medicine [address] [place] [phone] Amina Mendez, CULINARY ARTS TEACHER-TECHNICAL SYSTEM ANALYST [address] [facility] [facility] [address] [place] [id number] Other seasonal allergic rhinitis Social History Tobacco [...] seasonal allergic rhinitis documented in this encounter Additional Health Concerns Assessment Noted Time PHQ-9 Depression Total Score: 0 04/08/19 23 1:59 PM EST documented as of this encounter Care Teams Picker Box Operator Relationship Specialty Start Date End Date Ismael Bonilla DO [address], [place] [address] PCP - General Family Medicine 09/12/24 09/13/24 documented as of this encounter
--- OUTSIDE RECORDS SUMMARY | 2024-09-23 08:16 | XMS_ITS | Encounter Summary ---
Author Organization [facility] tem Address [facility] [place]-[id number] [address] [place] [address] Care Team Providers Care It Infrastructure Specialist Name Role Phone Ismael Bonilla Primary Care Provider + [phone] Encounter Details Date Type Department Care Team (Late st Contact Info) Description 01/01/2022 Orders Only [facility] - Family Medicine [address] [place] [phone] Amalia Lebron MA Social History Tobacco Use Types Packs/Day Years [...] Procedure Name Priority Date/Time Associated Diagnosis Comments MULTIPLE LABS Routine 12/27/2021 documented in this encounter Results * Multiple labs (12/27/2021) 12/27/2021 us Scanning Provider External [place] [facility] Final Result MANUALLY TRANSCRIBED RESULTS documented in this encounter Visit Diagnoses Not on filedocumented in this encounter Care Teams It Infrastructure Specialist Relationship Specialty Start Date End Date Ismael Bonilla DO [address], [place] [address] PCP - General Family Medicine 09/12/24 09/13/24 documented as of this encounter
--- OUTSIDE RECORDS SUMMARY | 2024-09-23 08:16 | XMS_ITS | Encounter Summary ---
Author Organization [facility] Sys tem Address [facility] [id number] [address] [place] [address] Care Team Providers Care Marketing Director Name Role Phone Irene Ismael Chloe BURRIS Primary Care Provider + [phone] Encounter Details Date Type Department Care Team (Late st Contact Info) Description 04/17/2023 Orders Only [facility] - Family Medicine [address] [place] [address] Naman Douglas DO [address] [place] [address] Colon cancer screening (Primary Dx) Social History [...] documented as of this encounter Care Teams Marketing Director Relationship Specialty Start Date End Date Ismael Bonlila DO [address], [place] [address] PCP - General Family Medicine 09/12/24 09/13/24 documented as of this encounter
--- OUTSIDE RECORDS SUMMARY | 2024-09-23 08:16 | XMS_ITS | Encounter Summary ---
Author Organization [facility] Address [facility] [place]-[id number] [address] [place] [address] Care Team Providers Care Spanish Speaking Nanny Name Role Phone Ismael Bonilla DO Primary Care Provider + [phone] Reason for Visit * Reason Comments Med Refill Encounter Details Date Type Department Care Team (Late st Contact Info) Description 06/02/2022 Refill [facility] - Family Medicine [address] [place] [phone] Amina Mendez, MUTUAL FUND ANALYST-BEN DAY ARTIST [address] [facility] [address] [facility] [address] [place], [place] [id number] Social History Tobacco Use Types Packs/Day Years [...] documented as of this encounter Care Teams Spanish Speaking Nanny Relationship Specialty Start Date End Date Ismael Bonilla DO [address], [place] [address] PCP - General Family Medicine 09/12/24 09/13/24 documented as of this encounter
[2024-09-23 08:58] LABS: Alanine Aminotransferase 23 U/L (14-59); Albumin Globulin Ratio 1.0; Albumin Level 3.7 g/dL (3.4-5.0); Alkaline Phosphatase 43 U/L (46-116); Anion Gap 14.1; Aspartate Amino Transferase 14 U/L (15-37); Blood Urea Nitrogen 16.0 mg/dL (7.0-18.0); Calcium 9.5 mg/dL (8.5-10.1); Carbon Dioxide 30.6 mmol/L (21.0-32.0); Chloride 101 mmol/L (98-107); Cholesterol 255 mg/dL (<=200); Estimated GFR (African America >60 (>=60 mL/min/1.73m^2); Estimated GFR (Non-African Ame >60 (>=60 mL/min/1.73m^2); Globulin 3.6 g/dL; Glucose 98 mg/dL (74-106); HDL Cholesterol 49 mg/dL (40-60); Potassium 4.7 mmol/L (3.5-5.1); Sodium 141 mmol/L (136-145); TSH W/ REFLEX FT4 3.723 uIU/mL (0.358-3.740); Total Protein 7.3 g/dL (6.4-8.2); Triglycerides 384 mg/dL (<=150); VLDL CHOLESTEROL 76.8 mg/dL
== END 2024-09-23 08:02 | disposition home or self-care (01) ==
LOC: LAB 08:12
PROVIDERS: PCP Family Medicine; Visit Provider Family Medicine
DX: E78.2 Mixed hyperlipidemia (principal); I10 Essential (primary) hypertension; E03.9 Hypothyroidism, unspecified
CPT/HCPCS: 36415; 80053; 80061; 84443